=== PATIENT | male | born 1960 | race Hispanic/Latino ===

== ENCOUNTER 2017-08-17 08:11 | Day surgery (SDC) | payer MEDICARE ==
[2017-08-14 16:42] VITALS: BMI 32.2
[~2017-08-17 08:11] MED LIST: Cyclopentolate 1% Opth Drop 2 ML BOT FS SCH; EPINEPHrine 0.3 MG, Dextrose 50% 3 ML in Ophthalmic Irrigation Solution 500 ML FS SCH; Phenylephrine 2.5% Ophth Soln 5 ML BOT FS SCH
[2017-08-17] MEDS ORDERED: Cyclopentolate 1% Opth Drop 2 ML BOT ONE (09:19)
[2017-08-17] MEDS ORDERED: Phenylephrine 2.5% Ophth Soln 5 ML BOT ONE (09:19)
[2017-08-17] MEDS ORDERED: Fentanyl 100 MCG/2 ML VIAL ONE (10:01)
[2017-08-17] MEDS ORDERED: Midazolam HCl 2 mg/2 ml Vial ONE (10:01)
[2017-08-17] MEDS ORDERED: Ondansetron HCl/PF 4 MG/2 ML Vial ONE (10:01)
[2017-08-17] MEDS ORDERED: Diprivan 20 ML ONE (10:02)
--- NOTE | 2017-08-17 11:55 | OP ---
DATE OF PROCEDURE: 08/17/2017 PREOPERATIVE DIAGNOSIS: Tractional retinal detachment, right eye. POSTOPERATIVE DIAGNOSIS: Tractional retinal detachment, right eye. PROCEDURE: Pars plana vitrectomy and retinal detachment repair, right eye. ANESTHESIA: Local with monitored anesthesia care. COMPLICATIONS: None. PROCEDURE IN DETAIL: The patient was identified in the preoperative holding area. [facility] for the planned surgical procedure on the right eye had been obtained. The patient was t ransported to the operative suite. Appropriate cardiopulmonary monitoring was established. Local an esthesia was obtained using retrobulbar and modified Van Lint lid block using 50/50 mixture of 4% lid ocaine and 0.75% bupivacaine. The patient was prepped and draped in usual sterile manner for ophthal bayron surgery. The right eye lid speculum was placed in the right eye. The 25-gauge trocars were plac ed in conjunctiva and sclera supratemporally, inferotemporally, and supranasally. Infusion line was placed inferotemporally. Light pipe and vitreous cutter were inserted into the eye. Core of vitrect jeffery was performed. Attention was turned to areas of traction peripherally. These were elevated usin g end-gripping forceps and the vitreous cutter. All areas of detachment were dissected free. Boudreaux re tinal photocoagulation was placed into all non-macular areas of the retina. No holes, breaks, or tea rs were identified. Trocars were removed and the eye was noted to retain pressure well. Retrobulbar Kenalog and subconjunctival Ancef were placed. Atropine and antibiotic ointment were placed, and th e eye was patched and shielded. The patient was taken to the postoperative recovery unit in good con dition having suffered no immediate perioperative complications. DISCHARGE INSTRUCTIONS: The patient was instructed to keep patch and shield on, avoid lifting or malika ding, and follow up in the morning with Dr. Taylor.
[2017-08-17] MEDS ORDERED: Propofol 200 MG/20 ML VIAL ONE (13:01)
[2017-08-17] MEDS ORDERED: Lidocaine 1% PF 5 ML VIAL ONE (13:01)
== END 2017-08-17 12:23 | disposition home or self-care (01) ==
LOC: SDC 08:11
PROVIDERS: ATTEND Ophthalmology Retina Specialist
PROC: 08T43ZZ Resection of Right Vitreous, Percutaneous Approach (ICD-10-PCS; principal; 2017-08-17)
PROC: 08QE3ZZ Repair Right Retina, Percutaneous Approach (ICD-10-PCS; 2017-08-17)
DX: H33.41 Traction detachment of retina, right eye (principal); E78.5 Hyperlipidemia, unspecified; I10 Essential (primary) hypertension; E11.9 Type 2 diabetes mellitus without complications; Z79.84 Long term (current) use of oral hypoglycemic drugs; Z79.82 Long term (current) use of aspirin; Z79.899 Other long term (current) drug therapy; Z95.1 Presence of aortocoronary bypass graft; Z98.890 Other specified postprocedural states; Z86.73 Personal history of transient ischemic attack (TIA), and cerebral infarction without residual deficits
CPT/HCPCS: J0171; J2250; J2405; J2704; J3010

== ENCOUNTER 2017-12-05 10:21 | Inpatient (IN) | payer MEDICARE ==
[2017-12-05 11:32] LABS: #Basophils 0.1 thou/uL (0.0-0.2); #Eosinphils 0.2 thou/uL (0.0-0.7); #Lymphocytes 1.9 thou/uL (1.20-3.40); #Neutrophils 9.2 thou/uL (1.40-6.50); %Basophils 0.5 % (0.0-1.0); %Eosinophils 1.8 % (0.0-10.0); %Lymphocytes 15.2 % (21.0-51.0); %Monocytes 8.3 % (0.0-10.0); %Neutrophils 74.3 % (42.0-75.0); Hemoglobin 12.6 g/dL (14.0-18.0); Mean Corpuscular HGB CONC 32.9 g/dL (32.0-36.0); Mean Corpuscular Hemoglobin 29.6 pg (27.0-31.0); Mean Corpuscular Volume 89.8 fl (80.0-94.0); Mean Platelet Volume 8.7 fL (7.4-10.4); Platelet Count 222 thou/uL (130-400); RBC Distribution Width 11.9 % (11.5-14.5); Red Blood Cell (RBC) Count 4.25 mill/uL (4.70-6.10); White Blood Cell (WBC) Count 12.4 thou/uL (4.8-10.8)
[2017-12-05 11:48] LABS: ALT (SGPT) 21 U/L (8-55); AST (SGOT) 34 U/L (5-34); Albumin 3.7 g/dL (3.5-5.0); Alkaline Phosphatase 85 U/L (40-150); Anion Gap 10 mmol/L (10-20); BUN (Urea Nitrogen) 26 mg/dL (8.4-25.7); Bilirubin, Total 0.5 mg/dL (0.2-1.2); Calc. Creatinine Clearance 0 mL/min (70-130); Calcium 9.3 mg/dL (7.8-10.44); Carbon Dioxide 20 mmol/L (22-29); Chloride 109 mmol/L (98-107); Estimated GFR-MDRD 30; Globulin 2.9 g/dL (2.4-3.5); Glucose 276 mg/dL (70-105); Potassium 4.6 mmol/L (3.5-5.1); Protein, Total 6.6 g/dL (6.0-8.3); Sodium 134 mmol/L (136-145)
[2017-12-05 11:59] LABS: CKMB 9.8 ng/mL (0-6.6); Troponin I 6.292 ng/mL (< 0.028)
--- NOTE | 2017-12-05 12:45 | CT ---
HEAD CT NONCONTRAST: Comparison: 03-01-17 Indication: Gait abnormality. FINDINGS: Chronic right cerebellar hemispheric cavitary infarction is present. Additional multifocal bilateral cerebellar hemisphere with lacunar infarctions are again seen. There is no intracranial hemorrhage, m ass effect, of midline shift. Parenchymal atrophy with compensatory dilatation of the ventricular sys tem is present. There is mild chronic microvascular ischemic disease. There is mild opacification at inferior left mastoid air cells. IMPRESSION: Stable head CT, without acute intracranial hemorrhage or mass effect. POS: ANNELISE
--- NOTE | 2017-12-05 12:57 | RAD ---
PORTABLE CHEST: HISTORY: Weakness. COMPARISON: 03/01/2017 FINDINGS: Mild cardiomegaly with postop sternotomy change again noted. The lung licea appear clear. No infil trate or vascular congestion noted. IMPRESSION: Mild cardiomegaly. No acute lung process or significant interval change noted. POS: ANNELISE
[2017-12-05] MEDS ORDERED: Enoxaparin Sodium 100 MG/ML SYRINGE ONE (13:09)
[2017-12-05] MEDS ORDERED: Aspirin 325 MG TAB ONE (13:09)
--- NOTE | 2017-12-05 13:32 | PDOC.FPRHP ---
- History of Present Illness Chief Complaint: Gait instability History of Present Illness: 57 year old male with PMH of CAD s/p CABG in 2009, CVA in 2013 with residual left sided deficits, HLD, HTN, DM II that presents with difficulty ambulating. He states that on Monday he noticed that he could not walk without falling over. He has difficulty ambulating at baseline 2/2 several cerebellar infarcts and a intrapontine hemorrhage in the past. He uses a cane to get around. He was unable to maintain his balance even with a cane as of Monday. He states he felt more weak than usual. Patient denies any light-headedness, dizziness, vertigo, or leg pain associated with the worsening gait instability. Patient denies any vision changes, new focal deficits, headache, chest pain or palpitations. Upon inquiring further about patient's CABG, he reports that he had no symptoms at the time he needed that intervention. He has never truly had complaints of chest pain or shortness of breath that required evaluation. Patient states that since his CABG in 2009 he has not followed regularly with a otolaryngology nurse. He does state that at some point there was a discussion about doing a stress test; however, it never got done. He had an echo done in 2016 which showed EF 50-55% with LA enlargement, LVH, and aortic fibrosis. Patient states he takes his medications regularly. He claims that he had not followed in over a year with his PCP, but went in earlier this month for a check up. He states that he has never been out of his medications for more than a week. - Allergies/Adverse Reactions Allergies Allergy/AdvReac Type Severity Reaction Status Date / Time No Known Allergies Allergy Verified 12/05/17 15:38 - Home Medications Medication Instructions Recorded Confirmed Type Aspirin [Aspirin Chewable Tablet] 1 tab PO DAILY 06/30/16 12/05/17 History Lisinopril [Zestril] 1 tab PO DAILY 06/30/16 12/05/17 History metFORMIN HCl [Metformin HCl ER] 1 tab PO BID 06/30/16 12/05/17 History Atorvastatin Calcium 80 mg PO HS 12/05/17 12/05/17 History Fenofibrate Nanocrystallized 145 mg PO TID-WM 12/05/17 12/05/17 History [Fenofibrate] amLODIPine Besylate [Norvasc] 2.5 mg PO DAILY 12/05/17 12/05/17 History glipiZIDE [Glucotrol] 10 mg PO BID 12/05/17 12/05/17 History - History PMHx: CAD s/p CABG 2009, Posterior cerebellar CVA's, History of intrapontine hemorrhage, HTN, DM type II, Tobacco abuse, HLD PSHx: CABG 2009, Right arm surgery, Left ankle surgery, Retinal detachment repair FHx: Mother and father with CAD at 58 and 60 years old, respectively Social: Patient endorses smoking 5-6 cigarettes a day since August. Prior to August he was smoking 1 PPD for 8-9 years. He endorses occasional alcohol use , but nothing daily. He denies any drug use. - Review of Systems General: denies: fever/chills, weight/appetite/sleep changes, night sweats, fatigue Eyes: denies: eye pain, vision changes ENT: denies: nasal congestion, rhinorrhea Respiratory: denies: cough, congestion, shortness of breath Cardiovascular: denies: chest pain, palpitation, edema, paroxysmal nocturnal dyspnea, orthopnea Gastrointestinal: denies: nausea, vomiting, diarrhea, constipation, abdominal pain Genitourinary: denies: incontinence, dysuria, polyuria Skin: denies: rashes, lesions, jaundice Musculoskeletal: denies: pain, tenderness, stiffness, swelling Neurological: reports: weakness. denies: numbness, syncope, seizure Psychological: denies: anxiety - Vital signs BP: 150/88 HR: 78 RR: 17 Tmax: 98.1 F Pox: 95% on RA Wt: 90.72 kg - Physical Exam Constitutional: NAD, awake, alert and oriented, well developed HEENT: normocephalic and atraumatic, PERRLA, EOMI, conjunctiva clear, no scleral icterus, grossly normal vision, grossly normal hearing, MMM, oropharynx clear, good dention Neck: supple, trachea midline Heart: RRR, normal S1/S2, no murmurs/rubs/gallops, pulses present, no edema Lungs: CTAB, no respiratory distress, good air movement, no rales/rhonchi, no wheezing, no retractions Abdomen: soft, non-tender, bowel sounds present, no masses/distention Musculoskeletal: normal structure, normal tone, ROM grossly normal Neurological: no focal deficit, CN II-XII intact, normal sensation Skin: no rash/lesions, good turgor, capillary refill <2 seconds Heme/Lymphatic: no unusual bruising or bleeding, no purpura, no petechia, no LAD Psychiatric: normal mood and affect, good judgment and insight, intact recent and remote memory FMR H&P: Results - Labs Result Diagrams: 12/05/17 15:40 12/05/17 11:14 Lab results: WBC 12.4 thou/uL (4.8-10.8) H 12/05/17 11:14 Hgb 12.6 g/dL (14.0-18.0) L 12/05/17 11:14 Hct 38.2 % (42.0-52.0) L 12/05/17 11:14 MCV 89.8 fl (80.0-94.0) 12/05/17 11:14 Plt Count 222 thou/uL (130-400) 12/05/17 11:14 Neutrophils % 74.3 % (42.0-75.0) 12/05/17 11:14 Sodium 134 mmol/L (136-145) L 12/05/17 11:14 Potassium 4.6 mmol/L (3.5-5.1) 12/05/17 11:14 Chloride 109 mmol/L (98-107) H 12/05/17 11:14 Carbon Dioxide 20 mmol/L (22-29) L 12/05/17 11:14 BUN 26 mg/dL (8.4-25.7) H 12/05/17 11:14 Creatinine 2.30 mg/dL (0.6-1.3) H 12/05/17 11:14 Glucose 276 mg/dL (70-105) H 12/05/17 11:14 Calcium 9.3 mg/dL (7.8-10.44) 12/05/17 11:14 Total Bilirubin 0.5 mg/dL (0.2-1.2) 12/05/17 11:14 AST 34 U/L (5-34) 12/05/17 11:14 ALT 21 U/L (8-55) 12/05/17 11:14 Alkaline Phosphatase 85 U/L (40-150) 12/05/17 11:14 CK-MB (CK-2) 9.8 ng/mL (0-6.6) H* 12/05/17 11:19 Serum Total Protein 6.6 g/dL (6.0-8.3) 12/05/17 11:14 Albumin 3.7 g/dL (3.5-5.0) 12/05/17 11:14 - Radiology Interpretation CT scan - head Status: image reviewed by me, report reviewed by me Additional comment: Stable findings. Shows chronic cerebellar infarcts and evidence of ischemia. Chest x-ray Status: image reviewed by me, report reviewed by me Additional comment: Mild cardiomegaly. No acute processes. FMR H&P: A/P - Problem List (1) NSTEMI (non-ST elevated myocardial infarction) Current Visit: Yes Status: Acute Code(s): I21.4 - NON-ST ELEVATION (NSTEMI) MYOCARDIAL INFARCTION (2) Ataxic gait Current Visit: Yes Status: Acute Code(s): R26.0 - ATAXIC GAIT (3) CAD (coronary artery disease) Current Visit: No Status: Chronic Code(s): I25.10 - ATHSCL HEART DISEASE OF [place] CORONARY ARTERY W/O ANG PCTRS Comment: s/p CABG X3 per pt in 2009 (4) Cerebellar lesion Current Visit: No Status: Chronic Code(s): G93.9 - DISORDER OF BRAIN, UNSPECIFIED (5) DM2 (diabetes mellitus, type 2) Current Visit: No Status: Chronic (6) HLD (hyperlipidemia) Current Visit: No Status: Chronic Code(s): E78.5 - HYPERLIPIDEMIA, UNSPECIFIED (7) HTN (hypertension) Current Visit: No Status: Chronic Code(s): I10 - ESSENTIAL (PRIMARY) HYPERTENSION - Plan NSTEMI: - Hx of CAD s/p CABG 2009 with poor cardiology follow up - Pt without symptoms with prior cardiac events - Trop 6.2 --> 7 - Cardiology consulted; appreciate recs - Plans for cardiac cath in AM - NS @ 125 ml/hr; NPO @ MN - Given lovenox injection x1; will hold additional lovenox/heparin for AM procedure - Continue to trend CE's - Monitor on telemetry CAD s/p CABG - Continue home medications - Start BB Ataxic gait - Worsened from baseline; difficulties ambulating at baseline 2/2 cerebellar strokes - q4h neuro checks - Consider diffusion weighted MRI once cardiac workup complete - Uses cane to ambulate - Fall precautions DM type II - Continue home medications - ACHS accuchecks - CC diet - Mild SSI - Anticipate pt needing insulin upon discharge; will titrate insulin regimen during hospitalization HTN - Continue home medications - Hold amlodipine and start carvedilol - Hold MONTRELL-I due to kidney function - Monitor BP - Allow for permissive HTN in first 24 hours HLD - Continue home medications Hx CVA - Continue home medications - q4h neuro checks due to recent symptoms Dispo: Admit to telemetry. Cards consulted. Plans for cardiac cath in AM. LOS > 48 hours. CODE STATUS: FULL DVT PPX: Lovenox x1; SCDs in preparation for procedure FMR H&P: Upper Level - Pertinent history Code Status: Full 57M presenting to ED with generalized weakness for the last 3 days. He feels his gait is altered during this time period as well. He has an abnormal gait at baseline 2/2 to a prior intrapontine hemorrhagic CVA which requires the use of a cane for ambulation. Very mild left sided residual weakness from CVA. He denies any vertigo or syncope associated with the weakness. CT head was negative for hemorrhage. Work up in ED revealed grossly elevated troponin. He denies any CP, SOB, exertional dypnea, headaches, changes in vision. History of CAD s/p CABG in 2009. Patient has numerous other comorbidities including HTN, HLD, and DMII. - Pertinent findings Vitals: stable upon evaluation in ER; see safety intern note - Plan Date/Time: 12/05/17 1331 I, [], have evaluated this patient and agree with findings/plan as outlined by safety intern resident. Pertinent changes/additions are listed here. Attending Addendum - Attending Addendum Date/Time: 12/05/17 [id number] I personally evaluated the patient and discussed the management with Dr. Waldrop I agree with the History, Examination, Assessment and Plan documented above with any addition or exceptions noted below Briefly this is a 57 year old male with a h/o CAD s/p CABG in 2009 , DM, HTN, CVA with residual left sided weakness presented with increased gait instability. Patient denies any vertigo. States that he just felt unsteady and had to hold on to the wall of furniture to walk around, States that symptoms began on Monday. Denies any chest pain, SOB , diaphoresis, CASAS, visual disturbances. PMH/PSH/Meds/All/SH reviewwed and agree with residents documentation. Afenrile VSS Exam repeated by me and agree with residents findings. Labs: Cr=2.3 troponin= 6.2 and 7.6. EKG- NSR, no ST changes. A/P: 1) NSTEMI- cardiology consulted, plan for cardiac cath in AM. 2) Acute in chronic CKD- IVF obvernight and repat labs in am. 3) DM- monijtor accuchecks and use SDI; adjust meds as needed. 4) HTN- stable; continue home meds
[2017-12-05 15:01] LABS: Troponin I 7.664 ng/mL (< 0.028)
[2017-12-05] MEDS ORDERED: Acetaminophen 325 MG TAB PO PRN (15:30)
[2017-12-05] MEDS ORDERED: Heparin 10,000 UNITS/ 10 ML VIAL SLOW IVP SCH (15:30)
[2017-12-05] MEDS ORDERED: Ondansetron HCl/PF 4 MG/2 ML Vial IVP PRN (15:30)
[2017-12-05] MEDS ORDERED: Dextrose 5% in Water 1,000 ML IV PRN (15:30)
[2017-12-05] MEDS ORDERED: Dextrose 50% Abboject 50 ML SYRINGE SLOW IVP PRN (15:30)
[2017-12-05] MEDS ORDERED: Ondansetron ODT 4 MG TAB PO PRN (15:30)
[2017-12-05 15:42] VITALS: BMI 31.0
[2017-12-05 15:47] LABS: Hemoglobin 12.1 g/dL (14.0-18.0); Platelet Count 235 thou/uL (130-400)
[2017-12-05] MEDS ORDERED: Fenofibrate Nanocrystallized 145 MG TAB PO SCH (17:00)
[2017-12-05] MEDS ORDERED: Sodium Chloride 0.9% 1,000 ML IV SCH (17:00)
[2017-12-05] MEDS ORDERED: Carvedilol 3.125 MG TAB PO SCH (17:00)
[2017-12-05] MEDS: Carvedilol 6.25 MG TAB PO SCH (17:17)
[2017-12-05] MEDS ORDERED: Communication Order-Pharmacy FS SCH (18:00)
[2017-12-05 18:17] LABS: Troponin I 8.019 ng/mL (< 0.028)
--- NOTE | 2017-12-05 19:07 | PDOC.EVN ---
Event Note - Event Note Event Note: General: NAD, A&Ox3, well developed HEENT: NC/AT, PERRLA, EOMI, conjunctiva clear, no scleral icterus, MMM Neck: supple, trachea midline Heart: RRR, normal S1/S2, no murmurs/rubs/gallops, pulses present, no edema Lungs: CTAB, no respiratory distress, good air movement, no rales/rhonchi, no wheezing, no retractions Abdomen: soft, non-tender, bowel sounds present, no masses/distention Musculoskeletal: normal structure, normal tone, ROM grossly normal Neurological: no focal deficit, CN II-XII intact, normal sensation Skin: no rash/lesions, good turgor, capillary refill <2 seconds Heme/Lymphatic: no unusual bruising or bleeding, no purpura, no petechia, no LAD Psychiatric: normal mood and affect, good judgment and insight, intact recent and remote memory A/P: 1. NSTEMI: - Asympomatic but history of CAD s/p CABG 2009 - Trop 6.2 --> 7, continue to trend - Cardiology consulted - Plans for cardiac cath in AM - Given lovenox injection x1; will hold additional lovenox/heparin for AM procedure 2. CAD - Continue home medications - Start BB 3. Abnormal gait - Spoke with PCP and this appears to be his baseline; difficulties ambulating at baseline 2/2 cerebellar strokes - q4h neuro checks - Consider diffusion weighted MRI once cardiac workup complete 4. DM type II - Continue home medications - accuchecks qACHS; mild SSI - Anticipate pt needing insulin upon discharge; will titrate insulin regimen during hospitalization 5. HTN - Continue home medications - Hold amlodipine and start carvedilol - Hold MONTRELL-I due to kidney function - Monitor BP - Allow for permissive HTN in first 24 hours 6. HLD - Continue home medications
--- NOTE | 2017-12-05 19:14 | CON ---
DATE OF CONSULTATION: 12/05/2017 REASON FOR CONSULTATION: Elevated troponin. 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 Elijah Pichardo. HISTORY OF PRESENT ILLNESS: Mr. Sanon is a very pleasant 57-year-old gentleman who recently presented with dizziness and lightheadedness. Please see full consultation by Dr. Briana Alicea. No chest pain o r pressure noted. No other associated ameliorating or exacerbating factors present. He presented wi th a troponin of 6, which was certainly felt to be abnormal. Patient has had a history of bypass surgery x4 in 2009. He moved to [place] and has now returned to the area. He was last seen by Dr. Pichardo 9 months ago. Patient also has no previous history of unde rlying chronic kidney disease. His creatinine was also elevated upon arrival. Pertinent positives i nclude a CVA, diabetes mellitus, tobacco abuse, and hypertension. Most recent echo has been with LVEF 50%-55% in 2016. PHYSICAL EXAMINATION: GENERAL: Patient is a pleasant male/female who is in no acute distress. The patient appears his/her stated age. VITAL SIGNS: Blood pressure 142/76, pulse 76, temperature 98.2. NEUROLOGIC: The patient is alert and oriented times 3 with no focal neurologic deficits. HEENT: Sclerae without icterus. Mouth has moist mucous membranes with normal pallor. NECK: No JVD. Carotid upstroke brisk. No bruits bilaterally. LUNGS: Clear to auscultation with unlabored respirations. BACK: No scoliosis or kyphosis. CARDIAC: Regular rate and rhythm with normal S1 and S2. No S3 or S4 noted. No significant rubs, mu rmurs, thrills, or gallops noted throughout the precordium. PMI is not displaced. There is no lilia ternal heave. ABDOMEN: Soft, nontender, nondistended. No peritoneal signs present. No hepatosplenomegaly. No ab normal striae. EXTREMITIES: 2+ femoral and 2+ dorsalis pedis pulses. No cyanosis, clubbing, or edema. SKIN: No gross abnormalities. PERTINENT LABORATORY DATA: Peak troponin 7.6 with a peak MB of 9.2, creatinine 2.3, hemoglobin 12.1. EKG: Normal sinus rhythm with ST-T wave changes suggesting ischemia, inferior infarct, age old. W hen compared to previous EKG, no significant changes. IMPRESSION: 1. Non-Q wave myocardial infarction. 2. Coronary artery disease. 3. Status post blood pressure. 4. Diabetes mellitus. 5. Tobacco abuse. RECOMMENDATIONS: Mr. Sanon's symptoms are certainly atypical. No chest pain or pressure noted. No sh ortness of breath. At this point, I would recommend coronary angiography with possible PCI to readdr ess his anatomy. I discussed the procedure in full detail with Mr. Sanon. The risks of the procedure were also discussed. The risks of the procedure include but are not limited to the following: , stroke, [place], need for emergency surgery, loss of limb, bleeding, and infection, as well as a reactio n to the dye causing kidney failure and needing long-term dialysis. I also discussed the risks of PC I to include all of the above including coronary dissection and perforation in addition to acute sten t thrombosis and restenosis. All questions about the procedure were answered. Given the above, the patient agreed to proceed with coronary angiography and possible PCI. All questions were answered. Given the above, the patient agreed to proceed with the above procedure . He has been given 1 dose of Lovenox. Otherwise, I have no recommendations.
[2017-12-05 19:51] LABS: PTT 35.4 SEC (22.9-36.1)
[2017-12-05] MEDS ORDERED: glipiZIDE 10 MG TAB PO SCH (21:00)
--- NOTE | 2017-12-05 21:15 | CON-2 ---
DATE OF CONSULTATION: 12/05/2017 CARDIOLOGY CONSULTATION NOTE RESIDENT: Briana Alicea M.D. ATTENDING FURNACE FILLER: Ranjith Pedersen M.D. CHIEF COMPLAINT: Unsteadiness. HISTORY OF PRESENT ILLNESS: Mr. Sanon is a 57-year-old gentleman with history of coronary artery disea se, cerebellar CVA, poorly controlled diabetes, hypertension, and hyperlipidemia who presented to the ER earlier today with chief complaint of feeling unsteady. He reports that his symptoms started on Monday and he noted them when he was going on to his yard. He usually uses a cane for steadiness whe n he goes out to the store, but at home he is able to ambulate without one. He reports that he was n oticing he was needing to hold on to things as he was walking to and from the bathroom and working in his yard. He denies any chest pain, shortness of breath, nausea, vomiting, diarrhea, fever, chills, but did note that his blood sugar was running high on Monday and Monday. He states that he came in because his felt he needed to be evaluated. At this time, he denies any current symptoms apart from still feeling a little bit woozy and continues to deny any coronary complaints. REVIEW OF SYSTEMS: General: Denies fever or chills. Head: Denies headache, trauma. Eyes: Denies vision changes or eye pain. ENT: Denies rhinorrhea, sore throat. Cardiovascular: Denies chest pa in, palpitations. Respiratory: Denies cough or wheezing. Gastrointestinal: Denies nausea, vomitin g, diarrhea. Genitourinary: Denies dysuria or hematuria. Extremities: Denies cyanosis or edema. PAST MEDICAL HISTORY: 1. Coronary artery disease, status post 3-vessel CABG in 2009. 2. CVA with residual unsteadiness and intermittently uses cane to ambulate. 3. Poorly controlled type 2 diabetes mellitus. 4. Hypertension. 5. Hyperlipidemia. 6. Chronic kidney disease stage 3. PAST SURGICAL HISTORY: 1. CABG in 2009. 2. Retinal detachment repair in 2018. 3. Right arm surgery. 4. Left ankle surgery. MEDICATIONS: 1. Aspirin 81 mg p.o. daily. 2. Metformin 1000 mg p.o. daily. 3. Glipizide 10 mg every day. 4. Atorvastatin 80 mg p.o. at bedtime. 5. Lisinopril 20 mg p.o. daily. 6. Amlodipine 5 mg p.o. daily. 7. Fenofibrate 145 mg p.o. daily. FAMILY HISTORY: Mother and father both of [place] in their late 50s. ALLERGIES: No known drug allergies. SOCIAL HISTORY: One pack per day smoker for the last 8-9 years and recently cut down to half pack a day, social alcohol drinker 3-4 beers once a week. Denies any illicit drug use. IMAGING: EKG: Showed normal sinus rhythm with a ventricular rate of 81 beats per minutes with possi ble old inferior infarct. Echo in 2016 showed a left ventricular ejection fraction of 50%-55%, left ventricular hypertrophy, le ft atrial enlargement, aortic fibrosis, and mild mitral regurgitation. Chest x-ray showed cardiomegaly and sternotomy wires. CT of the head showed chronic ischemic changes. PHYSICAL EXAMINATION: VITAL SIGNS: Blood pressure 142/76, temperature 98.2, pulse 76, respirations 18, O2 96% on room air. GENERAL: Alert and oriented x3. Speech is slightly slurred, which patient reports is chronic. HEENT: Extraocular movements intact. No conjunctival injection. CARDIOVASCULAR: Regular rate and rhythm, no murmurs noted. No carotid bruits auscultated. RESPIRATORY: Lungs are clear to auscultation bilaterally. CHEST: Well-healed midline sternotomy scar. ABDOMEN: Soft, nontender, nondistended. Bowel sounds present. EXTREMITIES: Strength is 5/5 in all extremities. Pulses 1+ throughout. LABORATORY DATA: WBC 12.4, hemoglobin 12.6, hematocrit 38.2, platelets 222. Sodium 134, potassium 4 .6, chloride 109, CO2 20, BUN 26, creatinine 2.3, glucose 276, troponin 6.292, 7.664, CK-MB 9.8. AST 34, ALT 21, alkaline phosphatase 85, T-bilirubin 0.5, calcium 9.3, total protein 6.6 and albumin 3.7 . ASSESSMENT AND PLAN: A 57-year-old male with known coronary artery disease who presents with dizzine ss, found to have elevated troponin. 1. Mdt-RC-[id number] elevation myocardial infarction: Status post therapeutic Lovenox at approximately 1:00 p.m. We will hold further anticoagulation. Plan for repeat catheterization in the morning. W e will obtain echo 2. With acute kidney injury on chronic kidney disease. We will also give fluids overnight in antici pation of contrast in the morning. The risks were discussed with the patient and his and they a gree to proceed. 2. Hypertension. We will recommend holding MONTRELL inhibitor overnight until after catheterization and repeat studies for good kidney function in the morning. 3. Chronic kidney disease: Please obtain repeat basic metabolic panel in the morning. Thank you very much for this consultation. Please see Dr. Pedersen's addendum for any further recom mendations.
[2017-12-05] MEDS: Atorvastatin Calcium 40 MG TAB PO SCH (21:19)
[2017-12-06] MEDS ORDERED: Heparin 25,000 units/D5W 500 ML IVPB SCH (01:00)
[2017-12-06] MEDS ORDERED: Labetalol HCl 100 MG/20 ML VIAL SLOW IVP PRN (05:09)
[2017-12-06] MEDS: Sodium Chloride 0.9% 1,000 ML IV SCH ×2 (05:27→18:16)
[2017-12-06 05:41] LABS: #Basophils 0.1 thou/uL (0.0-0.2); #Eosinphils 0.3 thou/uL (0.0-0.7); #Lymphocytes 2.5 thou/uL (1.20-3.40); #Neutrophils 5.6 thou/uL (1.40-6.50); %Basophils 0.8 % (0.0-1.0); %Eosinophils 2.9 % (0.0-10.0); %Lymphocytes 26.8 % (21.0-51.0); %Monocytes 10.2 % (0.0-10.0); %Neutrophils 59.3 % (42.0-75.0); Hemoglobin 11.8 g/dL (14.0-18.0); Mean Corpuscular HGB CONC 34.9 g/dL (32.0-36.0); Mean Corpuscular Hemoglobin 31.3 pg (27.0-31.0); Mean Corpuscular Volume 89.7 fl (80.0-94.0); Mean Platelet Volume 8.3 fL (7.4-10.4); Platelet Count 232 thou/uL (130-400); RBC Distribution Width 11.8 % (11.5-14.5); Red Blood Cell (RBC) Count 3.79 mill/uL (4.70-6.10); White Blood Cell (WBC) Count 9.5 thou/uL (4.8-10.8)
[2017-12-06] MEDS ORDERED: Diazepam 5 MG TAB PO SCH (06:00)
[2017-12-06 06:13] LABS: Anion Gap 10 mmol/L (10-20); BUN (Urea Nitrogen) 23 mg/dL (8.4-25.7); Calc. Creatinine Clearance 52 mL/min (70-130); Calcium 8.9 mg/dL (7.8-10.44); Carbon Dioxide 24 mmol/L (22-29); Chloride 107 mmol/L (98-107); Estimated GFR-MDRD 35; Glucose 280 mg/dL (70-105); Potassium 4.5 mmol/L (3.5-5.1); Sodium 136 mmol/L (136-145)
[2017-12-06 06:45] LABS: Critical Call Chem Troponin I RESULT DECREASING; Troponin I 5.314 ng/mL (< 0.028)
--- NOTE | 2017-12-06 07:02 | PDOC.FM ---
- Subjective Subjective: Patient doing well this AM. No significant overnight events. Patient denies chest pain, shortness of breath, headaches, or palpitations. He has been working with PT and states he is still having gait instability that is worse from baseline. Pt concerned about cardiac cath he is going to have done this morning. Answered several questions regarding procedure. Advised patient to speak with cardiology regarding specific questions. He has noted his BP to be high. He did not take any of his BP medications yesterday, and we have been holding many of his medications here due to nephrotoxic effects. - Objective MAR Reviewed: Yes Vital Signs & Weight: Vital Signs (12 hours) Temp Pulse Resp BP Pulse Ox 12/06/17 05:48 61 12/06/17 04:00 98.0 F 73 20 193/88 H 98 12/06/17 00:11 98.4 F 72 16 186/87 H 91 L 12/05/17 20:00 98.2 F 76 18 97 12/05/17 19:38 97 I&O: 12/05/17 12/06/17 12/07/17 06:59 06:59 06:59 Intake Total 845 Output Total 450 Balance 395 Result Diagrams: 12/06/17 05:16 12/06/17 05:16 EKG Reviewed by me: Yes Radiology Reviewed by me: Yes <Matrina Waldrop - Last Filed: 12/06/17 08:44> - Objective Vital Signs & Weight: Vital Signs (12 hours) Temp Pulse Pulse Pulse Resp BP BP 12/06/17 10:08 181/98 H 12/06/17 07:56 72 64 169/81 H 12/06/17 05:48 61 12/06/17 04:00 98.0 F 73 20 BP BP Pulse Ox Pulse Ox Pulse Ox 12/06/17 10:08 12/06/17 07:56 151/72 H 98 96 12/06/17 05:48 12/06/17 04:00 193/88 H 98 Weight Admit Weight 89.811 kg Weight 89.811 kg I&O: 12/05/17 12/06/17 12/07/17 06:59 06:59 06:59 Intake Total 845 Output Total 450 Balance 395 Result Diagrams: 12/06/17 05:16 12/06/17 05:16 <Efe Owens - Last Filed: 12/06/17 15:25> Phys Exam - Physical Examination Constitutional: NAD HEENT: moist MMs, sclera anicteric Neck: supple Respiratory: no wheezing, clear to auscultation bilateral Cardiovascular: RRR, no significant murmur Gastrointestinal: soft, non-tender, no distention, positive bowel sounds Musculoskeletal: no edema, pulses present Neurological: non-focal, moves all 4 limbs Psychiatric: normal affect, A&O x 3 Skin: no rash, cap refill <2 seconds <Martina Waldrop - Last Filed: 12/06/17 08:44> Dx/Plan (1) NSTEMI (non-ST elevated myocardial infarction) Code(s): I21.4 - NON-ST ELEVATION (NSTEMI) MYOCARDIAL INFARCTION Status: Acute (2) Ataxic gait Code(s): R26.0 - ATAXIC GAIT Status: Acute (3) CAD (coronary artery disease) Code(s): I25.10 - ATHSCL HEART DISEASE OF [place] CORONARY ARTERY W/O ANG PCTRS Status: Chronic (4) Cerebellar lesion Code(s): G93.9 - DISORDER OF BRAIN, UNSPECIFIED Status: Chronic (5) DM2 (diabetes mellitus, type 2) Status: Chronic (6) HLD (hyperlipidemia) Code(s): E78.5 - HYPERLIPIDEMIA, UNSPECIFIED Status: Chronic (7) HTN (hypertension) Code(s): I10 - ESSENTIAL (PRIMARY) HYPERTENSION Status: Chronic - Plan Plan: NSTEMI/ Non-Q wave [place]: - Hx of CAD s/p CABG 2009 with poor cardiology follow up - Pt without symptoms with prior cardiac events - Trop 6.2 --> 7--> 8 --> 5 - Cardiology consulted; appreciate recs - Plans for cardiac cath this AM - NS @ 125 ml/hr; NPO - Given th lovenox injection x1; will hold additional lovenox/heparin for AM procedure per cardiology recs - Monitor on telemetry CAD s/p CABG - Continue home medications - Start BB Ataxic gait - Worsened from baseline; difficulties ambulating at baseline 2/2 cerebellar strokes - q4h neuro checks - Consider diffusion weighted MRI once cardiac workup complete - Uses cane to ambulate - Fall precautions DM type II - Continue home medications - ACHS accuchecks - CC diet - Mild SSI - Anticipate pt needing insulin upon discharge; will titrate insulin regimen during hospitalization - Pt has not received any SSI for some reason despite elevated BG; will start with nighttime insulin at 0.2 units/kg HTN - Continue home medications - Hold amlodipine and start carvedilol - Hold MONTRELL-I due to kidney function - Monitor BP - Allow for permissive HTN in first 24 hours - Labetolol PRN until after procedure - Will titrate medications during hospitalization HLD - Continue home medications Hx CVA - Continue home medications - q4h neuro checks due to recent symptoms Dispo: Admit to telemetry. Cards consulted. Plans for cardiac cath in AM. LOS > 48 hours. CODE STATUS: FULL DVT PPX: Th lovenox x1; SCDs in preparation for procedure per cardiology recs <Martina Waldrop - Last Filed: 12/06/17 08:44> Attending Addendum - Attending Addendum Date/Time: 12/06/17 8177 I personally evaluated the patient and discussed the management with Dr. Waldrop and team. I agree with and repeated the History, Examination, Assessment and Plan documented above with any addition or exceptions noted below. Has had worse coordination and more slurring of speech as described in HPI. Mild dyscordination LLE > RLE, with decreased SLT in LLE. Hypertonic LLE. Slurs speech on exam. Await MRI and cardiology recommendations. Risk factor management. Permissive hypertension for now, may need to consult neuro pending results. <Efe Owens - Last Filed: 12/06/17 15:25>
[2017-12-06] MEDS ORDERED: Lisinopril 20 MG TAB PO SCH (09:00)
[2017-12-06] MEDS: Carvedilol 6.25 MG TAB PO SCH ×2 (10:08→18:16)
[2017-12-06] MEDS: HumaLOG 300 UNITS/3 ML VIAL SC PRN ×2 (10:09→18:17)
--- NOTE | 2017-12-06 12:42 | PDOC.CTH ---
Cardiology Progress Note - Subjective No chest pain, tightness ,pressure, SOB. His main complaint is gait imbalance worsening and mild difficulty with speech today. - Objective Vital Signs Temp Pulse Resp BP BP Pulse Ox 12/06/17 10:08 181/98 H 12/06/17 05:48 61 12/06/17 04:00 98.0 F 73 20 193/88 H 98 Admit Weight 198 lb Weight 198 lb 12/05/17 12/06/17 12/07/17 06:59 06:59 06:59 Intake Total 845 Output Total 450 Balance 395 - Physical Examination General/Neuro: alert & oriented x3, NAD Neck: no JVD present Lungs: CTA, unlabored respirations Heart: RRR Abdomen: NT/ND Extremities: + edema B (trace) - Telemetry Telemetry Rhythm: NSR - Labs Result Diagrams: 12/06/17 05:16 12/06/17 05:16 Troponin/CKMB CK-MB (CK-2) 5.0 ng/mL (0-6.6) 12/06/17 05:15 Troponin I 5.314 ng/mL (< 0.028) H* 12/06/17 05:15 - Assessment/Plan 1. NSTEMI 2. Possible acute CVA 3. CAD s/p CABG in the past 4. Non compliance. 5. DENYS on CKD. PLAN: - Would wait on any [facility] until MRI brain done to make sure this is not a recurrence of his CVA. - If MRI shows no acute issues then will proceed with [facility] tomorrow or [place]. - Continue IV fluids for now due to elevated creatinine. - We spoke about risks and benefits of procedure and he agrees to proceed, higher risk of contrast nephropathy due to underlying renal dysfunction which has already progressed from last evaluation.
--- NOTE | 2017-12-06 14:25 | MRI ---
MRI BRAIN WITHOUT CONTRAST: HISTORY: Concern for cerebellar infarct. COMPARISON: CT brain prior day. FINDINGS: In the right [place] is a focal lentiform area of diffusion restriction with decreased signal and diffus ion weighted imaging sequence. This is in the territory of the basilar artery. No other abnormal areas of diffusion restriction are appreciated. On the susceptibility weighted imaging, there were no abnormal areas of hemorrhage. No hydrocephalus. The flow voids of the [place] are maintained. Mild microvascular ischemic changes. IMPRESSION: Very small acute infarction involving the right [place] in the expected location of the branches of the basilar artery. No significant hemorrhage. POS: ANNELISE
[2017-12-06] MEDS ORDERED: Heparin 5,000 UNITS/ML VIAL SC SCH (19:45)
[2017-12-06] MEDS: Atorvastatin Calcium 40 MG TAB PO SCH (21:19)
[2017-12-06] MEDS: Enoxaparin Sodium 100 MG/ML SYRINGE SC SCH (21:20)
[2017-12-07] MEDS: Sodium Chloride 0.9% 1,000 ML IV SCH ×2 (01:31→14:46)
--- NOTE | 2017-12-07 09:05 | PDOC.FM ---
- Subjective Subjective: Patient doing well this AM. No significant overnight events. Discussed finding of acute stroke. Discussed need to manage comorbid conditions to include BP and DM. Patient has been given SSI while in hospital. Will titrate insulin for patient to take at home. Patient currently being anticoagulated. He was told that neurology will likely see him tomorrow. - Objective MAR Reviewed: Yes Vital Signs & Weight: Vital Signs (12 hours) Temp Pulse Resp BP Pulse Ox 12/07/17 04:00 97.4 F L 69 20 168/81 H 98 12/07/17 00:00 68 18 114/57 L 100 Weight Admit Weight 89.811 kg Weight 90.718 kg I&O: 12/06/17 12/07/17 12/08/17 06:59 06:59 06:59 Intake Total 845 2775 Output Total 450 550 Balance 395 2225 Result Diagrams: 12/06/17 05:16 12/06/17 05:16 EKG Reviewed by me: Yes Radiology Reviewed by me: Yes <Martina Waldrop - Last Filed: 12/07/17 09:04> - Objective Vital Signs & Weight: Vital Signs (12 hours) Temp Pulse Pulse Resp BP BP BP 12/07/17 10:07 76 137/68 12/07/17 09:56 137/68 12/07/17 09:16 75 166/81 H 164/87 H 12/07/17 08:00 98.0 F 76 18 12/07/17 04:00 97.4 F L 69 20 BP Pulse Ox 12/07/17 10:07 12/07/17 09:56 12/07/17 09:16 12/07/17 08:00 164/80 H 95 12/07/17 04:00 168/81 H 98 Weight Admit Weight 89.811 kg Weight 90.718 kg I&O: 12/06/17 12/07/17 12/08/17 06:59 06:59 06:59 Intake Total 845 2775 Output Total 450 550 Balance 395 2225 Result Diagrams: 12/06/17 05:16 12/07/17 09:42 <Harley Jimenes - Last Filed: 12/07/17 12:15> Phys Exam - Physical Examination Constitutional: NAD HEENT: moist MMs, sclera anicteric slightly slurred speech Neck: supple Respiratory: no wheezing, clear to auscultation bilateral Cardiovascular: RRR, no significant murmur Gastrointestinal: soft, positive bowel sounds Musculoskeletal: no edema, pulses present Neurological: non-focal, moves all 4 limbs Psychiatric: normal affect, A&O x 3 Skin: no rash, cap refill <2 seconds <Martina Waldrop - Last Filed: 12/07/17 09:04> Dx/Plan (1) NSTEMI (non-ST elevated myocardial infarction) Code(s): I21.4 - NON-ST ELEVATION (NSTEMI) MYOCARDIAL INFARCTION Status: Acute (2) Ataxic gait Code(s): R26.0 - ATAXIC GAIT Status: Acute (3) CAD (coronary artery disease) Code(s): I25.10 - ATHSCL HEART DISEASE OF [place] CORONARY ARTERY W/O ANG PCTRS Status: Chronic (4) Cerebellar lesion Code(s): G93.9 - DISORDER OF BRAIN, UNSPECIFIED Status: Chronic (5) DM2 (diabetes mellitus, type 2) Status: Chronic (6) HLD (hyperlipidemia) Code(s): E78.5 - HYPERLIPIDEMIA, UNSPECIFIED Status: Chronic (7) HTN (hypertension) Code(s): I10 - ESSENTIAL (PRIMARY) HYPERTENSION Status: Chronic - Plan Plan: Acute CVA in [place] - Transfer to stroke unit - Seen on MRI of brain - Continue PT/OT - Continue statin, ASA - Patient may need to be started on clopidogrel outpatient - Awaiting neuro recs - q4h neuro checks - Pt started on therapeutic lovenox NSTEMI/ Non-Q wave [place]: - Hx of CAD s/p CABG 2009 with poor cardiology follow up - Pt without symptoms with prior cardiac events - Trop 6.2 --> 7--> 8 --> 5 - Cardiology consulted; appreciate recs - Plans for cardiac cath this AM - NS @ 1oo ml/hr - MRI of brain showed acute stroke in [place]; unsure if primary stroke or from clotted veins in heart - Monitor on telemetry - Pt started on therapeutic anticoagulation renally dosed - Transfer to stroke unit CAD s/p CABG - Continue home medications - Start BB Ataxic gait, likely 2/2 distant and recent CVA's - Worsened from baseline; difficulties ambulating at baseline 2/2 cerebellar strokes - q4h neuro checks - Acute CVA of [place] noted on MRI brain - Uses cane to ambulate - Fall precautions DM type II - Continue home medications - ACHS accuchecks - CC diet - Mild SSI - Required 9 units SSI yesterday with BG ranging from 216-315 - Will consider starting with nighttime insulin at 0.2 units/kg HTN - Continue home medications - Started BB (carvedilol) - Hold MONTRELL-I due to kidney function - Monitor BP - Labetolol PRN - Will titrate medications during hospitalization HLD - Continue home medications Hx CVA - Continue home medications - q4h neuro checks due to recent symptoms Dispo: Transfer to stroke unit. Cards and neuro consulted. Plan for pt to be seen by neuro tmrw. CODE STATUS: FULL DVT PPX: Th lovenox renally dosed <Martina Waldrop - Last Filed: 12/07/17 09:04> Attending Addendum - Attending Addendum Date/Time: 12/07/17 1211 I personally evaluated the patient and discussed the management with Dr. Waldrop. I agree with the History, Examination, Assessment and Plan documented above with any addition or exceptions noted below. Patient continues with some mild increase in his chronic slurring of voice. Continue therapy services as part of his recent CVA diagnosis. Needs improved blood pressure and blood glucose control, initiating Insulin therapy at this time. Will consult Neuro once they are available. Continue statin and ASA. Consider PLavix but would be concerned with that due to his history of hemorrhagic infarct in the past. <Harley Jimenes - Last Filed: 12/07/17 12:15>
[2017-12-07] MEDS ORDERED: Amlodipine 5 MG TAB PO SCH (09:15)
[2017-12-07] MEDS: Carvedilol 6.25 MG TAB PO SCH ×2 (09:56→17:33)
[2017-12-07 10:11] LABS: Anion Gap 10 mmol/L (10-20); BUN (Urea Nitrogen) 22 mg/dL (8.4-25.7); Calc. Creatinine Clearance 53 mL/min (70-130); Calcium 9.2 mg/dL (7.8-10.44); Carbon Dioxide 22 mmol/L (22-29); Chloride 109 mmol/L (98-107); Estimated GFR-MDRD 35; Glucose 250 mg/dL (70-105); Potassium 4.4 mmol/L (3.5-5.1); Sodium 137 mmol/L (136-145)
[2017-12-07] MEDS: HumaLOG 300 UNITS/3 ML VIAL SC PRN ×2 (14:47→17:33)
--- NOTE | 2017-12-07 17:55 | PDOC.CTH ---
Cardiology Progress Note - Subjective He had his MRI and it showed an acute CVA, small around the right [place]. He denies any chest pain, tightness ,pressure, SOB. - Objective Vital Signs Temp Pulse Pulse Resp BP BP BP 12/07/17 15:23 98.2 F 71 16 12/07/17 13:14 97.7 F 67 20 12/07/17 12:00 98.2 F 71 18 12/07/17 10:07 76 137/68 12/07/17 09:56 137/68 12/07/17 09:16 75 166/81 H 164/87 H 12/07/17 08:00 98.0 F 76 18 BP Pulse Ox 12/07/17 15:23 151/74 H 93 L 12/07/17 13:14 137/70 100 12/07/17 12:00 145/81 H 97 12/07/17 10:07 12/07/17 09:56 12/07/17 09:16 12/07/17 08:00 164/80 H 95 Admit Weight 198 lb Weight 200 lb 12/06/17 12/07/17 12/08/17 06:59 06:59 06:59 Intake Total 845 2775 720 Output Total 450 550 Balance 395 2225 720 - Physical Examination General/Neuro: alert & oriented x3, NAD Neck: no JVD present Lungs: CTA, unlabored respirations Heart: RRR Abdomen: NT/ND Extremities: other: (no edema) - Telemetry Telemetry Rhythm: NSR - Labs Result Diagrams: 12/06/17 05:16 12/07/17 09:42 Troponin/CKMB CK-MB (CK-2) 5.0 ng/mL (0-6.6) 12/06/17 05:15 Troponin I 5.314 ng/mL (< 0.028) H* 12/06/17 05:15 - Assessment/Plan 1. NSTEMI 2. Acute CVA, right [place]. 3. CAD s/p CABG in the past 4. Non compliance. 5. DENYS on CKD. 6. Ischemic CM. EF at 45-50% with inferior hypokinesis. PLAN: - No plan for LHC given acute CVA. Will have to wait at least a month before a LHC given risk of recurrent stroke. - Continue full anticoagulation for 48 hrs for medical management of NSTEMI. - Aspirin, statin BB. No ACEI due to renal dysfunction. - Plavix before discharge. - Currently remains asymptomatic, no chest pain, tightness ,pressure, SOB.
[2017-12-07] MEDS: Atorvastatin Calcium 40 MG TAB PO SCH (20:20)
[2017-12-07] MEDS: Enoxaparin Sodium 100 MG/ML SYRINGE SC SCH (20:21)
[2017-12-07] MEDS ORDERED: Insulin Glargine 18 UNITS in Pre-Filled Syringe 1 EACH SC SCH (21:00)
[2017-12-08] MEDS: HumaLOG 300 UNITS/3 ML VIAL SC PRN ×2 (06:32→11:08)
--- NOTE | 2017-12-08 07:04 | PDOC.FM ---
- Subjective Subjective: Patient doing well this AM. No significant overnight events. Patient has been working with PT. He denies chest pain, shortness of breath, vision changes, or new focal deficits. Patient is agreeable to inpatient rehab. - Objective MAR Reviewed: Yes Vital Signs & Weight: Vital Signs (12 hours) Temp Pulse Resp BP Pulse Ox 12/08/17 04:00 98.0 F 64 18 172/83 H 96 12/07/17 23:56 98.3 F 67 18 182/90 H 96 12/07/17 23:53 63 170/82 H 12/07/17 20:16 98.3 F 70 18 97 12/07/17 20:00 98.3 F 70 18 158/74 H 97 Weight Admit Weight 89.811 kg Weight 92 kg I&O: 12/07/17 12/08/17 12/09/17 06:59 06:59 06:59 Intake Total 2775 1020 Output Total 550 810 Balance 2225 210 Result Diagrams: 12/06/17 05:16 12/07/17 09:42 EKG Reviewed by me: Yes Radiology Reviewed by me: Yes <Martina Waldrop - Last Filed: 12/08/17 08:55> - Objective Vital Signs & Weight: Vital Signs (12 hours) Temp Pulse Pulse Pulse Resp BP BP 12/08/17 11:54 98 F 64 16 12/08/17 09:08 74 70 130/73 12/08/17 08:59 134/84 12/08/17 08:58 70 134/84 12/08/17 08:49 98.6 F 67 18 12/08/17 04:00 98.0 F 64 18 BP BP Pulse Ox 12/08/17 11:54 125/69 96 12/08/17 09:08 146/76 H 12/08/17 08:59 12/08/17 08:58 12/08/17 08:49 134/84 99 12/08/17 04:00 172/83 H 96 Weight Admit Weight 89.811 kg Weight 92 kg I&O: 12/07/17 12/08/17 12/09/17 06:59 06:59 06:59 Intake Total 2775 1020 Output Total 550 810 Balance 2225 210 Result Diagrams: 12/06/17 05:16 12/07/17 09:42 <Luis Carlos Hemphill Elinor - Last Filed: 12/08/17 12:09> Phys Exam - Physical Examination Constitutional: NAD HEENT: moist MMs, sclera anicteric Neck: supple Respiratory: no wheezing, clear to auscultation bilateral Cardiovascular: RRR, no significant murmur Gastrointestinal: soft, no distention, positive bowel sounds Musculoskeletal: no edema, pulses present Neurological: non-focal, moves all 4 limbs Psychiatric: normal affect, A&O x 3 Skin: no rash, cap refill <2 seconds <PalmaMartina jarrett - Last Filed: 12/08/17 08:55> Dx/Plan (1) Acute CVA (cerebrovascular accident) Code(s): I63.9 - CEREBRAL INFARCTION, UNSPECIFIED Status: Acute (2) NSTEMI (non-ST elevated myocardial infarction) Code(s): I21.4 - NON-ST ELEVATION (NSTEMI) MYOCARDIAL INFARCTION Status: Acute (3) Ataxic gait Code(s): R26.0 - ATAXIC GAIT Status: Acute (4) CAD (coronary artery disease) Code(s): I25.10 - ATHSCL HEART DISEASE OF [place] CORONARY ARTERY W/O ANG PCTRS Status: Chronic (5) Cerebellar lesion Code(s): G93.9 - DISORDER OF BRAIN, UNSPECIFIED Status: Chronic (6) DM2 (diabetes mellitus, type 2) Status: Chronic (7) HLD (hyperlipidemia) Code(s): E78.5 - HYPERLIPIDEMIA, UNSPECIFIED Status: Chronic (8) HTN (hypertension) Code(s): I10 - ESSENTIAL (PRIMARY) HYPERTENSION Status: Chronic - Plan Plan: Acute CVA in [place] - Transfer to stroke unit - Seen on MRI of brain - Continue PT/OT - Continue statin, ASA - Patient may need to be started on clopidogrel outpatient - Awaiting neuro recs - q4h neuro checks - Pt started on therapeutic lovenox; will continue for total of 48 hours - Transition patient from lovenox to plavix NSTEMI/ Non-Q wave [place]: - Hx of CAD s/p CABG 2009 with poor cardiology follow up - Pt without symptoms with prior cardiac events - Trop 6.2 --> 7--> 8 --> 5 - Cardiology consulted; appreciate recs - No LHC for at least one month due to risk of recurrent stroke - MRI of brain showed acute stroke in [place]; unsure if primary stroke or from clotted veins in heart - Monitor on telemetry - Pt started on therapeutic anticoagulation renally dosed; will continue for total of 48 hours - Transfer to stroke unit - Patient to be started on plavix upon discharge - Echo showed EF 40-45% with diastolic dysfunction of 1/3 CAD s/p CABG - Continue home medications - Continue BB which was started during hospitalization; will increase dose for better BP control Ataxic gait, likely 2/2 distant and recent CVA's - Worsened from baseline; difficulties ambulating at baseline 2/2 cerebellar strokes - q4h neuro checks; no signs of new stroke - Acute CVA of [place] noted on MRI brain - Uses cane to ambulate - Fall precautions DM type II - Continue home medications - ACHS accuchecks - CC diet - Mild SSI - Required 10 units SSI yesterday - Start on levemir 18 units at bedtime last night HTN - Continue home medications - Started BB (carvedilol); increase dose - Hold MONTRELL-I due to kidney function - Monitor BP - Labetolol PRN - Will titrate medications during hospitalization HLD - Continue home medications Hx CVA - Continue home medications - q4h neuro checks due to recent symptoms Dispo: Plan for discharge to inpatient rehab if accepted. Pt stable for d/c with plavix and close neurology and cardiology follow up. CODE STATUS: FULL DVT PPX: Th lovenox renally dosed <Martina Waldrop - Last Filed: 12/08/17 08:55> Attending Addendum - Attending Addendum Date/Time: 12/08/17 1209 I personally evaluated the patient and discussed the management with Dr. Waldrop. I agree with the History, Examination, Assessment and Plan documented above with any addition or exceptions noted below. <Luis Carlos Hemphill - Last Filed: 12/08/17 12:09>
[2017-12-08] MEDS ORDERED: Carvedilol 6.25 MG TAB PO SCH (08:00)
[2017-12-08] MEDS ORDERED: Amlodipine 5 MG TAB PO SCH (09:00)
[2017-12-08 15:28] VITALS: BP 143/73; TEMP 98.1
[2017-12-08] MEDS ORDERED: Carvedilol 25 MG TAB PO SCH (17:00)
--- NOTE | 2017-12-08 18:59 | PDOC.CTH ---
Cardiology Progress Note - Subjective He is doing well. No chest pain, tightness ,pressure, SOB. - Objective Vital Signs Temp Pulse Pulse Pulse Resp BP BP 12/08/17 15:00 98.1 F 64 16 12/08/17 11:54 98 F 64 16 12/08/17 09:08 74 70 130/73 12/08/17 08:59 134/84 12/08/17 08:58 70 134/84 12/08/17 08:49 98.6 F 67 18 BP BP Pulse Ox 12/08/17 15:00 143/73 H 95 12/08/17 11:54 125/69 96 12/08/17 09:08 146/76 H 12/08/17 08:59 12/08/17 08:58 12/08/17 08:49 134/84 99 Admit Weight 198 lb Weight 202 lb 13.204 oz 12/07/17 12/08/17 12/09/17 06:59 06:59 06:59 Intake Total 2775 1020 Output Total 550 810 125 Balance 2225 210 -125 - Physical Examination General/Neuro: alert & oriented x3, NAD Neck: no JVD present Lungs: unlabored respirations Heart: RRR Abdomen: NT/ND Extremities: other: (no edema) - Telemetry Telemetry Rhythm: NSR - Labs Result Diagrams: 12/06/17 05:16 12/07/17 09:42 Troponin/CKMB CK-MB (CK-2) 5.0 ng/mL (0-6.6) 12/06/17 05:15 Troponin I 5.314 ng/mL (< 0.028) H* 12/06/17 05:15 - Assessment/Plan 1. NSTEMI 2. Acute CVA, right [place]. 3. CAD s/p CABG in the past 4. Non compliance. 5. DENYS on CKD. 6. Ischemic CM. EF at 45-50% with inferior hypokinesis. PLAN: - No plan for LHC given acute CVA. Will have to wait at least a month before a LHC given risk of recurrent stroke. - Aspirin, statin BB. No ACEI due to renal dysfunction. - Plavix before discharge. - Currently remains asymptomatic, no chest pain, tightness ,pressure, SOB. - Plan to see back in office in 1 month for re evaluation and schedule LHC. - May discharge home any time from cardiac perspective.
--- NOTE | 2017-12-09 06:05 | DIS-2 ---
DATE OF ADMISSION: 12/05/2017 DATE OF DISCHARGE: 12/08/2017 ADMITTING ATTENDING: Dr. Luis Carlos Hemphill. DISCHARGE ATTENDING: Dr. Luis Carlos Hemphill. RESIDENT: Dr. Martina Waldrop. CONSULTS: 1. Cardiology, Dr. Elijah Pichardo. 2. Neurology, Dr. Birmingham. 3. Case management. 4. CV team. 5. PT. 6. Rehab screening. 7. Stroke team. PROCEDURES: 1. Chest x-ray mild cardiomegaly, no acute lung process or significant interval change noted. 2. Brain CT stable, head CT without acute intracranial hemorrhage or mass effect. 3. Brain MRI, very small acute infarction involving the right manjula in the expected location of the b ranches of the basilar artery. No significant hemorrhage. 4. Echocardiogram, mild concentric left ventricular hypertrophy. Ejection fraction visually estimat ed at 45% to 50%. Grade I/III diastolic dysfunction. Mild tricuspid regurgitation. Mitral annular calcification present. Mild mitral regurgitation. Hypokinesis of inferior and inferoseptal rodriguez. PRIMARY DIAGNOSES: 1. Prj-XJ-pabqsav elevation myocardial infarction. 2. Acute cerebrovascular accident, right manjula. 3. Coronary artery disease, status post coronary artery bypass graft in the past. 4. Noncompliance. 5. Acute kidney injury on chronic kidney disease. 6. Diabetes mellitus type 2, uncontrolled. 7. Hypertension. 8. Hyperlipidemia. DISCHARGE MEDICATIONS: 1. Amlodipine besylate 2.5 mg p.o. daily. 2. Aspirin 81 mg 1 tablet p.o. daily. 3. Atorvastatin calcium 80 mg p.o. at bedtime. 4. Carvedilol 25 mg p.o. b.i.d. with meals. 5. Clopidogrel bisulfate 75 mg p.o. daily. 6. Fenofibrate 40 mg p.o. daily. 7. Insulin glargine 20 units subcutaneous at nighttime. 8. Lisinopril 20 mg daily. 9. Metformin 1000 mg tablet 1 to take p.o. b.i.d. DISCONTINUED MEDICATIONS: 1. Glipizide 10 mg oral twice daily. 2. Fenofibrate 145 mg oral 3 times daily was changed to fenofibrate 40 mg p.o. daily. 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 He stat es that on Monday, he noticed he could not walk without falling over. He has difficulty ambulating a t baseline secondary to several cerebellar infarcts and an intrapontine hemorrhage in the past. He u ses a cane to get around. He was unable to maintain his balance even with a cane on as of Monday. H e states he felt more weak than usual. The patient denies any lightheadedness, dizziness, vertigo, o r leg pain associated with worsening gait instability. The patient denies any vision changes, new fo shyam deficits, headache, chest pain or palpitations. Upon inquiring further about patient's CABG, he reports that he had no symptoms, at this time he needed that intervention. He has never truly had co mplaints of chest pain or shortness of breath that required evaluation. The patient states that [facility] his CABG in 2009, he has not followed regularly with a internet salesperson. He does state that at some po int, there was a discussion about doing a stress test; however, never that done. He had an echo done in 2016, which showed ejection fraction of 50-55% with left atrial enlargement, left ventricular hyp ertrophy, and aortic fibrosis. The patient states he takes his medications regularly. He claims paul t he has not followed over a year with his PCP, but one in earlier this month for a checkup, he state s that he has never been out of his medications for more than a week. The patient remained stable throughout the course of his hospital stay. On presentation to the emerg ency department, labs were drawn and patient was incidentally found to have a troponin of 5.31, which continued to rise to 8.019 before down trending to 7.664. As stated previously, the patient was asy mptomatic in regards to chest pain, shortness of breath, diaphoresis, nausea or vomiting. Due to con cerns of worsening gait instability and worsening slurring of speech, an MRI of the brain was perform ed which did show a small infarct in the manjula. The patient was working with physical therapy. Maria T g his hospital stay, he said that his gait with a walker was acceptable. The patient is on medicatio ns that to include aspirin, high dose statin, and other medications to control his comorbid condition s to include diabetes. Of note, the patient is noted to be noncompliant with medications. He had no t fallen over a year with his primary care physician. He claims that he has only been out of his med ications for one week at any one time. Cardiology was consulted due to elevated troponin. Cardiolog y did recommend a cardiac catheterization; however, due to the acute onset of the infarct or strokes, Cardiology opted to forego a cardiac catheterization during this visit and effort to prevent further embolization. The patient was placed on therapeutic Lovenox during his hospital stay, he remained o n that for a period of at least 48 hours per Cardiology recommendations. An echo was performed which did show evidence of ischemic cardiomyopathy based on ejection fraction of 40-45% with hypokinesis, inferior and inferoseptal wall as the patient was not a good candidate for catheterization at this [facility]. Dr. Pichardo recommended the patient follow up in 1 month after being on clopidogrel and having [facility] to recover from the stroke. As there was no Neurology in [facility], a neurologist was unable to see e patient; however, patient is on all the correct medications to prevent further stroke. He was also started on Plavix due to concern for heart disease as well as recurrent strokes and he is to follow up with Dr. Birmingham as an outpatient. Efforts were made to get patient inpatient rehab for further training due to gait instability. [facility], he was doing so well with physical therapy. He did not necessarily qualify for these services. A rolling walker was ordered for patient to use at home to assist with gait instability and PT and Sp eech Therapy were also ordered for outpatient setting. This was discussed with the patient who is ag reeable and in understanding of the plan. Close follow up is necessary and this was discussed with t he patient as well. He is to follow up with his primary care physician within 7 days of discharge fr the hospital and additionally he will be following with Dr. Pichardo within the next month to have a cardiac catheterization done per Dr. Pichardo's recommendations. The patient is to establish with Dr. Birmingham. He did not get a chance to see patient during current hospitalization. The patient unders tands and need to make these appointments and is willing to do so. Additionally, the patient was sta rted on Plavix upon discharge from the hospital. He was told to pick this up from his pharmacy and s tart taking this. He understands the importance of taking all of his medications to prevent further episodes of similar symptoms. The patient was started on insulin during this hospitalization as his diabetes is uncontrolled and th e glipizide medication he was on, may have contributed to some nephrotoxicity. The patient was trans itioned to 0.2 units per kilogram at night time which translated to 18 units at night. This is incre ased by 2 units the day after this regimen was started as the patient was still requiring sliding sca le insulin. The patient was advised to follow really closely with his primary care physician to cont inue having this titrated. It is very imperative that patient do so and this was discussed as it can contribute to infarcts the patient has been experiencing. The patient did well during the course of his hospital stay. He continued to recover and gain strength by working with physical therapy and o ccupational therapy. The patient was stable for discharge home and was given information regarding i nformation discussed above. DISPOSITION: Stable. DISCHARGE INSTRUCTIONS: 1. Location: Home with PT and speech therapy. 2. Activity: Orthopedic limitations for gait and stability. 3. Diet: Consistent carbohydrates, heart-healthy diet. 4. Followup: The patient is to follow up with primary care physician, Dr. Harley Jimenes within 7 d ays of discharge from the hospital. Additionally, he needs to follow up with Dr. Pichardo within a mon of discharge from hospital to have a left heart catheterization performed. The patient is also to establish with Dr. Birmingham, the neurologist to be evaluated for these recurrent strokes. All of thi s information was discussed with the patient and he was agreeable with the plan.
== END 2017-12-08 17:17 | disposition home or self-care (01) | DRG 64 ==
LOC: ERS 10:21 → 2NO 13:55 → 2SE 12-07 12:55
PROVIDERS: ADMIT Family Medicine; ATTEND Family Medicine
DX: I63.9 Cerebral infarction, unspecified (principal); I21.4 Non-ST elevation (NSTEMI) myocardial infarction; N17.9 Acute kidney failure, unspecified; I69.354 Hemiplegia and hemiparesis following cerebral infarction affecting left non-dominant side; N18.3 Chronic kidney disease, stage 3 (moderate); I12.9 Hypertensive chronic kidney disease with stage 1 through stage 4 chronic kidney disease, or unspecified chronic kidney disease; E11.22 Type 2 diabetes mellitus with diabetic chronic kidney disease; I25.10 Atherosclerotic heart disease of native coronary artery without angina pectoris; Z95.1 Presence of aortocoronary bypass graft; Z91.14 Patient's other noncompliance with medication regimen; E78.5 Hyperlipidemia, unspecified; Z79.82 Long term (current) use of aspirin; Z79.84 Long term (current) use of oral hypoglycemic drugs; Z79.899 Other long term (current) drug therapy; F17.210 Nicotine dependence, cigarettes, uncomplicated; R26.0 Ataxic gait; G93.9 Disorder of brain, unspecified; R47.81 Slurred speech
CPT/HCPCS: 36415; 36416; 70450; 70551; 71045; 80048; 80053; 82553; 84443; 84484; 85025; 85610; 85730; 93005; 93306; 93798; 96372; A4216; G8978-GP-CK; G8979-GP-CJ; G8987-GO-CI; G8988-GO-CI; G8989-GO-CI; G8996-GN-CJ; G8997-GN-CI; J1644; J1650

== ENCOUNTER 2018-04-26 08:23 | Day surgery (SDC) | payer MEDICARE ==
[2018-04-25 13:04] VITALS: BMI 32.2
[2018-04-26] MEDS ORDERED: Phenylephrine 2.5% Ophth Soln 5 ML BOT ONE (09:03)
[2018-04-26] MEDS ORDERED: Cyclopentolate 1% Opth Drop 2 ML BOT ONE (09:03)
[2018-04-26] MEDS ORDERED: Midazolam HCl 2 mg/2 ml Vial ONE (09:54)
[2018-04-26] MEDS ORDERED: PROPOFOL 20 ML ONE (09:54)
[2018-04-26] MEDS ORDERED: Triamcinolone 40 MG/ML VIAL ONE (11:44)
[2018-04-26] MEDS ORDERED: Lidocaine 4% PF 5 ML AMP ONE (11:44)
[2018-04-26] MEDS ORDERED: Maxitrol 0.1% Opth Oint 3.5 GM TUBE ONE (11:44)
[2018-04-26] MEDS ORDERED: PROPOFOL 200 MG/20 ML VIAL ONE (11:44)
[2018-04-26] MEDS ORDERED: Lidocaine 1% PF 5 ML VIAL ONE (11:44)
[2018-04-26] MEDS ORDERED: Bupivacaine 0.75% 10 ML AMP ONE (11:44)
[2018-04-26] MEDS ORDERED: CEFAZOLIN 1 GM VIAL ONE (11:44)
--- NOTE | 2018-04-26 12:17 | OP ---
DATE OF PROCEDURE: 04/26/2018 PREOPERATIVE DIAGNOSES: Proliferative diabetic retinopathy, vitreous hemorrhage, epiretinal membrane , left eye. POSTOPERATIVE DIAGNOSES: Proliferative diabetic retinopathy, vitreous hemorrhage, epiretinal membra ne, left eye. PROCEDURE: Pars plana vitrectomy and membrane peel, left eye. SURGEON: Robert Taylor M.D. ANESTHESIA: Local with monitored anesthesia care. PROCEDURE IN DETAIL: The patient was identified in the preoperative holding area. [facility]ropriate [facility] consent for the planned surgical procedure on the left eye had been obtained. The patient was tr ansported to the operative suite where appropriate cardiopulmonary monitoring was established. Local anesthesia was obtained using retrobulbar and modified Van Lint lid block using 50:50 mixture of 4% lidocaine, 0.75% bupivacaine. The patient was prepped and draped in the usual sterile manner for oph thalmic surgery on the left eye. Lid speculum was placed in the left eye. The 25-gauge trocars were placed in conjunctiva and sclera supratemporally, inferotemporally, and supranasally. Infusion line was placed inferotemporally. Light pipe and vitreous cutter were inserted into the eye. Core vitre ctomy was performed, Posterior hyaloid face was noted to be attached and held down by numerous areas of proliferation on the retinal surface. Posterior hyaloid face was elevated and areas of prolifera tion were trimmed releasing retinal traction. No holes, breaks or tears were identified. Panretinal photocoagulation was placed into all non-macular areas of the retina. Trocars were removed and eye was noted to retain pressure well. Retrobulbar Kenalog and subconjunctival Ancef were placed at anti biotic ointment placed, and the eye was patched and shielded. Patient was taken the postoperative re covery unit in good condition having suffered no immediate perioperative complications. DISCHARGE INSTRUCTIONS: The patient was instructed to keep patch and shield on, avoid lifting or malika ding, and follow up in the morning with Dr. Taylor.
== END 2018-04-26 13:48 | disposition home or self-care (01) ==
LOC: SDC 08:23
PROVIDERS: ATTEND Ophthalmology Retina Specialist
PROC: 08T53ZZ Resection of Left Vitreous, Percutaneous Approach (ICD-10-PCS; principal; 2018-04-26)
PROC: 08QF3ZZ Repair Left Retina, Percutaneous Approach (ICD-10-PCS; 2018-04-26)
PROC: 08NF3ZZ Release Left Retina, Percutaneous Approach (ICD-10-PCS; 2018-04-26)
DX: H43.12 Vitreous hemorrhage, left eye (principal); E11.3592 Type 2 diabetes mellitus with proliferative diabetic retinopathy without macular edema, left eye; Z79.02 Long term (current) use of antithrombotics/antiplatelets; Z79.4 Long term (current) use of insulin; Z79.82 Long term (current) use of aspirin; Z79.899 Other long term (current) drug therapy
CPT/HCPCS: 36416; J0171; J0690; J2001; J2250; J2704; J3301; J3490

== ENCOUNTER 2018-11-05 09:18 | Inpatient (IN) | payer MEDICARE ==
--- NOTE | 2018-11-05 10:25 | RAD ---
Right foot 2 views: Date: 11/05/18 HISTORY: Foot injury. FINDINGS: There are vascular calcifications noted. There is a Ordonez-type fracture of the base of the fifth meta tarsal. Soft tissue swelling is seen on the dorsum of the foot. Calcaneal spurs are noted. IMPRESSION: 1. Extensive atherosclerosis. 2. Fracture of the base of the fifth metatarsal. POS: TPC
[2018-11-05 10:42] LABS: #Eosinphils 0.2 thou/uL (0.0-0.7); #Neutrophils 7.7 thou/uL (1.40-6.50); %Basophils 0.3 % (0.0-1.0); %Eosinophils 1.9 % (0.0-10.0); %Lymphocytes 18.6 % (21.0-51.0); %Monocytes 9.2 % (0.0-10.0); Hemoglobin 10.6 g/dL (14.0-18.0); Mean Corpuscular HGB CONC 32.3 g/dL (32.0-36.0); Mean Corpuscular Hemoglobin 28.1 pg (27.0-31.0); Mean Platelet Volume 7.5 fL (7.4-10.4); Platelet Count 356 thou/uL (130-400); RBC Distribution Width 13.9 % (11.5-14.5); Red Blood Cell (RBC) Count 3.77 mill/uL (4.70-6.10)
[2018-11-05 11:06] LABS: ALT (SGPT) 16 U/L (8-55); AST (SGOT) 15 U/L (5-34); Albumin 4.1 g/dL (3.5-5.0); Alkaline Phosphatase 60 U/L (40-150); Anion Gap 15 mmol/L (10-20); BUN (Urea Nitrogen) 41 mg/dL (8.4-25.7); Bilirubin, Total 0.5 mg/dL (0.2-1.2); Calc. Creatinine Clearance 0 mL/min (70-130); Calcium 9.4 mg/dL (7.8-10.44); Carbon Dioxide 23 mmol/L (22-29); Chloride 107 mmol/L (98-107); Estimated GFR-MDRD 29; Globulin 2.8 g/dL (2.4-3.5); Glucose 83 mg/dL (70-105); Potassium 4.4 mmol/L (3.5-5.1); Protein, Total 6.9 g/dL (6.0-8.3); Sodium 141 mmol/L (136-145)
--- NOTE | 2018-11-05 11:58 | PDOC.FPRHP ---
- History of Present Illness Chief Complaint: Toe discoloration History of Present Illness: Mr Sanon is a 58yo male with pmh of HFrEF, well controlled DM presenting with right large and 2nd toe discoloration. Started 2 weeks ago with skin sloughing. He has been having his preform wound care and has been using some ointments on it that he is unable to recall the name of. Yesterday he noticed the skin turned black. He has decreased sensation in his feet and hands 2/2 DM. Denies pain, fevers, chills. Denies any hx of foot ulcers. DM is well controlled with Lantus 20U HS. Fasting BG this AM was 96. He is currently wearing a LifeVest. [employer] is Dr Pichardo. Placed 2 months ago for low EF. Reports he was to follow up in 2 months to see if heart function improved. He was due for appt soon and was not able to schedule for a time that worked when he called. PCP: Dr Jimenes ED Course: Xray Vanc & Zosyn - Allergies/Adverse Reactions Allergies Allergy/AdvReac Type Severity Reaction Status Date / Time No Known Allergies Allergy Verified 04/25/18 13:04 - Home Medications Medication Instructions Recorded Confirmed Type Aspirin Chewable [Aspirin Chewable 1 tab PO DAILY 06/30/16 11/05/18 History Tablet] Lisinopril [Zestril] 1 tab PO DAILY 06/30/16 11/05/18 History metFORMIN HCl [Metformin ER 1 tab PO BID 06/30/16 11/05/18 History Gastric] Atorvastatin Calcium 80 mg PO HS 12/05/17 11/05/18 History amLODIPine Besylate [Norvasc] 5 mg PO DAILY 12/05/17 11/05/18 History Carvedilol [Coreg] 25 mg PO BID-WM #60 tab 12/08/17 11/05/18 Rx Clopidogrel Bisulfate [Plavix] 75 mg PO DAILY #30 tab 12/08/17 11/05/18 Rx Insulin Glargine [Lantus] 20 units SC HS #10 vial 12/08/17 11/05/18 Rx Fenofibrate 145 mg PO DAILY 11/05/18 11/05/18 History Furosemide [Lasix] 20 mg PO QAM 11/05/18 11/05/18 History - History PMHx: HFrEF, IDDM2, HLD, HTN, CVA right manjula, CAD s/p CABG x3 (2010), CKD, CVA with residual L sided deficits PSHx: 3VCABG. Ortho surgeries of R arm and L ankle FHx: Father & Mother- [place], DM, HTN Social: Drinks socially, denies drug use, Former smoker 1ppd for 10 years, quit 1 yr ago - Review of Systems General: denies: fever/chills, weight/appetite/sleep changes Eyes: denies: eye pain, vision changes ENT: denies: nasal congestion, rhinorrhea Respiratory: denies: cough, congestion, shortness of breath Gastrointestinal: reports: diarrhea (due to metamucil). denies: nausea, vomiting, constipation Genitourinary: denies: dysuria, other (hematuria) Skin: reports: lesions. denies: rashes Musculoskeletal: reports: swelling. denies: pain, tenderness Neurological: reports: numbness. denies: weakness - Vital signs BP: 117/69, Pulse: 66, Resp: 17, Temp: 98.2 (Oral), Pain: 0, O2 sat: 98 on Room Air Wt: 90kg - Physical Exam Constitutional: NAD, awake, alert and oriented, well developed HEENT: normocephalic and atraumatic, conjunctiva clear, grossly normal hearing, MMM, oropharynx clear Neck: supple, trachea midline Heart: RRR, other (systolic murmur) Lungs: CTAB, no respiratory distress Abdomen: soft, non-tender, bowel sounds present Musculoskeletal: normal structure, normal tone, ROM grossly normal Neurological: other (decreased sensation bilateral feet) Skin: other (Left leg trace edema. Right foot 2+ pitting edema to mid lockhart. Approx 2.5cm necrotic region on distal/dorsal aspect of right large toe and 1cm area on 2nd toe) Heme/Lymphatic: no unusual bruising or bleeding Psychiatric: normal mood and affect, good judgment and insight, intact recent and remote memory FMR H&P: Results - Labs Result Diagrams: 11/05/18 10:31 11/05/18 10:31 Lab results: WBC 11.0 thou/uL (4.8-10.8) H 11/05/18 10:31 Hgb 10.6 g/dL (14.0-18.0) L 11/05/18 10:31 Hct 32.8 % (42.0-52.0) L 11/05/18 10:31 MCV 87.0 fL (78.0-98.0) 11/05/18 10:31 Plt Count 356 thou/uL (130-400) 11/05/18 10:31 Neutrophils % 70.0 % (42.0-75.0) 11/05/18 10:31 Sodium 141 mmol/L (136-145) 11/05/18 10:31 Potassium 4.4 mmol/L (3.5-5.1) 11/05/18 10:31 Chloride 107 mmol/L (98-107) 11/05/18 10:31 Carbon Dioxide 23 mmol/L (22-29) 11/05/18 10:31 BUN 41 mg/dL (8.4-25.7) H 11/05/18 10:31 Creatinine 2.34 mg/dL (0.7-1.3) H 11/05/18 10:31 Glucose 83 mg/dL (70-105) 11/05/18 10:31 Calcium 9.4 mg/dL (7.8-10.44) 11/05/18 10:31 Total Bilirubin 0.5 mg/dL (0.2-1.2) 11/05/18 10:31 AST 15 U/L (5-34) 11/05/18 10:31 ALT 16 U/L (8-55) 11/05/18 10:31 Alkaline Phosphatase 60 U/L (40-150) 11/05/18 10:31 C-Reactive Protein 4.93 mg/dL (= or < 0.5) H 11/05/18 10:31 Serum Total Protein 6.9 g/dL (6.0-8.3) 11/05/18 10:31 Albumin 4.1 g/dL (3.5-5.0) 11/05/18 10:31 - Radiology Interpretation Other Status: report reviewed by me Additional comment: Right foot xray: Extensive atherosclerosis. Fracture of base of 5th metatarsal FMR H&P: A/P - Problem List (1) Acute kidney injury superimposed on CKD Current Visit: Yes Status: Acute Code(s): N17.9 - ACUTE KIDNEY FAILURE, UNSPECIFIED; N18.9 - CHRONIC KIDNEY DISEASE, UNSPECIFIED (2) HTN (hypertension) Current Visit: No Status: Chronic Code(s): I10 - ESSENTIAL (PRIMARY) HYPERTENSION (3) HLD (hyperlipidemia) Current Visit: No Status: Chronic Code(s): E78.5 - HYPERLIPIDEMIA, UNSPECIFIED (4) DM2 (diabetes mellitus, type 2) Current Visit: No Status: Chronic - Plan Mr Sanon is a 58yo male with pmh of HFrEF, well controlled DM presenting with right R large & 2nd toe Dry Gangrene - Afebrile, WBC 11, CRP elevated. ESR 79. - Xray with no evidence of osteo. Fx of base of 5th metatarsal - Will add Vanc for cellulitis and concern for osteo - Blood cx pending - Consult general surgery. Will keep NPO for now. - Admit to medical R 5th metatarsal fracture - Seen on foot Xray - Will keep nonweight bearing IDDM2 - Home Lantus 20U HS, SSI, hypoglycemic protocol - Last A1c ~5.5 - CC diet HFrEF on life vest - Last echo 11/2017 45-50%, diastolic dysfunction present - Echo ordered - Will touch base with Dr Pichardo - diet, fluid restriction - Continue home meds HTN - Continue home meds HLD - Continue home meds Hx of CVA CAD s/p CABG x3v Code Status: FULL DVT ppx: Lovenox PCP: [facility] (Dr Jimenes) FMR H&P: Upper Level - Pertinent history 58 y/o M w/ PMHx of peripheral neuropathy and IDDM presents for evaluation of R- LE toe discoloration that has been progressing over the past 2 weeks. Reports last A1c 5.5. has been trying to take care of his feet at home, but skin started peeling off and couldnt get in to see PCP until the end of the week so came in to the ER for eval. Denies any fever/chills. Reports some LE swelling which he notes is at baseline. - Pertinent findings Vitals per business management intern note Ext: black discoloration of the tip/pad of the 1st and second digit of the right foot w/ some ulcerative tissue noted at the proximal border. Unable to palpate DP/PT pulses R-LE. No overt fluctuance. Was unable to express and pus from the toes. WBC 11.0 Hgb 10.6 CRP 4.93 BUN 41 Cr 2.34 - Plan Date/Time: 11/05/18 1156 Aury Majano MD, have evaluated this patient and agree with findings/plan as outlined by business management intern resident. Pertinent changes/additions are listed here. 58 y/o M w/: 1. Dry Gangrene r/o Osteo - Elevated CRP, no lytic lesions noted on radiographs. Will start Vanc to cover for possible osteo in setting of location of wound and elevated CRP. - Will consult gen surg to eval for need for amputation - Consult wound care - Cont. w/ home DM regimen w/ goal BG 140-180 - Possible CTA runoff to eval lower ext vascular pending gen surg reccomendations 2. Fxr of the base of the 5th metatarsal - No displacement/angulation - Will keep patient non-weightbearing pending surg referral 3. Other chronic medical problems per business management intern note Addendum - Attending - Attending Attestation Date/Time: 11/05/18 1631 I personally evaluated the patient and discussed the management with Dr. Garcia. I agree with the History, Examination, Assessment and Plan documented above with any addition or exceptions noted below.
[2018-11-05 15:38] VITALS: BMI 30.7
[2018-11-05] MEDS ORDERED: Dextrose 50% Abboject 50 ML SYRINGE SLOW IVP PRN (16:15)
[2018-11-05] MEDS ORDERED: Acetaminophen 325 MG TAB PO PRN (16:15)
[2018-11-05] MEDS ORDERED: Dextrose 5% in Water 1,000 ML IV PRN (16:15)
[2018-11-05] MEDS ORDERED: HumaLOG 300 UNITS/3 ML VIAL SC PRN (16:15)
[2018-11-05 16:49] LABS: Lactic Acid 2.6 mmol/L (0.5-2.2)
[2018-11-05] MEDS ORDERED: Piperacillin/Tazobactam 3.375 GM in Sodium Chloride 0.9% 100 ML IVPB SCH (17:00)
[2018-11-05] MEDS: Carvedilol 25 MG TAB PO SCH (17:48)
[2018-11-05] MEDS: metFORMIN XR 500 MG TAB PO SCH (17:48)
[2018-11-05] MEDS ORDERED: Atorvastatin Calcium 40 MG TAB PO SCH (21:00)
[2018-11-05] MEDS ORDERED: Insulin Glargine 20 UNITS in Pre-Filled Syringe 1 EACH SC SCH (21:00)
[2018-11-06 05:23] LABS: #Basophils 0.1 thou/uL (0.0-0.2); #Eosinphils 0.3 thou/uL (0.0-0.7); #Lymphocytes 2.3 thou/uL (1.20-3.40); #Monocytes 1.1 thou/uL (0.11-0.59); %Basophils 0.5 % (0.0-1.0); %Eosinophils 2.5 % (0.0-10.0); %Lymphocytes 19.4 % (21.0-51.0); %Monocytes 9.4 % (0.0-10.0); %Neutrophils 68.2 % (42.0-75.0); Hemoglobin 10.1 g/dL (14.0-18.0); Mean Corpuscular HGB CONC 32.9 g/dL (32.0-36.0); Mean Corpuscular Hemoglobin 28.7 pg (27.0-31.0); Mean Corpuscular Volume 87.1 fL (78.0-98.0); Mean Platelet Volume 7.7 fL (7.4-10.4); Platelet Count 323 thou/uL (130-400); RBC Distribution Width 13.8 % (11.5-14.5); Red Blood Cell (RBC) Count 3.53 mill/uL (4.70-6.10); White Blood Cell (WBC) Count 11.7 thou/uL (4.8-10.8)
[2018-11-06 05:42] LABS: Anion Gap 14 mmol/L (10-20); BUN (Urea Nitrogen) 35 mg/dL (8.4-25.7); Calc. Creatinine Clearance 46 mL/min (70-130); Calcium 9.2 mg/dL (7.8-10.44); Carbon Dioxide 22 mmol/L (22-29); Chloride 106 mmol/L (98-107); Estimated GFR-MDRD 30; Glucose 71 mg/dL (70-105); Potassium 3.9 mmol/L (3.5-5.1); Sodium 138 mmol/L (136-145)
[2018-11-06] MEDS ORDERED: Vancomycin HCl 1.5 GM in Sodium Chloride 0.9% 250 ML 300 ML IVPB SCH (06:00)
--- NOTE | 2018-11-06 06:58 | PDOC.FM ---
- Subjective Subjective: No overnight events. Denies pain, fevers, chills. Currently NPO until surgery sees him. - Objective MAR Reviewed: Yes Vital Signs & Weight: Vital Signs (12 hours) Temp Pulse Resp BP Pulse Ox 11/06/18 04:00 98.5 F 65 18 164/83 H 95 11/06/18 00:00 98.7 F 67 16 126/63 94 L 11/05/18 20:00 98.8 F 59 L 16 152/89 H 95 Weight Weight 88.949 kg I&O: 11/04/18 11/05/18 11/06/18 06:59 06:59 06:59 Intake Total 890 Output Total 1020 Balance -130 Result Diagrams: 11/06/18 04:54 11/06/18 04:54 Phys Exam - Physical Examination Constitutional: NAD HEENT: moist MMs Neck: supple Respiratory: no wheezing, clear to auscultation bilateral Cardiovascular: RRR, no significant murmur Gastrointestinal: soft, non-tender, positive bowel sounds Neurological: moves all 4 limbs Psychiatric: normal affect, A&O x 3 Deviation from normal: Approx 2.5cm necrotic region on distal/dorsal aspect of right large toe and -: 1cm on 2nd toe. Unchanged from yesterday Dx/Plan (1) Acute kidney injury superimposed on CKD Code(s): N17.9 - ACUTE KIDNEY FAILURE, UNSPECIFIED; N18.9 - CHRONIC KIDNEY DISEASE, UNSPECIFIED Status: Acute (2) HTN (hypertension) Code(s): I10 - ESSENTIAL (PRIMARY) HYPERTENSION Status: Chronic (3) HLD (hyperlipidemia) Code(s): E78.5 - HYPERLIPIDEMIA, UNSPECIFIED Status: Chronic (4) DM2 (diabetes mellitus, type 2) Status: Chronic - Plan Plan: Mr Sanon is a 58yo male with pmh of HFrEF, well controlled DM presenting with right R large & 2nd toe Dry Gangrene - Afebrile, WBC 11, CRP elevated. ESR 79. - Xray with no evidence of osteo. Fx of base of 5th metatarsal - Continue Vanc for cellulitis and concern for osteo - Blood cx pending - Consult general surgery. Will keep NPO for now. - Admit to medical R 5th metatarsal fracture - Seen on foot Xray - Will keep nonweight bearing IDDM2 - Home Lantus 20U HS, SSI, hypoglycemic protocol - Last A1c ~5.5 - CC diet HFrEF on life vest - Last echo 11/2017 45-50%, diastolic dysfunction present - Echo ordered - Will touch base with Dr Pichardo - KEON diet, fluid restriction - Continue home meds HTN - Continue home meds HLD - Continue home meds Hx of CVA CAD s/p CABG x3v Code Status: FULL DVT ppx: Lovenox PCP: [facility] (Dr Jimenes) Addendum - Attending - Attending Attestation Date/Time: 11/06/18 0611 I personally evaluated the patient and discussed the management with Dr. Garcia. I agree with the History, Examination, Assessment and Plan documented above with any addition or exceptions noted below. We have spoken with Dr. Perry who will come examine him. Arterial doppler is pending. continue antibiotics.
[2018-11-06] MEDS: metFORMIN XR 500 MG TAB PO SCH (07:41)
[2018-11-06] MEDS: Carvedilol 25 MG TAB PO SCH (08:12)
[2018-11-06] MEDS ORDERED: Enoxaparin Sodium 30 MG/0.3 ML SYRINGE SC SCH (09:00)
[2018-11-06] MEDS ORDERED: Furosemide 20 MG TAB PO SCH (09:00)
[2018-11-06] MEDS ORDERED: Lisinopril 20 MG TAB PO SCH (09:00)
[2018-11-06] MEDS ORDERED: Fenofibrate Nanocrystallized 145 MG TAB PO SCH (09:00)
[2018-11-06] MEDS ORDERED: Amlodipine 5 MG TAB PO SCH (09:00)
[2018-11-06 15:32] VITALS: BP 117/46; TEMP 98.2
--- NOTE | 2018-11-07 04:19 | DIS ---
DATE OF ADMISSION: 11/05/2018 DATE OF DISCHARGE: 11/06/2018 RESIDENT: Nissa Garcia MD ADMITTING ATTENDING: Luis Carlos Hemphill MD DISCHARGE ATTENDING: Teresa Morales MD CONSULTS: General Surgery. PROCEDURES: 1. Foot Xray: Extensive atherosclerosis. Fracture at the base of the fifth metatarsal. 2. Echo: EF 45-50%. Grade 1/2 diastolic dysfunction. Hypokinesis of inferoseptal and inferior rodriguez. Mildy dilated left atrium. Mild Mitral and tricuspid regurgitation. Aortic valve sclerosis but opens well. PRIMARY DIAGNOSIS: Right large and second toe wound. SECONDARY DIAGNOSES: 1. Right fifth metatarsal fracture. 2. Insulin-dependent type 2 diabetes. 3. Heart failure with reduced ejection fraction on LifeVest. 4. Hypertension. 5. Hyperlipidemia. 6. History of cerebrovascular accident. 7. Coronary artery disease, status post coronary artery bypass grafting x3 vessels. DISCHARGE MEDICATIONS: 1. Cipro 500 mg q.12 hours x7 days. 2. Amlodipine 5 mg daily. 3. Aspirin 81 mg daily. 4. Atorvastatin 80 mg at bedtime. 5. Coreg 25 mg b.i.d. 6. Plavix 75 mg daily. 7. Fenofibrate 145 mg daily. 8. Lasix 20 mg q.a.m. 9. Lantus 20 units at bedtime. 10. Lisinopril 20 mg daily. 11. Metformin 1000 mg b.i.d. 12. Bactrim 2 tablets p.o. b.i.d. x7 days. HISTORY OF PRESENT ILLNESS/HOSPITAL COURSE: Mr. Sanon is a 58-year-old male, who presented with past medical history of heart failure with reduced ejection fraction, well-controlled type 2 diabetes, insulin dependent diabetes, presenting with right large and second toe discoloration that started 2 weeks ago with skin sloughing and has progressed to blackened skin. He has had his performing wound care, keeping ointment and dry dressing. He does have decreased sensation in his feet and hands likely secondary to peripheral neuropathy. He has had no fevers, chills, or systemic symptoms. No history of foot ulcers. Type 2 diabetes is well controlled with 20 units of Lantus at bedtime and fasting blood sugar this morning of admission was 96. He is wearing a LifeVest due to his heart failure with reduced ejection fraction. Follows outpatient with Dr. Pichardo. Last saw him in clinic 2 months ago and is due for outpatient appointment to evaluate if cardiac function has improved. In the ED , he was started on vancomycin and Zosyn for concern for infection. An x-ray was done that showed fracture of right fifth base of metatarsal. No osseous changes. Nothing suggesting osteomyelitis. Vital signs were unremarkable on admission. Blood pressure 117/69. He was afebrile. The patient had systolic murmur. Trace edema of the left lower leg, 2+ pitting edema of the right foot to mid lockhart. Over the large toe, there is a 2.5 cm necrotic region and 1 cm area of the right second toe. There is no drainage. Blood cultures were drawn and no growth to date. General Surgery was consulted, who did not recommend any surgical intervention to discharge with oral antibiotics and follow up in 2 weeks, as well as keeping the wound clean and dry and applying dressing and comfortable fitting shoes. In regard to the right fifth metatarsal fracture found on x-ray, the patient was kept nonweightbearing and this can be followed up outpatient to see if the patient need to order a boot. His insulin-dependent diabetes is well controlled with 20 units of Lantus at bedtime. The patient reports his last hemoglobin A1c was around 5.5%. His heart failure with reduced ejection fraction can be followed up outpatient with Dr. Pichardo. Medical history of hypertension and hyperlipidemia were treated with home medications. DISPOSITION: Stable. DISCHARGE INSTRUCTIONS: 1. Locations: Home. 2. Diet: Carb consistent heart healthy, fluid restriction 1500 mL. 3. Activity: As tolerated. 4. Followup: Follow up with Dr. Jimenes, PCP, within [address] Pichardo, corporate ethics officer, within 2 weeks. General Surgery within 2 weeks. Job ID: [id number] MTDD
--- NOTE | 2018-11-07 08:03 | CON ---
DATE OF CONSULTATION: HISTORY OF PRESENT ILLNESS: Spencer Sanon is a 58-year-old male patient with insulin-dependent diabetes mellitus, who quit smoking about a year ago and lives in an . His is present during the interview. The patient reports that he has had problems with his right great toe. He does not recall a particular injury, although he did stop it on one occasion. They noticed that the distal plantar aspect of the right great toe was turning black. The second toe had similar injury, although not extensive. He presented to the emergency room, 11/05/2018, and had a right foot x-ray that was unremarkable except for a fracture of the base of the fifth metatarsal. The involved toes did not have any findings suggestive of osteomyelitis. On exam, the patient has palpable femoral and popliteal pulses bilaterally and palpable dorsalis pedis pulse. He has dopplerable pedal pulses on the right, but nonpalpable. He has dry eschar without infection or cellulitis in the right great toe and similar or less extensive finding in the second toe. There is no evidence of purulence. There is no need of debridement. At this point, I would recommend the patient be treated with oral antibiotics for 7 days, perhaps Bactrim and Cipro and see me in 2 weeks. He should wash the wound every day with soap and water and apply antibiotic ointment and a Band-Aid. He should wear well-fitting shoes and protect the socks when he is out of bed. Hopefully, this will heal without incident, and although with his diabetes, there is risk of further problems. I will see in my office in about 2 weeks or sooner as needed. Hopefully, we can avoid the emergency room. I discussed this with Nissa Garcia MD. SOCIAL HISTORY: Tobacco, none for over year. Abuse prior to that. Alcohol occasionally. MEDICATIONS: In the hospital, 1. Metformin b.i.d. 2. Lisinopril daily. 3. Insulin 20 units subcu at bedtime. 4. Lasix 20 mg IM. 5. Atorvastatin 80 mg at bedtime. 6. Aspirin 81 mg a day. 7. Amlodipine 5 mg a day. 8. Plavix 75 mg a day. 9. Carvedilol 25 mg b.i.d. [id number], preferred. PAST SURGICAL HISTORY: Eye surgery Dr. Taylor, August and April 2018. Echocardiogram 45% to 50% ejection fraction, grade 1-3 diastolic dysfunction, mild tricuspid regurgitation, mild annular calcifications, hypokinesis of the inferior and inferior septal wall 12/06/2017, 2016 echocardiogram of note . The patient reports that he has a low ejection fraction. He is wearing a LifeVest. He is followed by Dr. Pichardo. He reports that he is told he had an ejection fraction of 15% to 20%, although recent echocardiogram last year does not reflect that. Chronic kidney disease, hypertension, hyperlipidemia. Diabetes mellitus type 2, insulin dependent. Orthopedic surgery, right arm, left ankle. Dr. Snyder, July 2010, coronary artery bypass grafting. He denies having a myocardial infarction in the past. On MRI in 2017, he had a very small acute infarct involving the right manjula in the expected location of the branch of the basilar artery. No hemorrhage. The patient has chronic kidney disease. BUN 35, creatinine 2.24. PHYSICAL EXAMINATION: VITAL SIGNS: Temperature 98.2, pulse 67, blood pressure 117/46. HEAD, EARS, EYES, NOSE, AND THROAT: Unremarkable. LUNGS: Clear to auscultation. CARDIAC: Regular rate and rhythm without murmur or gallop. ABDOMEN: Soft, nontender, no masses. Well-healed scar from sternotomy. CHEST: Mediastinal tube scars, upper abdomen, lower chest. EXTREMITIES: Palpable femoral popliteal pulses bilaterally. Palpable left dorsalis pedis pulse. Nonpalpable pedal pulses right but dopplerable. Right great toe distal tip and plantar has dry eschar without cellulitis or pus. Distal right second toe plantar has some excoriated skin and some necrotic superficial skin without infection or cellulitis. There is no swelling of the toes. LABORATORIES: BUN 35, creatinine 2.24, sodium 138. Hemoglobin 10, white count 11. ASSESSMENT AND PLAN: 1. Diabetic neuropathic wounds, right first and second toe. These were probably traumatic. These are playing not vascular in origin according to the location and configuration. He does have history of stump in his toe at home as he lives in . We would recommend wound care and care as outpatient as noted above. He can be on antibiotics for about 7 days. He can follow up in my office in about 2 weeks. 2. Coronary artery disease, status post coronary artery bypass grafting by Dr. Snyder in the past, followed by Dr. Pichardo. He is wearing a LifeVest. He has a low ejection fraction in May 2018, ejection fraction 45% to 50%, but he probably has a lower ejection fraction determined in Dr. Pichardo's office, for which he is wearing a LifeVest. He is on aspirin only. He has appointments to follow up with Dr. Pichardo that he has not managed to keep so far. 3. Diabetes mellitus, insulin dependent. 4. Hypertension. 5. Obesity, 5 feet 7 inches, 30 BMI, 196 pounds. 6. Hyperlipidemia. 7. History of old stroke as noted above. 8. The patient has some degree of PAD with a history of tobacco abuse cessation a year ago. I do not think this PAD needs evaluation at this time. I do not think his foot will be affected by this. He should avoid contrast for any arteriograms anyway due to his chronic kidney disease. 9. Chronic kidney disease. Job ID: [id number]
--- NOTE | 2018-11-07 13:24 | PQF ---
RADHA LONDON JR SHAZIA GARCIAr [id number] CLINICAL DOCUMENTATION CLARIFICATION FORM: POST DISCHARGE Addendum to original discharge summary date: ____ Late entry note date: __ DATE: 11/07/18 ATTN: Dr. Garcia, Please exercise your independent, professional judgment in responding to the clarification form. Clinical indicators are provided on the bottom of this form for your review Please check appropriate box(s): [ ] Acute on Chronic Renal Failure please specify Stage of CKD (see below) [ x] Other diagnosis _CKD stage III [ ] Unable to determine In addition, please specify: Present on Admission (POA): [x ] Yes [ ] No [ ] Unable to determine National Kidney Foundation Guidelines for CKD Staging Stage I Kidney damage with normal or increased GFR GFR > 90 Stage II Kidney damage with mildly decreased GFR GFR 60-89 Stage III Kidney damage with moderately decreased GFR GFR 30-59 Stage IV Kidney damage with severely decreased GFR GFR 16-29 Stage V Kidney failure GFR<15 ESRD End Stage Renal Disease On dialysis Acute Renal Failure/Acute Kidney Failure defined as: Increases in SCr by (>) 0.3 mg/dl within 48 hours OR- Increases in SCr by (>) 1.5 times baseline, known or presumed to have occurred within the prior 7 days OR- Urine volume < 0.5 ml/kg/hour for 6 hours (KDIGO supplement 2012 for RIFLE/DEVONTE criteria) For continuity of documentation, please document condition throughout progress notes and discharge summary. Thank You. CLINICAL INDICATORS - SIGNS / SYMPTOMS / LABS Acute Kidney Injury superimposed on CKD--11/06 Progress note Chronic kidney disease--11/06 consult note eGFR----11/05 and 11/06 Labs Creatinine--2.34,2.24---11/05 and 11/06 Labs BUN--41, 35--11/05 and 11/06 Labs RISK FACTORS Hypertension--11/05 H&P Diabetes mellitus--11/05 H&P TREATMENTS Atorvastatin 80 mg---Discharge summary Thank you, Letitia Liu, YONG 11/07/18@1:18PM (This form is maintained as a part of the permanent medical record) 2014 [employer] All Rights Reserved [email or web address] [phone] [facility]ITAL[facility]
== END 2018-11-06 16:18 | disposition home or self-care (01) | DRG 74 ==
LOC: ERS 09:18 → ERHOLD 12:16 → T4-A 15:21
PROVIDERS: ADMIT Family Medicine; ATTEND Family Medicine
DX: E11.42 Type 2 diabetes mellitus with diabetic polyneuropathy (principal); N17.9 Acute kidney failure, unspecified; I13.0 Hypertensive heart and chronic kidney disease with heart failure and stage 1 through stage 4 chronic kidney disease, or unspecified chronic kidney disease; I50.32 Chronic diastolic (congestive) heart failure; I69.354 Hemiplegia and hemiparesis following cerebral infarction affecting left non-dominant side; I25.10 Atherosclerotic heart disease of native coronary artery without angina pectoris; E11.22 Type 2 diabetes mellitus with diabetic chronic kidney disease; N18.3 Chronic kidney disease, stage 3 (moderate); E78.5 Hyperlipidemia, unspecified; E66.9 Obesity, unspecified; Z68.30 Body mass index [BMI] 30.0-30.9, adult; S92.354A Nondisplaced fracture of fifth metatarsal bone, right foot, initial encounter for closed fracture; W22.8XXA Striking against or struck by other objects, initial encounter; Z79.02 Long term (current) use of antithrombotics/antiplatelets; Z79.4 Long term (current) use of insulin; Z79.82 Long term (current) use of aspirin; Z95.1 Presence of aortocoronary bypass graft; Z87.891 Personal history of nicotine dependence
CPT/HCPCS: 36415; 36416; 80048; 80053; 83605; 85025; 85652; 86140; 87040; 93306; 93922; J1650; J1825; J2543; J3370; J3490; J7050

== ENCOUNTER 2019-01-14 16:36 | Inpatient (IN) | payer MEDICARE ==
--- NOTE | 2019-01-14 17:32 | RAD ---
Radiograph right foot 3 views: DATE: 01/14/2019 HISTORY: Diabetic foot ulcer in 59-year-old male COMPARISON: 11/05/2018. FINDINGS: There is a new finding of soft tissue defect involving much of the distal aspect of the great toe. Th ere is a new finding of underlying irregularity and bone loss involving the first distal tuft with permeative pattern involving the entire first distal phalanx and to a lesser degree first proximal ph alanx. There is another new finding of a small amount of subcutaneous emphysema in the soft tissues adjacent to the first proximal phalanx. This is evidence for gangrene. There is a new finding of diff use soft tissue swelling of the entire great toe, and at the distal tip of the second toe. There is a new finding of absence of the second distal tuft, with irregular margins. Again noted is the nonunited, nonacute, mildly displaced fracture at the lateral base of the fifth me tatarsal. It reaches the fifth tarsometatarsal joint, but does not reach the intertarsal joint. Again noted is the diffuse soft tissue edema of the foot. Again noted are the extensive atherosclerot ic calcifications. IMPRESSION: 1. Acro-osteolysis of the first and second distal debby, and soft tissue defect at the distal great t oe: Suspicious for osteomyelitis. 2. Subcutaneous emphysema within diffusely swollen great toe: Evidence for gangrene of great toe. 3. Nonacute, nonunited, mildly displaced dancer's fracture of fifth metatarsal base.
[2019-01-14 17:54] LABS: #Eosinphils 0.1 thou/uL (0.0-0.7); #Lymphocytes 1.3 thou/uL (1.20-3.40); #Monocytes 1.3 thou/uL (0.11-0.59); %Basophils 0.2 % (0.0-1.0); %Eosinophils 0.3 % (0.0-10.0); %Lymphocytes 6.8 % (21.0-51.0); %Monocytes 6.4 % (0.0-10.0); %Neutrophils 86.3 % (42.0-75.0); Hemoglobin 9.3 g/dL (14.0-18.0); Mean Corpuscular HGB CONC 31.7 g/dL (32.0-36.0); Mean Corpuscular Hemoglobin 27.8 pg (27.0-31.0); Mean Corpuscular Volume 87.5 fL (78.0-98.0); Mean Platelet Volume 8.2 fL (7.4-10.4); Platelet Count 401 thou/uL (130-400); RBC Distribution Width 13.1 % (11.5-14.5); Red Blood Cell (RBC) Count 3.35 mill/uL (4.70-6.10); White Blood Cell (WBC) Count 19.7 thou/uL (4.8-10.8)
[2019-01-14 18:29] LABS: ALT (SGPT) 16 U/L (8-55); AST (SGOT) 18 U/L (5-34); Albumin 3.5 g/dL (3.5-5.0); Alkaline Phosphatase 69 U/L (40-150); Anion Gap 17 mmol/L (10-20); BUN (Urea Nitrogen) 45 mg/dL (8.4-25.7); Bilirubin, Total 0.5 mg/dL (0.2-1.2); CRP (Inflammatory) 27.61 mg/dL (= or < 0.5); Calc. Creatinine Clearance 0 mL/min (70-130); Calcium 9.6 mg/dL (7.8-10.44); Carbon Dioxide 20 mmol/L (22-29); Chloride 103 mmol/L (98-107); Estimated GFR-MDRD 24; Globulin 4.1 g/dL (2.4-3.5); Glucose 136 mg/dL (70-105); Potassium 4.1 mmol/L (3.5-5.1); Protein, Total 7.6 g/dL (6.0-8.3); Sodium 136 mmol/L (136-145)
[2019-01-14] MEDS ORDERED: Piperacillin/Tazobactam 3.375 GM VIAL ONE (18:57)
--- NOTE | 2019-01-14 20:44 | PDOC.FPRHP ---
- History of Present Illness Chief Complaint: Sepsis, Gangrene right foot History of Present Illness: Patient is a 59 yo male with PMHx of Diabetes Mellitus and PVD who presents today with complaint of severe pain in his right foot. He noticed about 3 months ago that he had a black first toe on the right with significant eschar. He was seen by [facility] for an inpatient stay at [facility] on 11/05- for ulcer of right first toe and right fifth metatarsal Ordonez fracture. It was estimated at that time the ulcer started around 10/22/18. He was treated with Vancomycin and Zosyn at that time and told to follow up with Dr. Jimenes outpatient at clinic. He saw Dr. Eli on 11/12/18 who referred him to Dr. Perry for consult of the right ulcer. He saw Dr. Perry at that time who told him he would likely need an amputation. However it was decided to delay the procedure until after the patient had seen his federal court of appeals law clerk Dr. South. Dr. Perry had given him Ciprofloxacin for suspected infection but this caused significant nausea/vomiting so he only took the ABx for [address] South, Cardiology decided to refer him for an angioplasty of the right leg on January 03, 2019 which was ultimately unsuccessful. He was then referred to [place] to a vein specialist but he had not made this appointment yet. About 3 days ago he started to have pain with walking which has since progressed to an almost constant "pulsing" pain in his right foot. He rates the pain 7/10 while sitting still, but pain increases to unbearable with light touch. Over the past 3 days the patient has noticed his foot has increased swelling. Denies feeling a change in temperature (i.e. not feeling hot nor cold) . At baseline he has very limited sensation in both feet. ED Course: Pt was given Vancomycin x 1 and Zosyn x 1 in the ER. IV NS at 75 ml/hr was started as well. XR of right foot showed acro-osteolysis of the first and second distal debby and soft tissue defects near distal great toe all suspicious for osteomyelitis. There was also subcutaneous emphysema around the great toe with evidence for gangrene. He was evaluated by Dr. Perry, Surgery in the ER who determined that patient was candidate for amputation with plan for surgery tomorrow morning. He will likely have a BKA on right side completed. - Allergies/Adverse Reactions Allergies Allergy/AdvReac Type Severity Reaction Status Date / Time No Known Allergies Allergy Verified 01/14/19 20:55 - Home Medications Medication Instructions Recorded Confirmed Type Aspirin Chewable [Aspirin Chewable 1 tab PO DAILY 06/30/16 01/14/19 History Tablet] metFORMIN HCl [Metformin ER 1 tab PO BID 06/30/16 01/14/19 History Gastric] Atorvastatin Calcium 80 mg PO HS 12/05/17 01/14/19 History Clopidogrel Bisulfate [Plavix] 75 mg PO DAILY #30 tab 12/08/17 01/14/19 Rx Insulin Glargine [Lantus Vial] 20 units SC HS #10 vial 12/08/17 01/14/19 Rx Fenofibrate 145 mg PO DAILY 11/05/18 01/14/19 History Furosemide [Lasix] 40 mg PO QAM 11/05/18 01/14/19 History Metoprolol Succinate 25 mg PO DAILY 01/14/19 01/14/19 History Sacubitril/Valsartan 49/51 1 tab PO BID 01/14/19 01/14/19 History [Entresto 49 mg-51 mg Tablet] - History PMHx: CHF with EF of 45-50% on 11/06/18, DM with last A1C 6.0% in November, HTN, CAD, PVD, CVA with no residual deficits, Stage 4 CKD PSHx: Angioplasty January 03, unsuccessful. Right fifth metatarsal repair October 2018. Social: Former smoker of "many years. Quit October 2017. Denies EtOH or other drug use. - Review of Systems General: denies: fever/chills, fatigue Eyes: denies: vision changes Respiratory: denies: cough, congestion, shortness of breath Cardiovascular: reports: edema. denies: chest pain Gastrointestinal: denies: nausea, vomiting, diarrhea, abdominal pain Genitourinary: denies: dysuria Skin: reports: lesions. denies: rashes, jaundice, itching (See HPI) Musculoskeletal: reports: pain, tenderness, swelling, other (of right foot) Neurological: reports: numbness, weakness - Vital signs BP: 130/68 HR: 95 RR: 18 Tmax: 99.4F Pox: 99% on RA Wt: 83.9 kg - Physical Exam Constitutional: NAD, awake, alert and oriented -Constitutional: appears chronically ill HEENT: normocephalic and atraumatic, EOMI, grossly normal vision, grossly normal hearing Heart: RRR, normal S1/S2, no murmurs/rubs/gallops, pulses present (pulses greatly diminished in bilateral lower extremities) Lungs: CTAB, no respiratory distress, good air movement, no wheezing Abdomen: soft, bowel sounds present Musculoskeletal: ROM grossly normal -Musculoskeletal: Swelling with 1+ edema in right foot and lower leg. Severely tender to light palpation over right foot and ankle. Neurological: no focal deficit -Neurological: Numbness in bilateral lower extremities with sensation to gross touch only. -Skin: Significant black eschar is present on plantar surface of first right toe. Skin surrounding first 2 toes on right foot is red and inflamed. Psychiatric: normal mood and affect, intact recent and remote memory FMR H&P: Results - Labs Result Diagrams: 01/14/19 17:41 01/14/19 17:40 Lab results: WBC 19.7 thou/uL (4.8-10.8) H 01/14/19 17:41 Hgb 9.3 g/dL (14.0-18.0) L 01/14/19 17:41 Hct 29.3 % (42.0-52.0) L 01/14/19 17:41 MCV 87.5 fL (78.0-98.0) 01/14/19 17:41 Plt Count 401 thou/uL (130-400) H 01/14/19 17:41 Neutrophils % 86.3 % (42.0-75.0) H 01/14/19 17:41 ESR Westergren 108 mm/hr (Less than 20) 01/14/19 17:41 Sodium 136 mmol/L (136-145) 01/14/19 17:40 Potassium 4.1 mmol/L (3.5-5.1) 01/14/19 17:40 Chloride 103 mmol/L (98-107) 01/14/19 17:40 Carbon Dioxide 20 mmol/L (22-29) L 01/14/19 17:40 BUN 45 mg/dL (8.4-25.7) H 01/14/19 17:40 Creatinine 2.78 mg/dL (0.7-1.3) H 01/14/19 17:40 Glucose 136 mg/dL (70-105) H 01/14/19 17:40 Lactic Acid 4.4 mmol/L (0.5-2.2) H* 01/14/19 17:41 Calcium 9.6 mg/dL (7.8-10.44) 01/14/19 17:40 Total Bilirubin 0.5 mg/dL (0.2-1.2) 01/14/19 17:40 AST 18 U/L (5-34) 01/14/19 17:40 ALT 16 U/L (8-55) 01/14/19 17:40 Alkaline Phosphatase 69 U/L (40-150) 01/14/19 17:40 C-Reactive Protein 27.61 mg/dL (= or < 0.5) H 01/14/19 17:40 Serum Total Protein 7.6 g/dL (6.0-8.3) 01/14/19 17:40 Albumin 3.5 g/dL (3.5-5.0) 01/14/19 17:40 Laboratory Tests 01/14/19 01/14/19 17:40 17:41 Lactic Acid 4.4 H* C-Reactive Protein 27.61 H - Radiology Interpretation Other Status: report reviewed by me (XR of right foot: Acro-osteolysis of the first and second distal debby, and soft tissue defect at the distal great toe: suspicious for osteomyelitis. Subcutaneous emphysema within diffusely swollen great toe: evidence for gangrene of great toe. Nonacute, nonunited, mildly displaced dancer's fracture of fifth metatarsal base.) FMR H&P: A/P - Problem List (1) Sepsis Current Visit: Yes Onset Date: ~01/14/19 Status: Acute Code(s): A41.9 - SEPSIS, UNSPECIFIED ORGANISM Qualifiers: Sepsis type: sepsis due to unspecified organism Qualified Code(s): A41.9 - Sepsis, unspecified organism (2) Osteomyelitis of toe of right foot Current Visit: Yes Onset Date: ~01/14/19 Status: Acute Code(s): M86.9 - OSTEOMYELITIS, UNSPECIFIED (3) Chronic kidney disease, stage 4 (severe) Current Visit: Yes Status: Chronic Code(s): N18.4 - CHRONIC KIDNEY DISEASE, STAGE 4 (SEVERE) (4) Peripheral vascular disease Current Visit: Yes Status: Chronic Code(s): I73.9 - PERIPHERAL VASCULAR DISEASE, UNSPECIFIED (5) HFrEF (heart failure with reduced ejection fraction) Current Visit: Yes Status: Chronic Code(s): I50.20 - UNSPECIFIED SYSTOLIC ( CONGESTIVE) HEART FAILURE Qualifiers: Heart failure chronicity: chronic Qualified Code(s): I50.22 - Chronic systolic (congestive) heart failure (6) DM2 (diabetes mellitus, type 2) Current Visit: Yes Status: Chronic Qualifiers: Diabetes mellitus complication detail: with peripheral angiopathy with gangrene (7) HLD (hyperlipidemia) Current Visit: No Status: Chronic Code(s): E78.5 - HYPERLIPIDEMIA, UNSPECIFIED (8) HTN (hypertension) Current Visit: No Status: Chronic Code(s): I10 - ESSENTIAL (PRIMARY) HYPERTENSION Qualifiers: Hypertension type: essential hypertension Qualified Code(s): I10 - Essential (primary) hypertension - Plan 1. Sepsis, secondary to gangrenous infection of right first toe-- will continue on Vancomycin and Zosyn. Pharmacy to renally dose Vancomycin. Will continue on maintenance NS at 75 ml/hr. Repeat Lactic acid ordered. CBC ordered for AM. 2. Osteomyelitis of right first toe-- scheduled for amputation tomorrow morning with Dr. Perry. Continue Abx as above. 3. Peripheral Vascular Disease-- chronic. Will continue to monitor. 4. Stage 4 CKD-- GFR 24 today. Will monitor with morning CMP. 5. Diabetes Mellitus-- Continue home meds. Mild SSI ordered for duration of hospital stay 6. Hypertension--Continue home meds. 7. Hx of CAD--Sees outpatient cardiology. Continue Entresto and other home meds. 8. Hx of CVA, unknown date, no residual deficits--will hold Aspirin and Plavix for now, until surgery is completed tomorrow. FMR H&P: Upper Level - Pertinent history 59 yo M with hx of R great toe gangrene, DM2, CAD, CHF, PAD here with complaint or worsening foot pain with ambulation over the past few days. He has been told by surgery in the past that the toe needed amputation, however pt declined previously. He has been put on multiple abx in over the past few months for the wound on his toe, however he never completed the courses. He has also undergone cardiac cath that showed a EF 40-50%. He is currently waiting for referral for possible fem-pop bypass of his R leg. In the ED he was noted to have a HR greater than 90, and elevated WBC count, and elevated lactic acid. He was bolused 2L NS and given IV vanc and zosyn. Dr Perry was consulted from ER who plans to amputate in the morning. See statistics intern note for full ROS, PE, vitals, and labs ROS General denies fever, complains of chills and headache CV denies CP or palpitations Resp denies cough or SOB Abd denies n/v/d Extremities complains of R toe infection with worsening pain - Pertinent findings PE General A&O x3, no acute distress HEENT NCAT CV RRR, no murmur Resp CTA Abd non tender Extremities R great toe black and dry with surrounding erythema. Foot is edematous with streaking. No palpable pulse in R foot - Plan Date/Time: 01/14/192041 IRyan DO, have evaluated this patient and agree with findings/plan as outlined by statistics intern resident. Pertinent changes/additions are listed here. 1. Sepsis secondary gangrene - continue vanc and zosyn - IVF at maintenance rate after completion of 30 mg/kg bolus. - NPO at midnight - Blood cx pending - admit to medicine 2. DENYS on CKD - IVF, recheck in am 3. Lactic acidosis - Secondary to sepsis. Trend in am 4. DM2 - home meds. - ACHS accucheck 5. CAD - home statin and plavix 6. CHF - currently euvolemic. Monitor fluid status with strict I/O - home meds
[2019-01-14 22:08] LABS: Lactic Acid 4.3 mmol/L (0.5-2.2)
[2019-01-15] MEDS ORDERED: HumaLOG 300 UNITS/3 ML VIAL SC PRN (01:40)
[2019-01-15] MEDS ORDERED: Acetaminophen 325 MG TAB PO PRN (01:40)
[2019-01-15] MEDS ORDERED: Senokot S 8.6-50 MG TAB PO PRN (01:40)
[2019-01-15] MEDS ORDERED: Dextrose 5% in Water 1,000 ML IV PRN (01:40)
[2019-01-15] MEDS ORDERED: Dextrose 50% Abboject 50 ML SYRINGE SLOW IVP PRN (01:40)
[2019-01-15] MEDS ORDERED: Famotidine 20 MG TAB PO SCH (02:15)
--- NOTE | 2019-01-15 03:32 | CON ---
DATE OF CONSULTATION: HISTORY OF PRESENT ILLNESS: This is a 59-year-old male with PAD and coronary artery disease, he is followed by Dr. Pichardo. I saw him on 11/06/2018 for gangrene of his right great toe and second toe. Since then, he has chronic kidney disease. He has seen Dr. Pichardo, has had arteriography as an outpatient and no interventions are possible. He has developed progressive gangrene, foul smelling of his great toe. He was seen in the emergency room with a white count of 19,000, admitted by the [facility]. He is ready to have his toe amputated as well as the second toe. Plan is to amputate the right great toe and metatarsal and second toe tomorrow under probably regional anesthesia and TIVA. The patient's cardiac ejection fraction is improved with the LifeVest. It has improved and his LifeVest has been discontinued recently. ALLERGIES: NONE. SOCIAL HISTORY: Tobacco, none. Alcohol, none. MEDICATIONS: 1. Metformin. 2. Amlodipine. 3. Sulfa. 4. Lisinopril. 5. Insulin. 6. Lasix. 7. Plavix. 8. Cipro. 9. Coreg. 10. Aspirin. 11. He takes insulin at home. PAST SURGICAL HISTORY: Eye surgery, coronary bypass grafting in 2010, past history of manjula infarct, recent arteriography. PHYSICAL EXAMINATION: HEAD EARS, EYES, NOSE AND THROAT: Unremarkable. LUNGS: Clear to auscultation. CARDIAC: Rhythm without murmur or gallop. ABDOMEN: Soft and nontender. Palpable femoral pulses. LUNGS: Clear to auscultation. EXTREMITIES: Right foot edematous to the ankle, redness to the right great toe, edematous right second toe. Foul smell gangrene, great toe right. LABORATORY DATA: White count 19, hemoglobin 9.3, glucose 136, lactate 4.1, creatinine 2.78, GFR 24. ASSESSMENT: Gangrene, right foot. We will plan amputation right first and second toes. We will plan that tomorrow under regional anesthesia. Risks and benefits explained. He consents. Job ID: [id number]
[2019-01-15 04:54] LABS: #Basophils 0.1 thou/uL (0.0-0.2); #Eosinphils 0.3 thou/uL (0.0-0.7); #Lymphocytes 1.4 thou/uL (1.20-3.40); #Monocytes 1.6 thou/uL (0.11-0.59); #Neutrophils 14.4 thou/uL (1.40-6.50); %Basophils 0.4 % (0.0-1.0); %Eosinophils 1.4 % (0.0-10.0); %Lymphocytes 7.8 % (21.0-51.0); %Monocytes 9.2 % (0.0-10.0); %Neutrophils 81.2 % (42.0-75.0); Hemoglobin 8.8 g/dL (14.0-18.0); Mean Corpuscular HGB CONC 31.9 g/dL (32.0-36.0); Mean Corpuscular Hemoglobin 27.9 pg (27.0-31.0); Mean Corpuscular Volume 87.5 fL (78.0-98.0); Mean Platelet Volume 8.1 fL (7.4-10.4); Platelet Count 384 thou/uL (130-400); RBC Distribution Width 13.3 % (11.5-14.5); Red Blood Cell (RBC) Count 3.15 mill/uL (4.70-6.10); White Blood Cell (WBC) Count 17.7 thou/uL (4.8-10.8)
[2019-01-15 05:00] LABS: ALT (SGPT) 15 U/L (8-55); AST (SGOT) 15 U/L (5-34); Alkaline Phosphatase 79 U/L (40-150); Anion Gap 17 mmol/L (10-20); BUN (Urea Nitrogen) 42 mg/dL (8.4-25.7); Bilirubin, Total 0.3 mg/dL (0.2-1.2); Calc. Creatinine Clearance 0 mL/min (70-130); Calcium 8.5 mg/dL (7.8-10.44); Carbon Dioxide 19 mmol/L (22-29); Chloride 105 mmol/L (98-107); Estimated GFR-MDRD 26; Globulin 3.4 g/dL (2.4-3.5); Glucose 166 mg/dL (70-105); Potassium 3.5 mmol/L (3.5-5.1); Protein, Total 6.4 g/dL (6.0-8.3); Sodium 137 mmol/L (136-145)
--- NOTE | 2019-01-15 05:54 | PDOC.FM ---
- Subjective Subjective: Mr. Sanon is doing well this morning with no concerns or complaints. He was able to get some rest overnight without any acute events. This morning he states pain is much improved and described as a dull ache in this right foot/toe. He denies any fever/chills, n/v, CP, SOB, abdominal pain. He states he is awaiting surgery this morning. - Objective MAR Reviewed: Yes Vital Signs & Weight: BP 153/75, HR 82, RR 16, 97% on RA. T 98.8 Result Diagrams: 01/16/19 07:16 01/16/19 07:16 Additional Labs: Lactate 4.4 -> 4.3 -> 2.7 CRP 27.6 ESR 108 Phys Exam - Physical Examination Constitutional: NAD HEENT: moist MMs Neck: supple Respiratory: no wheezing, no rales, no rhonchi, clear to auscultation bilateral Cardiovascular: RRR, no significant murmur, no rub Gastrointestinal: soft, non-tender, no distention, positive bowel sounds Musculoskeletal: no edema, pulses present (2+ UE, 1- in lower bilateral doralis pedis and posterior tibial pulses) Neurological: non-focal, moves all 4 limbs Decrease gross sensation BL LE Psychiatric: normal affect, A&O x 3 Deviation from normal: unstagable ulcer first and second digit of right foot. Black eschar present -: Increased Edema, erythema, and warmth of right foot as compared to left. Dx/Plan (1) Osteomyelitis of toe of right foot Code(s): M86.9 - OSTEOMYELITIS, UNSPECIFIED Status: Acute (2) Sepsis Code(s): A41.9 - SEPSIS, UNSPECIFIED ORGANISM Status: Acute Qualifiers: Sepsis type: sepsis due to unspecified organism Qualified Code(s): A41.9 - Sepsis, unspecified organism (3) Chronic kidney disease, stage 4 (severe) Code(s): N18.4 - CHRONIC KIDNEY DISEASE, STAGE 4 (SEVERE) Status: Chronic (4) DM2 (diabetes mellitus, type 2) Status: Chronic Qualifiers: Diabetes mellitus complication detail: with peripheral angiopathy with gangrene (5) HFrEF (heart failure with reduced ejection fraction) Code(s): I50.20 - UNSPECIFIED SYSTOLIC (CONGESTIVE) HEART FAILURE Status: Chronic Qualifiers: Heart failure chronicity: chronic Qualified Code(s): I50.22 - Chronic systolic (congestive) heart failure (6) HLD (hyperlipidemia) Code(s): E78.5 - HYPERLIPIDEMIA, UNSPECIFIED Status: Chronic (7) HTN (hypertension) Code(s): I10 - ESSENTIAL (PRIMARY) HYPERTENSION Status: Chronic Qualifiers: Hypertension type: essential hypertension Qualified Code(s): I10 - Essential (primary) hypertension - Plan Plan: 59yo M with h/o of ID DMII, CKD stage 4, HLD, HTN, and CVA presents with gangrene of first and second digits of right foot found to have osteo. 1. Sepsis secondary gangrene of first and second digits of right foot. - XR concerning for osteo. Vitals stable. - s/p 1 dose vanc and zosyn in ED. Will most likely need continued Abx after surgery. Will await op report and recs. - NS at 75ml/hr with NPO for surgery. - Blood cx pending - Gen surg (Dr. Perry) Consulted, rec amputation of first and second digit. Plan for surgery this morning. Appreciate recs. 2. DENYS on CKD Stage 4 - Cr improved from 2.78 --> 2.55. Continue gently hydration. Baseline Cr 2.24 at last d/c in October. 3. Lactic acidosis - Secondary to sepsis. Trending down. 4.4 -> 4.3 -> 2.7 4. Insulin Dependent DM2 - Last A1C 6%. Continue home metformin and Lantus 20u. Placed on mild SS with ACHS accuchecks. 5. CAD - continue home lipitor, Entresto, troprol, and lasix 6. CHF with rEF and diastolic dysfunction - Echo 10/2018: EF 45-50%, with 1/3 diastolic dysfunction and wall hypokinesis - currently euvolemic. Monitor fluid status with strict I/O - home meds of Entresto, Toprol, and lasix 7. HTN - chronic and stable. Continue home meds. Diet: NPO for surgery VTE: SCD's Code: DNR Dispo: Pending surgery today. Anticipate continued Abx and follow cultures appropriately. Anticipated hospital stay > 48hrs. Addendum - Attending - Attending Attestation Date/Time: 01/16/19 9182 I personally evaluated the patient and discussed the management with Dr. Bermudez yesterday. I agree with the History, Examination, Assessment and Plan documented above with any addition or exceptions noted below.
[2019-01-15 05:57] LABS: Lactic Acid 1.1 mmol/L (0.5-2.2)
[2019-01-15] MEDS ORDERED: Famotidine/PF 20 mg/2ml Vial ONE (07:33)
[2019-01-15] MEDS ORDERED: Famotidine 20 MG TAB ONE (07:36)
[2019-01-15] MEDS: Furosemide 40 MG TAB PO SCH (08:00)
[2019-01-15] MEDS: metFORMIN XR 500 MG TAB PO SCH ×2 (08:00→20:40)
[2019-01-15] MEDS: Fenofibrate Nanocrystallized 145 MG TAB PO SCH (08:00)
[2019-01-15] MEDS: Sacubitril 49 MG/Valsartan 51 MG TABLET PO SCH ×2 (08:01→21:29)
[2019-01-15] MEDS ORDERED: Sodium Chloride 0.9% 1,000 ML IV SCH ×2 (09:00→18:30)
[2019-01-15] MEDS ORDERED: Fentanyl 100 MCG/2 ML VIAL ONE ×3 (15:17→17:28)
[2019-01-15] MEDS ORDERED: Naloxone HCl 0.4 mg/ml Vial IV PRN (16:43)
[2019-01-15] MEDS ORDERED: Morphine CADD 1 MG/ML CADD IVPB PRN (16:43)
[2019-01-15] MEDS ORDERED: diphenhydrAMINE 50 MG/ML VIAL IM PRN (16:43)
[2019-01-15] MEDS ORDERED: Promethazine HCl 25 MG/ML VIAL SLOW IVP PRN (16:43)
[2019-01-15] MEDS ORDERED: HYDROmorphone 2 MG/ML VIAL SLOW IVP PRN (16:43)
[2019-01-15] MEDS ORDERED: Promethazine HCl 25 MG/ML VIAL IM PRN ×2 (16:43)
[2019-01-15] MEDS ORDERED: Ondansetron HCl/PF 4 MG/2 ML Vial IVP PRN (16:43)
[2019-01-15] MEDS ORDERED: Zolpidem Tartrate 5 MG TAB PO PRN (16:43)
[2019-01-15] MEDS ORDERED: Ondansetron PF 4 MG/2 ML Vial IVP PRN (16:43)
[2019-01-15] MEDS ORDERED: diphenhydrAMINE 25 MG CAP PO PRN (16:43)
[2019-01-15] MEDS ORDERED: diphenhydrAMINE 50 MG/ML VIAL IVP PRN (16:43)
[2019-01-15] MEDS ORDERED: Communication Order-Pharmacy FS SCH (16:45)
--- NOTE | 2019-01-15 17:02 | PRG ---
DATE OF SERVICE: 01/15/2019 SUBJECTIVE: Mr. Sanon's arteriograms were reviewed with Dr. Pichardo, this morning. He had an arteriogram recently outpatient, minimizes contrast considering his CKD. This revealed complete occlusion of the popliteal artery behind the knee with only collateral runoff to the foot. He had distal reconstitution of anterior tibial artery at the ankle, but was heavily calcified on plain films. On the left side, he has single-vessel runoff to the foot. The patient has rest pain in his right foot to his ankle. Considering his gangrene of his right first and second toes, discussion was held with Dr. Snyder. He reviewed his arteriograms. Dr. Snyder had done his coronary artery bypass grafting 8 years ago utilizing a left saphenous vein. The patient had poor targets at that time with cardiomyopathy which has improved. Arteriograms right leg reviewed Dr. Snyder and Dr. Snyder did not think there is anything can do from a surgical standpoint considering the patient's CKD and distal calcified vessels. Discussion was then held with the patient and his . was on the telephone speaker phone. His situation was discussed with her. Considering the patient's rest pain in his foot extending to his ankle, recommendation for right below-knee amputation was made considering that any amputation at the foot level of only his first and second toes would not heal. The patient was given the option of waiting to discuss with his , consider this another 24 hours, but he wanted to proceed to relieve his pain in his foot. Plan is for right below-knee amputation. Risks of infection, bleeding, reoperation, nonhealing wound were discussed. Postoperative plan is for going to rehab and after that assisted living considering his living situation at . Job ID: [id number]
[2019-01-15] MEDS ORDERED: Acetaminophen 500 MG TAB PO PRN (17:20)
[2019-01-15] MEDS ORDERED: traMADol HCl 50 MG TAB PO PRN (17:20)
[2019-01-15 18:17] LABS: #Basophils 0.1 thou/uL (0.0-0.2); #Eosinphils 0.2 thou/uL (0.0-0.7); #Monocytes 0.8 thou/uL (0.11-0.59); %Basophils 0.3 % (0.0-1.0); %Eosinophils 0.9 % (0.0-10.0); %Lymphocytes 6.1 % (21.0-51.0); %Monocytes 4.7 % (0.0-10.0); Hemoglobin 9.1 g/dL (14.0-18.0); Mean Corpuscular Volume 87.4 fL (78.0-98.0); Mean Platelet Volume 7.8 fL (7.4-10.4); Platelet Count 415 thou/uL (130-400); RBC Distribution Width 13.1 % (11.5-14.5); Red Blood Cell (RBC) Count 3.24 mill/uL (4.70-6.10)
[2019-01-15] MEDS ORDERED: Piperacillin/Tazobactam 3.375 GM in Sodium Chloride 0.9% 100 ML IVPB SCH (18:30)
[2019-01-15 18:40] LABS: Anion Gap 15 mmol/L (10-20); BUN (Urea Nitrogen) 33 mg/dL (8.4-25.7); Calc. Creatinine Clearance 43 mL/min (70-130); Calcium 8.6 mg/dL (7.8-10.44); Carbon Dioxide 20 mmol/L (22-29); Chloride 108 mmol/L (98-107); Estimated GFR-MDRD 31; Glucose 142 mg/dL (70-105); Potassium 3.8 mmol/L (3.5-5.1); Sodium 139 mmol/L (136-145)
[2019-01-15] MEDS: Atorvastatin Calcium 10 MG TAB PO SCH (20:42)
[2019-01-15] MEDS: Famotidine 20 MG TAB PO SCH (20:43)
[2019-01-15] MEDS ORDERED: Vancomycin HCl 1.25 GM in Sodium Chloride 0.9% 250 ML 250 ML IVPB SCH (21:00)
[2019-01-15] MEDS: Insulin Glargine 20 UNITS in Pre-Filled Syringe 1 EACH SC SCH (21:29)
--- NOTE | 2019-01-15 22:52 | OP ---
DATE OF PROCEDURE: 01/15/2019 PREOPERATIVE DIAGNOSES: 1. Peripheral artery disease. 2. Gangrene foot. 3. Occluded popliteal artery behind the knee. 4. Collateral runoff only without bypassable disease. (Discussed with Dr. Pichardo and Dr. Erick Snyder this morning). POSTOPERATIVE DIAGNOSES: 1. Peripheral artery disease. 2. Gangrene foot. 3. Occluded popliteal artery behind the knee. 4. Collateral runoff only without bypassable disease. (Discussed with Dr. Pichardo and Dr. Erick Snyder this morning). PROCEDURE PERFORMED: Amputation of right leg below the knee. ANESTHESIA: General. ESTIMATED BLOOD LOSS: 150 mL BLOOD TRANSFUSION: None. DESCRIPTION OF PROCEDURE: The patient was taken to the operating room, where under general anesthesia, right lower extremity was prepared with Betadine and draped in routine fashion. Incision was made for right below-knee amputation with a long posterior flap. Incision was carried down through the skin and subcutaneous tissue, and fascia, transecting the muscular bundles with the cautery and dividing the vascular bundles between clamps, ligating with 2-0 silk ties. Periosteum raised proximally with the periosteal elevator, transected with a Gigli saw, beveling the anterior edge cephalad, smoothened with a rasp. Fibula cut an inch above the cut edge of the tibia. Completion amputation was performed. Good hemostasis obtained with cautery and 2-0 Vicryl. Wound irrigated. Good hemostasis obtained. Fascia approximated with 2-0 Vicryl, skin with oni. Sterile dressing applied. The patient tolerated the procedure well. Job ID: [id number]
[2019-01-16] MEDS: Piperacillin/Tazobactam 3.375 GM in Sodium Chloride 0.9% 100 ML IVPB SCH ×2 (00:33→06:32)
--- NOTE | 2019-01-16 06:18 | PDOC.FM ---
- Subjective Subjective: Mr. Sanon is doing well this morning without any major concerns or complaints. He states that he rested well overnight and that his pain is well-controlled on morphine. He is in good spirits and is eager to begin PT today. He denies any CP , SOB, n/v, fever/chills. - Objective MAR Reviewed: Yes Vital Signs & Weight: Vital Signs (12 hours) Temp Pulse Resp BP Pulse Ox 01/16/19 04:00 98.2 F 67 16 107/65 92 L 01/16/19 00:00 97.7 F 70 16 119/76 92 L 01/15/19 20:00 77 16 117/74 94 L 01/15/19 19:45 97.6 F 79 18 129/71 94 L Weight Weight 83.915 kg Result Diagrams: 01/16/19 07:16 01/16/19 07:16 Additional Labs: Mg 1.5, Phos 5.3 Phys Exam - Physical Examination Constitutional: NAD HEENT: moist MMs Neck: supple Respiratory: no wheezing, no rales, no rhonchi, clear to auscultation bilateral Cardiovascular: RRR, no significant murmur, no rub Gastrointestinal: soft, non-tender, no distention, positive bowel sounds Musculoskeletal: no edema Right BKA. Incision dressed, clean, and dry. No surrounding erythema/warmth Neurological: non-focal Dx/Plan (1) Osteomyelitis of toe of right foot Code(s): M86.9 - OSTEOMYELITIS, UNSPECIFIED Status: Acute (2) Sepsis Code(s): A41.9 - SEPSIS, UNSPECIFIED ORGANISM Status: Acute Qualifiers: Sepsis type: sepsis due to unspecified organism Qualified Code(s): A41.9 - Sepsis, unspecified organism (3) Chronic kidney disease, stage 4 (severe) Code(s): N18.4 - CHRONIC KIDNEY DISEASE, STAGE 4 (SEVERE) Status: Chronic (4) DM2 (diabetes mellitus, type 2) Status: Chronic Qualifiers: Diabetes mellitus complication detail: with peripheral angiopathy with gangrene (5) HFrEF (heart failure with reduced ejection fraction) Code(s): I50.20 - UNSPECIFIED SYSTOLIC (CONGESTIVE) HEART FAILURE Status: Chronic Qualifiers: Heart failure chronicity: chronic Qualified Code(s): I50.22 - Chronic systolic (congestive) heart failure (6) HLD (hyperlipidemia) Code(s): E78.5 - HYPERLIPIDEMIA, UNSPECIFIED Status: Chronic (7) HTN (hypertension) Code(s): I10 - ESSENTIAL (PRIMARY) HYPERTENSION Status: Chronic Qualifiers: Hypertension type: essential hypertension Qualified Code(s): I10 - Essential (primary) hypertension (8) Hyperphosphatemia Code(s): E83.39 - OTHER DISORDERS OF PHOSPHORUS METABOLISM Status: Acute (9) Hypomagnesemia Code(s): E83.42 - HYPOMAGNESEMIA Status: Acute - Plan Plan: 59yo M with h/o of ID DMII, CKD stage 4, HLD, HTN, and CVA presents with gangrene of first and second digits of right foot found to have osteo s/p right BKA POD #1 1. Sepsis secondary to gangrene of first and second digits of right foot with chronic PVD - s/p right BKA POD #1 - Vanc and Zosyn x2d - will D/C all abx today due to good margins and bloodflow. - Blood cx NG to date. - Gen surg (Dr. Perry) Consulted, s/p right BKA. Plan for dressing change and orthotic fitting tomorrow with d/c to rehab within the next 1-2 days. Appreciate recs and management. - Wound care and PT consulted, appreciate recs. 2. DENYS on CKD Stage 4 - Cr improved from 2.78 --> 2.31. Baseline Cr 2.24 at last d/c in October. 3. Lactic acidosis - Secondary to sepsis. Resolved. 4. Insulin Dependent DM2 - Last A1C 6%. Continue home metformin and Lantus 20u. Placed on mild SS with ACHS accuchecks. 5. CAD - continue home lipitor, Entresto, troprol, and lasix 6. CHF with rEF and diastolic dysfunction - Echo 10/2018: EF 45-50%, with 1/3 diastolic dysfunction and wall hypokinesis - currently euvolemic. Monitor fluid status with strict I/O - home meds of Entresto, Toprol, and lasix 7. HTN - chronic and stable. Continue home meds. 8. Hypomag - 1.5 today. Will replace with MgOx 400 BID x2 doses and recheck in AM. 9. Hyperphos - 5.3 today. Will start Sevelamer 800mg TID. Will monitor. Pt will need follow up labs as OP. Diet: Diabetic CC VTE: SCD's Code: DNR Dispo: S/p right BKA. D/C antibiotics. Plan for discharge to inpatient rehab in 1-2days pending current clinical course. Addendum - Attending - Attending Attestation Date/Time: 01/16/19 9052 I personally evaluated the patient and discussed the management with Dr. Bermudez. I agree with the History, Examination, Assessment and Plan documented above with any addition or exceptions noted below.
[2019-01-16 07:40] LABS: #Lymphocytes 1.2 thou/uL (1.20-3.40); #Monocytes 1.3 thou/uL (0.11-0.59); #Neutrophils 15.4 thou/uL (1.40-6.50); %Basophils 0.2 % (0.0-1.0); %Eosinophils 0.1 % (0.0-10.0); %Lymphocytes 6.5 % (21.0-51.0); %Monocytes 7.4 % (0.0-10.0); %Neutrophils 85.8 % (42.0-75.0); Hemoglobin 8.3 g/dL (14.0-18.0); Mean Corpuscular HGB CONC 31.7 g/dL (32.0-36.0); Mean Corpuscular Hemoglobin 28.2 pg (27.0-31.0); Mean Corpuscular Volume 88.9 fL (78.0-98.0); Mean Platelet Volume 8.1 fL (7.4-10.4); Platelet Count 412 thou/uL (130-400); RBC Distribution Width 13.1 % (11.5-14.5); Red Blood Cell (RBC) Count 2.94 mill/uL (4.70-6.10); White Blood Cell (WBC) Count 17.9 thou/uL (4.8-10.8)
[2019-01-16 08:01] LABS: Anion Gap 16 mmol/L (10-20); BUN (Urea Nitrogen) 35 mg/dL (8.4-25.7); Calc. Creatinine Clearance 41 mL/min (70-130); Calcium 8.6 mg/dL (7.8-10.44); Carbon Dioxide 19 mmol/L (22-29); Chloride 109 mmol/L (98-107); Estimated GFR-MDRD 29; Glucose 122 mg/dL (70-105); Magnesium 1.5 mg/dL (1.6-2.6); Phosphorus 5.3 mg/dL (2.3-4.7); Potassium 4.3 mmol/L (3.5-5.1); Sodium 140 mmol/L (136-145)
[2019-01-16] MEDS: metFORMIN XR 500 MG TAB PO SCH ×2 (09:02→17:58)
[2019-01-16] MEDS: Polyethylene Glycol 3350 17 GM Packet PO SCH (09:02)
[2019-01-16] MEDS: Furosemide 40 MG TAB PO SCH (09:02)
[2019-01-16] MEDS: Magnesium Oxide 400 MG TAB PO SCH ×2 (09:03→21:27)
[2019-01-16] MEDS: Fenofibrate Nanocrystallized 145 MG TAB PO SCH (09:04)
[2019-01-16] MEDS: Sacubitril 49 MG/Valsartan 51 MG TABLET PO SCH ×2 (09:04→21:31)
[2019-01-16] MEDS ORDERED: traMADol HCl 50 MG TAB PO PRN (12:46)
[2019-01-16] MEDS ORDERED: Fentanyl 100 MCG/2 ML VIAL SLOW IVP PRN (12:47)
[2019-01-16] MEDS: HYDROcodone/Acetaminophen 10/325 mg Tablet PO PRN ×2 (13:34→17:58)
[2019-01-16] MEDS: Sevelamer Carbonate 800 MG TAB PO SCH ×2 (13:34→17:58)
[2019-01-16] MEDS ORDERED: ePHEDrine 50 MG/ML VIAL ONE (15:11)
[2019-01-16] MEDS ORDERED: PROPOFOL 200 MG/20 ML VIAL ONE (15:11)
[2019-01-16] MEDS ORDERED: PHENYLEPHRINE-NS 100 MCG/ML 10 ML SYRINGE ONE (15:11)
[2019-01-16] MEDS ORDERED: Ondansetron PF 4 MG/2 ML Vial ONE (15:11)
[2019-01-16] MEDS ORDERED: Lidocaine 1% PF 5 ML VIAL ONE (15:11)
[2019-01-16] MEDS ORDERED: Dexamethasone 20 MG/5 ML VIAL ONE (15:11)
--- NOTE | 2019-01-16 16:26 | PRG ---
DATE OF SERVICE: 01/16/2019 SUBJECTIVE: Mr. Sanon is doing well after right [id number] amputation. He has been advised to keep his right BKA stump on pillows or blankets placed below the knee to avoid flexion of the knee and provide better function of his BKA for future prosthesis. He is advised to keep blankets or pillows under his leg above his ankle to keep his heel from developing the decubitus. Physical Therapy is working with him on transfers and mobility. Rehab consult had been made. He can transfer to Rehab tomorrow, or Monday. Antibiotics can be discontinued. OBJECTIVE: LUNGS: Clear to auscultation. CARDIAC: Regular rate and rhythm without murmur or gallop. ABDOMEN: Soft. VITAL SIGNS: Temperature 98.2 degrees, pulse 73, and blood pressure 112/69. EXTREMITIES: Right BKA wound dressings are dry. ASSESSMENT AND PLAN: Status post right below-knee amputation. Prevent contracture by placing blankets or pillows beneath the BKA stump below the knee. Provide elevation of his heel to prevent decubitus of his left heel. Transfer to Rehab whenever he is accepted. Follow up in my office in 2 to 3 weeks for staple removal. , tomorrow, he can remove his BKA dressings, begin washing the wound daily with soap and water. He can wash this in a shower chair and shower, patting the wound dry after washing with soap and water and place antibiotic ointment, Telfa and a stump insurance office manager. [facility] ([employer]) has been requested to provide a stump insurance office manager. He will follow up in my office in 2 weeks. Overall, he is doing well. Dr. Rodríguez is covering for the next week and a half. Job ID: [id number]
[2019-01-16] MEDS: Insulin Glargine 20 UNITS in Pre-Filled Syringe 1 EACH SC SCH (21:24)
[2019-01-16] MEDS: Famotidine 20 MG TAB PO SCH (21:27)
[2019-01-16] MEDS: Gabapentin 300 MG CAP PO SCH (21:27)
[2019-01-16] MEDS: traMADol HCl 50 MG TAB PO PRN (21:27)
[2019-01-16] MEDS: Atorvastatin Calcium 10 MG TAB PO SCH (21:28)
[2019-01-17] MEDS: Ondansetron ODT 4 MG TAB PO PRN ×2 (04:32→21:17)
[2019-01-17 05:22] LABS: Phosphorus 4.7 mg/dL (2.3-4.7)
--- NOTE | 2019-01-17 06:09 | PDOC.FM ---
- Subjective Subjective: Mr. Sanon is doing well this morning. He does endorse one episode of chills overnight but no subjective fever. He is eager to get started on PT and rehab. He denies any CP, SOB, n/v, diarrhea/constipation. He states that his pain is well controlled with oral meds. - Objective MAR Reviewed: Yes Vital Signs & Weight: Vital Signs (12 hours) Temp Pulse Resp BP Pulse Ox 01/17/19 04:00 98.8 F 108 H 16 129/63 97 01/17/19 00:00 97.8 F 72 16 130/73 97 01/16/19 21:36 98 01/16/19 20:00 97.9 F 79 16 98/60 97 Weight Admit Weight 83.915 kg Weight 83.915 kg I&O: 01/15/19 01/16/19 01/17/19 06:59 06:59 06:59 Intake Total 810 Output Total 350 Balance 460 Result Diagrams: 01/16/19 07:16 01/16/19 07:16 Phys Exam - Physical Examination Constitutional: NAD HEENT: moist MMs Neck: supple Respiratory: no wheezing, no rales, no rhonchi, clear to auscultation bilateral Cardiovascular: RRR (Systolic ejection murmur. II/. Loudest at base.), no rub Gastrointestinal: soft, non-tender, no distention, positive bowel sounds Musculoskeletal: no edema (Right BKA. No surrounding erythema or warmth. ), pulses present Neurological: non-focal Psychiatric: normal affect, A&O x 3 Skin: no rash (BKA dressing clean and dry.) Dx/Plan (1) Osteomyelitis of toe of right foot Code(s): M86.9 - OSTEOMYELITIS, UNSPECIFIED Status: Resolved (2) Sepsis Code(s): A41.9 - SEPSIS, UNSPECIFIED ORGANISM Status: Resolved Qualifiers: Sepsis type: sepsis due to unspecified organism Qualified Code(s): A41.9 - Sepsis, unspecified organism (3) Chronic kidney disease, stage 4 (severe) Code(s): N18.4 - CHRONIC KIDNEY DISEASE, STAGE 4 (SEVERE) Status: Chronic (4) DM2 (diabetes mellitus, type 2) Status: Chronic Qualifiers: Diabetes mellitus complication detail: with peripheral angiopathy with gangrene (5) HFrEF (heart failure with reduced ejection fraction) Code(s): I50.20 - UNSPECIFIED SYSTOLIC (CONGESTIVE) HEART FAILURE Status: Chronic Qualifiers: Heart failure chronicity: chronic Qualified Code(s): I50.22 - Chronic systolic (congestive) heart failure (6) HLD (hyperlipidemia) Code(s): E78.5 - HYPERLIPIDEMIA, UNSPECIFIED Status: Chronic (7) HTN (hypertension) Code(s): I10 - ESSENTIAL (PRIMARY) HYPERTENSION Status: Chronic Qualifiers: Hypertension type: essential hypertension Qualified Code(s): I10 - Essential (primary) hypertension (8) Hyperphosphatemia Code(s): E83.39 - OTHER DISORDERS OF PHOSPHORUS METABOLISM Status: Resolved (9) Hypomagnesemia Code(s): E83.42 - HYPOMAGNESEMIA Status: Resolved - Plan Plan: 59yo M with h/o of ID DMII, CKD stage 4, HLD, HTN, and CVA presents with gangrene of first and second digits of right foot found to have osteo s/p right BKA POD #2 1. Sepsis secondary to gangrene of first and second digits of right foot with chronic PVD - 1 episode of chills. Afebrile. Wound dressing clean and dry. Will check CBC and BMP this AM. BP soft and mildly tachy. Will provide 500ml bolus and monitor. - S/p BKA POD #2 - Abx d/c. BCx NG at 48hours. Path Pending. - Gen surg (Dr. Perry) Consulted, s/p right BKA. Plan for dressing change and orthotic fitting today with d/c to rehab within the next day or two. Appreciate recs and management. - Wound care, PT, Case Management consulted, appreciate assistance. 2. Insulin Dependent DM2 - Last A1C 6%. Continue home metformin and Lantus 20u. Placed on mild SS with ACHS accuchecks. BG stable. 3. CAD - continue home lipitor, Entresto, troprol, and lasix 4. CHF with rEF and diastolic dysfunction - Echo 10/2018: EF 45-50%, with 1/3 diastolic dysfunction and wall hypokinesis - currently euvolemic. Monitor fluid status with strict I/O - home meds of Entresto, Toprol, and lasix 5. HTN - chronic and stable. Continue home meds. 6. Hypomag - Improved. 1.5 --> 1.6. Will monitor. 7. Hyperphos - Improved. 5.3 --> 4.7. On phosphate binder. Will monitor. 8. DENYS on CKD Stage 4 - Resolved. Diet: Diabetic CC VTE: SCD's Code: Full Code (patient spoke with nurse and decided to change code status yesterday) Dispo: S/p right BKA POD#2. Plan for discharge to inpatient rehab in 1-2days pending current clinical course and placement. Addendum - Attending - Attending Attestation Date/Time: 01/17/19 6014 I personally evaluated the patient and discussed the management with Dr. Bermudez. I agree with the History, Examination, Assessment and Plan documented above with any addition or exceptions noted below.
[2019-01-17] MEDS ORDERED: Triple Antibiotic Ointment 30 GM TUBE TOP PRN (07:44)
[2019-01-17] MEDS ORDERED: Lactated Ringer's 500 ML IV SCH (08:45)
[2019-01-17] MEDS: metFORMIN XR 500 MG TAB PO SCH ×2 (09:53→17:57)
[2019-01-17] MEDS: Fenofibrate Nanocrystallized 145 MG TAB PO SCH (09:53)
[2019-01-17] MEDS: Sevelamer Carbonate 800 MG TAB PO SCH ×3 (09:53→17:57)
[2019-01-17] MEDS: Polyethylene Glycol 3350 17 GM Packet PO SCH (09:54)
[2019-01-17] MEDS: Sacubitril 49 MG/Valsartan 51 MG TABLET PO SCH ×2 (09:54→20:46)
[2019-01-17] MEDS: Gabapentin 300 MG CAP PO SCH ×2 (09:54→20:45)
[2019-01-17] MEDS: Furosemide 40 MG TAB PO SCH (09:54)
[2019-01-17] MEDS: traMADol HCl 50 MG TAB PO PRN ×2 (09:55→15:24)
[2019-01-17 11:35] LABS: Anion Gap 19 mmol/L (10-20); BUN (Urea Nitrogen) 41 mg/dL (8.4-25.7); Calc. Creatinine Clearance 35 mL/min (70-130); Carbon Dioxide 17 mmol/L (22-29); Chloride 111 mmol/L (98-107); Estimated GFR-MDRD 24; Potassium 4.4 mmol/L (3.5-5.1); Sodium 143 mmol/L (136-145)
[2019-01-17 11:47] LABS: Glucose 47 mg/dL (70-105)
[2019-01-17 11:58] LABS: Band 50 % (5-11); Eosinophils 2 % (0-10); Lymphocytes 5 % (21-51); MDiff Complete? YES; Mean Corpuscular HGB CONC 31.2 g/dL (32.0-36.0); Mean Corpuscular Hemoglobin 28.2 pg (27.0-31.0); Mean Corpuscular Volume 90.5 fL (78.0-98.0); Mean Platelet Volume 8.5 fL (7.4-10.4); Monocytes 1 % (0-10); Neutrophil 42 % (42-75); Platelet Count 502 thou/uL (130-400); Platelet Morphology Comment Appears Increased; Polychromasia SLIGHT = 2-3 cells (100X) (0-2/hpf); RBC Distribution Width 13.4 % (11.5-14.5); Red Blood Cell (RBC) Count 3.19 mill/uL (4.70-6.10); Reflex for Review?? YES; White Blood Cell (WBC) Count 17.7 thou/uL (4.8-10.8)
--- NOTE | 2019-01-17 18:40 | PDOC.GSPN ---
Surgery Progress Note: Subj - Subjective Narrative: Patient isn't having any pain in his stump but does complain of incontinence of both stool and urine. He has been having a lot of diarrhea. Apparently this started before he came to the hospital but has been worse recently. He cannot really control it. Vital signs are okay. He continues to have a leukocytosis and bandemia. His incision looks good. There is no evidence of cellulitis or abscess formation to explain his leukocytosis. I have ordered stool studies and C. difficile toxin assay. From a surgical standpoint however he is doing well. Surgery Progress Note: Obj - Vital signs Vital signs: Vital Signs - Most Recent Temp Pulse Resp BP Pulse Ox 98.7 F 116 H 20 110/60 96 01/17/19 15:40 01/17/19 15:40 01/17/19 15:40 01/17/19 15:40 01/17/19 15:40 Surgery Progress Note: Results - Labs Result Diagrams: 01/17/19 07:25 01/17/19 04:21 Lab results: Laboratory Results - last 24 hr 01/16/19 01/16/19 01/17/19 17:50 22:20 04:21 WBC RBC Hgb Hct MCV MCH MCHC RDW Plt Count MPV Neutrophils % (Manual) Band Neuts % (Manual) Lymphocytes % (Manual) Monocytes % (Manual) Eosinophils % (Manual) Plt Morphology Comment Polychromasia Sodium 143 Potassium 4.4 Chloride 111 H Carbon Dioxide 17 L Anion Gap 19 BUN 41 H Creatinine 2.71 H Estimated GFR (MDRD) 24 Glucose 47 L* POC Glucose POC Glucose (other) TNP TNP Calcium 9.0 01/17/19 01/17/19 01/17/19 04:38 07:25 07:25 WBC 17.7 H RBC 3.19 L Hgb 9.0 L Hct 28.8 L MCV 90.5 MCH 28.2 MCHC 31.2 L RDW 13.4 Plt Count 502 H MPV 8.5 Neutrophils % (Manual) 42 Band Neuts % (Manual) 50 H Lymphocytes % (Manual) 5 L Monocytes % (Manual) 1 Eosinophils % (Manual) 2 Plt Morphology Comment Appears Increased H Polychromasia SLIGHT = 2-3 cells Sodium Potassium Chloride Carbon Dioxide Anion Gap BUN Creatinine Estimated GFR (MDRD) Glucose POC Glucose 75 POC Glucose (other) 65 L Calcium 01/17/19 11:16 WBC RBC Hgb Hct MCV MCH MCHC RDW Plt Count MPV Neutrophils % (Manual) Band Neuts % (Manual) Lymphocytes % (Manual) Monocytes % (Manual) Eosinophils % (Manual) Plt Morphology Comment Polychromasia Sodium Potassium Chloride Carbon Dioxide Anion Gap BUN Creatinine Estimated GFR (MDRD) Glucose POC Glucose POC Glucose (other) 99 Calcium - Radiology Interpretation Other Status: report reviewed by me (XR of right foot: Acro-osteolysis of the first and second distal debby, and soft tissue defect at the distal great toe: suspicious for osteomyelitis. Subcutaneous emphysema within diffusely swollen great toe: evidence for gangrene of great toe. Nonacute, nonunited, mildly displaced dancer's fracture of fifth metatarsal base.)
[2019-01-17] MEDS: Famotidine 20 MG TAB PO SCH (20:45)
[2019-01-17] MEDS: Atorvastatin Calcium 40 MG TAB PO SCH (20:46)
[2019-01-18] MEDS ORDERED: Lactated Ringer's 500 ML IV SCH ×4 (04:45→11:45)
--- NOTE | 2019-01-18 05:11 | PDOC.EVN ---
Event Note - Event Note Event Note: At 0100 patient was reported to have a fever of 100.4F and BP 99/54 HR 115. At 0450 patient's vitals were repeated which demonstrated fever of 101.4F HR 122 BP 105/66. O2 sats were variable between 77% and 98%. Upon assessment patient appeared pale, somnolent and required some stimulation to arouse. A 1L LR bolus was ordered to be given stat. PE: General: Alert when stimulated, somnolent, pale. Heart: Tachycardic, no murmurs Lungs: CTA bilaterally in all lobes Skin: profuse sweat across brow, skin tamp warm. Dressing over recent right BKA appeared dry. MSK: s/p right BKA surgery 2 days ago A&P: 59 yo s/p BKA day #2 developed fever, intermittent hypoxia, and became somnolent. -1L LR Bolus administered -2L NC O2 started and continuous O2 monitoring restarted -Ordered Blood cultures and UA, CXR 1v, and EKG ordered. -Will recheck vitals once bolus finishes. -Tylenol 1000mg ordered prn Addendum @0530: Patient has completed 1st 500cc of bolus. Appears more alert, unable to void. Straight catheter performed by RN. PE: Alert when stimulated, pale. Heart: Tachycardic, no murmurs Lungs: CTA bilaterally in all lobes Skin: Warm with residual sweat across brow and upper extremities. Repeat vitals: Temp 99.9F, HR 115, BP 96/60, RR 18, O2 96% on 2L
--- NOTE | 2019-01-18 06:28 | PDOC.FM ---
- Subjective Subjective: Yesterday patient complained of watery diarrhea x3 with increase abdominal cramping. This has since resolved by late afternoon last night. Overnight, covering night team was paged at 0430 that patient spiked temp of 101.4 with BP 90s/50s and HR >100 with O2 stat in the upper 70s on room air. Patient was altered and less responsive. Two 500cc NS boluses were ordered with increase of BP to 105/66 and HR down to 90s, he was placed on 2L O2 with increase of sats to low 90s. BCx, UA, CXR, and EKG were ordered. This morning, patient is A/O x2 and requiring verbal stimulation to arouse. He denies any chest pain, SOB, n/v, or pain of any kind. He does endorse fever and chills, and diaphoresis. His sats were low 90s on 2L, HR 100, and BP 90/60. CXR demonstrated no acute changes. UA unremarkable. EKG demonstrated new LBBB as well as ST elevation in V1-V3 and ST depression in leads I, II, and III. Stat Trop was ordered and Cards was consulted. Patient continued to decline with hypotension and tachycardia and was therefore transferred to the MICU and ultimately the CCU. - Objective MAR Reviewed: Yes Vital Signs & Weight: Vital Signs (12 hours) Temp Pulse Resp BP Pulse Ox 01/18/19 05:24 99.9 F H 115 H 18 96/60 96 01/18/19 04:29 98 01/18/19 04:27 101.4 F H 119 H 98 H 99/54 L 98 01/18/19 01:10 100.2 F H 01/17/19 23:54 101.5 F H 110 H 18 104/60 93 L 01/17/19 19:54 96 01/17/19 19:35 97.5 F L 99 16 104/61 96 Weight Admit Weight 83.915 kg Weight 82.1 kg I&O: 01/16/19 01/17/19 01/18/19 06:59 06:59 06:59 Intake Total 810 2000 Output Total 350 Balance 460 2000 Result Diagrams: 01/18/19 09:17 01/18/19 06:48 EKG Reviewed by me: Yes (New LBBB, ST elevation in V2, V and ST depression in Leads I, II, and III) Radiology Reviewed by me: Yes (CXR - no acute interval changes, no consolidation , sharp angles) Radiology: CXR - Cardiomegaly. No signs of HR. No consolidation. Acute angles. Phys Exam - Physical Examination Diaphoretic, A/O x2, GSC 13, appears uncomfortable and confused HEENT: moist MMs Neck: supple Bibasilar rhonchi. No wheezes, symmetric chest wall expansion 2/3 systolic ejection murmur loundest at base. Tachy. Regular. Gastrointestinal: soft, non-tender, no distention, positive bowel sounds Musculoskeletal: no edema Neurological: moves all 4 limbs Deviation from normal: A/O x2 Skin: no rash Deviation from normal: BKA incision clean and dry, no exudates, erythema, or warmth. Dx/Plan (1) NSTEMI (non-ST elevated myocardial infarction) Code(s): I21.4 - NON-ST ELEVATION (NSTEMI) MYOCARDIAL INFARCTION Status: Acute (2) Septic shock Code(s): A41.9 - SEPSIS, UNSPECIFIED ORGANISM; R65.21 - SEVERE SEPSIS WITH SEPTIC SHOCK Status: Acute (3) Acute respiratory failure with hypoxia Code(s): J96.01 - ACUTE RESPIRATORY FAILURE WITH HYPOXIA Status: Acute (4) Encephalopathy Code(s): G93.40 - ENCEPHALOPATHY, UNSPECIFIED Status: Acute (5) Sepsis Code(s): A41.9 - SEPSIS, UNSPECIFIED ORGANISM Status: Acute Qualifiers: Sepsis type: sepsis due to unspecified organism Qualified Code(s): A41.9 - Sepsis, unspecified organism (6) Osteomyelitis of toe of right foot Code(s): M86.9 - OSTEOMYELITIS, UNSPECIFIED Status: Resolved (7) Chronic kidney disease, stage 4 (severe) Code(s): N18.4 - CHRONIC KIDNEY DISEASE, STAGE 4 (SEVERE) Status: Chronic (8) DM2 (diabetes mellitus, type 2) Status: Chronic Qualifiers: Diabetes mellitus complication detail: with peripheral angiopathy with gangrene (9) HFrEF (heart failure with reduced ejection fraction) Code(s): I50.20 - UNSPECIFIED SYSTOLIC (CONGESTIVE) HEART FAILURE Status: Chronic Qualifiers: Heart failure chronicity: chronic Qualified Code(s): I50.22 - Chronic systolic (congestive) heart failure (10) HLD (hyperlipidemia) Code(s): E78.5 - HYPERLIPIDEMIA, UNSPECIFIED Status: Chronic (11) HTN (hypertension) Code(s): I10 - ESSENTIAL (PRIMARY) HYPERTENSION Status: Chronic Qualifiers: Hypertension type: essential hypertension Qualified Code(s): I10 - Essential (primary) hypertension (12) Hyperphosphatemia Code(s): E83.39 - OTHER DISORDERS OF PHOSPHORUS METABOLISM Status: Resolved (13) Hypomagnesemia Code(s): E83.42 - HYPOMAGNESEMIA Status: Resolved - Plan Plan: 59yo M with h/o of ID DMII, CKD stage 4, HLD, HTN, and CVA presents with gangrene of first and second digits of right foot found to have osteo s/p right BKA POD #2 1. NSTEMI - Acute ST changes in V1-V3, I, II, and II. Troponin elevated to 20 --> 26. No CP on exam, however patient is confused and drowsy and A/O x2. - Given ASA 325mg, started on Heparin gtt. - Echo Ordered. - Consulted Sage (Slava) who examined EKG and suspected LVH and no acute management at this time. Spoke with Dr. Pichardo (pt's OP Cards) who recommended transfer to ICU with Pulm consult and 1u pRBC. Appreciate recs. 2. Septic shock - s/p BKA POD#3 (Dr. Perry - Gen surg). Spiked fever 101.4 overnight. Hypotensive and minimally responsive to 1L bolus. Will give 500cc bolus now. - Vanc + Merem started, renal dosing. - UA neg, BCx ordered - WBC 12, Procal 3.6, Lactic acid 1.5 - Will obtain central line IV access. 3. Encephalopathy - Likely 2/2 #2. Will monitor BP and clinical status. 4. Acute hypoxic respiratory failure - Desat to high 70s overnight, responded well to 2L back to low 90s. Will continue to monitor. - Concern for PE. ABG demonstrated A-A gradient of 68. Will order V/Q scan for PE. - Pulm, Dr. Steve, consulted, appreciate recs. 5. Anemia - Hb 5.6. Will transfuse 1uRBC and recheck post-transfusion. No acute s/s of bleed. 6. S/P BKA POD#3 - Gen surg (Dr. Perry) preformed. Wound clean, dry, without exudates or warmth. Dressing changes and binder. Will monitor. Appreciate recs. 7. Insulin Dependent DM2 - Last A1C 6%. Episodes of hypoglycemia. Will Hold Lantus and Metformin. 8. CAD - Will hold home meds at this time due to hypotension. 9. CHF with rEF and diastolic dysfunction - Echo 10/2018: EF 45-50%, with 1/3 diastolic dysfunction and wall hypokinesis - Will hold home meds at this time 10. Hypomag - Improved. 1.5 --> 1.6. Will monitor. 11. Hyperphos - Improved. 5.3 --> 4.7. On phosphate binder. Will monitor. 12. DENYS on CKD Stage 4 - Will repeat BMP today. Diet: NPO VTE: Heparin Code: Full Code Dispo: S/p right BKA POD#3. In septic shock this morning with NSTEMI. Transfer to CCU for further management. Addendum - Attending - Attending Attestation Date/Time: 01/18/19 7674 I personally evaluated the patient and discussed the management with Dr. Bermudez. I agree with the History, Examination, Assessment and Plan documented above with any addition or exceptions noted below.
[2019-01-18 06:57] LABS: Bilirubin Negative (Negative); Blood, Urine 2+ (Negative); Clarity Clear (Clear); Glucose, Urine (Dipstick) Normal (Negative); Leukocyte Negative Leu/uL (Negative); Mucous/LPF Rare LPF (<2+); Nitrite Negative (Negative); Protein, Urine (Dipstick) 70 mg/dL (Neg-Trace); Squamous Epithelial None Seen HPF (0-3); Urobilinogen Normal mg/dL (Less than 2); WBC/HPF 0-3 HPF (0-3)
[2019-01-18 06:58] LABS: Sperm/HPF 1+ HPF (None Seen)
[2019-01-18 07:12] LABS: Lactic Acid 1.5 mmol/L (0.5-2.2)
[2019-01-18 07:13] LABS: #Lymphocytes 1.2 thou/uL (1.20-3.40); #Monocytes 1.3 thou/uL (0.11-0.59); #Neutrophils 9.7 thou/uL (1.40-6.50); %Basophils 0.3 % (0.0-1.0); %Eosinophils 0.1 % (0.0-10.0); %Monocytes 10.3 % (0.0-10.0); %Neutrophils 79.3 % (42.0-75.0); Mean Corpuscular HGB CONC 31.7 g/dL (32.0-36.0); Mean Corpuscular Hemoglobin 28.2 pg (27.0-31.0); Mean Corpuscular Volume 89.1 fL (78.0-98.0); Mean Platelet Volume 7.9 fL (7.4-10.4); Platelet Count 416 thou/uL (130-400); RBC Distribution Width 13.6 % (11.5-14.5); Red Blood Cell (RBC) Count 2.47 mill/uL (4.70-6.10); White Blood Cell (WBC) Count 12.2 thou/uL (4.8-10.8)
[2019-01-18 07:17] LABS: ALT (SGPT) 13 U/L (8-55); AST (SGOT) 67 U/L (5-34); Albumin 2.6 g/dL (3.5-5.0); Alkaline Phosphatase 47 U/L (40-150); Anion Gap 15 mmol/L (10-20); BUN (Urea Nitrogen) 65 mg/dL (8.4-25.7); Bilirubin, Total 0.2 mg/dL (0.2-1.2); Calc. Creatinine Clearance 24 mL/min (70-130); Calcium 8.1 mg/dL (7.8-10.44); Carbon Dioxide 19 mmol/L (22-29); Chloride 110 mmol/L (98-107); Estimated GFR-MDRD 16; Globulin 2.9 g/dL (2.4-3.5); Glucose 170 mg/dL (70-105); Magnesium 1.5 mg/dL (1.6-2.6); Phosphorus 3.9 mg/dL (2.3-4.7); Potassium 4.2 mmol/L (3.5-5.1); Protein, Total 5.5 g/dL (6.0-8.3); Sodium 140 mmol/L (136-145)
[2019-01-18 07:39] LABS: Bacteria/HPF 1+ HPF (None Seen)
[2019-01-18] MEDS ORDERED: Aspirin 325 MG TAB PO ONE (07:55)
[2019-01-18] MEDS: Vancomycin HCl 1 GM in Premix Bag 1 BAG IVPB SCH (07:59)
--- NOTE | 2019-01-18 07:59 | RAD ---
PORTABLE CHEST: Date: 01/18/19 HISTORY: Shortness of breath. FINDINGS: Heart size is enlarged. There are postop sternotomy changes. The lungs are clear of infiltrates. No s igns of failure. IMPRESSION: Cardiomegaly. POS: [facility]
[2019-01-18] MEDS: Furosemide 40 MG TAB PO SCH (08:05)
[2019-01-18] MEDS: Polyethylene Glycol 3350 17 GM Packet PO SCH (08:05)
[2019-01-18] MEDS: Fenofibrate Nanocrystallized 145 MG TAB PO SCH (08:05)
[2019-01-18] MEDS: Gabapentin 300 MG CAP PO SCH (08:05)
[2019-01-18] MEDS: metFORMIN XR 500 MG TAB PO SCH (08:05)
[2019-01-18] MEDS: Sacubitril 49 MG/Valsartan 51 MG TABLET PO SCH (08:05)
[2019-01-18] MEDS: Sevelamer Carbonate 800 MG TAB PO SCH ×3 (08:05→18:09)
[2019-01-18] MEDS ORDERED: Nitroglycerin 4.9 GM Bottle SL PRN (08:46)
[2019-01-18] MEDS ORDERED: Piperacillin/Tazobactam 2.25 GM in Sodium Chloride 0.9% 100 ML IVPB SCH ×2 (09:00→14:00)
[2019-01-18 09:13] LABS: Base Excess (BEa) -4.4 mEq/L (-2.0 to +3.0); CO2 Tension 33.2 mmHg (35.0-45.0); Calcium, Ionized 1.14 mmol/L (1.12-1.30); Carboxyhemoglobin (COHb) 1.5 gm% (0.0-3.0); Hemoglobin (Hb) 6.9 g/dL (14.0-18.0); O2 Tension (PaO2) 89.7 mmHg (80.0-100.0); Potassium - ABG Lab 4.13 mmol/L (3.70-5.30); Puncture Site LRA
[2019-01-18 09:32] LABS: CKMB 54.2 ng/mL (0-6.6)
[2019-01-18 09:49] LABS: Hemoglobin 6.9 g/dL (14.0-18.0); Platelet Count 380 thou/uL (130-400)
[2019-01-18] MEDS ORDERED: MEROPENEM 1 GM/50 ML 1 GM in Premix Bag 1 BAG IVPB SCH (10:00)
[2019-01-18] MEDS ORDERED: Meropenem 1 GM in Sodium Chloride 0.9% 100 ML IVPB SCH (10:00)
[2019-01-18 11:19] LABS: CKMB 74.4 ng/mL (0-6.6)
--- NOTE | 2019-01-18 12:36 | CON ---
DATE OF CONSULTATION: 01/18/2019 REASON FOR CONSULTATION: Elevated troponin and mental status changes. HISTORY OF PRESENT ILLNESS: Mr. Sanon is a very pleasant 59-year-old gentleman, who has been seen and evaluated by Dr. Elijah Pichardo in the past. He recently presented with sepsis. He required amputation. He continues to have fevers and chills. This morning, he did have some mental status changes, although during my visit, he appeared more lucid. He denied chest pain, pressure, or shortness of breath. He states his last episode of chest pain was several months ago. His initial troponin was 20 with a CK-MB of 54. He does have a history of CAD, status post bypass surgery in [place], [place]. During my visit, he was also found to be profoundly anemic with a hemoglobin of 7.0, in addition to a creatinine of 3.84. PAST MEDICAL HISTORY: CAD status post bypass surgery x4 in 2010, chronic kidney disease, recent CVA in 2018, diabetes mellitus, tobacco abuse, and hypertension. PAST SURGICAL HISTORY: CABG as above, retinal detachment, arm surgery, and left ankle surgery. HOME MEDICATIONS: Include; 1. Metformin. 2. Aspirin. 3. Glipizide. 4. Atorvastatin. 5. Lisinopril. 6. Amlodipine. 7. Fenofibrate. ALLERGIES: NONE. SOCIAL HISTORY: As above. REVIEW OF SYSTEMS: A 10-point review of systems is reviewed as above, otherwise negative. PHYSICAL EXAMINATION: VITAL SIGNS: Blood pressure 97/59, pulse 92, and temperature T-max of 101.4. GENERAL: Patient is a pleasant male, who is in no acute distress. The patient appears their stated age. NEUROLOGIC: The patient is alert and oriented x3 with no focal neurologic deficits. HEENT: Sclerae without icterus. Mouth has moist mucous membranes with normal pallor. NECK: No JVD. Carotid upstroke brisk. No bruits bilaterally. LUNGS: Clear to auscultation with unlabored respirations. BACK: No scoliosis or kyphosis. CARDIAC: Regular rate and rhythm with normal S1 and S2. No S3 or S4 noted. No significant rubs, murmurs, thrills, or gallops noted throughout the precordium. PMI is not displaced. There is no parasternal heave. ABDOMEN: Soft, nontender, nondistended. No peritoneal signs present. No hepatosplenomegaly. No abnormal striae. EXTREMITIES: 2+ femoral and 2+ dorsalis pedis pulses. No cyanosis, clubbing, or edema. SKIN: No gross abnormalities. PERTINENT LABORATORY DATA: As above including a hemoglobin of 7.0 and white blood cell count of 12.2. Creatinine on 01/17/2019 of 2.7, increased to 3.8 on 01/18/2019. EKG shows a normal sinus rhythm with nonspecific intraventricular conduction delay. No acute changes suggesting acute AL. IMPRESSION: 1. Elevated troponin. 2. Coronary artery disease. 3. Status post bypass surgery. 4. Sepsis. 5. Recent right [id number]. 6. Acute on chronic renal failure. 7. Profound anemia. RECOMMENDATIONS: Certainly difficult case of Mr. Sanon. He has no current symptoms suggesting angina. He has multiple reasons for demand ischemia, although the troponin and CK-MB seem to be certainly higher than you would normally see for demand ischemia. At this point, I do not feel the need to proceed with acute intervention. Given his hemoglobin, in addition no symptoms and worsening creatinine. He will likely be placed in the renal failure if proceeding with an angio. At this point, we will continue support. We would increase his blood pressure with IV fluids. Also, supplement with 1 unit of packed red blood cells. I did spend 35 minutes of critical care time at Mr. Sanon's bedside and reviewing his case. I also discussed the case with Dr. Elijah Pichardo. Job ID: [id number] [facility]ITALDylan
[2019-01-18] MEDS: Heparin 10,000 UNITS/ 10 ML VIAL SLOW IVP SCH (13:55)
[2019-01-18] MEDS: MEROPENEM 1 GM/50 ML 1 GM in Premix Bag 1 BAG IVPB SCH ×2 (13:57→14:06)
[2019-01-18] MEDS: Heparin 25,000 units/D5W 500 ML IVPB SCH (13:58)
[2019-01-18] MEDS ORDERED: Sodium Chloride 0.9% 1,000 ML IV SCH (16:15)
--- NOTE | 2019-01-18 16:17 | OP ---
DATE OF PROCEDURE: 01/18/2019 PROCEDURE PERFORMED: Right internal jugular central line placement. PREOPERATIVE DIAGNOSES: Poor IV access, need for aggressive hemodynamic monitoring in a patient with shock. POSTOPERATIVE DIAGNOSES: Poor IV access, need for aggressive hemodynamic monitoring in a patient with shock. ANESTHESIA: 1% lidocaine without epinephrine. DESCRIPTION OF PROCEDURE: The patient had informed consent obtained from his as he was unable to give consent for himself because he was slightly incoherent. The patient was placed in Trendelenburg position. The appropriate site was first identified by ultrasound and marked. The op site was then cleansed with chlorhexidine and draped sterilely. Using modified Seldinger technique, a triple-lumen catheter was placed in the right IJ vein without much difficulty. Three ports flushed of venous blood and a chest x-ray confirmed appropriate line position with no evidence of pneumothorax. Job ID: [id number]
--- NOTE | 2019-01-18 16:37 | RAD ---
PORTABLE CHEST: Date: 01/18/19 HISTORY: Line placement. COMPARISON: Earlier exam of same date. FINDINGS: There has been interval placement of a right-sided jugular line. Catheter tip overlies the superior v sera cava/right atrial junction. No signs of pneumothorax. IMPRESSION: Right-sided central line placement. No signs of pneumothorax. No other interval change since the prio r exam. POS: [facility]
--- NOTE | 2019-01-18 17:22 | PDOC.EVN ---
Event Note - Event Note Event Note: Date/Time: 01/18/19 0260 I personally evaluated the patient and discussed the management with Dr. Bermudez this morning at about 9:15am. We were concerned about both infectious and cardio-pulmonary causes of his deterioration. It was clear he was developing sepsis but was responding to fluid. My exam did not reveal any evidence of CSF infection. We continued the workup for cardio pulmonaryu etiology with transfer to [facility]. After consultation with Cards and Pulm, the patient was subsequently moved the CCU for septic shock. We are appreciative of Cardio and pulmonary consultation and care.
[2019-01-18 18:33] LABS: CKMB 82.7 ng/mL (0-6.6)
--- NOTE | 2019-01-18 19:35 | CON ---
DATE OF CONSULTATION: 01/18/2019 REASON FOR CONSULTATION: Management of hypotension and sepsis. The following encompassed 60 minutes of critical care time. Of that time, greater than 50% was spent with the patient and/or on the patient's unit in the intensive care unit. This was not inclusive of time spent putting in a right IJ central line. HISTORY OF PRESENT ILLNESS: The patient was originally admitted to the hospital by the Family Medicine service on 01/14/2019. Principal issue at that time was gangrene of his right first and second toe. The initial plan was to amputate the toes, but it later became necessary to do a right below-knee amputation because of bad peripheral circulation. That operation was accomplished on 01/15/2019. His postoperative course has been hindered by fever, hypotension, and developing anemia. The patient is confused and cannot give me much in the way of history accurately. PAST MEDICAL HISTORY: 1. Coronary artery disease. 2. Chronic kidney disease stage 4. 3. Stroke. 4. Diabetes mellitus type 2. 5. Tobacco abuse. 6. Hypertension. PAST SURGICAL HISTORY: 1. He has had eye surgery. 2. Coronary artery bypass grafting surgery. 3. Arteriography. MEDICATIONS: Prior to admission, 1. Metformin. 2. Amlodipine. 3. Metoprolol. 4. Lantus insulin. 5. Atorvastatin. 6. Aspirin. 7. Furosemide. ALLERGIES: NONE. REVIEW OF SYSTEMS: Unobtainable secondary to the patient's confusion. PHYSICAL EXAMINATION: VITAL SIGNS: Heart rate 90, blood pressure 96/63, O2 saturation 96%, temperature has been up to 101.5. GENERAL: He is confused, but pleasant. He is in no obvious respiratory distress. HEENT: Pupils are reactive. Sclerae anicteric. Oropharynx clear. NECK: Without adenopathy or JVD. LUNGS: Clear without wheezing or rhonchi. CARDIAC: S1, S2. Borderline tachycardic without audible murmur. ABDOMEN: Soft without tenderness. EXTREMITIES: No clubbing, cyanosis. He has a right below-knee amputation. IMAGING DATA: Last echo in October 2018 showed EF of 45% to 50% with systolic and diastolic dysfunction. His chest x-ray shows no mass, effusion, or infiltrate. The central line is in good position. LABORATORY DATA: Troponin is 34.5 and has steadily been increasing to the day. Lactate was 1.5. Sodium 140, potassium 4.2, chloride 110, CO2 of 19, BUN 65, creatinine 3.8, glucose 170, AST 67, ALT 13, albumin 2.6. White blood cell count 12.2, hemoglobin 6.9, hematocrit 21.6, and platelet count 380. The pH 7.40, pCO2 of 33, pO2 of 89, that is on 2 L nasal cannula. ASSESSMENT: 1. Fever and leukocytosis, which may be indicative of ongoing sepsis. 2. Cardiomyopathy with depressed ejection fraction. 3. Ongoing coronary ischemia as evidenced by increased troponins. His EKG does not show any ST-segment elevation, but does show indication of old inferior infarct. 4. Chronic kidney disease stage 4. PLAN: 1. Insertion of central line and place on continuous cardiac output monitor to see what his cardiac function is. We will need to discern how much of his ongoing problem is due to his cardiac issue versus sepsis. 2. Correct anemia with blood transfusion. 3. IV fluids as needed. 4. Consider starting dobutamine if cardiac index/cardiac output is low. 5. I agree with antibiotics. Confirm with pharmacy to make sure the dose is appropriate for his renal function. 6. I agree with stopping the metformin. Insulin as needed to manage blood glucose levels. 7. Follow serial labs. Job ID: [id number]
[2019-01-18] MEDS: Atorvastatin Calcium 40 MG TAB PO SCH (20:08)
[2019-01-18] MEDS: Famotidine 20 MG TAB PO SCH (20:08)
[2019-01-18 20:30] LABS: PTT 117.3 SEC (22.9-36.1)
[2019-01-18 20:51] LABS: Critical Call Chem Troponin I RESULT DECREASING
[2019-01-18 21:18] LABS: Hemoglobin 7.4 g/dL (14.0-18.0)
--- NOTE | 2019-01-18 23:58 | PDOC.GSPN ---
Surgery Progress Note: Subj - Subjective Narrative: Patient transferred to CCU for suspected septic shock and demand ischemia. He denies any chest pain or abdominal pain or shortness of breath currently. He denies any pain in his stump. Hemodynamically he has been doing all right. Dr. Steve put in a central line but he has not been on pressors. Stump dressing is clean. I did not change the dressing as the nurse and just change this and stated that it looks good. I will change the dressing tomorrow. Source of presumed sepsis is unknown at this point. No new surgical recommendations. Surgery Progress Note: Obj - Vital signs Vital signs: Vital Signs - Most Recent Temp Pulse Resp BP Pulse Ox 98.2 F 90 18 84/52 L 99 01/18/19 19:00 01/18/19 10:30 01/18/19 10:30 01/18/19 13:00 01/18/19 18:59 Surgery Progress Note: Results - Labs Result Diagrams: 01/18/19 21:00 01/18/19 06:48 Lab results: Laboratory Results - last 24 hr 01/15/19 01/17/19 01/18/19 15:24 07:25 13:13 Hgb Hct Smear Path Review APTT POC Glucose (other) CK-MB (CK-2) Troponin I 34.500 H* Procalcitonin Blood Type O POSITIVE Antibody Screen NEGATIVE Crossmatch See Detail 01/18/19 01/18/19 01/18/19 13:13 17:26 17:26 Hgb Hct Smear Path Review APTT POC Glucose (other) 114 H CK-MB (CK-2) 82.7 H* Troponin I 39.529 H* Procalcitonin 3.17 Blood Type Antibody Screen Crossmatch 01/18/19 01/18/19 01/18/19 20:13 20:13 21:00 Hgb Hct Smear Path Review APTT 117.3 H* POC Glucose (other) 98 CK-MB (CK-2) Troponin I 38.874 H* Procalcitonin Blood Type Antibody Screen Crossmatch 01/18/19 21:00 Hgb 7.4 L Hct 23.7 L Smear Path Review APTT POC Glucose (other) CK-MB (CK-2) Troponin I Procalcitonin Blood Type Antibody Screen Crossmatch - Radiology Interpretation Other Status: report reviewed by me (XR of right foot: Acro-osteolysis of the first and second distal debby, and soft tissue defect at the distal great toe: suspicious for osteomyelitis. Subcutaneous emphysema within diffusely swollen great toe: evidence for gangrene of great toe. Nonacute, nonunited, mildly displaced dancer's fracture of fifth metatarsal base.)
[2019-01-19] MEDS: MEROPENEM 1 GM/50 ML 1 GM in Premix Bag 1 BAG IVPB SCH ×2 (01:50→14:31)
[2019-01-19 04:52] LABS: #Eosinphils 0.4 thou/uL (0.0-0.7); #Lymphocytes 1.4 thou/uL (1.20-3.40); #Monocytes 1.4 thou/uL (0.11-0.59); %Basophils 0.1 % (0.0-1.0); %Eosinophils 2.6 % (0.0-10.0); %Lymphocytes 9.4 % (21.0-51.0); %Monocytes 9.1 % (0.0-10.0); %Neutrophils 78.9 % (42.0-75.0); Hemoglobin 8.2 g/dL (14.0-18.0); Mean Corpuscular HGB CONC 32.7 g/dL (32.0-36.0); Mean Corpuscular Hemoglobin 29.4 pg (27.0-31.0); Mean Platelet Volume 7.9 fL (7.4-10.4); Platelet Count 363 thou/uL (130-400); RBC Distribution Width 13.4 % (11.5-14.5); Red Blood Cell (RBC) Count 2.78 mill/uL (4.70-6.10); White Blood Cell (WBC) Count 15.2 thou/uL (4.8-10.8)
[2019-01-19 05:17] LABS: ALT (SGPT) 17 U/L (8-55); AST (SGOT) 100 U/L (5-34); Albumin 2.7 g/dL (3.5-5.0); Alkaline Phosphatase 47 U/L (40-150); Anion Gap 14 mmol/L (10-20); BUN (Urea Nitrogen) 62 mg/dL (8.4-25.7); Bilirubin, Total 0.3 mg/dL (0.2-1.2); Calc. Creatinine Clearance 29 mL/min (70-130); Calcium 8.3 mg/dL (7.8-10.44); Carbon Dioxide 20 mmol/L (22-29); Chloride 109 mmol/L (98-107); Estimated GFR-MDRD 20; Globulin 2.9 g/dL (2.4-3.5); Glucose 80 mg/dL (70-105); Protein, Total 5.6 g/dL (6.0-8.3); Sodium 139 mmol/L (136-145)
[2019-01-19 06:12] LABS: Magnesium 1.4 mg/dL (1.6-2.6); Phosphorus 3.4 mg/dL (2.3-4.7)
--- NOTE | 2019-01-19 06:57 | PDOC.FM ---
- Subjective Subjective: pt resting comfortably in bed, denies pain, SOB, fever/chills. mentation improved - Objective Vital Signs & Weight: Vital Signs (12 hours) Temp Pulse Ox 01/19/19 04:26 99 01/19/19 01:00 98.8 F 01/18/19 20:00 98 01/18/19 19:00 98.2 F 01/18/19 18:59 99 Weight Admit Weight 83.915 kg Weight 82.1 kg Most Recent Monitor Data Heart Rate from ECG 97 NIBP 137/78 NIBP BP-Mean 97 Respiration from ECG 18 SpO2 94 I&O: 01/17/19 01/18/19 01/19/19 06:59 06:59 06:59 Intake Total 810 1999 3793.9 Output Total 350 1560 Balance 460 1999 2233.9 Result Diagrams: 01/19/19 04:35 01/19/19 04:35 Phys Exam - Physical Examination Constitutional: NAD HEENT: moist MMs Neck: no JVD Respiratory: clear to auscultation bilateral Cardiovascular: no significant murmur Gastrointestinal: no distention Musculoskeletal: pulses present Neurological: moves all 4 limbs Psychiatric: normal affect Skin: no rash Deviation from normal: dressing c/d/i Dx/Plan (1) Acute respiratory failure with hypoxia Code(s): J96.01 - ACUTE RESPIRATORY FAILURE WITH HYPOXIA Status: Acute (2) Encephalopathy Code(s): G93.40 - ENCEPHALOPATHY, UNSPECIFIED Status: Acute (3) Septic shock Code(s): A41.9 - SEPSIS, UNSPECIFIED ORGANISM; R65.21 - SEVERE SEPSIS WITH SEPTIC SHOCK Status: Acute (4) Chronic kidney disease, stage 4 (severe) Code(s): N18.4 - CHRONIC KIDNEY DISEASE, STAGE 4 (SEVERE) Status: Chronic (5) DM2 (diabetes mellitus, type 2) Status: Chronic Qualifiers: Diabetes mellitus complication detail: with peripheral angiopathy with gangrene (6) HFrEF (heart failure with reduced ejection fraction) Code(s): I50.20 - UNSPECIFIED SYSTOLIC (CONGESTIVE) HEART FAILURE Status: Chronic Qualifiers: Heart failure chronicity: chronic Qualified Code(s): I50.22 - Chronic systolic (congestive) heart failure (7) NSTEMI (non-ST elevated myocardial infarction) Code(s): I21.4 - NON-ST ELEVATION (NSTEMI) MYOCARDIAL INFARCTION Status: Acute (8) HLD (hyperlipidemia) Code(s): E78.5 - HYPERLIPIDEMIA, UNSPECIFIED Status: Chronic (9) HTN (hypertension) Code(s): I10 - ESSENTIAL (PRIMARY) HYPERTENSION Status: Chronic Qualifiers: Hypertension type: essential hypertension Qualified Code(s): I10 - Essential (primary) hypertension - Plan Plan: NSTEMI - Acute ST changes in V1-V3, I, II, and II, troponin/ckmb elevated up to 38 on , downtrending. - Given ASA 325mg, started on Heparin gtt. Cardiology consulted - Echo pending - CV monitoring of CO, adequate, dobutamine not indicated at this time Septic shock - Vanc + Merem (01/18), renal dosing. - UA neg, BCx NGTD - Procal downtrending Encephalopathy - Likely 2 #2. Will monitor BP and clinical status. Acute hypoxic respiratory failure - hypoxia resolved on RA - Concern for PE on 01/18. ABG demonstrated A-A gradient of 68. V/Q scan pending - Pulm, Dr. Steve, consulted, appreciate recs. Anemia - s/p 1u PRBC on 01/18, Hb increased - consider additional unit if symptomatic/hypotense S/P BKA POD#4 - Gen surg (Dr. Perry) preformed. Wound clean, dry, without exudates or warmth. Dressing changes and binder. Will monitor. Appreciate recs. Insulin Dependent DM2 - Last A1C 6%. Episodes of hypoglycemia - hold metformin, lantus when not NPO CAD - hold home meds at this time due to hypotension. CHF with rEF and diastolic dysfunction - Echo 10/2018: EF 45-50%, with 1/3 diastolic dysfunction and wall hypokinesis - Will hold home meds at this time Hypomag - monitor and replace as needed Hyperphos - monitor and replace as needed DENYS on CKD Stage 4 - monitor BMP Diet: NPO VTE: Heparin Code: Full Code Lines: R IJ placed 01/18 Dispo: cardiac monitoring and treatment of sepsis in CCU, evaluate for causes Addendum - Attending - Attending Attestation Date/Time: 01/19/19 7582 I personally evaluated the patient and discussed the management with Dr. Morgan. I agree with the History, Examination, Assessment and Plan documented above with any addition or exceptions noted below. Patient transferred to CCU yesterday due to concern for sepsis versus cardiogenic shock. He at minimum had NSTEMI type II, and is currently on heparin drip. He has invasive cardiac monitoring showing currently appropriate CO, SVR, and CVP. He is on gentle IV fluids. Cardiology and Pulm on board. Awaiting recs. His renal function is somewhat improved, suspect vascular mediated. He has been afebrile, and WBC stable. PCT downtrending. He continues on broad spectrum abx and awaiting cultures, unknown source at this time. Continue to treat supportively and await further recs from specialists at this time.
[2019-01-19] MEDS ORDERED: Magnesium 2 GM/50 ML 2 GM in Premix Bag 1 BAG IVPB SCH (07:00)
--- NOTE | 2019-01-19 08:31 | PDOC.CTH ---
Cardiology Progress Note - Subjective No current complaints present. - Objective Vital Signs Temp Pulse Ox 01/19/19 07:00 99.1 F 01/19/19 04:26 99 01/19/19 01:00 98.8 F Admit Weight 185 lb Weight 181 lb 01/18/19 01/19/19 01/20/19 06:59 06:59 06:59 Intake Total 1999 3793.9 Output Total 1560 125 Balance 1999 2233.9 -125 - Physical Examination General/Neuro: alert & oriented x3, NAD Neck: no JVD present Lungs: unlabored respirations Heart: RRR Abdomen: NT/ND, soft Extremities: + femoral B - Labs Result Diagrams: 01/19/19 04:35 01/19/19 04:35 Troponin/CKMB CK-MB (CK-2) 82.7 ng/mL (0-6.6) H* 01/18/19 17:26 Troponin I 38.874 ng/mL (< 0.028) H* 01/18/19 20:13 - Assessment/Plan NQWMI Sepsis Encephalopathy Acue on chronic RI CAD s/p CABG Recent gangrene with BKA of LE EKG without acute changes Q waves noted inferiorly unchanged from admission EKG Pt without symptoms Given risks of contrast nephropathy and worsening anemia wiht no symptoms and no acute EKG changes, opted for medically therapy given recent sepsis and continued fever Unknown if increase troponin was primary event or complications from comorbidites. Given the above, likely TYPE II ND
--- NOTE | 2019-01-19 10:04 | PRG ---
DATE OF SERVICE: 01/19/2019 TIME SPENT: 35 minutes of critical care time. SUBJECTIVE: The patient remains in the CCU. He is on continuous cardiac output monitoring. He looks better. He is more oriented today than he was yesterday. OBJECTIVE: VITAL SIGNS: On exam, his temperature is 99.1 with no fever overnight, pulse 101, and blood pressure 123/80. CARDIAC: His cardiac output is 6. His cardiac index is 3.5, SVR 925, CVP 9. HEENT: Unremarkable. NECK: Right IJ central line in place. LUNGS: Clear anteriorly. CARDIAC: S1 and S2. Regular. ABDOMEN: Soft and nontender. EXTREMITIES: Right below-knee amputation. LABORATORY DATA: White blood cell count 15.2, hemoglobin 8.2, hematocrit 25.0, and platelet count 363. PTT 74.8. His last troponin was 38. Sodium 139, potassium 4, chloride 109, CO2 of 20, BUN 62, creatinine 3.2, glucose 80, and magnesium 1.4. ASSESSMENT: 1. Hypovolemic shock, which has improved with administration of IV fluids and blood. 2. Chronic kidney disease stage 4. 3. Myocardial infarction/demand ischemia. PLAN: 1. I would continue cardiac output monitoring for at least 1 more day. Continue gentle IV rehydration. 2. I will withhold any diuretics. 3. Continue to trend laboratory data. Job ID: [id number]
[2019-01-19] MEDS: HYDROcodone/Acetaminophen 10/325 mg Tablet PO PRN (10:11)
[2019-01-19] MEDS: Sevelamer Carbonate 800 MG TAB PO SCH ×3 (10:11→18:00)
[2019-01-19] MEDS: Polyethylene Glycol 3350 17 GM Packet PO SCH (10:15)
[2019-01-19] MEDS: Famotidine 20 MG TAB PO SCH (10:15)
[2019-01-19] MEDS: Vancomycin HCl 1 GM in Premix Bag 1 BAG IVPB SCH (10:17)
[2019-01-19] MEDS: Fenofibrate Nanocrystallized 145 MG TAB PO SCH ×2 (10:27→10:30)
[2019-01-19] MEDS: Atorvastatin Calcium 40 MG TAB PO SCH (21:43)
[2019-01-19] MEDS: Insulin Glargine 20 UNITS in Pre-Filled Syringe 1 EACH SC SCH (21:44)
--- NOTE | 2019-01-19 23:21 | PDOC.GSPN ---
Surgery Progress Note: Subj - Subjective Narrative: Patient feels good today. 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 The incision looks clean. 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 Subcutaneous emphysema within diffusely swollen great toe: evidence for gangrene of great toe. Nonacute, nonunited, mildly displaced dancer's fracture of fifth metatarsal base.)
[2019-01-20] MEDS: MEROPENEM 1 GM/50 ML 1 GM in Premix Bag 1 BAG IVPB SCH ×2 (00:44→12:33)
[2019-01-20 04:50] LABS: #Eosinphils 0.5 thou/uL (0.0-0.7); #Lymphocytes 1.6 thou/uL (1.20-3.40); #Monocytes 1.2 thou/uL (0.11-0.59); %Basophils 0.2 % (0.0-1.0); %Eosinophils 3.3 % (0.0-10.0); %Lymphocytes 10.9 % (21.0-51.0); %Monocytes 8.5 % (0.0-10.0); %Neutrophils 77.1 % (42.0-75.0); Mean Corpuscular HGB CONC 32.3 g/dL (32.0-36.0); Mean Corpuscular Volume 89.8 fL (78.0-98.0); Mean Platelet Volume 8.1 fL (7.4-10.4); Platelet Count 325 thou/uL (130-400); RBC Distribution Width 13.7 % (11.5-14.5); Red Blood Cell (RBC) Count 2.75 mill/uL (4.70-6.10); White Blood Cell (WBC) Count 14.2 thou/uL (4.8-10.8)
[2019-01-20 05:08] LABS: ALT (SGPT) 20 U/L (8-55); AST (SGOT) 78 U/L (5-34); Albumin 2.6 g/dL (3.5-5.0); Alkaline Phosphatase 64 U/L (40-150); Anion Gap 11 mmol/L (10-20); BUN (Urea Nitrogen) 46 mg/dL (8.4-25.7); Bilirubin, Total 0.3 mg/dL (0.2-1.2); Calc. Creatinine Clearance 37 mL/min (70-130); Calcium 8.1 mg/dL (7.8-10.44); Carbon Dioxide 24 mmol/L (22-29); Chloride 107 mmol/L (98-107); Estimated GFR-MDRD 26; Globulin 2.9 g/dL (2.4-3.5); Glucose 154 mg/dL (70-105); Potassium 3.9 mmol/L (3.5-5.1); Protein, Total 5.5 g/dL (6.0-8.3); Sodium 138 mmol/L (136-145)
[2019-01-20] MEDS: Heparin 10,000 UNITS/ 10 ML VIAL SLOW IVP SCH ×3 (06:08→19:41)
[2019-01-20 06:38] VITALS: BMI 30.4
[2019-01-20] MEDS: HumaLOG 300 UNITS/3 ML VIAL SC PRN ×3 (06:38→17:09)
--- NOTE | 2019-01-20 06:51 | PDOC.FM ---
- Subjective Subjective: pt resting comfortably in bed, denies chest pain, SOB, fever or chills - Objective Vital Signs & Weight: Vital Signs (12 hours) Temp Pulse Ox 01/20/19 04:00 98.9 F 01/20/19 00:00 98.8 F 01/19/19 20:00 97.8 F 95 01/19/19 18:56 99 Weight Admit Weight 83.915 kg Weight 87.8 kg Most Recent Monitor Data Heart Rate from ECG 83 NIBP 130/70 NIBP BP-Mean 90 Respiration from ECG 13 SpO2 97 I&O: 01/18/19 01/19/19 01/20/19 06:59 06:59 06:59 Intake Total 1999 3793.9 938 Output Total 1560 1950 Balance 1999 2233.9 -1012 Result Diagrams: 01/20/19 04:10 01/20/19 04:10 Phys Exam - Physical Examination Constitutional: NAD HEENT: moist MMs Neck: no JVD Respiratory: clear to auscultation bilateral Cardiovascular: RRR, no significant murmur Gastrointestinal: soft, no distention Musculoskeletal: pulses present Neurological: moves all 4 limbs Psychiatric: normal affect Skin: no rash Dx/Plan (1) Acute respiratory failure with hypoxia Code(s): J96.01 - ACUTE RESPIRATORY FAILURE WITH HYPOXIA Status: Acute (2) Encephalopathy Code(s): G93.40 - ENCEPHALOPATHY, UNSPECIFIED Status: Acute (3) Septic shock Code(s): A41.9 - SEPSIS, UNSPECIFIED ORGANISM; R65.21 - SEVERE SEPSIS WITH SEPTIC SHOCK Status: Acute (4) Chronic kidney disease, stage 4 (severe) Code(s): N18.4 - CHRONIC KIDNEY DISEASE, STAGE 4 (SEVERE) Status: Chronic (5) DM2 (diabetes mellitus, type 2) Status: Chronic Qualifiers: Diabetes mellitus complication detail: with peripheral angiopathy with gangrene (6) HFrEF (heart failure with reduced ejection fraction) Code(s): I50.20 - UNSPECIFIED SYSTOLIC (CONGESTIVE) HEART FAILURE Status: Chronic Qualifiers: Heart failure chronicity: chronic Qualified Code(s): I50.22 - Chronic systolic (congestive) heart failure (7) NSTEMI (non-ST elevated myocardial infarction) Code(s): I21.4 - NON-ST ELEVATION (NSTEMI) MYOCARDIAL INFARCTION Status: Acute (8) HLD (hyperlipidemia) Code(s): E78.5 - HYPERLIPIDEMIA, UNSPECIFIED Status: Chronic (9) HTN (hypertension) Code(s): I10 - ESSENTIAL (PRIMARY) HYPERTENSION Status: Chronic Qualifiers: Hypertension type: essential hypertension Qualified Code(s): I10 - Essential (primary) hypertension - Plan Plan: NSTEMI type II - Acute ST changes in V1-V3, I, II, and II, troponin/ckmb elevated up to 38 on , downtrending. - Given ASA 325mg, started on Heparin gtt. Cardiology consulted - Echo shows EF 15-20%, hypokinetic septal wall/apex - CV monitoring of CO, adequate, continue monitoring Septic shock - Vanc + Merem (01/18), renal dosing. - UA neg, BCx NGTD - Procal downtrending Encephalopathy - Likely 2/2 #2. Will monitor BP and clinical status. Acute hypoxic respiratory failure - hypoxia resolved on RA - Pulm, Dr. Steve, consulted, appreciate recs. Anemia - s/p 1u PRBC on 01/18, Hb increased - consider additional unit if symptomatic/hypotense S/P BKA POD#5 - Gen surg (Dr. Perry) preformed. Wound clean, dry, without exudates or warmth. Dressing changes and binder. Will monitor. Appreciate recs. Insulin Dependent DM2 - Last A1C 6%. Episodes of hypoglycemia - hold metformin, resume lantus CAD - hold home meds at this time due to hypotension. CHF with rEF and diastolic dysfunction - Echo 10/2018: EF 45-50%, with 1/3 diastolic dysfunction and wall hypokinesis - hold diuretics Hypomag - monitor and replace as needed Hyperphos - monitor and replace as needed DENYS on CKD Stage 4 - monitor BMP Diet: NPO VTE: Heparin Code: Full Code Lines: R IJ placed 01/18 Dispo: cardiac monitoring and treatment of sepsis in CCU Addendum - Attending - Attending Attestation Date/Time: 01/20/19 6535 I personally evaluated the patient and discussed the management with Dr. Morgan. I agree with the History, Examination, Assessment and Plan documented above with any addition or exceptions noted below. Patient continues to improve. It appears his decompensation and NSTEMI type 2 was due to septic shock, though we are still not aware of the origin of his infection. Cultures pending. PCT downtrending on broad spectrum abx. Afebrile and WBC stable. His echo did show worsening EF from previous, but cardiac monitoring has shown adequate CO during the last 2 days. Awaiting further recs from Cardiology and Pulm. Renal function continues to improve and having good urine output.
[2019-01-20] MEDS: Vancomycin HCl 1 GM in Premix Bag 1 BAG IVPB SCH (07:46)
[2019-01-20] MEDS: Polyethylene Glycol 3350 17 GM Packet PO SCH (08:07)
[2019-01-20] MEDS: Sevelamer Carbonate 800 MG TAB PO SCH ×3 (08:07→17:09)
--- NOTE | 2019-01-20 09:07 | PDOC.CTH ---
Cardiology Progress Note - Subjective Doing well. No current complaints. No CP, SOB present. cReatinine is improving. - Objective Vital Signs Temp Pulse Ox 01/20/19 08:00 100 01/20/19 07:00 98.2 F 01/20/19 04:00 98.9 F 01/20/19 00:00 98.8 F Admit Weight 185 lb Weight 193 lb 9.054 oz 01/19/19 01/20/19 01/21/19 06:59 06:59 06:59 Intake Total 3793.9 938 200 Output Total 1560 1950 180 Balance 2233.9 -1012 20 - Physical Examination General/Neuro: NAD Neck: no JVD present Lungs: CTA, unlabored respirations Heart: PMI normal, RRR Abdomen: NT/ND, soft Extremities: + femoral B - Labs Result Diagrams: 01/20/19 10:30 01/20/19 04:10 Troponin/CKMB CK-MB (CK-2) 82.7 ng/mL (0-6.6) H* 01/18/19 17:26 Troponin I 38.874 ng/mL (< 0.028) H* 01/18/19 20:13 - Assessment/Plan NQWMI Sepsis Encephalopathy Acue on chronic RI CAD s/p CABG Recent gangrene with BKA of LE 01/20/2019 REC Cotnue currnt treatment Creatinine improving Abx DC heparin in am Add plavix in am (Hb still 8) Add low dose coreg in am. BP has been tenuous 01/19/2019 REC EKG without acute changes Q waves noted inferiorly unchanged from admission EKG Pt without symptoms Given risks of contrast nephropathy and worsening anemia wiht no symptoms and no acute EKG changes, opted for medically therapy given recent sepsis and continued fever Unknown if increase troponin was primary event or complications from comorbidites. Given the above, likely TYPE II AK
--- NOTE | 2019-01-20 09:15 | PRG ---
DATE OF SERVICE: 01/20/2019 SUBJECTIVE: He is remarkably better this morning. He is awake, alert, joking around, has no complaints. OBJECTIVE: VITAL SIGNS: On exam, his temperature is 98.2, pulse 81, blood pressure 112/66, O2 saturation 100%. Last CVP was around 7. I do not see any recent cardiac output parameters. HEENT: Unremarkable. NECK: No adenopathy or JVD. LUNGS: Fairly clear anteriorly. CARDIAC: S1, S2. Regular. ABDOMEN: Soft. EXTREMITIES: No edema. IMAGING STUDIES: His echo showed EF of 15% to 20%. LABORATORY DATA: Sodium 138, potassium 3.8, chloride 107, CO2 of 24, BUN 46, creatinine 2.5, glucose 154, albumin 2.6. White blood cell count 14.2, hematocrit 24.7, and platelet count 325. PTT is 52.7. ASSESSMENT: 1. Hypovolemic shock with some degree of sepsis, which has now resolved. 2. Chronic kidney disease stage 4 with improved BUN and creatinine after hydration and transfusion. 3. Myocardial infarction/demand ischemia. 4. Cardiomyopathy. PLAN: The patient can be transferred to the [facility]. I will go ahead and have a central line taken out. He will likely need to start diuretics sometime in the next 24 to 48 hours. I would withhold any IV fluids. We will continue to follow. Job ID: [id number]
[2019-01-20 11:04] LABS: Platelet Count 369 thou/uL (130-400)
[2019-01-20] MEDS: HYDROcodone/Acetaminophen 10/325 mg Tablet PO PRN (14:21)
--- NOTE | 2019-01-20 16:34 | PDOC.GSPN ---
Surgery Progress Note: Subj - Subjective Narrative: Patient feels fine. Leg pain continues to slowly diminish. Hemodynamically stable. From a surgical standpoint there are no ongoing issues. I'm going to sign off for now. Please call if there are any concerns about his leg. Surgery Progress Note: Obj - Vital signs Vital signs: Vital Signs - Most Recent Temp Pulse Resp BP Pulse Ox 97.8 F 90 18 84/52 L 97 01/20/19 15:05 01/18/19 10:30 01/18/19 10:30 01/18/19 13:00 01/20/19 10:56 Surgery Progress Note: Results - Labs Result Diagrams: 01/20/19 10:30 01/20/19 04:10 Lab results: Laboratory Results - last 24 hr 01/20/19 01/20/19 01/20/19 04:10 04:10 04:10 WBC 14.2 H RBC 2.75 L Hgb 8.0 L Hct 24.7 L MCV 89.8 MCH 29.0 MCHC 32.3 RDW 13.7 Plt Count 325 MPV 8.1 Neutrophils % 77.1 H Neutrophils % (Manual) Not Reportable Lymphocytes % 10.9 L Monocytes % 8.5 Eosinophils % 3.3 Basophils % 0.2 Neutrophils # 11.0 H Lymphocytes # 1.6 Monocytes # 1.2 H Eosinophils # 0.5 Basophils # 0.0 APTT Sodium 138 Potassium 3.9 Chloride 107 Carbon Dioxide 24 Anion Gap 11 BUN 46 H Creatinine 2.52 H Estimated GFR (MDRD) 26 Glucose 154 H POC Glucose Calcium 8.1 Magnesium 2.0 Total Bilirubin 0.3 AST 78 H ALT 20 Alkaline Phosphatase 64 Serum Total Protein 5.5 L Albumin 2.6 L Globulin 2.9 Albumin/Globulin Ratio 0.9 L Procalcitonin 0.77 01/20/19 01/20/19 01/20/19 04:10 06:16 10:30 WBC RBC Hgb 8.0 L Hct 24.7 L MCV MCH MCHC RDW Plt Count 369 MPV Neutrophils % Neutrophils % (Manual) Lymphocytes % Monocytes % Eosinophils % Basophils % Neutrophils # Lymphocytes # Monocytes # Eosinophils # Basophils # APTT 52.7 H Sodium Potassium Chloride Carbon Dioxide Anion Gap BUN Creatinine Estimated GFR (MDRD) Glucose POC Glucose 175 H Calcium Magnesium Total Bilirubin AST ALT Alkaline Phosphatase Serum Total Protein Albumin Globulin Albumin/Globulin Ratio Procalcitonin 01/20/19 01/20/19 10:30 11:56 WBC RBC Hgb Hct MCV MCH MCHC RDW Plt Count MPV Neutrophils % Neutrophils % (Manual) Lymphocytes % Monocytes % Eosinophils % Basophils % Neutrophils # Lymphocytes # Monocytes # Eosinophils # Basophils # APTT 43.2 H Sodium Potassium Chloride Carbon Dioxide Anion Gap BUN Creatinine Estimated GFR (MDRD) Glucose POC Glucose 172 H Calcium Magnesium Total Bilirubin AST ALT Alkaline Phosphatase Serum Total Protein Albumin Globulin Albumin/Globulin Ratio Procalcitonin - Radiology Interpretation Other Status: report reviewed by me (XR of right foot: Acro-osteolysis of the first and second distal debby, and soft tissue defect at the distal great toe: suspicious for osteomyelitis. Subcutaneous emphysema within diffusely swollen great toe: evidence for gangrene of great toe. Nonacute, nonunited, mildly displaced dancer's fracture of fifth metatarsal base.)
[2019-01-20] MEDS: Famotidine 20 MG TAB PO SCH (20:41)
[2019-01-20] MEDS: Gabapentin 300 MG CAP PO SCH (20:41)
[2019-01-20] MEDS: Atorvastatin Calcium 40 MG TAB PO SCH (20:41)
[2019-01-20] MEDS: Insulin Glargine 10 UNITS in Pre-Filled Syringe 1 EACH SC SCH (20:41)
[2019-01-21] MEDS: HYDROcodone/Acetaminophen 10/325 mg Tablet PO PRN ×2 (01:25→13:27)
[2019-01-21] MEDS: MEROPENEM 1 GM/50 ML 1 GM in Premix Bag 1 BAG IVPB SCH ×2 (01:28→13:27)
[2019-01-21] MEDS: Heparin 25,000 units/D5W 500 ML IVPB SCH (05:35)
[2019-01-21 06:31] LABS: #Eosinphils 0.4 thou/uL (0.0-0.7); #Lymphocytes 2.2 thou/uL (1.20-3.40); #Neutrophils 8.3 thou/uL (1.40-6.50); %Basophils 0.2 % (0.0-1.0); %Eosinophils 3.5 % (0.0-10.0); %Lymphocytes 18.6 % (21.0-51.0); %Monocytes 8.6 % (0.0-10.0); %Neutrophils 69.1 % (42.0-75.0); Hemoglobin 8.1 g/dL (14.0-18.0); Mean Corpuscular HGB CONC 32.2 g/dL (32.0-36.0); Mean Corpuscular Volume 90.2 fL (78.0-98.0); Mean Platelet Volume 7.9 fL (7.4-10.4); Platelet Count 362 thou/uL (130-400); RBC Distribution Width 13.4 % (11.5-14.5); Red Blood Cell (RBC) Count 2.78 mill/uL (4.70-6.10); White Blood Cell (WBC) Count 11.9 thou/uL (4.8-10.8)
[2019-01-21 06:54] LABS: ALT (SGPT) 20 U/L (8-55); AST (SGOT) 46 U/L (5-34); Albumin 2.4 g/dL (3.5-5.0); Alkaline Phosphatase 60 U/L (40-150); Anion Gap 11 mmol/L (10-20); BUN (Urea Nitrogen) 37 mg/dL (8.4-25.7); Bilirubin, Total 0.2 mg/dL (0.2-1.2); Calc. Creatinine Clearance 45 mL/min (70-130); Calcium 8.1 mg/dL (7.8-10.44); Carbon Dioxide 24 mmol/L (22-29); Chloride 110 mmol/L (98-107); Estimated GFR-MDRD 31; Globulin 2.9 g/dL (2.4-3.5); Glucose 119 mg/dL (70-105); Magnesium 1.9 mg/dL (1.6-2.6); Protein, Total 5.3 g/dL (6.0-8.3); Sodium 141 mmol/L (136-145)
--- NOTE | 2019-01-21 06:57 | PDOC.FM ---
- Subjective Subjective: NAEO. Pt complains of pain in his right BKA stump only when he moves his leg and states we are managing his pain well. He denies SOB, cp, abdominal pain, or other complaints at this time. - Objective MAR Reviewed: Yes Vital Signs & Weight: Vital Signs (12 hours) Temp Pulse Resp BP Pulse Ox 01/21/19 03:25 98.5 F 01/20/19 20:00 98 01/20/19 19:40 97.6 F 68 20 120/78 98 Weight Admit Weight 83.915 kg Weight 85.502 kg Most Recent Monitor Data Heart Rate from ECG 71 NIBP 121/64 NIBP BP-Mean 83 Respiration from ECG 15 SpO2 100 I&O: 01/19/19 01/20/19 01/21/19 06:59 06:59 06:59 Intake Total 3793.9 938 200 Output Total 1560 1950 730 Balance 2233.9 -1012 -530 Result Diagrams: 01/21/19 06:15 01/21/19 06:15 Phys Exam - Physical Examination Constitutional: NAD HEENT: moist MMs Neck: no JVD Respiratory: no wheezing, clear to auscultation bilateral Cardiovascular: RRR, no significant murmur, no rub Gastrointestinal: soft, non-tender, no distention Musculoskeletal: no edema, pulses present Neurological: normal sensation, moves all 4 limbs Psychiatric: normal affect, A&O x 3 Skin: cap refill <2 seconds Dx/Plan (1) Acute respiratory failure with hypoxia Code(s): J96.01 - ACUTE RESPIRATORY FAILURE WITH HYPOXIA Status: Acute (2) Encephalopathy Code(s): G93.40 - ENCEPHALOPATHY, UNSPECIFIED Status: Acute (3) Septic shock Code(s): A41.9 - SEPSIS, UNSPECIFIED ORGANISM; R65.21 - SEVERE SEPSIS WITH SEPTIC SHOCK Status: Acute (4) Chronic kidney disease, stage 4 (severe) Code(s): N18.4 - CHRONIC KIDNEY DISEASE, STAGE 4 (SEVERE) Status: Chronic (5) DM2 (diabetes mellitus, type 2) Status: Chronic Qualifiers: Diabetes mellitus complication detail: with peripheral angiopathy with gangrene (6) HFrEF (heart failure with reduced ejection fraction) Code(s): I50.20 - UNSPECIFIED SYSTOLIC (CONGESTIVE) HEART FAILURE Status: Chronic Qualifiers: Heart failure chronicity: chronic Qualified Code(s): I50.22 - Chronic systolic (congestive) heart failure (7) NSTEMI (non-ST elevated myocardial infarction) Code(s): I21.4 - NON-ST ELEVATION (NSTEMI) MYOCARDIAL INFARCTION Status: Acute (8) HLD (hyperlipidemia) Code(s): E78.5 - HYPERLIPIDEMIA, UNSPECIFIED Status: Chronic (9) HTN (hypertension) Code(s): I10 - ESSENTIAL (PRIMARY) HYPERTENSION Status: Chronic Qualifiers: Hypertension type: essential hypertension Qualified Code(s): I10 - Essential (primary) hypertension - Plan Plan: This is a 59 yo male with a pmh of HTN, HLD, DM2 NSTEMI type 2 -Continuing aspirin, starting plavix, stopping heparin drip per cardiology and as pt has been on this for >48 hours -Echo shows EF of 15-20 % -Continue monitoring Septic shock, resolved -Vanc+Merem (01/18) -UA neg, Bcx NGTD -WBC trending down, afebrile overnight Encephalopathy, resolved Acute hpoxic respiratory failure, resolved Diarrhea -C. diff negative Anemia -Stable Hgb 8.1 this morning -Continue monitoring -Denies any symptoms of GI bleed IDDM2 - Holding metformin, continue long acting insulin -Hypogycemic protocol CAD -Starting plavix and coreg for medical management -On home atorvastatin HFrEF -EF during this stay was 15-20% -Starting carvedilol this AM -Consider starting pt on low dose of lisinopril after pt shows he can tolerate coreg -Consider starting spironolactone 25 mg every other day after pt shows he can tolerate coreg Will need to monitor potassium outpt. Calculated creatinine clearance is 45ml/min today Hypomag, resolved Hyperphos -on renvela DENYS on CKD 4 -Improving, continue monitoring Addendum - Attending - Attending Attestation Date/Time: 01/21/19 1106 I personally evaluated the patient and discussed the management with Dr. Lazaro I agree with the History, Examination, Assessment and Plan documented above with any addition or exceptions noted below. Post op patient continues to improve he is alert responsive NAD continue to monitor, increase activities as tolerated. D/c castellanos unless needed for continued I&O monitoring. Appreciate specialist recommendations trend H/H transfuse prn. Life vest was discontinued previously assuming had improved EF.
[2019-01-21] MEDS: Heparin 10,000 UNITS/ 10 ML VIAL SLOW IVP SCH (07:10)
[2019-01-21] MEDS ORDERED: Carvedilol 3.125 MG TAB PO SCH ×2 (09:15→17:00)
[2019-01-21] MEDS: Vancomycin HCl 1 GM in Premix Bag 1 BAG IVPB SCH (09:21)
[2019-01-21] MEDS: Sevelamer Carbonate 800 MG TAB PO SCH ×3 (09:22→17:04)
[2019-01-21] MEDS: Clopidogrel Bisulfate 75 MG TAB PO SCH (09:22)
[2019-01-21] MEDS: Gabapentin 300 MG CAP PO SCH ×2 (09:22→21:49)
[2019-01-21] MEDS: Fenofibrate Nanocrystallized 145 MG TAB PO SCH (09:22)
[2019-01-21] MEDS: Polyethylene Glycol 3350 17 GM Packet PO SCH (09:22)
--- NOTE | 2019-01-21 09:50 | PRG ---
DATE OF SERVICE: 01/21/2019 SUBJECTIVE: He is in better spirits, had no acute complaints. He says he feels like his color is coming back and his strength is improving. OBJECTIVE: VITAL SIGNS: On exam, his temperature is 97.6, pulse 73, blood pressure 116/74, and O2 saturations 100%. HEENT: Unremarkable. NECK: Right-sided IJ catheter in place. LUNGS: Clear. CARDIAC: S1 and S2. Regular. ABDOMEN: Soft and nontender. EXTREMITIES: Right below-knee amputation. LABORATORY DATA: Sodium 141, potassium 4, chloride 110, CO2 of 24, BUN 37, creatinine 2.2, and glucose 119. White blood cell count 11.9, hemoglobin 8, hematocrit 25, and platelet count 362. His PTT is 45.5. ASSESSMENT: 1. Status post hypotension/hypovolemic shock, which is improved after hydration. 2. Stage 4 kidney disease with improved BUN and creatinine after hydration. 3. Myocardial infarction/demand ischemia. 4. Cardiomyopathy. PLAN: 1. Central line should come out today. 2. Hopefully, the continuous heparin drip can be stopped. 3. From my standpoint, the Hinkle can be taken out. 4. At some point, may require cardiac catheterization. Job ID: [id number]
--- NOTE | 2019-01-21 11:49 | PQF ---
CLINICAL DOCUMENTATION IMPROVEMENT CLARIFICATION FORM: ICD-10 Updated PLEASE DO AN ADDENDUM TO THE PROGRESS NOTE WITH ANY DOCUMENTATION UPDATES OR ADDITIONS AND CARRY THROUGH TO DC SUMMARY. THANK YOU. DATE: 01/21/19 ATTN: DR. SCHREIBER Please exercise your independent, professional judgment in responding to the clarification form. Clinical indicators are provided on the bottom of this form for your review Please check appropriate box(s): [ x ] Encephalopathy: Type: [ x ] Acute [ ] Subacute [ ] Chronic Etiology: [ ] Hypertensive [ ] Metabolic [ ] Toxic [ ] Hepatic with Coma [ ] Hepatic w/o Coma [ ] Hypoxic [ x ] Septic [ ] Drug induced: [ ] Unspecified [ ] in the setting of underlying dementia [ ] Other (please specify) [ ] Transient Alteration of Awareness [ ] Other diagnosis [ ] Unable to determine In addition, please specify: Present on Admission (POA): [ ] Yes [ x ] No [ ] Unable to determine For continuity of documentation, please document condition throughout progress notes and discharge summary. Thank You. CLINICAL INDICATORS - SIGNS / SYMPTOMS / LABS PROGRESS NOTE 01/21: "ENCEPHALOPATHY, RESOLVED" RISKS: SEPSIS RESPIRATORY FAILURE TREATMENT: IV VANCOMYCIN (ER-PRESENT) IV FLUIDS (ER) IV ZOSYN (ER) IV MERREM (01/18-PRESENT) (This form is maintained as a part of the permanent medical record) 2014 [facility]. All Rights Reserved RUBIO [email or web address] Office: [phone] [facility] [email or web address]
[2019-01-21 12:29] LABS: Vancomycin, Trough 36.5 ug/mL
[2019-01-21] MEDS ORDERED: Vancomycin HCl 1 GM in Premix Bag 1 BAG IVPB SCH (12:45)
[2019-01-21] MEDS: Heparin 5,000 UNITS/ML VIAL SC SCH ×2 (14:49→21:49)
--- NOTE | 2019-01-21 16:42 | EKG ---
Test Reason : Blood Pressure : / mmHG Vent. Rate : 109 BPM Atrial Rate : 109 BPM P-R Int : 162 ms QRS Dur : 112 ms QT Int : 356 ms P-R-T Axes : 050 034 187 degrees QTc Int : 479 ms Sinus tachycardia with frequent Premature ventricular complexes Non-specific intra-ventricular conduction delay Abnormal ECG Confirmed by BIANCA MORRISON ([id number]) on 01/21/2019 4:42:37 PM Referred By: MER Confirmed By:BIANCA MORRISON
--- NOTE | 2019-01-21 16:50 | EKG ---
Test Reason : Blood Pressure : / mmHG Vent. Rate : 093 BPM Atrial Rate : 093 BPM P-R Int : 158 ms QRS Dur : 112 ms QT Int : 368 ms P-R-T Axes : 047 011 154 degrees QTc Int : 457 ms Normal sinus rhythm Non-specific intra-ventricular conduction delay Minimal voltage criteria for LVH, may be normal variant Inferior infarct , age undetermined Abnormal ECG Confirmed by BIANCA MORRISON ([id number]) on 01/21/2019 4:50:08 PM Referred By: PARKER *R Confirmed By:BIANCA MORRISON
[2019-01-21] MEDS: HumaLOG 300 UNITS/3 ML VIAL SC PRN (17:04)
[2019-01-21] MEDS: Carvedilol 3.125 MG TAB PO SCH (17:04)
--- NOTE | 2019-01-21 20:05 | PDOC.CTH ---
Cardiology Progress Note - Subjective No new issues. Feels better today as compared to last week. - Objective Vital Signs Temp Pulse Pulse BP BP Pulse Ox Pulse Ox 01/21/19 19:14 96.9 F L 01/21/19 16:45 98.8 F 01/21/19 11:07 98.6 F 01/21/19 09:34 63 91 130/69 124/76 100 97 Admit Weight 185 lb Weight 188 lb 8 oz 01/20/19 01/21/19 01/22/19 06:59 06:59 06:59 Intake Total 938 720 720 Output Total 1950 1520 550 Balance -1012 -800 170 - Physical Examination General/Neuro: alert & oriented x3, NAD Neck: no JVD present Lungs: CTA, unlabored respirations Heart: RRR Abdomen: NT/ND Extremities: + edema B (no edema) - Telemetry Telemetry Rhythm: NSR - Labs Result Diagrams: 01/21/19 06:15 01/21/19 06:15 Troponin/CKMB CK-MB (CK-2) 82.7 ng/mL (0-6.6) H* 01/18/19 17:26 Troponin I 38.874 ng/mL (< 0.028) H* 01/18/19 20:13 - Assessment/Plan 1. NSTEMI, Type 2 demand ischemia. 2. Sepsis 3. Encephalopathy, improved. 4. Acute on chronic Kidney injury 5. CAD 6. s/p CABG 7. Gangrene with BKA of LE 8. Severe PVD. PLAN: - Conservative therapy for NSTEMI given renal dysfunction. - Likely Type 2 HI given septic picture. - Currently asymptomatic from cardiac perspective. - Will follow.
[2019-01-21] MEDS: Famotidine 20 MG TAB PO SCH (21:49)
[2019-01-21] MEDS: Atorvastatin Calcium 40 MG TAB PO SCH (21:49)
[2019-01-21] MEDS: Insulin Glargine 10 UNITS in Pre-Filled Syringe 1 EACH SC SCH (21:50)
[2019-01-22] MEDS: MEROPENEM 1 GM/50 ML 1 GM in Premix Bag 1 BAG IVPB SCH ×2 (01:11→12:19)
[2019-01-22 04:32] LABS: #Eosinphils 0.6 thou/uL (0.0-0.7); #Lymphocytes 2.5 thou/uL (1.20-3.40); #Monocytes 1.3 thou/uL (0.11-0.59); #Neutrophils 11.6 thou/uL (1.40-6.50); %Basophils 0.2 % (0.0-1.0); %Eosinophils 3.5 % (0.0-10.0); %Lymphocytes 15.5 % (21.0-51.0); %Monocytes 8.4 % (0.0-10.0); %Neutrophils 72.4 % (42.0-75.0); Hemoglobin 8.6 g/dL (14.0-18.0); Mean Corpuscular HGB CONC 31.8 g/dL (32.0-36.0); Mean Corpuscular Hemoglobin 28.7 pg (27.0-31.0); Mean Corpuscular Volume 90.2 fL (78.0-98.0); Mean Platelet Volume 7.9 fL (7.4-10.4); Platelet Count 450 thou/uL (130-400); RBC Distribution Width 13.9 % (11.5-14.5); Red Blood Cell (RBC) Count 3.01 mill/uL (4.70-6.10)
[2019-01-22 04:47] LABS: ALT (SGPT) 20 U/L (8-55); AST (SGOT) 44 U/L (5-34); Albumin 2.6 g/dL (3.5-5.0); Alkaline Phosphatase 71 U/L (40-150); Anion Gap 9 mmol/L (10-20); BUN (Urea Nitrogen) 35 mg/dL (8.4-25.7); Bilirubin, Total 0.3 mg/dL (0.2-1.2); Calc. Creatinine Clearance 46 mL/min (70-130); Calcium 8.5 mg/dL (7.8-10.44); Carbon Dioxide 27 mmol/L (22-29); Chloride 110 mmol/L (98-107); Estimated GFR-MDRD 32; Globulin 3.2 g/dL (2.4-3.5); Glucose 101 mg/dL (70-105); Magnesium 1.9 mg/dL (1.6-2.6); Potassium 4.4 mmol/L (3.5-5.1); Protein, Total 5.8 g/dL (6.0-8.3); Sodium 142 mmol/L (136-145)
--- NOTE | 2019-01-22 07:00 | PDOC.FM ---
- Subjective Subjective: Pt states he is feeling much better today. Denies chest pain, SOB, or abdominal pain. He does report left heel pain that started this morning. - Objective MAR Reviewed: Yes Vital Signs & Weight: Vital Signs (12 hours) Temp Pulse Ox 01/22/19 03:10 97.5 F L 01/21/19 23:49 97.5 F L 01/21/19 20:00 98 01/21/19 19:14 96.9 F L Weight Admit Weight 83.915 kg Weight 85.502 kg Most Recent Monitor Data Heart Rate from ECG 74 NIBP 128/67 NIBP BP-Mean 87 Respiration from ECG 13 SpO2 98 I&O: 01/20/19 01/21/19 01/22/19 06:59 06:59 06:59 Intake Total 938 720 720 Output Total 1950 1520 550 Balance -1012 -800 170 Result Diagrams: 01/22/19 08:54 01/22/19 04:14 Phys Exam - Physical Examination Constitutional: NAD HEENT: moist MMs Neck: no JVD, full ROM Respiratory: no wheezing, no rales, no rhonchi, clear to auscultation bilateral Cardiovascular: RRR, no significant murmur Gastrointestinal: soft, non-tender, no distention, positive bowel sounds Musculoskeletal: no edema, pulses present No sign of skin irritation or breakdown on left heal Neurological: normal sensation, moves all 4 limbs Psychiatric: A&O x 3 Skin: cap refill <2 seconds Dx/Plan (1) Acute respiratory failure with hypoxia Code(s): J96.01 - ACUTE RESPIRATORY FAILURE WITH HYPOXIA Status: Acute (2) Encephalopathy Code(s): G93.40 - ENCEPHALOPATHY, UNSPECIFIED Status: Acute (3) Septic shock Code(s): A41.9 - SEPSIS, UNSPECIFIED ORGANISM; R65.21 - SEVERE SEPSIS WITH SEPTIC SHOCK Status: Acute (4) Chronic kidney disease, stage 4 (severe) Code(s): N18.4 - CHRONIC KIDNEY DISEASE, STAGE 4 (SEVERE) Status: Chronic (5) DM2 (diabetes mellitus, type 2) Status: Chronic Qualifiers: Diabetes mellitus complication detail: with peripheral angiopathy with gangrene (6) HFrEF (heart failure with reduced ejection fraction) Code(s): I50.20 - UNSPECIFIED SYSTOLIC (CONGESTIVE) HEART FAILURE Status: Chronic Qualifiers: Heart failure chronicity: chronic Qualified Code(s): I50.22 - Chronic systolic (congestive) heart failure (7) NSTEMI (non-ST elevated myocardial infarction) Code(s): I21.4 - NON-ST ELEVATION (NSTEMI) MYOCARDIAL INFARCTION Status: Acute (8) HLD (hyperlipidemia) Code(s): E78.5 - HYPERLIPIDEMIA, UNSPECIFIED Status: Chronic (9) HTN (hypertension) Code(s): I10 - ESSENTIAL (PRIMARY) HYPERTENSION Status: Chronic Qualifiers: Hypertension type: essential hypertension Qualified Code(s): I10 - Essential (primary) hypertension - Plan Plan: This is a 59 yo male with a pmh of HTN, HLD, DM2 NSTEMI type 2 -Continuing aspirin, starting plavix, stopping heparin drip per cardiology and as pt has been on this for >48 hours -Echo shows EF of 15-20 % -Continue monitoring Septic shock, resolved -Vanc+Merem (01/18), likely DC when procal is normalized. -UA neg, Bcx NGTD -afebrile overnight -Pt can likely move to the floor today pending clinical course Osteomyelitis, POD 7 BKA -Wound healing well. Encephalopathy, resolved Acute hpoxic respiratory failure, resolved Diarrhea -C. diff negative Anemia -Stable Hgb 8.1 this morning -Continue monitoring -Denies any symptoms of GI bleed IDDM2 - Holding metformin, continue long acting insulin -Hypogycemic protocol CAD -Starting plavix and coreg for medical management -On home atorvastatin HFrEF -EF during this stay was 15-20% -Starting carvedilol this AM -Entresto restarted yesterday -Consider starting spironolactone 25 mg every other day after pt shows he can tolerate coreg and entresto. Will need to monitor potassium outpt. Calculated creatinine clearance is 45ml/min Hypomag, resolved Hyperphos -on renvela DENYS on CKD 4 -Improving, continue monitoring Left heal pain likely 2/2 PT and new weight bearing. Will monitor. Addendum - Attending - Attending Attestation Date/Time: 01/22/19 [id number] I personally evaluated the patient and discussed the management with Dr. Lazaro I agree with the History, Examination, Assessment and Plan documented above with any addition or exceptions noted below. Patient for life vest and d/c castellanos cath working on placement into rehab.
[2019-01-22 07:44] LABS: Vancomycin, Trough 20.1 ug/mL
[2019-01-22] MEDS ORDERED: Vancomycin HCl 1 GM in Premix Bag 1 BAG IVPB SCH (08:00)
[2019-01-22] MEDS: Gabapentin 300 MG CAP PO SCH ×2 (08:56→20:14)
[2019-01-22] MEDS: Sevelamer Carbonate 800 MG TAB PO SCH ×3 (08:56→17:28)
[2019-01-22] MEDS: Carvedilol 3.125 MG TAB PO SCH ×2 (08:57→17:28)
[2019-01-22] MEDS: Clopidogrel Bisulfate 75 MG TAB PO SCH (08:58)
[2019-01-22 08:59] LABS: Hemoglobin 8.2 g/dL (14.0-18.0); Platelet Count 441 thou/uL (130-400)
[2019-01-22] MEDS: Heparin 5,000 UNITS/ML VIAL SC SCH ×3 (08:59→20:20)
[2019-01-22] MEDS: Fenofibrate Nanocrystallized 145 MG TAB PO SCH (08:59)
[2019-01-22] MEDS: Polyethylene Glycol 3350 17 GM Packet PO SCH (09:00)
[2019-01-22] MEDS: HYDROcodone/Acetaminophen 10/325 mg Tablet PO PRN ×2 (09:02→20:15)
--- NOTE | 2019-01-22 09:55 | PRG ---
DATE OF SERVICE: 01/22/2019 SUBJECTIVE: The patient is doing relatively well and has no complaints. OBJECTIVE: VITAL SIGNS: Temperature 99.4, pulse 77, blood pressure 132/73, and O2 saturation 97%. HEENT: Unremarkable. NECK: No adenopathy or JVD. CHEST: Clear to auscultation anteriorly. CARDIAC: S1 and S2, regular. ABDOMEN: Soft. EXTREMITIES: Right below-knee amputation. LABORATORY DATA: White blood cell count 16, hematocrit 27.1, and platelet count 415. Sodium 140, potassium 4.4, chloride 110, CO2 of 27, BUN 35, creatinine 3.1, and glucose 101. ASSESSMENT: 1. Post sepsis syndrome with marked improvement. 2. Demand ischemia, resolved. PLAN: 1. Continue antibiotics. 2. Can move up to the surgical floor. Job ID: [id number]
[2019-01-22] MEDS: traMADol HCl 50 MG TAB PO PRN (12:08)
--- NOTE | 2019-01-22 13:10 | PQF ---
CLINICAL DOCUMENTATION IMPROVEMENT CLARIFICATION FORM: ICD-10 Updated PLEASE DO AN ADDENDUM TO THE PROGRESS NOTE WITH ANY DOCUMENTATION UPDATES OR ADDITIONS AND CARRY THROUGH TO DC SUMMARY. THANK YOU. DATE: 01/22/19 ATTN: DR. SCHREIBER Please exercise your independent, professional judgment in responding to the clarification form. Clinical indicators are provided on the bottom of this form for your review Please check appropriate box(s): [ ] Acute blood loss anemia [ ] Post-op anemia related to acute blood loss [ ] Anemia: [ ] Aplastic [ ] Nutritional [ ] Drug induced (specify) ___ [ ] Hemolytic [ ] Hereditary [ ] Acquired [ ] Autoimmune [ ] Non-autoimmune [ ] Enzyme disorder [ ] Chronic Anemia: [ ] Blood loss [ ] Hemolytic [ ] Simple [ ] Due to Vitamin B12 Deficiency [ ] Other [ ] Anemia of Chronic Disease (please specify) CKD [ ] Anemia due to Neoplasm: [ ] Primary [ ] Secondary [ ] Anemia due to (please choose): [ ] Due to Chemotherapy [ ] Due to Radiotherapy [ ] Due to Immunotherapy [ ] Other diagnosis [ ] Unable to determine In addition, please specify: Present on Admission (POA): [ x ] Yes [ ] No [ ] Unable to determine For continuity of documentation, please document condition throughout progress notes and discharge summary. Thank You. CLINICAL INDICATORS - SIGNS / SYMPTOMS / LABS PROGRESS NOTE 01/19: "ANEMIA" HGN 01/14: 9.3 HGN 01/18: 6.9 RISKS: RIGHT BKA (EBL 150ML) TREATMENT: BLOOD TRANSFUSION SERIAL LABS (This form is maintained as a part of the permanent medical record) 2014 [employer]. All Rights Reserved [email or web address] Office: [phone] [facility]
[2019-01-22 13:28] VITALS: BP 111/57
--- NOTE | 2019-01-22 18:25 | PDOC.CTH ---
Cardiology Progress Note - Subjective He is doing well. No chest pain, tightness, pressure. Breathing at baseline. - Objective Vital Signs Temp Pulse Pulse BP BP BP Pulse Ox 01/22/19 15:07 98.8 F 01/22/19 10:26 98.8 F 01/22/19 09:23 83 79 111/57 L 137/59 L 137/71 01/22/19 08:00 96 01/22/19 07:16 99.4 F Admit Weight 185 lb Weight 187 lb 8 oz 01/21/19 01/22/19 01/23/19 06:59 06:59 06:59 Intake Total 720 1030 1930 Output Total 1520 1200 475 Balance -800 -170 1455 - Physical Examination General/Neuro: alert & oriented x3, NAD Neck: no JVD present Lungs: CTA, unlabored respirations Heart: RRR Abdomen: NT/ND Extremities: other: (no edema) - Telemetry Telemetry Rhythm: NSR - Labs Result Diagrams: 01/22/19 08:54 01/22/19 04:14 Troponin/CKMB CK-MB (CK-2) 82.7 ng/mL (0-6.6) H* 01/18/19 17:26 Troponin I 38.874 ng/mL (< 0.028) H* 01/18/19 20:13 - Assessment/Plan 1. NSTEMI, Type 2 demand ischemia. 2. Sepsis 3. Encephalopathy, improved. 4. Acute on chronic Kidney injury 5. CAD 6. s/p CABG 7. Gangrene with BKA of LE 8. Severe PVD. 89. Ischemic CM EF at 15-20% PLAN: - Will recommend he wear lifevest given his severe LV dysfunction. - Continue Evidence based medications given LV dysfunction. - May discharge home from cardiac perspective once lifevest in place. - Will follow.
[2019-01-22 19:25] VITALS: TEMP 97.9
[2019-01-22] MEDS: Atorvastatin Calcium 40 MG TAB PO SCH (20:15)
[2019-01-22] MEDS: Famotidine 20 MG TAB PO SCH (20:15)
[2019-01-22] MEDS: Insulin Glargine 10 UNITS in Pre-Filled Syringe 1 EACH SC SCH (20:20)
--- NOTE | 2019-01-24 05:01 | DIS ---
DATE OF ADMISSION: 01/14/2019 DATE OF DISCHARGE: 01/22/2019 ADMITTING ATTENDING: Luis Carlos Hemphill MD. DISCHARGE ATTENDING: Matt Wells MD RESIDENT: Lew Lazaro DO CONSULTS: 1. General surgery, Dr. Melvin Perry. 2. Cardiology, Dr. Ranjith Pedersen. 3. Pulmonology, Dr. Rebel Steve. PROCEDURES: 1. X-ray of the right foot, 3-view, shows sacral osteomyelitis of the right 1st and 2nd distal tuft and soft tissue defect distal great toe, suspicious for osteomyelitis, subcutaneous emphysema with diffuse swollen great toe evidence for gangrene of the great toe, nonacute, nonunion, mildly displaced Dancer's fracture of the 5th metatarsal base. 2. Amputation of the right leg below the knee on 01/15/2019, Dr. Perry. 3. Portable chest x-ray showing cardiomegaly. 4. Portable chest x-ray showing right-sided central line placement. No signs of pneumothorax. No interval change since prior exam. 5. Placement of right internal jugular central vein by Dr. Steve. 6. Right leg amputation, path report shows ischemia, ulceration, acute osteomyelitis, skin and soft tissue margins are viable, partial occlusive atherosclerosis. PRIMARY DIAGNOSES: 1. Sepsis secondary to gangrene of his right foot. 2. Acute kidney injury on chronic kidney disease. 3. Lactic acidemia. 4. Septic shock on 01/18. SECONDARY DIAGNOSES: 1. Type 2 diabetes. 2. Coronary artery disease. 3. Heart failure with reduced ejection fraction. DISCHARGE MEDICATIONS: 1. Aspirin 81 mg p.o. daily. 2. Atorvastatin 80 mg p.o. at bedtime. 3. Carvedilol 3.125 mg p.o. b.i.d. 4. Clopidogrel 75 mg p.o. daily. 5. Tricor 145 mg p.o. daily. 6. Furosemide 40 mg p.o. daily. 7. Gabapentin 300 mg p.o. b.i.d. 8. [place] 10/325 one to two tablets q.4 hours p.r.n. breakthrough pain. 9. Insulin glargine 20 units p.o. at bedtime. 10. Triple antibiotic ointment applied to right leg stump p.o. daily. 11. Nitroglycerin 0.4mg sublingual q.5 minutes p.r.n. chest pain. 12. MiraLAX 17 g p.o. daily. 13. Entresto 24/26 mg p.o. b.i.d. 14. Senokot 2 tablets p.o. b.i.d. p.r.n. constipation. 15. Renvela 800 mg p.o. t.i.d. with meals. 16. Spironolactone 25 mg p.o. q.2 days. 17. Tramadol 100 mg p.o. q.6 hours p.r.n. pain. DISCONTINUED MEDICATIONS: None. BRIEF HISTORY OF PRESENT ILLNESS/HOSPITAL COURSE: This is a 59-year-old male with past medical history of diabetes and above, who presented on day of admission with chief complaint of severe pain in his right toe. Noticed for about 3 months black first toe with significant eschar. The patient has been seen for this problem before, however, not as severe. Three days ago prior to admission, he says he started having pain, progressed to a throbbing pain in his right foot, 7/10. The patient is admitted and started on vanc and Zosyn in the ER as well as gentle hydration. X-ray of his right foot showed above, concerning for osteomyelitis. Dr. Perry was consulted. The patient underwent BKA on 01/15/2019. In regard to his amputation, the patient underwent a relatively uneventful recovery work with PT prior to discharge and was improving. On 01/18/2019, the patient had a temperature of 101.4, heart rate of 119, and appeared flushed and diaphoretic. The patient was also altered and appeared confused. The patient was moved to the [facility] and given three 500 mL boluses of normal saline. The patient was then determined to be in septic shock secondary to sepsis versus translocation of colonic bacteria due to ischemia. At this point , the patient was started on meropenem for control of this infection. Blood cultures drawn at this time came back negative after 2 days. Septic shock was resolved. The patient does not required pressors during the stay. During this event of septic shock, the patient was diagnosed with NSTEMI type 2, likely secondary to septic shock versus cardiac origin. Troponins reach as high as 39. Cardiology was consulted at that time and was not deemed to be a candidate for heart catheterization and was treated medically. As well during this time, the patient underwent an echocardiogram which showed the following; LVEF at 15% to 20%, hypokinetic motion of septal wall, no apex noted in the left ventricle, left atrium moderately dilated, moderate mitral regurgitation, [id number] tricuspid regurgitation, mildly elevated pulmonary artery pressure. Due to this condition , the patient was given a LifeVest prior to discharge to inpatient rehab. DISPOSITION: Stable. DISCHARGE INSTRUCTIONS: 1. Location: Inpatient rehab with [facility]. 2. Diet: Heart healthy and carb consistent with a 2 g salt restriction. 3. Activity: As instructed by Physical Therapy. 4. Followup: Follow up with Dr. Harley Jimenes, PCP, and Dr. Perry as instructed. Job ID: [id number] [facility]ITAL[facility]ylan
== END 2019-01-22 20:20 | DRG 853 ==
LOC: ERS 16:36 → ERHOLD 19:17 → SJJU 01-15 18:20 → IMCU/EMU 01-18 09:47 → SJJU 01-18 10:07 → IMCU/EMU 01-18 11:00 → CCU 01-18 13:47 → IMCU/EMU 01-20 09:52
PROVIDERS: ADMIT Family Medicine; ATTEND Family Medicine
PROC: 0Y6J0Z3 Detachment at Left Lower Leg, Low, Open Approach (ICD-10-PCS; principal; 2019-01-15)
DX: A41.9 Sepsis, unspecified organism (principal); J96.00 Acute respiratory failure, unspecified whether with hypoxia or hypercapnia; R65.21 Severe sepsis with septic shock; I21.4 Non-ST elevation (NSTEMI) myocardial infarction; G93.41 Metabolic encephalopathy; N18.4 Chronic kidney disease, stage 4 (severe); I50.22 Chronic systolic (congestive) heart failure; I42.9 Cardiomyopathy, unspecified; N17.9 Acute kidney failure, unspecified; E11.22 Type 2 diabetes mellitus with diabetic chronic kidney disease; I25.10 Atherosclerotic heart disease of native coronary artery without angina pectoris; D63.1 Anemia in chronic kidney disease
CPT/HCPCS: 36415; 36416; 36430; 71045; 80048; 80053; 80202; 81001; 82553; 82805; 82947; 83605; 83735; 84100; 84145; 84484; 85014; 85018; 85025; 85049; 85060; 85652; 85730; 86140; 86850; 86900; 86901; 87040; 87045; 87046; 87324; 87449; 87899; 88307; 88311; 93005; 93010; 93306; 96365; 96367; J0690; J1100; J1644; J1815; J2001; J2185; J2274; J2405; J2543; J2704; J3010; J3370; J3475; J3490; J7050; L8440; P9016; Q0162; S0028

== ENCOUNTER 2019-03-25 17:06 | Inpatient (IN) | payer MEDICARE ==
[2019-03-25 17:37] LABS: #Eosinphils 0.4 thou/uL (0.0-0.7); #Lymphocytes 1.8 thou/uL (1.20-3.40); #Monocytes 0.8 thou/uL (0.11-0.59); #Neutrophils 6.9 thou/uL (1.40-6.50); %Basophils 0.5 % (0.0-1.0); %Eosinophils 3.6 % (0.0-10.0); %Monocytes 7.9 % (0.0-10.0); %Neutrophils 70.1 % (42.0-75.0); Hemoglobin 9.5 g/dL (14.0-18.0); Mean Corpuscular Hemoglobin 29.4 pg (27.0-31.0); Mean Platelet Volume 8.6 fL (7.4-10.4); Platelet Count 289 thou/uL (130-400); RBC Distribution Width 14.6 % (11.5-14.5); Red Blood Cell (RBC) Count 3.24 mill/uL (4.70-6.10); White Blood Cell (WBC) Count 9.8 thou/uL (4.8-10.8)
--- NOTE | 2019-03-25 17:45 | RAD ---
EXAM: Single view of the chest HISTORY: Shortness of breath for a few days COMPARISON: 01/18/2019 FINDINGS: Single view of the chest shows an enlarged but stable cardiomediastinal silhouette. The pa tient is status post sternotomy. There is no evidence of consolidation, mass, or pleural effusion. The bones are unremarkable. IMPRESSION: Cardiomegaly without evidence of acute cardiopulmonary disease
[2019-03-25 18:00] LABS: ALT (SGPT) 9 U/L (8-55); AST (SGOT) 13 U/L (5-34); Alkaline Phosphatase 69 U/L (40-150); Anion Gap 10 mmol/L (10-20); BUN (Urea Nitrogen) 30 mg/dL (8.4-25.7); Bilirubin, Total 0.4 mg/dL (0.2-1.2); CK (CPK) 85 U/L (30-200); Calc. Creatinine Clearance 0 mL/min (70-130); Calcium 9.1 mg/dL (7.8-10.44); Carbon Dioxide 23 mmol/L (22-29); Chloride 112 mmol/L (98-107); Estimated GFR-MDRD 29; Globulin 2.8 g/dL (2.4-3.5); Glucose 126 mg/dL (70-105); Potassium 3.7 mmol/L (3.5-5.1); Protein, Total 6.8 g/dL (6.0-8.3); Sodium 141 mmol/L (136-145)
[2019-03-25 18:23] LABS: CKMB 1.9 ng/mL (0-6.6)
[2019-03-25] MEDS ORDERED: Aspirin Chewable 81 MG TAB ONE (18:44)
[2019-03-25] MEDS ORDERED: Furosemide 40 MG/4 ML VIAL ONE (18:53)
--- NOTE | 2019-03-25 19:11 | PDOC.FPRHP ---
- History of Present Illness Chief Complaint: SOB History of Present Illness: 59yo male with h/o CAD s/p 3c CABG in 2010, IDDMII, HTN, CKD III, HFrEF, and right BKA presents for dyspnea for past 2 days. Pt states sxs are worse at night , 3 pillow orthopnea (up from 1-2 pillows at baseline) and has been unable to sleep due to SOB. Also reports some increased swelling of his foot. Denies any CP, PND, CASAS, vision changes, urinary sxs, n/v/d/c, open sores/cuts or skin changes. Dyspnea is worse with lying flat and better with movement and standing upright. Pt was recently seen by Dr. Pichardo for planned cath on 02/28. Pt was admitted for IVF hydration however 2/2 renal function cath was canceled. Pt was taken off Entreseto and Aldactone and started on hydralazine and imdur. Pt also notes he has been without medications for the past week 2/2 running out of medications. No recent illnesses. ED Course: Given lasix 40mg IV and ASA 81mg. - Allergies/Adverse Reactions Allergies Allergy/AdvReac Type Severity Reaction Status Date / Time No Known Allergies Allergy Verified 02/28/19 19:39 - Home Medications Medication Instructions Recorded Confirmed Type Aspirin Chewable [Aspirin Chewable 1 tab PO DAILY 06/30/16 03/25/19 History Tablet] Atorvastatin Calcium 80 mg PO HS 12/05/17 03/25/19 History Clopidogrel Bisulfate [Plavix] 75 mg PO DAILY #30 tab 12/08/17 03/25/19 Rx Furosemide [Lasix] 40 mg PO QAM 11/05/18 03/25/19 History Carvedilol [Coreg] 3.125 mg PO BID-WM #0 tab 01/22/19 03/25/19 Rx Gabapentin [Neurontin] 300 mg PO BID cap 01/22/19 03/25/19 Rx Fenofibrate Nanocrystallized 145 mg PO Q2DAYS 02/28/19 03/25/19 History [Tricor] Insulin Detemir [Levemir] 20 unit SC QPM 02/28/19 03/25/19 History Pantoprazole [Protonix] 40 mg PO DAILY 02/28/19 03/25/19 History Sevelamer Carbonate [Renvela] 800 mg PO TID-WM 02/28/19 03/25/19 History Isosorbide Mononitrate [Imdur ER] 30 mg PO DAILY #30 tab 03/01/19 03/25/19 Rx hydrALAZINE [Apresoline] 25 mg PO TID #90 tab 03/01/19 03/25/19 Rx - History PMHx: CAD s/p 3v CABG in 2009. IDDMII, HTN, CKD III, admitted for septic shock with type 2 NSTEMI 01/25 08/11 right LE osteo resulting in right BKA. PSHx: Right BKA 01/2019. FHx: noncontributory Social: former smoker, quit 2017, no etoh or illicits. - Review of Systems General: reports: fatigue. denies: fever/chills, weight/appetite/sleep changes , night sweats Eyes: denies: eye pain, vision changes ENT: denies: nasal congestion, rhinorrhea Respiratory: reports: shortness of breath. denies: cough, congestion Cardiovascular: reports: edema (in his foot). denies: chest pain, palpitation, paroxysmal nocturnal dyspnea, orthopnea Gastrointestinal: denies: nausea, vomiting, diarrhea, constipation, abdominal pain, GI bleeding Genitourinary: denies: incontinence, dysuria, polyuria, discharge Skin: denies: rashes, lesions, jaundice Musculoskeletal: denies: pain, stiffness, swelling, arthritis/arthralgias Neurological: denies: numbness, seizure, weakness Psychological: denies: anxiety, depression - Vital signs BP: 150/72 HR: 70 RR: 20 Tmax: 98.1 Pox: 98% on RA Wt: 81kg - Physical Exam Constitutional: NAD, awake, alert and oriented, well developed HEENT: normocephalic and atraumatic, EOMI, conjunctiva clear, normal nasal mucosa, MMM Neck: supple, trachea midline Chest: no-tender to palpation Heart: RRR, normal S1/S2, pulses present, other (1+ pitting edema to the left ankle. 1/6 systolic ejection murmur.) Lungs: no respiratory distress, other (Coarse BS BL, bibasilar crackles, speaks in 2-3 work sentences due to dyspnea) Abdomen: soft, non-tender, bowel sounds present, no masses/distention Musculoskeletal: normal structure, other (right BKA) Neurological: no focal deficit, normal sensation Skin: no rash/lesions (BKA site well-healed.) Heme/Lymphatic: no unusual bruising or bleeding Psychiatric: normal mood and affect, good judgment and insight FMR H&P: Results - Labs Result Diagrams: 03/25/19 17:23 03/25/19 17:23 Lab results: WBC 9.8 thou/uL (4.8-10.8) 03/25/19 17:23 Hgb 9.5 g/dL (14.0-18.0) L 03/25/19 17:23 Hct 28.8 % (42.0-52.0) L 03/25/19 17:23 MCV 89.0 fL (78.0-98.0) 03/25/19 17:23 Plt Count 289 thou/uL (130-400) 03/25/19 17:23 Neutrophils % 70.1 % (42.0-75.0) 03/25/19 17:23 Sodium 141 mmol/L (136-145) 03/25/19 17:23 Potassium 3.7 mmol/L (3.5-5.1) 03/25/19 17:23 Chloride 112 mmol/L (98-107) H 03/25/19 17:23 Carbon Dioxide 23 mmol/L (22-29) 03/25/19 17:23 BUN 30 mg/dL (8.4-25.7) H 03/25/19 17:23 Creatinine 2.29 mg/dL (0.7-1.3) H 03/25/19 17:23 Glucose 126 mg/dL (70-105) H 03/25/19 17:23 Calcium 9.1 mg/dL (7.8-10.44) 03/25/19 17:23 Total Bilirubin 0.4 mg/dL (0.2-1.2) 03/25/19 17:23 AST 13 U/L (5-34) 03/25/19 17:23 ALT 9 U/L (8-55) 03/25/19 17:23 Alkaline Phosphatase 69 U/L (40-150) 03/25/19 17:23 Creatine Kinase 85 U/L (30-200) 03/25/19 17:23 CK-MB (CK-2) 1.9 ng/mL (0-6.6) 03/25/19 17:23 B-Natriuretic Peptide 2521.5 pg/mL (0-100) H 03/25/19 17:23 Serum Total Protein 6.8 g/dL (6.0-8.3) 03/25/19 17:23 Albumin 4.0 g/dL (3.5-5.0) 03/25/19 17:23 - EKG Interpretation EKG: LVH, PVCs, no ST changes, T wave inversions in lateral leads unchanged from previous EKGs. - Radiology Interpretation Chest x-ray Status: image reviewed by me (No acute CPP. Cardiomegaly, sternotomy wires, trachea midline, mild increased intersitial markings, very mild blunting of recesses.), report reviewed by me FMR H&P: A/P - Problem List (1) Acute exacerbation of CHF (congestive heart failure) Current Visit: Yes Status: Acute Code(s): I50.9 - HEART FAILURE, UNSPECIFIED (2) Type 2 AMI (acute myocardial infarction) Current Visit: Yes Status: Acute Code(s): I21.A1 - MYOCARDIAL INFARCTION TYPE 2 (3) CKD (chronic kidney disease), stage III Current Visit: Yes Status: Acute Code(s): N18.3 - CHRONIC KIDNEY DISEASE, STAGE 3 (MODERATE) (4) Anemia, chronic disease Current Visit: Yes Status: Acute Code(s): D63.8 - ANEMIA IN OTHER CHRONIC DISEASES CLASSIFIED ELSEWHERE (5) IDDM (insulin dependent diabetes mellitus) Current Visit: Yes Status: Acute Code(s): E11.9 - TYPE 2 DIABETES MELLITUS WITHOUT COMPLICATIONS; Z79.4 - [employer] (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 OF INSULIN (6) HFrEF (heart failure with reduced ejection fraction) Current Visit: No Status: Chronic Code(s): I50.20 - UNSPECIFIED SYSTOLIC ( CONGESTIVE) HEART FAILURE Qualifiers: Heart failure chronicity: chronic Qualified Code(s): I50.22 - Chronic systolic (congestive) heart failure (7) HLD (hyperlipidemia) Current Visit: No Status: Chronic Code(s): E78.5 - HYPERLIPIDEMIA, UNSPECIFIED (8) HTN (hypertension) Current Visit: No Status: Chronic Code(s): I10 - ESSENTIAL (PRIMARY) HYPERTENSION Qualifiers: Hypertension type: essential hypertension Qualified Code(s): I10 - Essential (primary) hypertension - Plan 59yo male with h/o CAD s/p 3c CABG in 2009, IDDMII, HTN, CKD III, HFrEF, and right BKA presents for CHF exacerbation. #CHF exacerbation, h/o HFrEF - BNP elevated to 2521, crackles on exam, mild increase interstitial lung markings on CXR, 2-3 word dyspnea with orthopnea - likely 2/2 running out of medications - Given lasix 40 IV in ED, continue Lasix 40mg IV BID - daily weights, strict I/O's - Last ECHO 01/19/19 - EF 10/15% however pt was in septic shock, previous ECHO to that was EF 40-45%, will repeat ECHO in AM - will hold home lasix as we are giving IV - Consult cardiology in AM, known to Dr. Pichardo - Consulted cardiac rehab and CHF clinic for OP f/u #NSTEMI Type 2 2/2 CHF exacerbation - Troponin initially elevated to 0.068, likely 2/2 demand ischemia and CKDIII - no current CP or EKG changes - will trend trops and monitor on tele #CAD s/p 3vCABG in 2009 - known to Dr. Pichardo - attempted heart cath 02/28/19 but unable 2/2 CKD - will continue home coreg, plavix, asa, isosorbide and imdur - consult cards in AM #CKD III - GFR 30, varies between CKD III and IV on previous BMPs - Cr at baseline, will monitor with daily BMPs - consider Nephro consult vs OP f/u for anticipation of dialysis - cont home Renvella - monitor lytes and replace per protocol #Anemia of chronic disease - Hb stable at 9.5, will monitor with daily CBC, no acute s/s of bleed # IDDMII with peripheral neuropathy - A1C 6 in November 2018 per records reviewed - will continue home levemir 20u QHS - Hyperglycemic protocol with mild SS insulin and ACHS accuchecks, will monitor and adjust as needed - continue home [place] for neuropathy #HTN - cont home Imdur and hydralazine, monitor #HLD - Lipid panel check in clinic in 2018 - continue home atorva and tricor #GERD - cont home Protonix VTE: Lovenox renally dosed Diet: HH, CC, Fluid restriction Code: Full PCP: MARA Loja Disposition/LOS: Admit to tele for acute CHF exacerbation. Diuresis with IV lasix, monitor fluid status. Consult Cards in AM for recommendations. Anticipate hospitalization 3-4 days. FMR H&P: Upper Level - Pertinent history I was present with the manager of international and scribed during the HPI. I agree with the above HPI - Plan Date/Time: 03/25/191908 I, Ramirez Hart, PGY-3, have evaluated this patient and agree with findings/ plan as outlined by manager of international resident. Pertinent changes/additions are listed here. See above plan for full details. At this time we will admit pt for mild chf exacerbation. We will give IV lasix. We will continue his home medications. We will consult cardiac rehab and CHF management team. We will continue to monitor on tele. We will trend daily labs. Will put on strict I&O and check daily weights. Addendum - Attending - Attending Attestation Date/Time: 03/26/191 I personally evaluated the patient and discussed the management with Dr. Arian Bermudez on 03/25/2019 I agree with the History, Examination, Assessment and Plan documented above with any addition or exceptions noted below - 59yo male with h/o CAD s/p 3c CABG in 2009, Type 2 DM, HTN, CKD III, HFrEF- last echo with EF 15-20% (01/2019) , and right BKA presents for dyspnea for past 2 days. Pt states sxs are worse at night, 3 pillow orthopnea (up from 1-2 pillows at baseline) and has been unable to sleep due to SOB. Also reports some increased swelling of his foot. denies any CP, cough, palpitations, PND. Does report that he has been out of some of his meds. PMH/PSH/Meds/SH reviewed and agree with resident's documentation. BP 150/72 P70 RR20 98%RA Exam repeated by me and agree with resident's findings. Labs: WBC=9.8, H/H=9.5/28.8, Tvi=911, Kk=327, K=3.7, Xv=589 , CO2=23, BUN/Cr=30/2.29, Mpwq=457, RHE=4152.5 A/P: 1) Acute CHF exacerbation ( HFrEF) - Admit to telemetry; continue lasix, fluid restriction. Continue home meds. Will notify cardiology in AM. 2) Type 2 DM- continue home meds, 3) HTN- continue home meds.
[2019-03-25 20:00] LABS: Troponin I 0.074 ng/mL (< 0.028)
[2019-03-26 00:02] LABS: Troponin I 0.058 ng/mL (< 0.028)
[2019-03-26] MEDS ORDERED: Acetaminophen 325 MG TAB PO PRN (00:24)
[2019-03-26] MEDS ORDERED: Non-Formulary Item 1 EACH (Insulin Detemir [Levemir] 20 UNIT) SC SCH (00:24)
[2019-03-26] MEDS ORDERED: Ondansetron ODT 4 MG TAB PO PRN (00:24)
[2019-03-26] MEDS ORDERED: Fenofibrate Nanocrystallized 145 MG TAB PO SCH (00:24)
[2019-03-26] MEDS ORDERED: Calcium Carbonate 500 MG ChewTAB PO PRN (00:24)
[2019-03-26] MEDS ORDERED: Dextrose 5% in Water 1,000 ML IV PRN (00:24)
[2019-03-26] MEDS ORDERED: Enoxaparin Sodium 30 MG/0.3 ML SYRINGE SC SCH (00:24)
[2019-03-26] MEDS ORDERED: HumaLOG 300 UNITS/3 ML VIAL SC PRN (00:24)
[2019-03-26] MEDS ORDERED: Dextrose 50% Abboject 50 ML SYRINGE SLOW IVP PRN (00:24)
[2019-03-26] MEDS ORDERED: Enoxaparin Sodium 30 MG/0.3 ML SYRINGE ONE (00:43)
[2019-03-26] MEDS ORDERED: hydrALAZINE 25 MG TAB ONE ×2 (00:43→14:40)
[2019-03-26] MEDS ORDERED: Gabapentin 300 MG CAP PO SCH ×2 (01:00→09:00)
[2019-03-26] MEDS ORDERED: Atorvastatin Calcium 40 MG TAB PO SCH (01:00)
[2019-03-26] MEDS ORDERED: INSULIN GLARGINE SC SCH ×2 (01:45→21:00)
[2019-03-26 03:26] LABS: #Basophils 0.1 thou/uL (0.0-0.2); #Eosinphils 0.4 thou/uL (0.0-0.7); #Lymphocytes 1.8 thou/uL (1.20-3.40); #Neutrophils 7.8 thou/uL (1.40-6.50); %Basophils 0.6 % (0.0-1.0); %Eosinophils 3.7 % (0.0-10.0); %Lymphocytes 16.1 % (21.0-51.0); %Monocytes 8.9 % (0.0-10.0); %Neutrophils 70.6 % (42.0-75.0); Hemoglobin 9.1 g/dL (14.0-18.0); Mean Corpuscular HGB CONC 32.8 g/dL (32.0-36.0); Mean Corpuscular Hemoglobin 29.3 pg (27.0-31.0); Mean Corpuscular Volume 89.5 fL (78.0-98.0); Mean Platelet Volume 8.6 fL (7.4-10.4); Platelet Count 292 thou/uL (130-400); RBC Distribution Width 14.6 % (11.5-14.5)
[2019-03-26 03:46] LABS: Anion Gap 13 mmol/L (10-20); BUN (Urea Nitrogen) 30 mg/dL (8.4-25.7); Calc. Creatinine Clearance 0 mL/min (70-130); Carbon Dioxide 23 mmol/L (22-29); Chloride 111 mmol/L (98-107); Estimated GFR-MDRD 28; Glucose 142 mg/dL (70-105); Potassium 3.6 mmol/L (3.5-5.1); Sodium 143 mmol/L (136-145)
--- NOTE | 2019-03-26 06:17 | PDOC.FM ---
- Subjective Subjective: He says he has been well overnight. He ate dinner last night. Last BM 02/21. He says he is in no pain. He has no CP, SOB. He is lying flat currently. He does have some leg swelling. - Objective MAR Reviewed: Yes Result Diagrams: 03/26/19 03:01 03/26/19 03:01 Phys Exam - Physical Examination Constitutional: NAD HEENT: moist MMs poor dentition Neck: supple, full ROM Respiratory: clear to auscultation bilateral Cardiovascular: RRR, no significant murmur Gastrointestinal: soft, non-tender, positive bowel sounds Musculoskeletal: pulses present, edema present 1+ pitting edema Neurological: moves all 4 limbs Psychiatric: normal affect, A&O x 3 Skin: no rash, cap refill <2 seconds Dx/Plan (1) Acute exacerbation of CHF (congestive heart failure) Code(s): I50.9 - HEART FAILURE, UNSPECIFIED Status: Acute (2) Anemia, chronic disease Code(s): D63.8 - ANEMIA IN OTHER CHRONIC DISEASES CLASSIFIED ELSEWHERE Status : Acute (3) IDDM (insulin dependent diabetes mellitus) Code(s): E11.9 - TYPE 2 DIABETES MELLITUS WITHOUT COMPLICATIONS; Z79.4 - SHELTER (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 OF INSULIN Status: Acute (4) NSTEMI (non-ST elevated myocardial infarction) Code(s): I21.4 - NON-ST ELEVATION (NSTEMI) MYOCARDIAL INFARCTION Status: Acute (5) Chronic kidney disease, stage 4 (severe) Code(s): N18.4 - CHRONIC KIDNEY DISEASE, STAGE 4 (SEVERE) Status: Chronic (6) HLD (hyperlipidemia) Code(s): E78.5 - HYPERLIPIDEMIA, UNSPECIFIED Status: Chronic (7) HTN (hypertension) Code(s): I10 - ESSENTIAL (PRIMARY) HYPERTENSION Status: Chronic Qualifiers: Hypertension type: essential hypertension Qualified Code(s): I10 - Essential (primary) hypertension - Plan Plan: 59yo male with h/o CAD s/p 3c CABG in 2009, IDDMII, HTN, CKD III, HFrEF, and right BKA presents for CHF exacerbation. 1. CHF exacerbation, h/o HFrEF * BNP elevated to 2521, crackles on exam, mild increase interstitial lung markings on CXR, 2-3 word dyspnea with orthopnea (previous BNP 02/23 183.2) * likely 2/2 running out of medications * Given lasix 40 IV in ED, continue Lasix 40mg IV BID * daily weights, strict I/O's, positive .2 L today * Last ECHO 01/19/19 - EF 10/15% however pt was in septic shock, previous ECHO to that was EF 40-45%, will repeat ECHO today * will hold home lasix as we are giving IV * Consulted cardiology, known to Dr. Pichardo * Consulted cardiac rehab and CHF clinic for OP f/u 2. NSTEMI Type 2 2/2 CHF exacerbation * Troponin initially elevated to 0.068 > 0.074 > 0.058, likely 2/2 demand ischemia and CKDIII * no current CP or EKG changes * EKG shows T wave inversions in lateral leads and LVH, stable from EKG on admission 3. CAD s/p 3vCABG in 2009 * known to Dr. Pichardo * attempted heart cath 02/28/19 but unable 2/2 CKD * will continue home coreg, plavix, asa, isosorbide and imdur * consult cards in AM 4. CKD IV * GFR 28, varies between CKD IV on previous BMPs * Cr near baseline, will monitor with daily BMPs * consider Nephro consult vs OP f/u for anticipation of dialysis * cont home Renvella * monitor lytes and replace per protocol 5. Anemia of chronic disease * Hb 9.1 intially 9.5, will monitor with daily CBC, no acute s/s of bleed 6. IDDMII with peripheral neuropathy * A1C 6 in November 2018 per records reviewed * will continue home levemir 20u QHS * Hyperglycemic protocol with mild SS insulin and ACHS accuchecks, will monitor and adjust as needed * continue home Cayden for neuropathy 7. HTN * cont home Imdur and hydralazine, monitor 8. HLD * Lipid panel check in clinic in 2018 * continue home atorva and tricor 9. GERD * cont home Protonix VTE: Lovenox renally dosed Diet: HH, CC, Fluid restriction Code Status: Full GI Prophylaxis: Tumtre PCP: MARA Loja Disposition: Diuresis with IV lasix, monitor fluid status. Consult Cards in AM for recommendations. Anticipate hospitalization 3-4 days. Addendum - Attending - Attending Attestation Date/Time: 03/26/19 1100 I personally evaluated the patient and discussed the management with Dr. Bermudez. I agree with the History, Examination, Assessment and Plan documented above with any addition or exceptions noted below. Patient says he has improved since last night. Better work of breathing and less sob. Has been urinating a lot, but I/O's not strictly kept it seems. Still has bibasilar crackles. Minimal edema. Continue diuresis.
[2019-03-26] MEDS ORDERED: Furosemide 40 MG/4 ML VIAL ONE ×2 (09:35→14:40)
[2019-03-26] MEDS: Sevelamer Carbonate 800 MG TAB PO SCH ×3 (09:48→18:23)
[2019-03-26] MEDS: Furosemide 40 MG/4 ML VIAL SLOW IVP SCH ×2 (09:48→14:53)
[2019-03-26] MEDS: Carvedilol 3.125 MG TAB PO SCH ×2 (09:48→18:23)
[2019-03-26] MEDS: Enoxaparin Sodium 30 MG/0.3 ML SYRINGE SC SCH (09:49)
[2019-03-26] MEDS: Clopidogrel Bisulfate 75 MG TAB PO SCH (09:49)
[2019-03-26] MEDS: Aspirin Chewable 81 MG TAB PO SCH (09:49)
[2019-03-26] MEDS: Isosorbide Mononitrate (ER) 30 MG TAB PO SCH (09:49)
[2019-03-26] MEDS: hydrALAZINE 25 MG TAB PO SCH ×3 (09:49→20:39)
[2019-03-26 09:59] LABS: Base Excess-Venous -1.6 mmol/L (-2.0 to 3.0); CO2 Tension (PvCO2) 33.2 mmHg (40.0-50.0); vO2 Saturation-calc 99.7 % (60.0-85.0)
[2019-03-26 10:00] LABS: Calcium, Ionized 1.16 mmol/L (See Comments:); Potassium 3.7 mmol/L (3.5-5.1); Sodium 148 mmol/L (138-145)
[2019-03-26] MEDS: Fenofibrate Nanocrystallized 145 MG TAB PO SCH (11:40)
[2019-03-26] MEDS: Gabapentin 100 MG CAP PO SCH ×2 (11:40→20:39)
[2019-03-26] MEDS: Atorvastatin Calcium 40 MG TAB PO SCH (20:38)
[2019-03-26] MEDS: INSULIN GLARGINE SC SCH (21:04)
--- NOTE | 2019-03-27 04:28 | PDOC.FM ---
- Subjective Subjective: He says he still feels a little short of breath this morning. He said he has been taking his medications since 1 week ago, but did not take 5 of his medications for 2 weeks due to miscommunication with his rehab doctor. BM: 2 days ago that was normal. He is eating well. - Objective MAR Reviewed: Yes Vital Signs & Weight: Vital Signs (12 hours) Temp Pulse Resp BP BP Pulse Ox 03/27/19 04:00 98.3 F 68 20 155/78 H 97 03/26/19 23:20 97.7 F 68 22 H 138/74 97 03/26/19 20:39 68 141/68 H 03/26/19 19:29 97.9 F 68 19 141/68 H 98 03/26/19 18:37 99 Weight Weight 84.459 kg I&O: 03/25/19 03/26/19 03/27/19 06:59 06:59 06:59 Intake Total 600 Balance 600 Result Diagrams: 03/27/19 05:29 03/27/19 05:29 Phys Exam - Physical Examination Constitutional: NAD HEENT: PERRLA, sclera anicteric Neck: supple, full ROM Respiratory: clear to auscultation bilateral Cardiovascular: RRR, no significant murmur Gastrointestinal: soft, non-tender, positive bowel sounds Musculoskeletal: no edema, pulses present Neurological: non-focal, moves all 4 limbs Psychiatric: normal affect, A&O x 3 Skin: no rash Dx/Plan (1) Acute exacerbation of CHF (congestive heart failure) Code(s): I50.9 - HEART FAILURE, UNSPECIFIED Status: Acute (2) Anemia, chronic disease Code(s): D63.8 - ANEMIA IN OTHER CHRONIC DISEASES CLASSIFIED ELSEWHERE Status : Acute (3) IDDM (insulin dependent diabetes mellitus) Code(s): E11.9 - TYPE 2 DIABETES MELLITUS WITHOUT COMPLICATIONS; Z79.4 - RV REPAIRER (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 OF INSULIN Status: Acute (4) NSTEMI (non-ST elevated myocardial infarction) Code(s): I21.4 - NON-ST ELEVATION (NSTEMI) MYOCARDIAL INFARCTION Status: Acute (5) Chronic kidney disease, stage 4 (severe) Code(s): N18.4 - CHRONIC KIDNEY DISEASE, STAGE 4 (SEVERE) Status: Chronic (6) HLD (hyperlipidemia) Code(s): E78.5 - HYPERLIPIDEMIA, UNSPECIFIED Status: Chronic (7) HTN (hypertension) Code(s): I10 - ESSENTIAL (PRIMARY) HYPERTENSION Status: Chronic Qualifiers: Hypertension type: essential hypertension Qualified Code(s): I10 - Essential (primary) hypertension - Plan Plan: 59yo male with h/o CAD s/p 3c CABG in 2009, IDDMII, HTN, CKD III, HFrEF, and right BKA presents for CHF exacerbation. 1. CHF exacerbation, h/o HFrEF, Improving * BNP elevated to 2521, crackles on exam, mild increase interstitial lung markings on CXR, 2-3 word dyspnea with orthopnea (previous BNP 02/23 183.2) * likely 2/2 running out of medications * Given lasix 40 IV in ED, continue Lasix 40mg IV BID * daily weights, strict I/O's, positive .2 L today * Last ECHO 01/19/19 - EF 10/15% however pt was in septic shock, previous ECHO to that was EF 40-45%, will repeat ECHO today * will hold home lasix as we are giving IV * Consulted cardiology, known to Dr. Pichardo * Consulted cardiac rehab and CHF clinic for OP f/u * Slight SOB this morning while laying flat 2. NSTEMI Type 2 2/2 CHF exacerbation, Downtrended * Troponin initially elevated to 0.068 > 0.074 > 0.058, likely 2/2 demand ischemia and CKDIII * no current CP or EKG changes * EKG shows T wave inversions in lateral leads and LVH, stable from EKG on admission 3. CAD s/p 3vCABG in 2009 * known to Dr. Pichardo * attempted heart cath 02/28/19 but unable 2/2 CKD * will continue home coreg, plavix, asa, isosorbide and imdur * Consulted Cardiology (03/26) 4. CKD IV * GFR 27 * Previously hovering between CKD III & IV * Cr near baseline, will monitor with daily BMPs * OP f/u with Nephro for anticipation of dialysis * cont home Renvella * monitor lytes and replace per protocol 5. Anemia of chronic disease, Stable, Most likely 2/2 CKD * Hb 9.4 intially 9.5, will monitor with daily CBC, no acute s/s of bleed 6. IDDMII with peripheral neuropathy, Stable * A1C 6 in November 2018 per records reviewed * will continue home levemir 20u QHS * Hyperglycemic protocol with mild SS insulin and ACHS accuchecks, will monitor and adjust as needed * continue home Cayden for neuropathy 7. HTN * cont home Imdur and hydralazine * Will monitor * BP slightly elevated 130s/70s-160s/70s 8. HLD * Lipid panel check in clinic in 2018 * continue home atorva and tricor 9. GERD * cont home Protonix VTE: Lovenox renally dosed Diet: HH, CC, Fluid restriction Code Status: Full GI Prophylaxis: Tums PCP: MARA Loja Disposition: Will possibly d/c today, since diuresis is going well.
[2019-03-27 05:57] LABS: #Basophils 0.1 thou/uL (0.0-0.2); #Eosinphils 0.4 thou/uL (0.0-0.7); #Lymphocytes 1.5 thou/uL (1.20-3.40); #Monocytes 0.9 thou/uL (0.11-0.59); #Neutrophils 5.8 thou/uL (1.40-6.50); %Basophils 0.6 % (0.0-1.0); %Eosinophils 4.5 % (0.0-10.0); %Lymphocytes 17.7 % (21.0-51.0); %Monocytes 10.7 % (0.0-10.0); %Neutrophils 66.4 % (42.0-75.0); Hemoglobin 9.4 g/dL (14.0-18.0); Mean Corpuscular HGB CONC 32.1 g/dL (32.0-36.0); Mean Corpuscular Hemoglobin 28.5 pg (27.0-31.0); Mean Corpuscular Volume 88.9 fL (78.0-98.0); Mean Platelet Volume 8.7 fL (7.4-10.4); Platelet Count 302 thou/uL (130-400); RBC Distribution Width 14.6 % (11.5-14.5); White Blood Cell (WBC) Count 8.7 thou/uL (4.8-10.8)
[2019-03-27] MEDS: Furosemide 40 MG/4 ML VIAL SLOW IVP SCH (06:01)
[2019-03-27 06:19] LABS: Anion Gap 11 mmol/L (10-20); BUN (Urea Nitrogen) 33 mg/dL (8.4-25.7); Calc. Creatinine Clearance 38 mL/min (70-130); Calcium 9.1 mg/dL (7.8-10.44); Carbon Dioxide 26 mmol/L (22-29); Chloride 105 mmol/L (98-107); Estimated GFR-MDRD 27; Glucose 108 mg/dL (70-105); Potassium 3.6 mmol/L (3.5-5.1); Sodium 138 mmol/L (136-145)
[2019-03-27] MEDS: Carvedilol 3.125 MG TAB PO SCH ×2 (08:44→17:26)
[2019-03-27] MEDS: Sevelamer Carbonate 800 MG TAB PO SCH ×3 (08:44→17:26)
[2019-03-27] MEDS: Gabapentin 100 MG CAP PO SCH ×2 (08:45→20:55)
[2019-03-27] MEDS: Isosorbide Mononitrate (ER) 30 MG TAB PO SCH (08:45)
[2019-03-27] MEDS: hydrALAZINE 25 MG TAB PO SCH ×3 (08:45→20:56)
[2019-03-27] MEDS: Enoxaparin Sodium 30 MG/0.3 ML SYRINGE SC SCH (08:45)
[2019-03-27] MEDS: Aspirin Chewable 81 MG TAB PO SCH (08:45)
[2019-03-27] MEDS: Lisinopril 5 MG TAB PO SCH (08:45)
[2019-03-27] MEDS: Clopidogrel Bisulfate 75 MG TAB PO SCH (08:46)
--- NOTE | 2019-03-27 11:51 | PRG ---
DATE OF SERVICE: 03/27/2019 Mr. Sanon is a 59-year-old man with significant heart failure with reduced ejection fraction of 10% to 15%. He also has a history of diabetes, hypertension, and has had a CABG. He also has CKD. He was admitted after being noncompliant on medications and was having some pulmonary congestion. This has since improved with Lasix. We will also begin treatment for his reduced heart failure with ACEs cautiously and beta-blockers as well cautiously. I believe given the fact that he is already down to a GFR of 27, that we go ahead and consult Nephrology to consider dialysis and given that he has significant reduced ejection fraction and heart failure that will make management quite difficult along with the CKD. Job ID: [id number]
[2019-03-27] MEDS: Senokot S 8.6-50 MG TAB PO PRN (15:05)
--- NOTE | 2019-03-27 16:08 | ULT ---
US Renal Bilateral STANDARD History: Acute kidney injury Comparison: None Findings: Real-time grayscale and color evaluation of the kidneys and urinary bladder was performed. Right kidney measures 9.8 x 5.1 x 4.7 cm the left kidney measures 10.5 x 5.4 x 4.9 cm. Prevoid urinar y bladder volume is 209 mL. No renal mass, hydronephrosis, or abnormal calcifications. Impression: No evidence for obstructive uropathy.
[2019-03-27 16:50] LABS: Bacteria/HPF None Seen HPF (None Seen); Bilirubin Negative (Negative); Blood, Urine Negative (Negative); Clarity Clear (Clear); Glucose, Urine (Dipstick) Normal (Negative); Leukocyte Negative Leu/uL (Negative); Nitrite Negative (Negative); Protein, Urine (Dipstick) 100 mg/dL (Neg-Trace); RBC/HPF 0-3 HPF (0-3); Squamous Epithelial 0-3 HPF (0-3); Urobilinogen Normal mg/dL (Less than 2); WBC/HPF 0-3 HPF (0-3)
[2019-03-27 17:13] LABS: Creatinine, Urine 101.92 mg/dL (63-166)
--- NOTE | 2019-03-27 18:31 | CON ---
DATE OF CONSULTATION: 03/27/2019 REASON FOR CONSULTATION: Heart failure. [employer]: Elijah Pichardo MD HISTORY OF PRESENT ILLNESS: Mr. Sanon is a pleasant 59-year-old gentleman, who comes to the hospital for shortness of breath. He was in rehab and was discharged about 2 weeks ago. He ran out of medications about a week and half ago and was unable to get him until about 3 days prior to being admitted. By that time, he was already severely short of breath and had to come in as the medicines that he restarted did not make him feel any better. He was very short winded, hypoxic. He was given IV Lasix and is already feeling much better. Still cannot talk in full sentences, but is saturating well on room air. Most of his fluid is right-sided heart failure from his severe LV dysfunction. PAST MEDICAL HISTORY: 1. Coronary artery disease status post CABG in 2009. 2. History of ischemic cardiomyopathy, EF at 10% to 15% on most recent evaluation. 3. Chronic kidney disease, stage 3 to 4. 4. Hypertension. 5. Peripheral vascular disease status post right BKA in the setting of sepsis. PAST SURGICAL HISTORY: 1. Right BKA on January of this year. 2. CABG x3 in 2009. FAMILY HISTORY: Noncontributory. SOCIAL HISTORY: Quit smoking in 2018. No alcohol or drugs. OUTPATIENT MEDICATIONS: 1. Aspirin 81 a day. 2. Atorvastatin 80 mg at bedtime. 3. Plavix 75 mg a day. 4. Furosemide 40 mg q.a.m. 5. Coreg 3.125 b.i.d. 6. Gabapentin 300 mg p.o. b.i.d. 7. Fenofibrate 145 mg every other day. 8. Levemir 20 units subcu q.p.m. 9. Protonix 40 mg a day. 10. Renvela 800 mg p.o. t.i.d. 11. Imdur 30 mg a day. 12. Hydralazine 25 mg t.i.d. ALLERGIES: NO KNOWN DRUG ALLERGIES. REVIEW OF SYSTEMS: A 12-point review of systems was done and was all negative unless stated in history of present illness. PHYSICAL EXAMINATION: VITAL SIGNS: Temperature 97.7, pulse 62, respiratory rate 18, saturation 99% on room air, and blood pressure 113/57. GENERAL: Awake, alert, oriented x3, in no distress. HEENT: Normocephalic and atraumatic. NECK: Supple. LUNGS: Have mild crackles at the bases. CARDIOVASCULAR: S1 and S2. No S3 or S4. No murmur. There is a grade 2/6 systolic murmur. ABDOMEN: Soft, nontender. EXTREMITIES: Trace edema. SKIN: Warm and dry. LABORATORY DATA: Laboratory work was reviewed. CBC with a white count of 8.7 and hemoglobin of 9.4, hematocrit 29, platelet count of 302. ABG was reviewed. Chemistries were reviewed. Creatinine 2.29 on admission, up to 2.4, then 2.5. Potassium was normal. GFR of 27. UA was reviewed. Renal ultrasound shows no evidence of obstructive uropathy. No renal mass, hydronephrosis, or abnormal calcifications. Normal size kidneys. BNP on arrival was 2521 and troponin has been 0.06, 0.07, 0.05. ASSESSMENT AND PLAN: 1. Irvqb-[id number] systolic heart failure. 2. Right ventricular dysfunction. 3. Ischemic cardiomyopathy. Ejection fraction on most recent echo back in January at 15% to 20%. Echo pending today. 4. Chronic kidney disease, stage 3 to 4, currently stage 4. 5. Medication noncompliance. 6. Peripheral vascular disease. PLAN: 1. Agree with IV diuresis. Currently, his creatinine seems to be increasing and his diuresis has slowed down. He may need a dobutamine or dopamine to help him diuresed better. 2. We will get echocardiogram pending today. We will see if he has improved any LV function. 3. We had to stop Entresto and aldactone the last time was in the hospital as his creatinine was rising despite IV fluids. At that point, he was started on a long-acting nitrate and hydralazine for heart failure. He was restarted on 5 mg of lisinopril by Renal. I would have to agree with this as much as either as we can get in without his potassium being an issue. Thank you for letting us to participate in the care of your patient. We will follow. Job ID: [id number]
[2019-03-27] MEDS: Atorvastatin Calcium 40 MG TAB PO SCH (20:55)
[2019-03-27] MEDS: INSULIN GLARGINE SC SCH (20:58)
[2019-03-28 05:29] LABS: #Basophils 0.1 thou/uL (0.0-0.2); #Eosinphils 0.4 thou/uL (0.0-0.7); #Lymphocytes 1.9 thou/uL (1.20-3.40); #Neutrophils 5.5 thou/uL (1.40-6.50); %Basophils 0.6 % (0.0-1.0); %Eosinophils 4.7 % (0.0-10.0); %Lymphocytes 21.3 % (21.0-51.0); %Neutrophils 62.4 % (42.0-75.0); Hemoglobin 10.2 g/dL (14.0-18.0); Mean Corpuscular HGB CONC 33.3 g/dL (32.0-36.0); Mean Corpuscular Hemoglobin 29.3 pg (27.0-31.0); Mean Platelet Volume 8.7 fL (7.4-10.4); Platelet Count 310 thou/uL (130-400); RBC Distribution Width 14.6 % (11.5-14.5); Red Blood Cell (RBC) Count 3.47 mill/uL (4.70-6.10); White Blood Cell (WBC) Count 8.8 thou/uL (4.8-10.8)
[2019-03-28 05:55] LABS: Iron 38 ug/dL (65-175); Iron Binding Capacity, Total 378 mcg/dL (261-462)
[2019-03-28 05:57] LABS: Anion Gap 11 mmol/L (10-20); BUN (Urea Nitrogen) 42 mg/dL (8.4-25.7); Calc. Creatinine Clearance 34 mL/min (70-130); Calcium 9.1 mg/dL (7.8-10.44); Carbon Dioxide 28 mmol/L (22-29); Chloride 105 mmol/L (98-107); Estimated GFR-MDRD 23; Glucose 84 mg/dL (70-105); Potassium 3.7 mmol/L (3.5-5.1); Sodium 140 mmol/L (136-145)
[2019-03-28 06:12] LABS: Vitamin D, 25 Hydroxy 28.8 ng/ml (> 30.0)
[2019-03-28 07:44] LABS: Ferritin 87.61 ng/mL (22-322)
--- NOTE | 2019-03-28 07:44 | CON ---
DATE OF CONSULTATION: 03/27/2019 CONSULTING PHYSICIAN: Dr. Hart. REASON FOR CONSULTATION: Acute kidney injury. REASON FOR ADMISSION: Shortness of breath. HISTORY OF PRESENT ILLNESS: A 59-year-old male with history of coronary artery disease, CHF, CKD, was on followup with me before, who lost followup for a year or so, came to the hospital with shortness of breath and is being treated for CHF exacerbation. His creatinine was elevated with a GFR of 27. Nephrology consulted for evaluation of CKD stage 4. The patient is feeling better. No chest pain or palpitation, and his shortness of breath is better. No fevers or chills. PAST MEDICAL HISTORY: Positive for; 1. CAD. 2. Hypertension. 3. CKD stage 4. 4. Type-2 diabetes. 5. Jwl-FT-wjrqlyuse MT. PAST SURGICAL HISTORY: Right BKA. HOME MEDICATIONS: 1. Aspirin. 2. Atorvastatin. 3. Plavix. 4. Furosemide. 5. Coreg. 6. Gabapentin. 7. Fenofibrate. 8. Insulin . 9. Hydralazine. ALLERGIES: NO KNOWN DRUG ALLERGIES. SOCIAL HISTORY: Former smoker. No alcohol. FAMILY HISTORY: No history of kidney disease. REVIEW OF SYSTEMS: CONSTITUTIONAL: Negative for weight loss or gain, ability to conduct usual activities. SKIN: Negative for rash, itching. EYES: Negative for double vision, pain. ENT/MOUTH: Negative for nose bleeding, neck stiffness, pain, tenderness. CARDIOVASCULAR: Negative for palpitations, dyspnea on exertion, orthopnea. RESPIRATORY: Negative for shortness of breath, wheezing, cough, hemoptysis, fever or night sweats. GASTROINTESTINAL: Negative for poor appetite, abdominal pain, heartburn, nausea, vomiting, constipation, or diarrhea. GENITOURINARY: Negative for urgency, frequency, dysuria, nocturia. MUSCULOSKELETAL: Negative for pain, swelling. NEUROLOGIC/PSYCHIATRIC: Negative for anxiety, depression. ALLERGY/IMMUNOLOGIC: Negative for skin rash, bleeding tendency. PHYSICAL EXAMINATION: GENERAL: This is a well-built male, in no apparent distress. VITAL SIGNS: Temperature 97.7, pulse 60, respiratory rate 18, blood pressure 107/61. HEENT: Atraumatic, normocephalic. Oral mucosa moist. NECK: Supple. CV: S1, S2. Rate and rhythm regular. RESPIRATORY: Regular. GASTROINTESTINAL: Abdomen is soft. MUSCULOSKELETAL: 1+ edema. DERMATOLOGIC: No skin rash. NEUROLOGIC: Alert and awake. PSYCHIATRIC: Mood and affect normal. LABORATORY DATA: Potassium is 3.6, BUN is 33, creatinine is 2.5. ASSESSMENT AND PLAN: 1. Chronic kidney disease stage 4 with acute kidney injury secondary to cardiorenal syndrome. Agree with above management. Avoid nephrotoxins and renally dose the medications for now. We will check CKD labs. Okay with lisinopril for now. 2. Cardiorenal syndrome as above. 3. Edema with fluid overload, better. 4. Anemia of chronic disease. Check iron studies. 5. We will order renal ultrasound and we will check CKD labs. Thank you for the consult. Job ID: [id number]
[2019-03-28] MEDS: Enoxaparin Sodium 30 MG/0.3 ML SYRINGE SC SCH (08:20)
[2019-03-28] MEDS: Clopidogrel Bisulfate 75 MG TAB PO SCH (08:20)
[2019-03-28] MEDS: Sevelamer Carbonate 800 MG TAB PO SCH ×3 (08:20→17:20)
[2019-03-28] MEDS: Carvedilol 3.125 MG TAB PO SCH ×2 (08:20→17:20)
[2019-03-28] MEDS: Aspirin Chewable 81 MG TAB PO SCH (08:20)
[2019-03-28] MEDS: Lisinopril 5 MG TAB PO SCH (08:21)
[2019-03-28] MEDS: hydrALAZINE 25 MG TAB PO SCH ×3 (08:21→20:33)
[2019-03-28] MEDS: Isosorbide Mononitrate (ER) 30 MG TAB PO SCH (08:21)
[2019-03-28] MEDS: Gabapentin 100 MG CAP PO SCH ×2 (08:21→20:32)
[2019-03-28] MEDS: Fenofibrate Nanocrystallized 145 MG TAB PO SCH (08:21)
--- NOTE | 2019-03-28 08:21 | PDOC.FM ---
- Subjective Subjective: Pt says he is breathing much better. He is still diuresing well. He had BM yesterday, but he said he feels constipated. He ate well yesterday. He said Dr. Tobar came by yesterday and spoke with him and is running some test on his kidneys. - Objective MAR Reviewed: Yes Vital Signs & Weight: Vital Signs (12 hours) Temp Pulse Resp BP BP Pulse Ox 03/28/19 07:08 99.6 F 63 16 153/69 H 96 03/28/19 07:01 97 03/28/19 03:08 98.4 F 68 16 164/78 H 97 03/27/19 20:56 67 126/64 03/27/19 20:49 98.6 F 67 18 126/64 96 Weight Weight 84.141 kg I&O: 03/27/19 03/28/19 03/29/19 06:59 06:59 06:59 Intake Total 1064 1780 Output Total 1175 2050 Balance -111 -270 Result Diagrams: 03/28/19 04:45 03/28/19 04:45 Phys Exam - Physical Examination Constitutional: NAD HEENT: PERRLA, moist MMs Neck: supple, full ROM Respiratory: clear to auscultation bilateral Cardiovascular: RRR, no significant murmur Gastrointestinal: soft, non-tender, positive bowel sounds Musculoskeletal: no edema, pulses present Neurological: normal sensation Psychiatric: normal affect, A&O x 3 Skin: normal turgor Dx/Plan (1) Acute exacerbation of CHF (congestive heart failure) Code(s): I50.9 - HEART FAILURE, UNSPECIFIED Status: Acute (2) Anemia, chronic disease Code(s): D63.8 - ANEMIA IN OTHER CHRONIC DISEASES CLASSIFIED ELSEWHERE Status : Acute (3) IDDM (insulin dependent diabetes mellitus) Code(s): E11.9 - TYPE 2 DIABETES MELLITUS WITHOUT COMPLICATIONS; Z79.4 - RETIREMENT (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 OF INSULIN Status: Acute (4) NSTEMI (non-ST elevated myocardial infarction) Code(s): I21.4 - NON-ST ELEVATION (NSTEMI) MYOCARDIAL INFARCTION Status: Acute (5) Chronic kidney disease, stage 4 (severe) Code(s): N18.4 - CHRONIC KIDNEY DISEASE, STAGE 4 (SEVERE) Status: Chronic (6) HLD (hyperlipidemia) Code(s): E78.5 - HYPERLIPIDEMIA, UNSPECIFIED Status: Chronic (7) HTN (hypertension) Code(s): I10 - ESSENTIAL (PRIMARY) HYPERTENSION Status: Chronic Qualifiers: Hypertension type: essential hypertension Qualified Code(s): I10 - Essential (primary) hypertension - Plan Plan: 59yo male with h/o CAD s/p 3c CABG in 2009, IDDMII, HTN, CKD III, HFrEF, and right BKA presents for CHF exacerbation. 1. CHF exacerbation, h/o HFrEF, Improving * BNP elevated to 2521, crackles on exam, mild increase interstitial lung markings on CXR, 2-3 word dyspnea with orthopnea (previous BNP 02/23 183.2) * likely 2/2 running out of medications * Given lasix 40 IV in ED, holding IV lasix, will restart his home PO lasix * daily weights, strict I/O's, positive -.3 L today * Last ECHO 01/19/19 - EF 10/15% however pt was in septic shock, previous ECHO to that was EF 40-45% * ECHO (03/27): EF 15-20%, 1/3 Dystolic Dysfunction, Mild LVH, Mitral Calcification, Mild MR, Moderately dilated LA, AV sclerosis, Mild TR, Akinesis of Anterior wll * Consulted cardiology, known to Dr. Pichardo, appreciate recs * Consulted cardiac rehab and CHF clinic for OP f/u * Slight SOB this morning while laying flat 2. NSTEMI Type 2 2/2 CHF exacerbation, Downtrended * Troponin initially elevated to 0.068 > 0.074 > 0.058, likely 2/2 demand ischemia and CKDIII * no current CP or EKG changes * EKG shows T wave inversions in lateral leads and LVH, stable from EKG on admission 3. CAD s/p 3vCABG in 2009 * known to Dr. Pichardo * attempted heart cath 02/28/19 but unable 2/2 CKD * will continue home coreg, plavix, asa, isosorbide and imdur * Consulted Cardiology (03/26) 4. CKD IV * GFR 27 * Previously hovering between CKD III & IV * Cr near baseline, will monitor with daily BMPs * cont home Renvella * monitor lytes and replace per protocol * Consulted Nephrology (03/27), appreciate recs. * TP/C Ratio: 1.8 g/d * Renal US: No evidence of obstructive uropathy 5. Anemia of chronic disease, Stable, Most likely 2/2 CKD * Hb 9.4 intially 9.5, will monitor with daily CBC, no acute s/s of bleed * Iron 38, TIBC 378, % Sat 10, Ferritin 87.6 6. IDDMII with peripheral neuropathy, Stable * A1C 6 in November 2018 per records reviewed * will continue home levemir 20u QHS * Hyperglycemic protocol with mild SS insulin and ACHS accuchecks, will monitor and adjust as needed * continue home Cayden for neuropathy 7. HTN * cont home Imdur and hydralazine * Will monitor * Started Lisinopril 5 mg yesterday, bp much improved will reduce to 2.5 to see if maintaining good blood pressures and preventing rise in Cre. 8. HLD * Lipid panel check in clinic in 2018 * continue home atorva and tricor 9. GERD * cont home Protonix VTE: Lovenox renally dosed Diet: HH, CC, Fluid restriction Code Status: Full GI Prophylaxis: Tums PCP: MARA Loja Disposition: Awaiting further recommendations by cardiolgy and nephro. SOB resolved. Addendum - Attending - Attending Attestation Date/Time: 03/28/19 1250 I personally evaluated the patient and discussed the management with Dr. Washington. I agree with the History, Examination, Assessment and Plan documented above with any addition or exceptions noted below. Patient tearful this AM after getting news about likely dialysis in his future and his EF%. He is also concerned about his dogs that his , who just moved out, is watching. On exam he can speak in full sentences. His heart is regular, he has no crackles. He now has an DENYS with renal following. Will monitor him overnight and repeat creatinine to see which way he is trending. From a cardiac standpoint his options are limited in terms of titrating lisinopril/spironolactone. He will need a lifevest before d/c.
[2019-03-28] MEDS: Lisinopril 2.5 MG TAB PO SCH (08:57)
[2019-03-28] MEDS ORDERED: Furosemide 20 MG TAB PO SCH (09:00)
[2019-03-28] MEDS ORDERED: DOPamine 400 MG/D5W 250 ML 250 ML IVPB SCH (12:15)
--- NOTE | 2019-03-28 15:37 | PDOC.CPN ---
- Subjective Date: 03/28/19 Time: 15:37 Interval history: His breathing is better. His creatinine continues to increase. - Review of Systems General: denies: fever/chills, weight/appetite/sleep changes, night sweats, fatigue Respiratory: denies: cough, congestion, shortness of breath, exercise intolerance Cardiovascular: reports: edema. denies: chest pain, palpitation, paroxysmal nocturnal dyspnea, orthopnea Gastrointestinal: denies: nausea, vomiting, diarrhea, constipation, abd pain, GI bleeding Musculoskeletal: denies: pain, tenderness, stiffness, swelling, arthritis/ arthralgias Neurological: denies: numbness, syncope, seizure, weakness - Objective Allergies/Adverse Reactions: Allergies Allergy/AdvReac Type Severity Reaction Status Date / Time No Known Allergies Allergy Verified 02/28/19 19:39 Visit Medications: Current Medications Acetaminophen (Tylenol) 650 mg PO Q4H PRN PRN Reason: Headache/Fever/Mild Pain (1-3) Aspirin (Aspirin Chewable) 81 mg PO DAILY [facility] Last Admin: 03/28/19 08:20 Dose: 81 mg Atorvastatin Calcium (Lipitor) 80 mg PO HS [facility] Last Admin: 03/27/19 20:55 Dose: 80 mg Calcium Carbonate (Tums) 1,000 mg PO Q4H PRN PRN Reason: Heartburn or Indigestion Carvedilol (Coreg) 3.125 mg PO BID-[facility] Last Admin: 03/28/19 08:20 Dose: 3.125 mg Clopidogrel Bisulfate (Plavix) 75 mg PO DAILY [facility] Last Admin: 03/28/19 08:20 Dose: 75 mg Dextrose/Water (Dextrose 50%) 25 gm SLOW IVP PRN PRN PRN Reason: Hypoglycemia Enoxaparin Sodium (Lovenox) 30 mg SC 0900 [facility] Last Admin: 03/28/19 08:20 Dose: 30 mg Fenofibrate (Tricor) 145 mg PO Q2DAYS@0900 [facility] Last Admin: 03/28/19 08:21 Dose: 145 mg Furosemide (Lasix) 20 mg PO DAILY [facility] Last Admin: 03/28/19 09:03 Dose: 20 mg Gabapentin (Neurontin) 300 mg PO BID [facility] Last Admin: 03/28/19 08:21 Dose: 300 mg Glucagon (Glucagon) 1 mg IM PRN PRN PRN Reason: Hypoglycemia Hydralazine HCl (Apresoline) 25 mg PO TID [facility] Last Admin: 03/28/19 15:32 Dose: 25 mg Dextrose/Water (D5w) 1,000 mls @ 0 mls/hr IV .Q0M PRN PRN Reason: Hypoglycemia Insulin Glargine 20 units/ (Syringe) 1.2 mls @ 0 mls/hr SC HS [facility] Last Admin: 03/27/19 20:58 Dose: 1.2 mls Dopamine HCl/Dextrose (Dopamine 400 Mg/D5w 250 Ml) 250 mls @ 15.776 mls/hr IVPB INF [facility]; Protocol Last Admin: 03/28/19 15:33 Dose: 250 mls Insulin Human Lispro (Humalog) 0 units SC .MILD SLIDING SCALE PRN PRN Reason: Mild Correctional Scale Isosorbide Mononitrate (Imdur Er) 30 mg PO DAILY [facility] Last Admin: 03/28/19 08:21 Dose: 30 mg Lisinopril (Zestril) 2.5 mg PO DAILY [facility] Last Admin: 03/28/19 08:57 Dose: Not Given Ondansetron HCl (Zofran Odt) 4 mg PO Q6H PRN PRN Reason: Nausea/Vomiting Pantoprazole Sodium (Protonix) 40 mg PO DAILY [facility] Last Admin: 03/28/19 08:21 Dose: 40 mg Senna/Docusate Sodium (Senokot S) 2 tab PO BID PRN PRN Reason: Constipation Last Admin: 03/27/19 15:05 Dose: 2 tab Sevelamer Carbonate (Renvela) 800 mg PO TID-[facility] Last Admin: 03/28/19 11:34 Dose: 800 mg Sodium Chloride (Flush - Normal Saline) 10 ml IVF PRN PRN PRN Reason: Saline Flush Vital Signs & Weight: Vital Signs Temp Pulse Resp BP Pulse Ox 03/28/19 11:32 99.1 F 68 18 155/70 H 95 03/28/19 07:08 99.6 F 63 16 153/69 H 96 03/28/19 07:01 97 Weight 185 lb 8 oz - Physical Exam General: alert & oriented x3, no apparent distress HEENT: mucus membranes moist, normocephaly Neck: supple neck, midline trachea Cardiac: regular rate and rhythm, no murmur, regular rate Lungs: clear to auscultation, no wheeze, rales, rhonchi Neuro: grossly intact, coordination normal Abdomen: active bowel sounds, soft, non-tender Skin: clear Musculoskeletal: normal range of motion, no pain - Labs Result Diagrams: 03/28/19 04:45 03/28/19 04:45 Troponin/CKMB CK-MB (CK-2) 1.9 ng/mL (0-6.6) 03/25/19 17:23 Troponin I 0.058 ng/mL (< 0.028) H 03/25/19 23:30 - Telemetry Sinus rhythms and dysrhythmias: sinus rhythm - Assessment/Plan Assessment/Plan: 1. Acute on chronic systolic heart failure/. 2. RV dysfunction 3. Ischemic CM Ef at 15-20% 4. CKD stage 4 5. Non compliance 6. PVD. PLAN: - Continue IV lasix - Will start dobutamine drip to help forward flow and hopefully kidney function will improve. . 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 - Continue to be off Entresto and aldactone due to renal function. Low dose ACEI per nephrology.
[2019-03-28] MEDS: DOBUTamine 500 mg/250 ml 250 ML IVPB SCH (18:37)
--- NOTE | 2019-03-28 19:38 | PRG ---
DATE OF SERVICE: 03/28/2019 SUBJECTIVE: Patient was seen and examined at bedside and overnight events noted. Patient denies any shortness of breath or chest pain or palpitation. No history of nausea or vomiting or diarrhea or fever or chills or cramps. OBJECTIVE: GENERAL: This is a well-built male, in no apparent distress. VITAL SIGNS: Temperature 98.0, pulse 60, respiratory rate 16, and blood pressure 113/60. HEENT: Atraumatic, normocephalic. Oral mucosa is moist NECK: Supple. CARDIOVASCULAR: S1, S2 heard. Rate and rhythm regular. RESPIRATORY: Clear to auscultation. GASTROINTESTINAL: Abdomen is soft. MUSCULOSKELETAL: No tenderness. No edema. DERMATOLOGIC: No skin rash. NEUROLOGIC: Alert and awake and oriented X3. No focal neurologic deficits. Moving all the extremities. PSYCHIATRIC: Mood and affect normal. LABORATORY DATA: Potassium 3.7, BUN is 42, and creatinine is 2.8. ASSESSMENT AND PLAN: 1. Acute kidney injury on chronic kidney disease, stage 4 with worsening most likely from diuretics. Started on dobutamine per Cardiology today. Lisinopril dose reduced. We will follow. Long-term prognosis guarded. 2. Cardiorenal syndrome. 3. Edema with fluid overload. 4. Anemia of chronic disease. 5. History of diabetes with proteinuria and nephropathy. Long-term prognosis guarded. No acute indication for dialysis. Medication adjusted today. Currently on Lasix due to severe ischemic cardiomyopathy. We will continue to follow. Job ID: [id number]
[2019-03-28] MEDS: Atorvastatin Calcium 40 MG TAB PO SCH (20:32)
[2019-03-28] MEDS: INSULIN GLARGINE SC SCH (20:34)
[2019-03-29 05:55] LABS: #Basophils 0.1 thou/uL (0.0-0.2); #Eosinphils 0.4 thou/uL (0.0-0.7); #Lymphocytes 2.2 thou/uL (1.20-3.40); #Neutrophils 6.5 thou/uL (1.40-6.50); %Basophils 0.7 % (0.0-1.0); %Eosinophils 3.7 % (0.0-10.0); %Lymphocytes 21.3 % (21.0-51.0); %Monocytes 9.8 % (0.0-10.0); %Neutrophils 64.5 % (42.0-75.0); Mean Corpuscular HGB CONC 33.1 g/dL (32.0-36.0); Mean Corpuscular Hemoglobin 29.2 pg (27.0-31.0); Mean Corpuscular Volume 88.2 fL (78.0-98.0); Mean Platelet Volume 8.4 fL (7.4-10.4); Platelet Count 323 thou/uL (130-400); RBC Distribution Width 14.5 % (11.5-14.5); Red Blood Cell (RBC) Count 3.43 mill/uL (4.70-6.10); White Blood Cell (WBC) Count 10.1 thou/uL (4.8-10.8)
--- NOTE | 2019-03-29 06:11 | PDOC.FM ---
- Subjective Subjective: Pt is doing much better today. Everything hit him yesterday when we rounded, but he has processed it and is more optimistic this morning. He is eating well. BM yesterday. - Objective MAR Reviewed: Yes Vital Signs & Weight: Vital Signs (12 hours) Temp Pulse Resp BP BP BP Pulse Ox 03/29/19 03:17 97.3 F L 88 18 149/73 H 95 03/28/19 23:30 98.7 F 72 18 146/70 H 96 03/28/19 20:33 77 153/74 H 03/28/19 19:37 98.4 F 70 18 151/69 H 96 Weight Weight 85.411 kg I&O: 03/27/19 03/28/19 03/29/19 06:59 06:59 06:59 Intake Total 1064 1780 820 Output Total 1175 2050 700 Balance -111 -270 120 Result Diagrams: 03/29/19 05:39 03/29/19 05:39 Phys Exam - Physical Examination Constitutional: NAD HEENT: PERRLA, moist MMs Neck: supple, full ROM Respiratory: clear to auscultation bilateral Cardiovascular: RRR, no significant murmur Gastrointestinal: soft, non-tender, positive bowel sounds Musculoskeletal: no edema, pulses present Neurological: normal sensation Psychiatric: normal affect, A&O x 3 Skin: normal turgor Dx/Plan (1) Acute exacerbation of CHF (congestive heart failure) Code(s): I50.9 - HEART FAILURE, UNSPECIFIED Status: Acute (2) Anemia, chronic disease Code(s): D63.8 - ANEMIA IN OTHER CHRONIC DISEASES CLASSIFIED ELSEWHERE Status : Acute (3) IDDM (insulin dependent diabetes mellitus) Code(s): E11.9 - TYPE 2 DIABETES MELLITUS WITHOUT COMPLICATIONS; Z79.4 - NUMBERER AND WIRER (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 OF INSULIN Status: Acute (4) NSTEMI (non-ST elevated myocardial infarction) Code(s): I21.4 - NON-ST ELEVATION (NSTEMI) MYOCARDIAL INFARCTION Status: Acute (5) Chronic kidney disease, stage 4 (severe) Code(s): N18.4 - CHRONIC KIDNEY DISEASE, STAGE 4 (SEVERE) Status: Chronic (6) HLD (hyperlipidemia) Code(s): E78.5 - HYPERLIPIDEMIA, UNSPECIFIED Status: Chronic (7) HTN (hypertension) Code(s): I10 - ESSENTIAL (PRIMARY) HYPERTENSION Status: Chronic Qualifiers: Hypertension type: essential hypertension Qualified Code(s): I10 - Essential (primary) hypertension - Plan Plan: 59yo male with h/o CAD s/p 3c CABG in 2009, IDDMII, HTN, CKD III, HFrEF, and right BKA presents for CHF exacerbation. 1. CHF exacerbation, h/o HFrEF, Improving * BNP elevated to 2521, crackles on exam, mild increase interstitial lung markings on CXR, 2-3 word dyspnea with orthopnea (previous BNP 02/23 183.2) * likely 2/2 running out of medications * Given lasix 40 IV in ED, will continue IV lasix * daily weights, strict I/O's, positive .1 L * Last ECHO 01/19/19 - EF 10/15% however pt was in septic shock, previous ECHO to that was EF 40-45% * ECHO (03/27): EF 15-20%, 1/3 Dystolic Dysfunction, Mild LVH, Mitral Calcification, Mild MR, Moderately dilated LA, AV sclerosis, Mild TR, Akinesis of Anterior wll * Consulted cardiology, known to Dr. Pichardo, appreciate recs * Consulted cardiac rehab and CHF clinic for OP f/u * Slight SOB this morning while laying flat 2. NSTEMI Type 2 2/2 CHF exacerbation, Downtrended * Troponin initially elevated to 0.068 > 0.074 > 0.058, likely 2/2 demand ischemia and CKDIII * no current CP or EKG changes * EKG shows T wave inversions in lateral leads and LVH, stable from EKG on admission 3. CAD s/p 3vCABG in 2009 * known to Dr. Pichardo * attempted heart cath 02/28/19 but unable 2/2 CKD * will continue home coreg, plavix, asa, isosorbide and imdur * Consulted Cardiology (03/26), appreciate recs. Started pt on dobutamine drip. 4. CKD IV * GFR 24 * Previously hovering between CKD III & IV * Cr near baseline, will monitor with daily BMPs * cont home Renvella * monitor lytes and replace per protocol * Consulted Nephrology (03/27), appreciate recs. * TP/C Ratio: 1.8 g/d * Renal US: No evidence of obstructive uropathy 5. Anemia of chronic disease, Stable, Most likely 2/2 CKD * Hb 9.4 intially 9.5, will monitor with daily CBC, no acute s/s of bleed * Iron 38, TIBC 378, % Sat 10, Ferritin 87.6 6. IDDMII with peripheral neuropathy, Stable * A1C 6 in November 2018 per records reviewed * will continue home levemir 20u QHS * Hyperglycemic protocol with mild SS insulin and ACHS accuchecks, will monitor and adjust as needed * continue home Cayden for neuropathy 7. HTN * cont home Imdur and hydralazine * Will monitor * Started Lisinopril 5 mg yesterday, bp much improved will reduce to 2.5 to see if maintaining good blood pressures and preventing rise in Cre. 8. HLD * Lipid panel check in clinic in 2018 * continue home atorva and tricor 9. GERD * cont home Protonix VTE: Lovenox renally dosed Diet: HH, CC, Fluid restriction Code Status: Full GI Prophylaxis: Tums PCP: MARA Loja Disposition: Inpt, currently on dobutamine drip. Will follow Nephrology and Cardiology's recs. Addendum - Attending - Attending Attestation Date/Time: 03/29/19 0979 I personally evaluated the patient and discussed the management with Dr. Bermudez. I agree with the History, Examination, Assessment and Plan documented above with any addition or exceptions noted below. Patient better this AM, denies cp/sob/n/v/f/c. On exam no crackles and continued improved wob. Await cards recs concerning dobutamine and diuresis. Nephro following.
[2019-03-29 06:17] LABS: Anion Gap 12 mmol/L (10-20); BUN (Urea Nitrogen) 38 mg/dL (8.4-25.7); Calc. Creatinine Clearance 35 mL/min (70-130); Calcium 9.2 mg/dL (7.8-10.44); Carbon Dioxide 25 mmol/L (22-29); Chloride 105 mmol/L (98-107); Estimated GFR-MDRD 24; Glucose 72 mg/dL (70-105); Potassium 3.6 mmol/L (3.5-5.1); Sodium 138 mmol/L (136-145)
[2019-03-29] MEDS: Aspirin Chewable 81 MG TAB PO SCH (09:26)
[2019-03-29] MEDS: Sevelamer Carbonate 800 MG TAB PO SCH ×3 (09:26→17:36)
[2019-03-29] MEDS: Gabapentin 100 MG CAP PO SCH ×2 (09:26→21:11)
[2019-03-29] MEDS: Clopidogrel Bisulfate 75 MG TAB PO SCH (09:26)
[2019-03-29] MEDS: Isosorbide Mononitrate (ER) 30 MG TAB PO SCH (09:26)
[2019-03-29] MEDS: Enoxaparin Sodium 30 MG/0.3 ML SYRINGE SC SCH (09:27)
[2019-03-29] MEDS: Carvedilol 3.125 MG TAB PO SCH ×2 (09:27→17:36)
[2019-03-29] MEDS: Furosemide 40 MG/4 ML VIAL SLOW IVP SCH (09:27)
[2019-03-29] MEDS: Lisinopril 2.5 MG TAB PO SCH (09:27)
[2019-03-29] MEDS: hydrALAZINE 25 MG TAB PO SCH ×3 (09:27→21:08)
--- NOTE | 2019-03-29 11:59 | PRG ---
DATE OF SERVICE: 03/29/2019 SUBJECTIVE: Patient was seen and examined at bedside and overnight events noted. Patient denies any shortness of breath or chest pain or palpitation. No history of nausea or vomiting or diarrhea or fever or chills or cramps. OBJECTIVE: GENERAL: This is a well-built male, in no apparent distress. VITAL SIGNS: Temperature 97.5. Heart rate 73. Respiratory rate 18. Blood pressure 131/62. HEENT: Atraumatic, normocephalic. Oral mucosa is moist NECK: Supple. CARDIOVASCULAR: S1, S2 heard. Rate and rhythm regular. RESPIRATORY: Clear to auscultation. GASTROINTESTINAL: Abdomen is soft. MUSCULOSKELETAL: No tenderness. No edema. DERMATOLOGIC: No skin rash. NEUROLOGIC: Alert and awake and oriented X3. No focal neurologic deficits. Moving all the extremities. PSYCHIATRIC: Mood and affect normal. LABORATORY DATA: Potassium 3.6, BUN is 38, and creatinine is 2.7. ASSESSMENT AND PLAN: 1. Acute kidney injury on chronic kidney disease stage 4 with stable labs. 2. Cardiorenal syndrome, normal on inotropes. 3. Edema with fluid overload. 4. Anemia of chronic disease. 5. History of diabetes. 6. The patient is slightly better. We will follow. Job ID: [id number]
--- NOTE | 2019-03-29 12:20 | PDOC.CPN ---
- Subjective Date: 03/29/19 Time: 12:18 Interval history: He is feeling better every day. No chest pain. - Review of Systems General: denies: fever/chills, weight/appetite/sleep changes, night sweats, fatigue Respiratory: denies: cough, congestion, shortness of breath, exercise intolerance Cardiovascular: denies: chest pain, palpitation, edema, paroxysmal nocturnal dyspnea, orthopnea Gastrointestinal: denies: nausea, vomiting, diarrhea, constipation, abd pain, GI bleeding Musculoskeletal: denies: pain, tenderness, stiffness, swelling, arthritis/ arthralgias Neurological: denies: numbness, syncope, seizure, weakness - Objective Allergies/Adverse Reactions: Allergies Allergy/AdvReac Type Severity Reaction Status Date / Time No Known Allergies Allergy Verified 02/28/19 19:39 Visit Medications: Current Medications Acetaminophen (Tylenol) 650 mg PO Q4H PRN PRN Reason: Headache/Fever/Mild Pain (1-3) Aspirin (Aspirin Chewable) 81 mg PO DAILY [facility] Last Admin: 03/29/19 09:26 Dose: 81 mg Atorvastatin Calcium (Lipitor) 80 mg PO HS [facility] Last Admin: 03/28/19 20:32 Dose: 80 mg Calcium Carbonate (Tums) 1,000 mg PO Q4H PRN PRN Reason: Heartburn or Indigestion Carvedilol (Coreg) 3.125 mg PO BID-[facility] Last Admin: 03/29/19 09:27 Dose: 3.125 mg Clopidogrel Bisulfate (Plavix) 75 mg PO DAILY [facility] Last Admin: 03/29/19 09:26 Dose: 75 mg Dextrose/Water (Dextrose 50%) 25 gm SLOW IVP PRN PRN PRN Reason: Hypoglycemia Enoxaparin Sodium (Lovenox) 30 mg SC 0900 [facility] Last Admin: 03/29/19 09:27 Dose: 30 mg Fenofibrate (Tricor) 145 mg PO Q2DAYS@0900 [facility] Last Admin: 03/28/19 08:21 Dose: 145 mg Furosemide (Lasix) 40 mg SLOW IVP DAILY [facility] Last Admin: 03/29/19 09:27 Dose: 40 mg Gabapentin (Neurontin) 300 mg PO BID [facility] Last Admin: 03/29/19 09:26 Dose: 300 mg Glucagon (Glucagon) 1 mg IM PRN PRN PRN Reason: Hypoglycemia Hydralazine HCl (Apresoline) 25 mg PO TID [facility] Last Admin: 03/29/19 09:27 Dose: 25 mg Dextrose/Water (D5w) 1,000 mls @ 0 mls/hr IV .Q0M PRN PRN Reason: Hypoglycemia Insulin Glargine 20 units/ (Syringe) 1.2 mls @ 0 mls/hr SC HS [facility] Last Admin: 03/28/19 20:34 Dose: 1.2 mls Dobutamine HCl/Dextrose (Dobutamine 500 Mg/250 Ml) 250 mls @ 12.621 mls/hr IVPB INF [facility]; Protocol Last Admin: 03/28/19 18:37 Dose: 250 mls Insulin Human Lispro (Humalog) 0 units SC .MILD SLIDING SCALE PRN PRN Reason: Mild Correctional Scale Isosorbide Mononitrate (Imdur Er) 30 mg PO DAILY [facility] Last Admin: 03/29/19 09:26 Dose: 30 mg Lisinopril (Zestril) 2.5 mg PO DAILY [facility] Last Admin: 03/29/19 09:27 Dose: 2.5 mg Ondansetron HCl (Zofran Odt) 4 mg PO Q6H PRN PRN Reason: Nausea/Vomiting Pantoprazole Sodium (Protonix) 40 mg PO DAILY [facility] Last Admin: 03/29/19 09:26 Dose: 40 mg Senna/Docusate Sodium (Senokot S) 2 tab PO BID PRN PRN Reason: Constipation Last Admin: 03/27/19 15:05 Dose: 2 tab Sevelamer Carbonate (Renvela) 800 mg PO TID-[facility] Last Admin: 03/29/19 11:40 Dose: 800 mg Sodium Chloride (Flush - Normal Saline) 10 ml IVF PRN PRN PRN Reason: Saline Flush Vital Signs & Weight: Vital Signs Temp Pulse Resp BP BP Pulse Ox 03/29/19 09:27 73 03/29/19 08:00 97.5 F L 73 17 131/62 98 03/29/19 03:17 97.3 F L 88 18 149/73 H 95 Weight 188 lb 4.8 oz - Physical Exam General: alert & oriented x3, no apparent distress HEENT: mucus membranes moist, normocephaly Neck: supple neck, midline trachea Cardiac: regular rate and rhythm, no murmur Lungs: clear to auscultation, no wheeze, rales, rhonchi Neuro: grossly intact, coordination normal Abdomen: active bowel sounds, soft, non-tender Skin: clear Musculoskeletal: normal range of motion, no pain - Labs Result Diagrams: 03/29/19 05:39 03/29/19 05:39 Troponin/CKMB CK-MB (CK-2) 1.9 ng/mL (0-6.6) 03/25/19 17:23 Troponin I 0.058 ng/mL (< 0.028) H 03/25/19 23:30 - Telemetry Sinus rhythms and dysrhythmias: sinus rhythm - Assessment/Plan Assessment/Plan: 1. Acute on chronic systolic heart failure. 2. RV dysfunction 3. Ischemic CM Ef at 15-20% 4. CKD stage 4 5. Non compliance 6. PVD. PLAN: - Continue IV lasix - Continue dobutamine drip to help forward flow, renal function improving. 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 - Continue to be off Entresto and aldactone due to renal function. Low dose ACEI per nephrology.
[2019-03-29] MEDS: DOBUTamine 500 mg/250 ml 250 ML IVPB SCH (15:04)
[2019-03-29] MEDS: Atorvastatin Calcium 40 MG TAB PO SCH (21:08)
[2019-03-29] MEDS: INSULIN GLARGINE SC SCH (21:12)
[2019-03-30 03:55] LABS: #Basophils 0.1 thou/uL (0.0-0.2); #Eosinphils 0.5 thou/uL (0.0-0.7); #Lymphocytes 2.2 thou/uL (1.20-3.40); #Monocytes 1.2 thou/uL (0.11-0.59); %Basophils 0.7 % (0.0-1.0); %Lymphocytes 22.2 % (21.0-51.0); %Monocytes 11.6 % (0.0-10.0); %Neutrophils 60.6 % (42.0-75.0); Hemoglobin 9.7 g/dL (14.0-18.0); Mean Corpuscular HGB CONC 32.9 g/dL (32.0-36.0); Mean Corpuscular Volume 88.2 fL (78.0-98.0); Mean Platelet Volume 8.3 fL (7.4-10.4); Platelet Count 310 thou/uL (130-400); RBC Distribution Width 14.4 % (11.5-14.5); Red Blood Cell (RBC) Count 3.35 mill/uL (4.70-6.10); White Blood Cell (WBC) Count 9.9 thou/uL (4.8-10.8)
[2019-03-30 04:14] LABS: Anion Gap 13 mmol/L (10-20); BUN (Urea Nitrogen) 43 mg/dL (8.4-25.7); Calc. Creatinine Clearance 33 mL/min (70-130); Calcium 8.7 mg/dL (7.8-10.44); Carbon Dioxide 24 mmol/L (22-29); Chloride 107 mmol/L (98-107); Estimated GFR-MDRD 22; Glucose 83 mg/dL (70-105); Potassium 3.8 mmol/L (3.5-5.1); Sodium 140 mmol/L (136-145)
--- NOTE | 2019-03-30 06:53 | PDOC.FM ---
- Subjective Subjective: Patient states hes feeling better today. No shortness of breath or chest pain. Hes very tearful about his situation. Hopes to make it to the of his grandson which is his main motivation right now. States that he is trying to remain hopeful. - Objective Vital Signs & Weight: Vital Signs (12 hours) Temp Pulse Resp BP Pulse Ox 03/30/19 03:51 97.9 F 87 18 174/91 H 98 03/29/19 21:08 83 03/29/19 20:00 94 L 03/29/19 19:32 98.7 F 83 18 103/57 L 94 L Weight Weight 84.368 kg I&O: 03/28/19 03/29/19 03/30/19 06:59 06:59 06:59 Intake Total 1780 1211.2 1291 Output Total 2050 1600 1175 Balance -270 -388.8 116 Result Diagrams: 03/30/19 03:34 03/30/19 03:34 Phys Exam - Physical Examination tearful HEENT: moist MMs Respiratory: no wheezing, no rales, no rhonchi, clear to auscultation bilateral Cardiovascular: no significant murmur irreg Gastrointestinal: soft, non-tender Musculoskeletal: no edema, pulses present Neurological: non-focal Psychiatric: A&O x 3 Skin: no rash Dx/Plan - Plan Plan: 1. CHF exacerbation, h/o HFrEF, Improving clinically * BNP elevated to 2521, crackles on exam, mild increase interstitial lung markings on CXR, 2-3 word dyspnea with orthopnea (previous BNP 02/23 183.2) * likely 2/2 running out of medications * 40 lasix IV daily * daily weights, strict I/O's, positive .1 L * ECHO (03/27): EF 15-20%, 1/3 Dystolic Dysfunction, Mild LVH, Mitral Calcification, Mild MR, Moderately dilated LA, AV sclerosis, Mild TR, Akinesis of Anterior wll * Consulted cardiology - Dr. Pichardo started on Dobutamine drip @ 5ml/hr * Consulted cardiac rehab and CHF clinic for OP f/u 2. NSTEMI Type 2 2/2 CHF exacerbation, Downtrended * Troponin initially elevated to 0.068 > 0.074 > 0.058, likely 2/2 demand ischemia and CKDIII * no current CP or EKG changes * EKG shows T wave inversions in lateral leads and LVH, stable from EKG on admission 3. CAD s/p 3vCABG in 2009 * known to Dr. Pichardo * attempted heart cath 02/28/19 but unable 2/2 CKD * will continue home coreg, plavix, asa, isosorbide and imdur * Consulted Cardiology (03/26), appreciate recs 4. Acute kdiney injury on CKD 4 in setting of cardiorenal syndrome * Waxing and waning Cr, currently elevated from yesterday 2.76 -> 2.98, will cont to monitor on dobutamine drip with hopes of improving renal profusion * Previously hovering between CKD III & IV * Cr near baseline, will monitor with daily BMPs * cont home Renvella * monitor lytes and replace per protocol * Consulted Nephrology (03/27), appreciate recs. * TP/C Ratio: 1.8 g/d * Renal US: No evidence of obstructive uropathy * Stopped home entresto and aldactone, cont low dose ACEi 5. Anemia of chronic disease, Stable, Most likely 2/2 CKD * Hb 9.4 intially 9.5, will monitor with daily CBC, no acute s/s of bleed * Iron 38, TIBC 378, % Sat 10, Ferritin 87.6 6. IDDMII with peripheral neuropathy, Stable * A1C 6 in November 2018 per records reviewed * will continue home levemir 20u QHS * Hyperglycemic protocol with mild SS insulin and ACHS accuchecks, will monitor and adjust as needed * continue home Cayden for neuropathy 7. HTN * cont home Imdur and hydralazine * Will monitor * Started Lisinopril 5 mg yesterday, bp much improved will reduce to 2.5 to see if maintaining good blood pressures and preventing rise in Cre. 8. HLD * Lipid panel check in clinic in 2018 * continue home atorva and tricor 9. GERD * cont home Protonix VTE: Lovenox renally dosed Diet: HH, CC, Fluid restriction Code Status: Full GI Prophylaxis: Tums PCP: MARA Loja Disposition: Inpt, currently on dobutamine drip. Will follow Nephrology and Cardiology's recs. Addendum - Attending - Attending Attestation Date/Time: 03/30/19 1206 I personally evaluated the patient and discussed the management with Dr. Robledo at 0710. I agree with the History, Examination, Assessment and Plan documented above with any addition or exceptions noted below. Severe ischemic cardiomyopathy Cardiorenal Syndrome Worsened Cr today though patient symptomatically improve. Appreciate cards and nephro recs.
[2019-03-30] MEDS: Lisinopril 2.5 MG TAB PO SCH (08:32)
[2019-03-30] MEDS: Sevelamer Carbonate 800 MG TAB PO SCH ×3 (08:32→15:57)
[2019-03-30] MEDS: Carvedilol 3.125 MG TAB PO SCH ×2 (08:32→15:57)
[2019-03-30] MEDS: Fenofibrate Nanocrystallized 145 MG TAB PO SCH (08:32)
[2019-03-30] MEDS: Isosorbide Mononitrate (ER) 30 MG TAB PO SCH (08:32)
[2019-03-30] MEDS: hydrALAZINE 25 MG TAB PO SCH ×3 (08:33→22:56)
[2019-03-30] MEDS: Clopidogrel Bisulfate 75 MG TAB PO SCH (08:33)
[2019-03-30] MEDS: Gabapentin 100 MG CAP PO SCH ×2 (08:33→22:56)
[2019-03-30] MEDS: Aspirin Chewable 81 MG TAB PO SCH (08:33)
[2019-03-30] MEDS: Enoxaparin Sodium 30 MG/0.3 ML SYRINGE SC SCH (08:34)
[2019-03-30] MEDS: Furosemide 40 MG/4 ML VIAL SLOW IVP SCH (08:34)
[2019-03-30] MEDS: DOBUTamine 500 mg/250 ml 250 ML IVPB SCH (10:58)
--- NOTE | 2019-03-30 12:53 | PDOC.CPN ---
- Subjective Date: 03/30/19 Time: 12:58 Interval history: The pt seen and examined. No overnight events. No cardiac complaints. - Objective Allergies/Adverse Reactions: Allergies Allergy/AdvReac Type Severity Reaction Status Date / Time No Known Allergies Allergy Verified 02/28/19 19:39 Visit Medications: Current Medications Acetaminophen (Tylenol) 650 mg PO Q4H PRN PRN Reason: Headache/Fever/Mild Pain (1-3) Aspirin (Aspirin Chewable) 81 mg PO DAILY [facility] Last Admin: 03/30/19 08:33 Dose: 81 mg Atorvastatin Calcium (Lipitor) 80 mg PO [facility] Last Admin: 03/29/19 21:08 Dose: 80 mg Calcium Carbonate (Tums) 1,000 mg PO Q4H PRN PRN Reason: Heartburn or Indigestion Carvedilol (Coreg) 3.125 mg PO BID-[facility] Last Admin: 03/30/19 08:32 Dose: 3.125 mg Clopidogrel Bisulfate (Plavix) 75 mg PO DAILY [facility] Last Admin: 03/30/19 08:33 Dose: 75 mg Dextrose/Water (Dextrose 50%) 25 gm SLOW IVP PRN PRN PRN Reason: Hypoglycemia Enoxaparin Sodium (Lovenox) 30 mg SC 0900 [facility] Last Admin: 03/30/19 08:34 Dose: 30 mg Fenofibrate (Tricor) 145 mg PO Q2DAYS@0900 [facility] Last Admin: 03/30/19 08:32 Dose: 145 mg Furosemide (Lasix) 40 mg SLOW IVP DAILY [facility] Last Admin: 03/30/19 08:34 Dose: 40 mg Gabapentin (Neurontin) 300 mg PO BID [facility] Last Admin: 03/30/19 08:33 Dose: 300 mg Glucagon (Glucagon) 1 mg IM PRN PRN PRN Reason: Hypoglycemia Hydralazine HCl (Apresoline) 25 mg PO TID [facility] Last Admin: 03/30/19 08:33 Dose: 25 mg Dextrose/Water (D5w) 1,000 mls @ 0 mls/hr IV .Q0M PRN PRN Reason: Hypoglycemia Insulin Glargine 20 units/ (Syringe) 1.2 mls @ 0 mls/hr SC [facility] Last Admin: 03/29/19 21:12 Dose: 1.2 mls Dobutamine HCl/Dextrose (Dobutamine 500 Mg/250 Ml) 250 mls @ 12.621 mls/hr IVPB INF [facility]; Protocol Last Admin: 03/30/19 10:58 Dose: 250 mls Insulin Human Lispro (Humalog) 0 units SC .MILD SLIDING SCALE PRN PRN Reason: Mild Correctional Scale Isosorbide Mononitrate (Imdur Er) 30 mg PO DAILY [facility] Last Admin: 03/30/19 08:32 Dose: 30 mg Lisinopril (Zestril) 2.5 mg PO DAILY [facility] Last Admin: 03/30/19 08:32 Dose: 2.5 mg Ondansetron HCl (Zofran Odt) 4 mg PO Q6H PRN PRN Reason: Nausea/Vomiting Pantoprazole Sodium (Protonix) 40 mg PO DAILY [facility] Last Admin: 03/30/19 08:33 Dose: 40 mg Senna/Docusate Sodium (Senokot S) 2 tab PO BID PRN PRN Reason: Constipation Last Admin: 03/27/19 15:05 Dose: 2 tab Sevelamer Carbonate (Renvela) 800 mg PO TID-WM [facility] Last Admin: 03/30/19 12:23 Dose: 800 mg Sodium Chloride (Flush - Normal Saline) 10 ml IVF PRN PRN PRN Reason: Saline Flush Vital Signs & Weight: Vital Signs Temp Pulse Resp BP Pulse Ox 03/30/19 08:33 87 03/30/19 08:32 87 03/30/19 08:00 97.7 F 94 17 142/76 H 95 03/30/19 03:51 97.9 F 87 18 174/91 H 98 Weight 186 lb - Physical Exam General: alert & oriented x3 (Rt BKA) Neck: supple neck Cardiac: regular rate and rhythm, S1/S2 Lungs: decreased breath sounds Neuro: cranial nerve 2-12 intact Skin: clear Musculoskeletal: decreased range of motion (Rt) - Labs Result Diagrams: 03/30/19 03:34 03/30/19 03:34 Troponin/CKMB CK-MB (CK-2) 1.9 ng/mL (0-6.6) 03/25/19 17:23 Troponin I 0.058 ng/mL (< 0.028) H 03/25/19 23:30 - Telemetry Sinus rhythms and dysrhythmias: sinus rhythm - Assessment/Plan Assessment/Plan: 1. Acute on chronic systolic heart failure - Stable with Lasix 40mg IV daily, Coreg 3.125mg BID and Lisinopril 2.5mg qd; Continue to be off Entresto and aldactone due to renal function. 2. Ischemic CM Ef at 15-20% - stable with dobutamine drip 5mg/kg/min to help forward flow, renal function improving. Continue to be off Entresto and aldactone due to renal function. Low dose ACEI per nephrology. 3. CKD stage 4 - Continue to be off Entresto and aldactone due to renal function. Low dose ACEI per nephrology. 4. CAD with hx of CABG in 2009 - on BBlocker, ASA, statin, 5. HTN - stable 6. PVD with hx of Rt BKA. On plavix 7. Non compliance MAR reviewed * Echo on 03/27/2019 with EF 15-20%, grade I dd, mild LVH, mild MR, mod dilated LA, mild TR, and akinesis of anterior wall. Pt. seen and eval. by me. I agree with the A/P by the HEAD DOFFER.He is weak but denies cardiac complaints. Chest : decreased BS bases. RRR. Continue dobutamine. robi
--- NOTE | 2019-03-30 15:29 | PRG ---
DATE OF SERVICE: 03/30/2019 SUBJECTIVE: Patient was seen and examined at bedside and overnight events noted. Patient denies any shortness of breath or chest pain or palpitation. No history of nausea or vomiting or diarrhea or fever or chills or cramps. OBJECTIVE: GENERAL: This is a well-built male, in no apparent distress. VITAL SIGNS: Temperature 97.5. Pulse 84. Respiratory rate 16. Blood pressure 120/50. HEENT: Atraumatic, normocephalic. Oral mucosa is moist NECK: Supple. CARDIOVASCULAR: S1, S2 heard. Rate and rhythm regular. RESPIRATORY: Clear to auscultation. GASTROINTESTINAL: Abdomen is soft. MUSCULOSKELETAL: No tenderness. No edema. DERMATOLOGIC: No skin rash. NEUROLOGIC: Alert and awake and oriented X3. No focal neurologic deficits. Moving all the extremities. PSYCHIATRIC: Mood and affect normal. LABORATORY DATA: Potassium 3.8, BUN is 43, and creatinine is 2.9. ASSESSMENT AND PLAN: 1. Chronic kidney disease, stage 4, stable. 2. Cardiorenal syndrome, on inotropes. 3. Edema. 4. Anemia. 5. History of diabetes with nephropathy and proteinuria. We will follow. Job ID: [id number]
[2019-03-30] MEDS: Atorvastatin Calcium 40 MG TAB PO SCH (22:56)
[2019-03-30] MEDS: INSULIN GLARGINE SC SCH (22:56)
[2019-03-31 04:24] LABS: #Basophils 0.1 thou/uL (0.0-0.2); #Eosinphils 0.5 thou/uL (0.0-0.7); #Lymphocytes 2.3 thou/uL (1.20-3.40); #Monocytes 1.3 thou/uL (0.11-0.59); #Neutrophils 6.4 thou/uL (1.40-6.50); %Basophils 0.7 % (0.0-1.0); %Lymphocytes 21.2 % (21.0-51.0); %Monocytes 12.3 % (0.0-10.0); %Neutrophils 60.8 % (42.0-75.0); Hemoglobin 9.5 g/dL (14.0-18.0); Mean Corpuscular HGB CONC 32.7 g/dL (32.0-36.0); Mean Corpuscular Hemoglobin 28.9 pg (27.0-31.0); Mean Corpuscular Volume 88.2 fL (78.0-98.0); Mean Platelet Volume 8.3 fL (7.4-10.4); Platelet Count 315 thou/uL (130-400); RBC Distribution Width 14.4 % (11.5-14.5); Red Blood Cell (RBC) Count 3.29 mill/uL (4.70-6.10); White Blood Cell (WBC) Count 10.6 thou/uL (4.8-10.8)
[2019-03-31 04:45] LABS: Anion Gap 11 mmol/L (10-20); BUN (Urea Nitrogen) 44 mg/dL (8.4-25.7); Calc. Creatinine Clearance 29 mL/min (70-130); Carbon Dioxide 26 mmol/L (22-29); Chloride 105 mmol/L (98-107); Estimated GFR-MDRD 19; Glucose 80 mg/dL (70-105); Potassium 3.9 mmol/L (3.5-5.1); Sodium 138 mmol/L (136-145)
--- NOTE | 2019-03-31 06:26 | PDOC.FM ---
- Subjective Subjective: Pt's mood is much better today. Discussed possibly starting SSRI but pt feels that is not necessary at this time. Continues to be asymp - denies CP, SOB, edema. - Objective Vital Signs & Weight: Vital Signs (12 hours) Temp Pulse Resp BP BP Pulse Ox 03/31/19 04:00 98.4 F 88 14 150/66 H 97 03/30/19 22:56 69 03/30/19 20:00 97 03/30/19 19:44 97.4 F L 69 16 106/52 L 97 Weight Weight 84.64 kg I&O: 03/29/19 03/30/19 03/31/19 06:59 06:59 06:59 Intake Total 1211.2 1291 1200 Output Total 1600 1175 1950 Balance -388.8 116 -750 Result Diagrams: 03/31/19 03:54 03/31/19 03:54 Phys Exam - Physical Examination Constitutional: NAD HEENT: moist MMs Neck: no JVD, full ROM Respiratory: no wheezing, no rales, no rhonchi, clear to auscultation bilateral Cardiovascular: RRR, no significant murmur, no rub Gastrointestinal: soft, non-tender Musculoskeletal: no edema, pulses present Neurological: non-focal, normal sensation Psychiatric: normal affect, A&O x 3 Deviation from normal: pt w/ better outlook today Skin: no rash Dx/Plan (1) Cardiorenal syndrome Code(s): I13.10 - HYP HRT & CHR KDNY DIS W/O HRT FAIL, W STG 1-4/UNSP CHR KDNY Status: Acute (2) Acute exacerbation of CHF (congestive heart failure) Code(s): I50.9 - HEART FAILURE, UNSPECIFIED Status: Acute (3) Anemia, chronic disease Code(s): D63.8 - ANEMIA IN OTHER CHRONIC DISEASES CLASSIFIED ELSEWHERE Status : Acute (4) IDDM (insulin dependent diabetes mellitus) Code(s): E11.9 - TYPE 2 DIABETES MELLITUS WITHOUT COMPLICATIONS; Z79.4 - FPC (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 OF INSULIN Status: Acute (5) Type 2 AMI (acute myocardial infarction) Code(s): I21.A1 - MYOCARDIAL INFARCTION TYPE 2 Status: Acute (6) Acute kidney injury superimposed on CKD Code(s): N17.9 - ACUTE KIDNEY FAILURE, UNSPECIFIED; N18.9 - CHRONIC KIDNEY DISEASE, UNSPECIFIED Status: Acute - Plan Plan: 1. CHF exacerbation, h/o HFrEF, Improving clinically * BNP elevated to 2521, crackles on exam, mild increase interstitial lung markings on CXR, 2-3 word dyspnea with orthopnea (previous BNP 02/23 183.2) * likely 2/2 running out of medications * 40 lasix IV daily * daily weights, strict I/O's, positive .1 L * ECHO (03/27): EF 15-20%, 1/3 Dystolic Dysfunction, Mild LVH, Mitral Calcification, Mild MR, Moderately dilated LA, AV sclerosis, Mild TR, Akinesis of Anterior wll * Consulted cardiology - Dr. Pichardo started on Dobutamine drip @ 5ml/hr, pt is clinically stable w/o CP or SOB however w/ worsening renal function * Consulted cardiac rehab and CHF clinic for OP f/u 2. NSTEMI Type 2 2/2 CHF exacerbation, Downtrended * Troponin initially elevated to 0.068 > 0.074 > 0.058, likely 2/2 demand ischemia and CKDIII * no current CP or EKG changes * EKG shows T wave inversions in lateral leads and LVH, stable from EKG on admission 3. CAD s/p 3vCABG in 2009 * known to Dr. Pichardo * attempted heart cath 02/28/19 but unable 2/2 CKD * will continue home coreg, plavix, asa, isosorbide and imdur * Consulted Cardiology (03/26), appreciate recs 4. Acute kdiney injury on CKD 4 in setting of cardiorenal syndrome * Worsening renal function 2.76 -> 2.98 -> 3.32, will cont to monitor on dobutamine drip with hopes of improving renal profusion * Previously hovering between CKD III & IV * Cr near baseline, will monitor with daily BMPs * cont home Renvella * monitor lytes and replace per protocol * Consulted Nephrology (03/27), appreciate recs. * TP/C Ratio: 1.8 g/d * Renal US: No evidence of obstructive uropathy * Stopped home entresto and aldactone, cont low dose ACEi 5. Anemia of chronic disease, Stable, Most likely 2/2 CKD * Hb stable in * Iron 38, TIBC 378, % Sat 10, Ferritin 87.6 6. IDDMII with peripheral neuropathy, Stable * A1C 6 in November 2018 per records reviewed * will continue home levemir 20u QHS * Hyperglycemic protocol with mild SS insulin and ACHS accuchecks, will monitor and adjust as needed * continue home Cayden for neuropathy 7. HTN * cont home Imdur and hydralazine * Will monitor * Started Lisinopril 5 mg yesterday, bp much improved will reduce to 2.5 to see if maintaining good blood pressures and preventing rise in Cre. 8. HLD * Lipid panel check in clinic in 2018 * continue home atorva and tricor 9. GERD * cont home Protonix VTE: Lovenox renally dosed Diet: HH, CC, Fluid restriction Code Status: Full GI Prophylaxis: Cameron PCP: MARA Loja Disposition: Inpt, currently on dobutamine drip. Will follow Nephrology and Cardiology's recs. Addendum - Attending - Attending Attestation Date/Time: 03/31/19 [id number] I personally evaluated the patient and discussed the management with Dr. Robledo at 0700 am. I agree with the History, Examination, Assessment and Plan documented above with any addition or exceptions noted below. Acute on chronic systolic CHF secondary to ischemic cardiomyopathy. Cardiorenal syndrome - worsening Cr today at 3.3. Appreciate cards and nephro recs.
[2019-03-31] MEDS: DOBUTamine 500 mg/250 ml 250 ML IVPB SCH (08:17)
[2019-03-31] MEDS: Furosemide 40 MG/4 ML VIAL SLOW IVP SCH (08:51)
[2019-03-31] MEDS: Clopidogrel Bisulfate 75 MG TAB PO SCH (08:52)
[2019-03-31] MEDS: Lisinopril 2.5 MG TAB PO SCH (08:52)
[2019-03-31] MEDS: Gabapentin 100 MG CAP PO SCH ×2 (08:52→20:19)
[2019-03-31] MEDS: Isosorbide Mononitrate (ER) 30 MG TAB PO SCH (08:53)
[2019-03-31] MEDS: Aspirin Chewable 81 MG TAB PO SCH (08:53)
[2019-03-31] MEDS: Sevelamer Carbonate 800 MG TAB PO SCH ×3 (08:53→17:03)
[2019-03-31] MEDS: Carvedilol 3.125 MG TAB PO SCH ×2 (08:54→17:04)
[2019-03-31] MEDS: hydrALAZINE 25 MG TAB PO SCH ×3 (08:54→20:20)
[2019-03-31] MEDS: Enoxaparin Sodium 30 MG/0.3 ML SYRINGE SC SCH (08:54)
[2019-03-31 11:37] LABS: Prothrombin Time 13.3 SEC (12.0-14.7)
[2019-03-31 11:38] LABS: PTT 36.4 SEC (22.9-36.1)
--- NOTE | 2019-03-31 11:42 | CT ---
EXAM: CT Brain WO Con PROVIDED CLINICAL HISTORY: Slurred speech COMPARISON: 12/05/2017 FINDINGS: The ventricular system appears normal in size and morphology. There is no evidence for intracranial h emorrhage or mass effect. Stable areas of remote lacunar infarction are seen involving the cerebellum. The extracranial soft tissues and osseous structures demonstrate no acute findings. IMPRESSION: No evidence for intracranial hemorrhage or mass effect. Findings communicated to the referring clinic anna at 11:39 AM 03/31/2019.
[2019-03-31 11:58] LABS: CKMB 1.6 ng/mL (0-6.6); Troponin I 0.113 ng/mL (< 0.028)
--- NOTE | 2019-03-31 14:30 | PRG ---
DATE OF SERVICE: 03/31/2019 SUBJECTIVE: Patient was seen and examined at bedside and overnight events noted. Patient denies any shortness of breath or chest pain or palpitation. No history of nausea or vomiting or diarrhea or fever or chills or cramps. OBJECTIVE: GENERAL: This is a well-built male, in no apparent distress. VITAL SIGNS: Temperature 98.3. Heart rate 72. Respiratory rate 14. Blood pressure 119/60. HEENT: Atraumatic, normocephalic. Oral mucosa is moist NECK: Supple. CARDIOVASCULAR: S1, S2 heard. Rate and rhythm regular. RESPIRATORY: Clear to auscultation. GASTROINTESTINAL: Abdomen is soft. MUSCULOSKELETAL: No tenderness. No edema. DERMATOLOGIC: No skin rash. NEUROLOGIC: Alert and awake and oriented X3. No focal neurologic deficits. Moving all the extremities. PSYCHIATRIC: Mood and affect normal. LABORATORY DATA: Potassium 3.9, BUN is 44, creatinine 3.3. ASSESSMENT AND PLAN: 1. Chronic kidney disease stage 4, creatinine getting worse. 2. Acute kidney injury. 3. Cardiorenal syndrome. 4. Edema. 5. Anemia. 6. History of diabetes. 7. Renal function getting worse despite optimization of cardiac medications. No acute indication for dialysis. We will continue to monitor. We will recommend to avoid nephrotoxins at this point, low dose of lisinopril, and on Lasix for now. Monitor labs closely. Job ID: [id number]
--- NOTE | 2019-03-31 16:21 | PDOC.CPN ---
- Subjective Date: 03/31/19 Time: 14:00 Interval history: The pt seen and examined. No overnight events. No cardiac complaints. - Objective Allergies/Adverse Reactions: Allergies Allergy/AdvReac Type Severity Reaction Status Date / Time No Known Allergies Allergy Verified 02/28/19 19:39 Visit Medications: Current Medications Acetaminophen (Tylenol) 650 mg PO Q4H PRN PRN Reason: Headache/Fever/Mild Pain (1-3) Aspirin (Aspirin Chewable) 81 mg PO DAILY [facility] Last Admin: 03/31/19 08:53 Dose: 81 mg Atorvastatin Calcium (Lipitor) 80 mg PO [facility] Last Admin: 03/30/19 22:56 Dose: Not Given Calcium Carbonate (Tums) 1,000 mg PO Q4H PRN PRN Reason: Heartburn or Indigestion Carvedilol (Coreg) 3.125 mg PO BID-[facility] Last Admin: 03/31/19 08:54 Dose: 3.125 mg Clopidogrel Bisulfate (Plavix) 75 mg PO DAILY [facility] Last Admin: 03/31/19 08:52 Dose: 75 mg Dextrose/Water (Dextrose 50%) 25 gm SLOW IVP PRN PRN PRN Reason: Hypoglycemia Enoxaparin Sodium (Lovenox) 30 mg SC 0900 [facility] Last Admin: 03/31/19 08:54 Dose: 30 mg Fenofibrate (Tricor) 145 mg PO Q2DAYS@0900 [facility] Last Admin: 03/30/19 08:32 Dose: 145 mg Furosemide (Lasix) 40 mg SLOW IVP DAILY [facility] Last Admin: 03/31/19 08:51 Dose: 40 mg Gabapentin (Neurontin) 300 mg PO BID [facility] Last Admin: 03/31/19 08:52 Dose: 300 mg Glucagon (Glucagon) 1 mg IM PRN PRN PRN Reason: Hypoglycemia Hydralazine HCl (Apresoline) 25 mg PO TID [facility] Last Admin: 03/31/19 08:54 Dose: 25 mg Dextrose/Water (D5w) 1,000 mls @ 0 mls/hr IV .Q0M PRN PRN Reason: Hypoglycemia Insulin Glargine 20 units/ (Syringe) 1.2 mls @ 0 mls/hr SC [facility] Last Admin: 03/30/19 22:56 Dose: Not Given Dobutamine HCl/Dextrose (Dobutamine 500 Mg/250 Ml) 250 mls @ 12.621 mls/hr IVPB INF [facility]; Protocol Last Admin: 03/31/19 08:17 Dose: 250 mls Insulin Human Lispro (Humalog) 0 units SC .MILD SLIDING SCALE PRN PRN Reason: Mild Correctional Scale Isosorbide Mononitrate (Imdur Er) 30 mg PO DAILY [facility] Last Admin: 03/31/19 08:53 Dose: 30 mg Lisinopril (Zestril) 2.5 mg PO DAILY [facility] Last Admin: 03/31/19 08:52 Dose: 2.5 mg Ondansetron HCl (Zofran Odt) 4 mg PO Q6H PRN PRN Reason: Nausea/Vomiting Pantoprazole Sodium (Protonix) 40 mg PO DAILY [facility] Last Admin: 03/31/19 08:53 Dose: 40 mg Senna/Docusate Sodium (Senokot S) 2 tab PO BID PRN PRN Reason: Constipation Last Admin: 03/27/19 15:05 Dose: 2 tab Sevelamer Carbonate (Renvela) 800 mg PO TID-[facility] Last Admin: 03/31/19 13:43 Dose: Not Given Sodium Chloride (Flush - Normal Saline) 10 ml IVF PRN PRN PRN Reason: Saline Flush Last Admin: 03/31/19 08:55 Dose: 10 ml Vital Signs & Weight: Vital Signs Temp Pulse Pulse Pulse Resp BP BP 03/31/19 09:06 70 75 134/63 140/66 03/31/19 07:38 99.3 F 72 14 BP Pulse Ox 03/31/19 09:06 03/31/19 07:38 128/60 97 Weight 186 lb 9.6 oz - Physical Exam General: alert & oriented x3 Cardiac: regular rate and rhythm Lungs: clear to auscultation, decreased breath sounds Musculoskeletal: other (Rt BKA) - Labs Result Diagrams: 03/31/19 03:54 03/31/19 03:54 Troponin/CKMB CK-MB (CK-2) 1.6 ng/mL (0-6.6) 03/31/19 11:24 Troponin I 0.113 ng/mL (< 0.028) H 03/31/19 11:24 - Telemetry Sinus rhythms and dysrhythmias: sinus rhythm - Assessment/Plan Assessment/Plan: 1. Acute on chronic systolic heart failure - Stable with Lasix 40mg IV daily, Coreg 3.125mg BID and Lisinopril 2.5mg qd; Continue to be off Entresto and aldactone due to renal function. 2. Ischemic CM Ef at 15-20% - stable with dobutamine drip 5mg/kg/min to help forward flow, renal function improving. Continue to be off Entresto and aldactone due to renal function. Low dose ACEI per nephrology. 3. CKD stage 4 - Continue to be off Entresto and aldactone due to renal function. Low dose ACEI per nephrology. 4. CAD with hx of CABG in 2009 - on BBlocker, ASA, statin, 5. HTN - stable 6. PVD with hx of Rt BKA. On plavix 7. Non compliance MAR reviewed * Echo on 03/27/2019 with EF 15-20%, grade I dd, mild LVH, mild MR, mod dilated LA, mild TR, and akinesis of anterior wall. Pt. seen and eval. by me. I agree withthe /P by the [employer]PERVIS[employer]. Chest clear. RRR. Diuresing slowly. The pt. thinkls that he had another CVA. CT without contrast did not indicate any acute findings. He is at risk for embolic phenomenon due to the poor cardiac output. May need to consider coumadin. robi
--- NOTE | 2019-03-31 19:59 | PDOC.EVN ---
Event Note - Event Note Event Note: Amalia barrett called this afternoon for concern for stroke. We responded immediately and nursing said they had noticed more prounounced dysarthric speech. NIHSS was 4 predominantly for speech. Neuro exam WNL otherwise. POC WNL. CT head neg. for ICH. Patient w/ PMH of stroke so there was concern for this. EKG was unchanged from admission. We consulted Dr. Tobar to discuss effects of CT angio with contrast on the kidneys. He stated this could be the tipping point for his kidneys. After discussion with patient it was decided we would forego the CT angio since patient' dysarthria had resolved and he stated he just felt nervous and "he just needs to calm down." We asked nursing to proceed with neuro checks and should his NIHSS >3/4 he may indeed be a candidate for thrombolytic therapy. Patient reevaluated by me at 1150 am. He was having intermittent dysarthria with NIH scale of 3 at 1145 am. Discussed with him the risk of CTA to his kidneys and that he had a low NIH scale. He states he thinks it is due to stress of his worsening heart and kidney status and desires to avoid further kidney damage. Continue NIH scales and close obs for worsening symptoms.
[2019-03-31] MEDS: Heparin 5,000 UNITS/ML VIAL SC SCH (20:17)
[2019-03-31] MEDS: Atorvastatin Calcium 40 MG TAB PO SCH (20:18)
[2019-03-31] MEDS: INSULIN GLARGINE SC SCH (22:35)
[2019-04-01] MEDS: DOBUTamine 500 mg/250 ml 250 ML IVPB SCH (04:30)
[2019-04-01 05:38] LABS: #Basophils 0.1 thou/uL (0.0-0.2); #Eosinphils 0.4 thou/uL (0.0-0.7); #Lymphocytes 2.1 thou/uL (1.20-3.40); #Monocytes 1.1 thou/uL (0.11-0.59); #Neutrophils 5.6 thou/uL (1.40-6.50); %Basophils 0.6 % (0.0-1.0); %Eosinophils 4.8 % (0.0-10.0); %Lymphocytes 22.9 % (21.0-51.0); %Monocytes 11.6 % (0.0-10.0); %Neutrophils 60.1 % (42.0-75.0); Mean Corpuscular Hemoglobin 28.9 pg (27.0-31.0); Mean Corpuscular Volume 87.7 fL (78.0-98.0); Mean Platelet Volume 8.5 fL (7.4-10.4); Platelet Count 314 thou/uL (130-400); RBC Distribution Width 14.4 % (11.5-14.5); Red Blood Cell (RBC) Count 3.45 mill/uL (4.70-6.10); White Blood Cell (WBC) Count 9.2 thou/uL (4.8-10.8)
[2019-04-01 05:54] LABS: Anion Gap 12 mmol/L (10-20); BUN (Urea Nitrogen) 43 mg/dL (8.4-25.7); Calc. Creatinine Clearance 32 mL/min (70-130); Calcium 9.3 mg/dL (7.8-10.44); Carbon Dioxide 25 mmol/L (22-29); Chloride 108 mmol/L (98-107); Estimated GFR-MDRD 21; Glucose 73 mg/dL (70-105); Potassium 4.2 mmol/L (3.5-5.1); Sodium 141 mmol/L (136-145)
--- NOTE | 2019-04-01 06:15 | PDOC.FM ---
- Subjective Subjective: Patient complains of worsening expressive aphasia this morning. Stated he is very frustrated that he cannot speak the words that hes thinking. Believes that the problem is converting the words to speech and feels like he continues to get tongue-tied. Denies any shortness of breath or chest pain at this time. Attempted to have the patient read off of a paper, he was able to read short sentences but cannot articulate anything more than 5 to 7 words. Notes this getting worse when he becomes emotional or worked up. Denies any other neuro sx. - Objective Vital Signs & Weight: Vital Signs (12 hours) Temp Pulse Resp BP BP Pulse Ox 04/01/19 04:00 98.1 F 81 16 128/60 97 04/01/19 00:29 77 119/58 L 03/31/19 20:20 71 139/65 03/31/19 20:00 98.7 F 71 18 139/65 96 Weight Weight 84.64 kg I&O: 03/30/19 03/31/19 04/01/19 06:59 06:59 06:59 Intake Total 1291 1200 1301 Output Total 1175 1950 2050 Balance 906 -385 -733 Result Diagrams: 04/01/19 04:57 04/01/19 04:57 Phys Exam - Physical Examination Constitutional: NAD HEENT: PERRLA, moist MMs, sclera anicteric Neck: no nodes, full ROM Respiratory: no wheezing, no rales, no rhonchi, clear to auscultation bilateral Cardiovascular: RRR, no significant murmur Gastrointestinal: soft, non-tender Musculoskeletal: no edema, pulses present Neurological: normal sensation, moves all 4 limbs Expressive aphasia w/ dysarthria Psychiatric: normal affect, A&O x 3 Skin: no rash Dx/Plan (1) Cardiorenal syndrome Code(s): I13.10 - HYP HRT & CHR KDNY DIS W/O HRT FAIL, W STG 1-4/UNSP CHR KDNY Status: Acute (2) Acute exacerbation of CHF (congestive heart failure) Code(s): I50.9 - HEART FAILURE, UNSPECIFIED Status: Acute (3) Anemia, chronic disease Code(s): D63.8 - ANEMIA IN OTHER CHRONIC DISEASES CLASSIFIED ELSEWHERE Status : Acute (4) IDDM (insulin dependent diabetes mellitus) Code(s): E11.9 - TYPE 2 DIABETES MELLITUS WITHOUT COMPLICATIONS; Z79.4 - LONGTERM (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 OF INSULIN Status: Acute (5) Type 2 AMI (acute myocardial infarction) Code(s): I21.A1 - MYOCARDIAL INFARCTION TYPE 2 Status: Acute (6) Acute kidney injury superimposed on CKD Code(s): N17.9 - ACUTE KIDNEY FAILURE, UNSPECIFIED; N18.9 - CHRONIC KIDNEY DISEASE, UNSPECIFIED Status: Acute (7) Stroke-like symptoms Code(s): R29.90 - UNSPECIFIED SYMPTOMS AND SIGNS INVOLVING THE NERVOUS SYSTEM Status: Acute - Plan Plan: CHF exacerbation, h/o HFrEF, Improving clinically * BNP elevated to 2521, crackles on exam, mild increase interstitial lung markings on CXR, 2-3 word dyspnea with orthopnea (previous BNP 02/23 183.2) * likely 2/2 running out of medications * 40 lasix IV daily * daily weights, strict I/O's * ECHO (03/27): EF 15-20%, 1/3 Dystolic Dysfunction, Mild LVH, Mitral Calcification, Mild MR, Moderately dilated LA, AV sclerosis, Mild TR, Akinesis of Anterior wll * Consulted cardiology - Dr. Pichardo started on Dobutamine drip @ 5ml/hr, pt is clinically stable w/o CP or SOB however w/ worsening renal function * Consulted cardiac rehab and CHF clinic for OP f/u Stroke like symptoms - Amalia barrett called yesterday for pt developing increasing word finding difficulties and dysarthric speech - Head CT negative for bleed, CTA deferred due to risk of renal injury - Neuro checks performed w/ pt remaining stable - Pt w/ hx of right manjula infarction w/ hemorrhage - not a TPA candidate - Currently on asa and plavix NSTEMI Type 2 2/2 CHF exacerbation, Downtrended * Troponin initially elevated to 0.068 > 0.074 > 0.058, likely 2/2 demand ischemia and CKDIII * Code anrold yesterday for stroke like sx: repeated trop and elevated to 0.113 , downtrend to 0.103 * no current CP or EKG changes * EKG shows T wave inversions in lateral leads and LVH, stable from EKG on admission CAD s/p 3vCABG in 2009 * known to Dr. Pichardo * attempted heart cath 02/28/19 but unable 2/2 CKD * will continue home coreg, plavix, asa, isosorbide and imdur * Consulted Cardiology (03/26), appreciate recs Acute kdiney injury on CKD 4 in setting of cardiorenal syndrome * Cr function worsening overall w/ improved levels today from 3.36 to 3.03 * Previously hovering between CKD III & IV * Cont trend Cr * Cont renvella * monitor lytes and replace per protocol * Consulted Nephrology (03/27), appreciate recs. * TP/C Ratio: 1.8 g/d * Renal US: No evidence of obstructive uropathy * Stopped home entresto and aldactone, cont low dose ACEi Anemia of chronic disease, Stable, Most likely 2/2 CKD * Hb stable in 03-19 * Iron 38, TIBC 378, % Sat 10, Ferritin 87.6 IDDMII with peripheral neuropathy, Stable * A1C 6 in November 2018 per records reviewed * will continue home levemir 20u QHS * Hyperglycemic protocol with mild SS insulin and ACHS accuchecks, will monitor and adjust as needed * continue home Cayden for neuropathy HTN * cont home Imdur and hydralazine * Will monitor * Low dose lisinopril per nephro HLD * Lipid panel check in clinic in 2018 * continue home atorva and tricor GERD * cont home Protonix VTE: Lovenox renally dosed Diet: HH, CC, Fluid restriction Code Status: Full GI Prophylaxis: Tums PCP: MARA Loja Disposition: Inpt, currently on dobutamine drip. Will follow Nephrology and Cardiology's recs. Addendum - Attending - Attending Attestation Date/Time: 04/01/19 2622 I personally evaluated the patient and discussed the management with Dr. Robledo. I agree with the History, Examination, Assessment and Plan documented above with any addition or exceptions noted below. Patient of mine in the outpatient setting who is in general very poor health. Here for CHF exacerbation with cardiorenal syndrome. He is on dobutamine with minimal improvement in renal function, nearing ESRD. He also has had some worsening expressive aphasia through the evening. He has a history of multiple CVA in the past and has been noncompliant with his medications. He has likely suffered another CVA. He is not candidate for thrombolytic therapy due to history of hemorrhagic CVA and cannot obtain CTA due to poor renal function. He likely needs MRI to confirm, but that will be deferred at this time as it will not change our current mgmt. Cardiology is considering warfarin therapy due to severely depressed EF, but patient is high bleed risk due to history of hemorrhagic CVA and poor ambulatory status. Consult Speech therapy. Once off Dobutamine can consider MRI but again this result would not change our mgmt. Nephrology on board.
[2019-04-01 07:07] LABS: Troponin I 0.108 ng/mL (< 0.028)
[2019-04-01] MEDS: Lisinopril 2.5 MG TAB PO SCH (10:47)
[2019-04-01] MEDS: hydrALAZINE 25 MG TAB PO SCH ×3 (10:48→22:20)
[2019-04-01] MEDS: Sevelamer Carbonate 800 MG TAB PO SCH ×3 (10:48→18:26)
[2019-04-01] MEDS: Clopidogrel Bisulfate 75 MG TAB PO SCH (10:48)
[2019-04-01] MEDS: Fenofibrate Nanocrystallized 145 MG TAB PO SCH (10:48)
[2019-04-01] MEDS: Carvedilol 3.125 MG TAB PO SCH (10:49)
[2019-04-01] MEDS: Aspirin Chewable 81 MG TAB PO SCH (10:49)
[2019-04-01] MEDS: Heparin 5,000 UNITS/ML VIAL SC SCH ×3 (10:49→22:00)
[2019-04-01] MEDS: Furosemide 40 MG/4 ML VIAL SLOW IVP SCH (10:49)
[2019-04-01] MEDS: Isosorbide Mononitrate (ER) 30 MG TAB PO SCH (10:49)
[2019-04-01] MEDS: Gabapentin 100 MG CAP PO SCH ×2 (10:58→21:59)
--- NOTE | 2019-04-01 11:39 | PRG ---
DATE OF SERVICE: 04/01/2019 SUBJECTIVE: This is a 59-year-old gentleman being seen for acute kidney injury. The patient denies any nausea, vomiting, or chest pain. OBJECTIVE: See above. The patient is awake and alert, in no acute distress. VITAL SIGNS: Afebrile, pulse 67, breathing 16, blood pressure 120/62. GENERAL APPEARANCE AND MENTAL STATUS: Fair. HEAD/NECK: Normocephalic. Atraumatic. EYES: EOMI. No deformity. EARS: Clear. No ulcers. NOSE: Intact. No lesions. MOUTH: Clear. No discharge. THROAT: Clear. No exudate. LUNGS: Clear. No crackles. CARDIAC: S1, S2. No rub. ABDOMEN: Benign. Bowel sounds positive. GENITALIA/RECTUM: Hinkle absent. BACK/EXTREMITIES: Edema 0+. NEUROLOGICAL: Alert and motor intact. SKIN: LYMPHATICS: LABORATORY DATA: Labs reviewed. ASSESSMENT AND PLAN: 1. Chronic kidney disease, stage 4, improving. 2. Acute kidney injury, improved. 3. Acute tubular necrosis, improved. 4. Hypertension, stable. 5. Anemia, stable. 6. Medication based on GFR appropriate. No indication for dialysis. Job ID: [id number]
--- NOTE | 2019-04-01 12:21 | PDOC.CPN ---
- Subjective Date: 04/01/19 Time: 12:19 Interval history: Doing better. Breathing back to normal. His creatinine has been up and down. Walking with PT using his prosthesis. - Review of Systems General: denies: fever/chills, weight/appetite/sleep changes, night sweats, fatigue Respiratory: reports: shortness of breath. denies: cough, congestion, exercise intolerance Cardiovascular: denies: chest pain, palpitation, edema, paroxysmal nocturnal dyspnea, orthopnea Gastrointestinal: denies: nausea, vomiting, diarrhea, constipation, abd pain, GI bleeding Musculoskeletal: denies: pain, tenderness, stiffness, swelling, arthritis/ arthralgias Neurological: denies: numbness, syncope, seizure, weakness - Objective Allergies/Adverse Reactions: Allergies Allergy/AdvReac Type Severity Reaction Status Date / Time No Known Allergies Allergy Verified 02/28/19 19:39 Visit Medications: Current Medications Acetaminophen (Tylenol) 650 mg PO Q4H PRN PRN Reason: Headache/Fever/Mild Pain (1-3) Aspirin (Aspirin Chewable) 81 mg PO DAILY [facility] Last Admin: 04/01/19 10:49 Dose: 81 mg Atorvastatin Calcium (Lipitor) 80 mg PO HS [facility] Last Admin: 03/31/19 20:18 Dose: 80 mg Calcium Carbonate (Tums) 1,000 mg PO Q4H PRN PRN Reason: Heartburn or Indigestion Carvedilol (Coreg) 3.125 mg PO BID-WM [facility] Last Admin: 04/01/19 10:49 Dose: 3.125 mg Clopidogrel Bisulfate (Plavix) 75 mg PO DAILY [facility] Last Admin: 04/01/19 10:48 Dose: 75 mg Dextrose/Water (Dextrose 50%) 25 gm SLOW IVP PRN PRN PRN Reason: Hypoglycemia Fenofibrate (Tricor) 145 mg PO Q2DAYS@0900 [facility] Last Admin: 04/01/19 10:48 Dose: 145 mg Furosemide (Lasix) 40 mg SLOW IVP DAILY [facility] Last Admin: 04/01/19 10:49 Dose: 40 mg Gabapentin (Neurontin) 300 mg PO BID [facility] Last Admin: 04/01/19 10:58 Dose: 300 mg Glucagon (Glucagon) 1 mg IM PRN PRN PRN Reason: Hypoglycemia Heparin Sodium (Porcine) (Heparin) 5,000 units SC TID [facility] Last Admin: 04/01/19 10:49 Dose: 5,000 units Hydralazine HCl (Apresoline) 25 mg PO TID [facility] Last Admin: 04/01/19 10:48 Dose: 25 mg Dextrose/Water (D5w) 1,000 mls @ 0 mls/hr IV .Q0M PRN PRN Reason: Hypoglycemia Insulin Glargine 20 units/ (Syringe) 1.2 mls @ 0 mls/hr SC HS [facility] Last Admin: 03/31/19 22:35 Dose: 1.2 mls Dobutamine HCl/Dextrose (Dobutamine 500 Mg/250 Ml) 250 mls @ 12.621 mls/hr IVPB INF [facility]; Protocol Last Admin: 04/01/19 04:30 Dose: 250 mls Insulin Human Lispro (Humalog) 0 units SC .MILD SLIDING SCALE PRN PRN Reason: Mild Correctional Scale Isosorbide Mononitrate (Imdur Er) 30 mg PO DAILY [facility] Last Admin: 04/01/19 10:49 Dose: 30 mg Lisinopril (Zestril) 2.5 mg PO DAILY [facility] Last Admin: 04/01/19 10:47 Dose: 2.5 mg Ondansetron HCl (Zofran Odt) 4 mg PO Q6H PRN PRN Reason: Nausea/Vomiting Pantoprazole Sodium (Protonix) 40 mg PO DAILY [facility] Last Admin: 04/01/19 10:49 Dose: 40 mg Senna/Docusate Sodium (Senokot S) 2 tab PO BID PRN PRN Reason: Constipation Last Admin: 03/27/19 15:05 Dose: 2 tab Sevelamer Carbonate (Renvela) 800 mg PO TID[facility] Last Admin: 04/01/19 11:57 Dose: Not Given Sodium Chloride (Flush - Normal Saline) 10 ml IVF PRN PRN PRN Reason: Saline Flush Last Admin: 03/31/19 08:55 Dose: 10 ml Vital Signs & Weight: Vital Signs Temp Pulse Pulse Pulse Resp BP BP 04/01/19 11:40 98.2 F 82 18 04/01/19 10:48 73 152/70 H 04/01/19 10:47 73 04/01/19 10:35 80 83 152/70 H 04/01/19 07:40 97.8 F 73 18 04/01/19 04:00 98.1 F 81 16 04/01/19 00:29 77 BP BP BP Pulse Ox 04/01/19 11:40 137/63 97 04/01/19 10:48 04/01/19 10:47 04/01/19 10:35 156/66 H 04/01/19 07:40 155/72 H 97 04/01/19 04:00 128/60 97 04/01/19 00:29 119/58 L Weight 186 lb 9.6 oz - Physical Exam General: alert & oriented x3, no apparent distress HEENT: mucus membranes moist, normocephaly Neck: supple neck, midline trachea Cardiac: regular rate and rhythm, no murmur Lungs: clear to auscultation, no wheeze, rales, rhonchi Neuro: grossly intact, coordination normal Abdomen: active bowel sounds, soft, non-tender Skin: clear Musculoskeletal: normal range of motion, no pain - Labs Result Diagrams: 04/01/19 04:57 04/01/19 04:57 Troponin/CKMB CK-MB (CK-2) 1.6 ng/mL (0-6.6) 03/31/19 11:24 Troponin I 0.108 ng/mL (< 0.028) H 04/01/19 04:57 - Telemetry Sinus rhythms and dysrhythmias: sinus rhythm - Assessment/Plan Assessment/Plan: 1. Acute on chronic systolic heart failure. 2. RV dysfunction 3. Ischemic CM Ef at 15-20% 4. CKD stage 4 5. Non compliance 6. PVD. PLAN: - Will switch to his home dose of daily PO lasix. - Continue dobutamine drip to help forward flow, renal function improving. - Poor penitentiary prognosis. - Continue to be off Entresto and aldactone due to renal function. Low dose ACEI per nephrology. - Will increase coreg for better BP and HR control.
[2019-04-01] MEDS: Carvedilol 6.25 MG TAB PO SCH (18:26)
[2019-04-01] MEDS: Atorvastatin Calcium 40 MG TAB PO SCH (21:59)
[2019-04-01] MEDS: INSULIN GLARGINE SC SCH (22:00)
[2019-04-02] MEDS: DOBUTamine 500 mg/250 ml 250 ML IVPB SCH ×2 (01:35→23:20)
[2019-04-02 04:56] LABS: #Basophils 0.1 thou/uL (0.0-0.2); #Eosinphils 0.4 thou/uL (0.0-0.7); #Lymphocytes 2.3 thou/uL (1.20-3.40); #Monocytes 0.9 thou/uL (0.11-0.59); #Neutrophils 5.3 thou/uL (1.40-6.50); %Basophils 0.8 % (0.0-1.0); %Eosinophils 4.8 % (0.0-10.0); %Lymphocytes 25.9 % (21.0-51.0); %Monocytes 9.6 % (0.0-10.0); Hemoglobin 10.4 g/dL (14.0-18.0); Mean Corpuscular Hemoglobin 29.1 pg (27.0-31.0); Mean Corpuscular Volume 88.2 fL (78.0-98.0); Mean Platelet Volume 8.3 fL (7.4-10.4); Platelet Count 311 thou/uL (130-400); RBC Distribution Width 14.4 % (11.5-14.5); Red Blood Cell (RBC) Count 3.58 mill/uL (4.70-6.10)
[2019-04-02 05:16] LABS: Anion Gap 15 mmol/L (10-20); BUN (Urea Nitrogen) 40 mg/dL (8.4-25.7); Calc. Creatinine Clearance 29 mL/min (70-130); Calcium 9.3 mg/dL (7.8-10.44); Carbon Dioxide 23 mmol/L (22-29); Chloride 106 mmol/L (98-107); Estimated GFR-MDRD 19; Glucose 78 mg/dL (70-105); Potassium 4.1 mmol/L (3.5-5.1); Sodium 140 mmol/L (136-145)
--- NOTE | 2019-04-02 05:47 | PDOC.FM ---
- Subjective Subjective: Pt notes some improvement in his speech, stating that he can get more words out at a time. Notes worsening of the twitching of his face. States that he is frustrated with his situation. Denies any shortness of breath, chest pain. - Objective Vital Signs & Weight: Vital Signs (12 hours) Temp Pulse Resp BP BP BP Pulse Ox 04/02/19 03:56 98.7 F 86 18 113/51 L 92 L 04/02/19 00:00 98.5 F 66 16 139/70 92 L 04/01/19 22:20 70 146/82 H 04/01/19 20:15 120/69 99 04/01/19 20:00 98.6 F 76 16 98/52 L 91 L 04/01/19 18:26 104/65 Weight Weight 84.64 kg I&O: 03/31/19 04/01/19 04/02/19 06:59 06:59 06:59 Intake Total 1200 1301 240 Output Total 7127 5705 7077 Balance -882 -129 -668 Result Diagrams: 04/02/19 04:42 04/02/19 04:42 Phys Exam - Physical Examination Constitutional: NAD HEENT: moist MMs Neck: no JVD, full ROM Respiratory: no wheezing, no rales, no rhonchi, clear to auscultation bilateral Cardiovascular: RRR, no significant murmur Gastrointestinal: soft, non-tender Musculoskeletal: no edema, pulses present Neurological: moves all 4 limbs Expressive aphasia with difficulty articulating words Left facial twitching Psychiatric: normal affect, A&O x 3 Skin: no rash, cap refill <2 seconds Dx/Plan (1) Cardiorenal syndrome Code(s): I13.10 - HYP HRT & CHR KDNY DIS W/O HRT FAIL, W STG 1-4/UNSP CHR KDNY Status: Acute (2) Acute exacerbation of CHF (congestive heart failure) Code(s): I50.9 - HEART FAILURE, UNSPECIFIED Status: Acute (3) Anemia, chronic disease Code(s): D63.8 - ANEMIA IN OTHER CHRONIC DISEASES CLASSIFIED ELSEWHERE Status : Acute (4) IDDM (insulin dependent diabetes mellitus) Code(s): E11.9 - TYPE 2 DIABETES MELLITUS WITHOUT COMPLICATIONS; Z79.4 - NURSING HOME (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 OF INSULIN Status: Acute (5) Type 2 AMI (acute myocardial infarction) Code(s): I21.A1 - MYOCARDIAL INFARCTION TYPE 2 Status: Acute (6) Acute kidney injury superimposed on CKD Code(s): N17.9 - ACUTE KIDNEY FAILURE, UNSPECIFIED; N18.9 - CHRONIC KIDNEY DISEASE, UNSPECIFIED Status: Acute (7) Stroke-like symptoms Code(s): R29.90 - UNSPECIFIED SYMPTOMS AND SIGNS INVOLVING THE NERVOUS SYSTEM Status: Acute - Plan Plan: CHF exacerbation, h/o HFrEF, Improving clinically * BNP elevated to 2521, crackles on exam, mild increase interstitial lung markings on CXR, 2-3 word dyspnea with orthopnea (previous BNP 02/23 183.2) * likely 2/2 running out of medications * 40 lasix PO daily * daily weights, strict I/O's * ECHO (03/27): EF 15-20%, 1/3 Dystolic Dysfunction, Mild LVH, Mitral Calcification, Mild MR, Moderately dilated LA, AV sclerosis, Mild TR, Akinesis of Anterior wll * Consulted cardiology - Dr. Pichardo started on Dobutamine drip @ 5ml/hr, pt is clinically stable w/o CP or SOB, renal function continues to wax and wain, overall decreased since admission. Increased pt's coreg yesterday from 3.125 to 6.25mg * Pt did not receive coreg dose last night due to BP of 104/65 at the time * Will hold Hydralazine w/ recent episodes of hypotension and increased Coreg * Consulted cardiac rehab and CHF clinic for OP f/u Stroke like symptoms - Pt developing increasing word finding difficulties and dysarthric speech - Head CT negative for bleed, CTA deferred due to risk of renal injury - If pt gets off dobutamine drip at anytime, will go ahead with MRI of the head - Pt transferred to Stroke floor - Neuro checks performed w/ pt remaining stable - pt verbalizes subjective improvement in speech today - Pt w/ hx of right manjula infarction w/ hemorrhage - not a TPA candidate - Currently on asa and plavix - Barium swallow today - Pt would benefit from high level of care beyond home health upon discharge NSTEMI Type 2 2/2 CHF exacerbation, Downtrended * Troponin initially elevated to 0.068 > 0.074 > 0.058, likely 2/2 demand ischemia and CKDIII * Code green yesterday for stroke like sx: repeated trop and elevated to 0.113 , downtrend to 0.103 * no current CP or EKG changes * EKG shows T wave inversions in lateral leads and LVH, stable from EKG on admission CAD s/p 3vCABG in 2009 * known to Dr. Pichardo * attempted heart cath 02/28/19 but unable 2/2 CKD * will continue home coreg, plavix, asa, isosorbide and imdur * Consulted Cardiology (03/26), appreciate recs Acute kdiney injury on CKD 4 in setting of cardiorenal syndrome * Cr function worsening overall w/ improved levels today from 3.36 to 3.03 * Previously hovering between CKD III & IV * Cont trend Cr * Cont renvella * monitor lytes and replace per protocol * Consulted Nephrology (03/27), appreciate recs. * TP/C Ratio: 1.8 g/d * Renal US: No evidence of obstructive uropathy * Stopped home entresto and aldactone, cont low dose ACEi Anemia of chronic disease, Stable, Most likely 2/2 CKD * Hb stable in 03-19 * Iron 38, TIBC 378, % Sat 10, Ferritin 87.6 IDDMII with peripheral neuropathy, Stable * A1C 6 in November 2018 per records reviewed * will continue home levemir 20u QHS * Hyperglycemic protocol with mild SS insulin and ACHS accuchecks, will monitor and adjust as needed * continue home Cayden for neuropathy HTN * cont home Imdur and hydralazine * Will monitor * Low dose lisinopril per nephro HLD * Lipid panel check in clinic in 2017 * continue home atorva and tricor GERD * cont home Protonix VTE: Lovenox renally dosed Diet: HH, CC, Fluid restriction Code Status: Full GI Prophylaxis: Tums PCP: MARA Loja Disposition: Inpt, currently on dobutamine drip. Will follow Nephrology and Cardiology's recs. Rehab screen and assessment for SNF upon DC. Addendum - Attending - Attending Attestation Date/Time: 04/02/19 2320 I personally evaluated the patient and discussed the management with Dr. Robledo. I agree with the History, Examination, Assessment and Plan documented above with any addition or exceptions noted below. Patient here for sdCHF with cardiorenal syndrome and likely new onset CVA with expressive aphasia. Patient is somewhat better today. Speech is a little improved and NURSING CARE ATTENDANT is on board. Consult Neuro due to acute CVA. Patient is already on the correct meds and this is likely partially due to medication noncompliance. He also continues on diuresis with dobutamine for his cardiorenal syndrome. Renal function somewhat worse today. Await specialist input. He will go for [facility] today and will need placement on discharge.
[2019-04-02] MEDS: Heparin 5,000 UNITS/ML VIAL SC SCH ×3 (09:38→20:44)
[2019-04-02] MEDS: Gabapentin 100 MG CAP PO SCH ×2 (09:39→20:40)
[2019-04-02] MEDS: Aspirin Chewable 81 MG TAB PO SCH (09:40)
[2019-04-02] MEDS: hydrALAZINE 25 MG TAB PO SCH (09:41)
[2019-04-02] MEDS: Clopidogrel Bisulfate 75 MG TAB PO SCH (09:41)
[2019-04-02] MEDS: Sevelamer Carbonate 800 MG TAB PO SCH ×3 (09:41→18:06)
[2019-04-02] MEDS: Lisinopril 2.5 MG TAB PO SCH (09:41)
[2019-04-02] MEDS: Furosemide 40 MG TAB PO SCH (09:41)
[2019-04-02] MEDS: Isosorbide Mononitrate (ER) 30 MG TAB PO SCH (09:41)
--- NOTE | 2019-04-02 14:29 | RAD ---
Modified barium swallow HISTORY: Dysphagia. Feeding difficulties. CVA. FINDINGS: Exam was performed in conjunction with speech pathology with multiple consistencies. Video review is available and demonstrates good bolus formation and retropulsion. Early spill of contrast with multiple consistencies. Deep penetration with thin liquids. Small amount of aspiration was seen upon video review. Patient demonstrated significant coughing. There was incomplete clearance upon primary swallowing, with significant residua from the mouth event ually spilling into the posterior pharynx. Good clearance upon secondary swallowing. Tablet was swallowed without difficulty. The esophagus below the level of the hypopharynx was not kasandra luated. Fluoroscopy time 1.6 minutes. Please see separate detailed report from speech pathology.
--- NOTE | 2019-04-02 15:39 | PRG ---
DATE OF SERVICE: 04/02/2019 SUBJECTIVE: A 59-year-old gentleman being seen for acute kidney injury. The patient denied any nausea, vomiting, or chest pain. OBJECTIVE: GENERAL: The patient is awake and alert. VITAL SIGNS: Afebrile, pulse 75, breathing 16, and blood pressure was 123/69. GENERAL APPEARANCE AND MENTAL STATUS: Fair. HEAD/NECK: Normocephalic. Atraumatic. EYES: EOMI. No deformity. EARS: Clear. No ulcers. NOSE: Intact. No lesions. MOUTH: Clear. No discharge. THROAT: Clear. No exudate. LUNGS: Clear. No crackles. CARDIAC: S1, S2. No rub. ABDOMEN: Benign. Bowel sounds positive. GENITALIA/RECTUM: Hinkle absent. BACK/EXTREMITIES: Edema 0+. NEUROLOGICAL: Alert and motor intact. SKIN: LYMPHATICS: LABORATORY DATA: Reviewed. ASSESSMENT AND PLAN: 1. Stage 4 chronic kidney disease with acute kidney injury due to acute tubular necrosis, mild increase due to cardiorenal syndrome. No indication for dialysis. 2. Hypertension, stable. 3. Anemia, stable. No indication for dialysis. Job ID: [id number]
--- NOTE | 2019-04-02 17:35 | PDOC.CPN ---
- Subjective Date: 04/02/19 Time: 17:33 Interval history: He had speech difficulties overnight and was transferred to the stroke unit. He denies any angina. He feels very thirsty. - Review of Systems General: denies: fever/chills, weight/appetite/sleep changes, night sweats, fatigue Respiratory: denies: cough, congestion, shortness of breath, exercise intolerance Cardiovascular: denies: chest pain, palpitation, edema, paroxysmal nocturnal dyspnea, orthopnea Gastrointestinal: denies: nausea, vomiting, diarrhea, constipation, abd pain, GI bleeding Neurological: denies: numbness, syncope, seizure, weakness - Objective Allergies/Adverse Reactions: Allergies Allergy/AdvReac Type Severity Reaction Status Date / Time No Known Allergies Allergy Verified 02/28/19 19:39 Visit Medications: Current Medications Acetaminophen (Tylenol) 650 mg PO Q4H PRN PRN Reason: Headache/Fever/Mild Pain (1-3) Aspirin (Aspirin Chewable) 81 mg PO DAILY [facility] Last Admin: 04/02/19 09:40 Dose: 81 mg Atorvastatin Calcium (Lipitor) 80 mg PO HS [facility] Last Admin: 04/01/19 21:59 Dose: 80 mg Calcium Carbonate (Tums) 1,000 mg PO Q4H PRN PRN Reason: Heartburn or Indigestion Carvedilol (Coreg) 6.25 mg PO BID-WM [facility] Last Admin: 04/01/19 18:26 Dose: Not Given Clopidogrel Bisulfate (Plavix) 75 mg PO DAILY [facility] Last Admin: 04/02/19 09:41 Dose: 75 mg Dextrose/Water (Dextrose 50%) 25 gm SLOW IVP PRN PRN PRN Reason: Hypoglycemia Fenofibrate (Tricor) 145 mg PO Q2DAYS@0900 [facility] Last Admin: 04/01/19 10:48 Dose: 145 mg Furosemide (Lasix) 40 mg PO DAILY-AC [facility] Last Admin: 04/02/19 09:41 Dose: 40 mg Gabapentin (Neurontin) 300 mg PO BID [facility] Last Admin: 04/02/19 09:39 Dose: 300 mg Glucagon (Glucagon) 1 mg IM PRN PRN PRN Reason: Hypoglycemia Heparin Sodium (Porcine) (Heparin) 5,000 units SC TID [facility] Last Admin: 04/02/19 15:56 Dose: 5,000 units Hydralazine HCl (Apresoline) 25 mg PO TID [facility] Last Admin: 04/02/19 09:41 Dose: 25 mg Dextrose/Water (D5w) 1,000 mls @ 0 mls/hr IV .Q0M PRN PRN Reason: Hypoglycemia Insulin Glargine 20 units/ (Syringe) 1.2 mls @ 0 mls/hr SC HS [facility] Last Admin: 04/01/19 22:00 Dose: 1.2 mls Dobutamine HCl/Dextrose (Dobutamine 500 Mg/250 Ml) 250 mls @ 12.621 mls/hr IVPB INF JOANNE; Protocol Last Admin: 04/02/19 01:35 Dose: 250 mls Sodium Chloride (Normal Saline 0.9%) 500 mls @ 50 mls/hr IV .Q10H [facility] Stop: 04/03/19 03:44 Insulin Human Lispro (Humalog) 0 units SC .MILD SLIDING SCALE PRN PRN Reason: Mild Correctional Scale Isosorbide Mononitrate (Imdur Er) 30 mg PO DAILY [facility] Last Admin: 04/02/19 09:41 Dose: 30 mg Ondansetron HCl (Zofran Odt) 4 mg PO Q6H PRN PRN Reason: Nausea/Vomiting Pantoprazole Sodium (Protonix) 40 mg PO DAILY [facility] Last Admin: 04/02/19 09:41 Dose: 40 mg Senna/Docusate Sodium (Senokot S) 2 tab PO BID PRN PRN Reason: Constipation Last Admin: 03/27/19 15:05 Dose: 2 tab Sevelamer Carbonate (Renvela) 800 mg PO TID-[facility] Last Admin: 04/02/19 13:06 Dose: 800 mg Sodium Chloride (Flush - Normal Saline) 10 ml IVF PRN PRN PRN Reason: Saline Flush Last Admin: 03/31/19 08:55 Dose: 10 ml Vital Signs & Weight: Vital Signs Temp Pulse Pulse Pulse Resp BP BP 04/02/19 17:00 04/02/19 16:00 98.6 F 71 18 04/02/19 11:55 04/02/19 11:31 98.9 F 79 18 04/02/19 11:10 79 76 87/63 L 124/66 04/02/19 09:50 74 139/89 04/02/19 09:41 79 04/02/19 08:00 98.2 F 73 16 BP BP Pulse Ox 04/02/19 17:00 114/71 04/02/19 16:00 96/49 L 93 L 04/02/19 11:55 123/69 04/02/19 11:31 108/67 93 L 04/02/19 11:10 04/02/19 09:50 04/02/19 09:41 04/02/19 08:00 138/78 96 Admit Weight 189 lb 6.4 oz Weight 185 lb 4.8 oz - Physical Exam General: alert & oriented x3, no apparent distress HEENT: mucus membranes moist, normocephaly Neck: supple neck, midline trachea Cardiac: regular rate and rhythm, no murmur Lungs: clear to auscultation, no wheeze, rales, rhonchi Neuro: grossly intact, coordination normal Abdomen: active bowel sounds, soft, non-tender Skin: clear Musculoskeletal: normal range of motion, no pain - Labs Result Diagrams: 04/02/19 04:42 04/02/19 04:42 Troponin/CKMB CK-MB (CK-2) 1.6 ng/mL (0-6.6) 03/31/19 11:24 Troponin I 0.108 ng/mL (< 0.028) H 04/01/19 04:57 - Telemetry Sinus rhythms and dysrhythmias: sinus rhythm - Assessment/Plan Assessment/Plan: 1. Acute on chronic systolic heart failure. 2. RV dysfunction 3. Ischemic CM Ef at 15-20% 4. CKD stage 4 5. Non compliance 6. PVD. PLAN: - He seems dry. - Will hold Lasix. - Will give small dose of IV lasix. - Continue dobutamine drip to help forward flow, renal function improving. 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 - Continue to be off Entresto and aldactone due to renal function. - Will stop lisinopril due to renal function. - Continue coreg at current dose.
[2019-04-02] MEDS ORDERED: Sodium Chloride 0.9% 500 ML IV SCH (17:45)
[2019-04-02] MEDS: Carvedilol 6.25 MG TAB PO SCH (18:06)
[2019-04-02] MEDS: Atorvastatin Calcium 40 MG TAB PO SCH (20:44)
[2019-04-02] MEDS: INSULIN GLARGINE SC SCH (20:44)
--- NOTE | 2019-04-03 05:35 | PDOC.FM ---
- Subjective Subjective: Pt feels that his speech has improved. Feels some of his executive functions like using his remote has gotten more confusing to him this morning. Denies any SOB, CP, lightheaded, or dizziness. - Objective Vital Signs & Weight: Vital Signs (12 hours) Temp Pulse Resp BP BP Pulse Ox 04/03/19 04:00 98.7 F 83 16 157/89 H 98 04/03/19 00:00 98.9 F 69 16 144/74 H 98 04/02/19 20:00 98.2 F 73 16 112/73 92 L 04/02/19 18:06 149/84 H Weight Admit Weight 85.91 kg Weight 84.051 kg I&O: 04/01/19 04/02/19 04/03/19 06:59 06:59 06:59 Intake Total 1301 691 480 Output Total 3728 1790 500 [facility] -749 -1099 -20 Result Diagrams: 04/03/19 07:24 04/03/19 07:24 Phys Exam - Physical Examination Constitutional: NAD HEENT: moist MMs Neck: full ROM Respiratory: no wheezing, no rales, no rhonchi, clear to auscultation bilateral Cardiovascular: RRR, no significant murmur, no rub Gastrointestinal: soft, non-tender Musculoskeletal: no edema, pulses present Rt BKA Expressive aphasia, difficulty articulating words and word finding Psychiatric: normal affect, A&O x 3 Skin: no rash, cap refill <2 seconds Dx/Plan (1) Cardiorenal syndrome Code(s): I13.10 - HYP HRT & CHR KDNY DIS W/O HRT FAIL, W STG 1-4/UNSP CHR KDNY Status: Acute (2) Acute exacerbation of CHF (congestive heart failure) Code(s): I50.9 - HEART FAILURE, UNSPECIFIED Status: Acute (3) Anemia, chronic disease Code(s): D63.8 - ANEMIA IN OTHER CHRONIC DISEASES CLASSIFIED ELSEWHERE Status : Acute (4) IDDM (insulin dependent diabetes mellitus) Code(s): E11.9 - TYPE 2 DIABETES MELLITUS WITHOUT COMPLICATIONS; 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.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 Status: Acute (5) Type 2 AMI (acute myocardial infarction) Code(s): I21.A1 - MYOCARDIAL INFARCTION TYPE 2 Status: Acute (6) Acute kidney injury superimposed on CKD Code(s): N17.9 - ACUTE KIDNEY FAILURE, UNSPECIFIED; N18.9 - CHRONIC KIDNEY DISEASE, UNSPECIFIED Status: Acute (7) Stroke-like symptoms Code(s): R29.90 - UNSPECIFIED SYMPTOMS AND SIGNS INVOLVING THE NERVOUS SYSTEM Status: Acute - Plan Plan: CHF exacerbation, h/o HFrEF - NYHA 3, EF 15-20% * daily weights, strict I/O's * CHF 2/2 hx of ischemic cardiomyopathy * ECHO (03/27): EF 15-20%, 1/3 Dystolic Dysfunction, Mild LVH, Mitral Calcification, Mild MR, Moderately dilated LA, AV sclerosis, Mild TR, Akinesis of Anterior wall * Consulted cardiology - Dr. Pichardo started on Dobutamine drip @ 5ml/hr, pt is clinically stable w/o CP or SOB at rest, renal function continues to wax and wain, overall decreased since admission. Increased pt's coreg from 3.125 to 6.25mg. stoppped lisinopril. reduced lasix from 40 BID to daily. * Will hold Hydralazine w/ recent episodes of hypotension and increased Coreg * Consulted cardiac rehab and CHF clinic for OP f/u Stroke like symptoms - Pt developing increasing word finding difficulties and dysarthric speech - Head CT negative for bleed, CTA deferred due to risk of renal injury - If pt gets off dobutamine drip at anytime, will go ahead with MRI of the head - Neuro checks performed w/ pt remaining stable - pt verbalizes continued subjective improvement in speech - Pt w/ hx of right manjula infarction w/ hemorrhage - not a TPA candidate - Currently on asa and plavix - Speech therapy consulted - rec puree and nectar thick - Barium swallow yesterday: coughing with small amount of aspiration, incomplete swallowing - Pt would benefit from high level of care beyond home health upon discharge - Neurology consulted, appreciate recs NSTEMI Type 2 2/2 CHF exacerbation, Downtrended * Troponin initially elevated to 0.068 > 0.074 > 0.058, likely 2/2 demand ischemia and CKDIII * Code green yesterday for stroke like sx: repeated trop and elevated to 0.113 , downtrend to 0.103 * no current CP or EKG changes * EKG shows T wave inversions in lateral leads and LVH, stable from EKG on admission CAD s/p 3vCABG in 2009 * known to Dr. Pichardo * attempted heart cath 02/28/19 but unable 2/2 CKD * will continue home coreg, plavix, asa, isosorbide and imdur * Consulted Cardiology appreciate recs Acute kdiney injury on CKD 4 in setting of cardiorenal syndrome * Cr function worsening overall w/waxing and waning levels * Previously hovering between CKD III & IV * Cont trend Cr * monitor lytes and replace per protocol * Consulted Nephrology (03/27), appreciate recs. * TP/C Ratio: 1.8 g/d * Renal US: No evidence of obstructive uropathy * Stopped home entresto and aldactone Anemia of chronic disease, Stable, Most likely 2/2 CKD * Hb stable in 03-19 * Iron 38, TIBC 378, % Sat 10, Ferritin 87.6 IDDMII with peripheral neuropathy, Stable * A1C 6 in November 2018 per records reviewed * will continue home levemir 20u QHS * Hyperglycemic protocol with mild SS insulin and ACHS accuchecks, will monitor and adjust as needed * continue home Cayden for neuropathy HTN * cont home Imdur and hydralazine * Will monitor * Low dose lisinopril per nephro HLD * Lipid panel check in clinic in 2017 * continue home atorva and tricor GERD * cont home Protonix VTE: Lovenox renally dosed Diet: HH, CC, Fluid restriction Code Status: Full GI Prophylaxis: Cameron PCP: MARA Loja Disposition: Inpt, currently on dobutamine drip. Will follow Nephrology, Neurology, and Cardiology's recs. Rehab screen and assessment for SNF upon DC. Addendum - Attending - Attending Attestation Date/Time: 04/03/19 [id number] I personally evaluated the patient and discussed the management with Dr. Robledo. I agree with the History, Examination, Assessment and Plan documented above with any addition or exceptions noted below. Patient here with CHF exacerbation, acute on chronic renal failure, and new onset aphasia from CVA. He continues on dobutamine, monitoring renal function. Awaiting cardiology and nephro recs. Neuro on board as are stroke therapy services.
[2019-04-03 07:50] LABS: #Eosinphils 0.4 thou/uL (0.0-0.7); #Neutrophils 6.3 thou/uL (1.40-6.50); %Basophils 0.5 % (0.0-1.0); %Lymphocytes 20.7 % (21.0-51.0); %Monocytes 10.4 % (0.0-10.0); %Neutrophils 64.4 % (42.0-75.0); Hemoglobin 10.4 g/dL (14.0-18.0); Mean Corpuscular HGB CONC 32.8 g/dL (32.0-36.0); Mean Corpuscular Hemoglobin 28.3 pg (27.0-31.0); Mean Corpuscular Volume 86.2 fL (78.0-98.0); Mean Platelet Volume 8.4 fL (7.4-10.4); Platelet Count 308 thou/uL (130-400); RBC Distribution Width 14.4 % (11.5-14.5); Red Blood Cell (RBC) Count 3.69 mill/uL (4.70-6.10); White Blood Cell (WBC) Count 9.8 thou/uL (4.8-10.8)
[2019-04-03 08:02] LABS: Phosphorus 3.8 mg/dL (2.3-4.7)
[2019-04-03 08:04] LABS: Anion Gap 12 mmol/L (10-20); BUN (Urea Nitrogen) 42 mg/dL (8.4-25.7); Calc. Creatinine Clearance 27 mL/min (70-130); Calcium 9.6 mg/dL (7.8-10.44); Carbon Dioxide 24 mmol/L (22-29); Chloride 108 mmol/L (98-107); Estimated GFR-MDRD 18; Glucose 67 mg/dL (70-105); Magnesium 2.3 mg/dL (1.6-2.6); Potassium 4.1 mmol/L (3.5-5.1); Sodium 140 mmol/L (136-145)
[2019-04-03] MEDS: Isosorbide Mononitrate (ER) 30 MG TAB PO SCH (08:21)
[2019-04-03] MEDS: Gabapentin 100 MG CAP PO SCH ×2 (08:21→21:10)
[2019-04-03] MEDS: Carvedilol 6.25 MG TAB PO SCH ×2 (08:21→16:34)
[2019-04-03] MEDS: Furosemide 40 MG TAB PO SCH (08:21)
[2019-04-03] MEDS: Sevelamer Carbonate 800 MG TAB PO SCH ×3 (08:21→16:34)
[2019-04-03] MEDS: Heparin 5,000 UNITS/ML VIAL SC SCH ×2 (08:22→16:34)
[2019-04-03] MEDS: Aspirin Chewable 81 MG TAB PO SCH (08:22)
[2019-04-03] MEDS: Fenofibrate Nanocrystallized 145 MG TAB PO SCH (08:22)
[2019-04-03] MEDS: Clopidogrel Bisulfate 75 MG TAB PO SCH (08:22)
--- NOTE | 2019-04-03 12:53 | PRG ---
DATE OF SERVICE: 04/03/2019 SUBJECTIVE: This is a 59-year-old gentleman, being seen for acute kidney injury. The patient denied nausea, vomiting, or chest pain. OBJECTIVE: GENERAL: The patient is awake and alert. VITAL SIGNS: Pulse 78, breathing 16, blood pressure 135/76. GENERAL APPEARANCE AND MENTAL STATUS: Fair. HEAD/NECK: Normocephalic. Atraumatic. EYES: EOMI. No deformity. EARS: Clear. No ulcers. NOSE: Intact. No lesions. MOUTH: Clear. No discharge. THROAT: Clear. No exudate. LUNGS: Clear. No crackles. CARDIAC: S1, S2. No rub. ABDOMEN: Benign. Bowel sounds positive. GENITALIA/RECTUM: Hinkle absent. BACK/EXTREMITIES: Edema 0+. NEUROLOGICAL: Alert and motor intact. LABORATORY DATA: Hemoglobin 10.4, creatinine 3.4. ASSESSMENT: 1. Acute kidney injury, chronic kidney disease, progressive due to acute tubular necrosis. 2. Congestive heart failure. No indication for dialysis. 3. Hypertension, stable. 4. Anemia, stable. 5. Medication based on GFR appropriate. Job ID: [id number]
[2019-04-03] MEDS ORDERED: levETIRAcetam 500 MG TAB PO SCH (17:00)
--- NOTE | 2019-04-03 18:04 | PDOC.CPN ---
- Subjective Date: 04/03/19 Time: 18:02 - Review of Systems General: denies: fever/chills, weight/appetite/sleep changes, night sweats, fatigue Respiratory: denies: cough, congestion, shortness of breath, exercise intolerance Cardiovascular: denies: chest pain, palpitation, edema, paroxysmal nocturnal dyspnea, orthopnea Gastrointestinal: denies: nausea, vomiting, diarrhea, constipation, abd pain, GI bleeding Musculoskeletal: denies: pain, tenderness, stiffness, swelling, arthritis/ arthralgias Neurological: denies: numbness, syncope, seizure, weakness - Objective Allergies/Adverse Reactions: Allergies Allergy/AdvReac Type Severity Reaction Status Date / Time No Known Allergies Allergy Verified 02/28/19 19:39 Visit Medications: Current Medications Acetaminophen (Tylenol) 650 mg PO Q4H PRN PRN Reason: Headache/Fever/Mild Pain (1-3) Aspirin (Aspirin Chewable) 81 mg PO DAILY [facility] Last Admin: 04/03/19 08:22 Dose: 81 mg Atorvastatin Calcium (Lipitor) 80 mg PO HS [facility] Last Admin: 04/02/19 20:44 Dose: 80 mg Calcium Carbonate (Tums) 1,000 mg PO Q4H PRN PRN Reason: Heartburn or Indigestion Carvedilol (Coreg) 6.25 mg PO BID-WM [facility] Last Admin: 04/03/19 16:34 Dose: 6.25 mg Clopidogrel Bisulfate (Plavix) 75 mg PO DAILY [facility] Last Admin: 04/03/19 08:22 Dose: 75 mg Dextrose/Water (Dextrose 50%) 25 gm SLOW IVP PRN PRN PRN Reason: Hypoglycemia Fenofibrate (Tricor) 145 mg PO Q2DAYS@0900 [facility] Last Admin: 04/03/19 08:22 Dose: 145 mg Furosemide (Lasix) 40 mg PO DAILY-AC [facility] Last Admin: 04/03/19 08:21 Dose: 40 mg Gabapentin (Neurontin) 300 mg PO BID [facility] Last Admin: 04/03/19 08:21 Dose: 300 mg Glucagon (Glucagon) 1 mg IM PRN PRN PRN Reason: Hypoglycemia Heparin Sodium (Porcine) (Heparin) 5,000 units SC TID [facility] Last Admin: 04/03/19 16:34 Dose: 5,000 units Dextrose/Water (D5w) 1,000 mls @ 0 mls/hr IV .Q0M PRN PRN Reason: Hypoglycemia Insulin Glargine 20 units/ (Syringe) 1.2 mls @ 0 mls/hr SC HS [facility] Last Admin: 04/02/19 20:44 Dose: 1.2 mls Dobutamine HCl/Dextrose (Dobutamine 500 Mg/250 Ml) 250 mls @ 12.621 mls/hr IVPB INF [facility]; Protocol Last Admin: 04/02/19 23:20 Dose: 250 mls Insulin Human Lispro (Humalog) 0 units SC .MILD SLIDING SCALE PRN PRN Reason: Mild Correctional Scale Isosorbide Mononitrate (Imdur Er) 30 mg PO DAILY [facility] Last Admin: 04/03/19 08:21 Dose: 30 mg Levetiracetam (Keppra) 500 mg PO BID [facility] Levetiracetam (Keppra) 500 mg PO NOW [facility] Stop: 04/03/19 19:00 Last Admin: 04/03/19 17:37 Dose: 500 mg Ondansetron HCl (Zofran Odt) 4 mg PO Q6H PRN PRN Reason: Nausea/Vomiting Pantoprazole Sodium (Protonix) 40 mg PO DAILY [facility] Last Admin: 04/03/19 08:22 Dose: 40 mg Senna/Docusate Sodium (Senokot S) 2 tab PO BID PRN PRN Reason: Constipation Last Admin: 03/27/19 15:05 Dose: 2 tab Sevelamer Carbonate (Renvela) 800 mg PO TID-[facility] Last Admin: 04/03/19 16:34 Dose: 800 mg Sodium Chloride (Flush - Normal Saline) 10 ml IVF PRN PRN PRN Reason: Saline Flush Last Admin: 03/31/19 08:55 Dose: 10 ml Vital Signs & Weight: Vital Signs Temp Pulse Pulse Pulse Resp BP BP 04/03/19 16:34 134/79 04/03/19 15:44 98.2 F 71 16 04/03/19 14:17 74 70 115/69 04/03/19 11:28 98.1 F 78 16 04/03/19 08:21 143/81 H 04/03/19 08:00 97.7 F 66 16 BP BP Pulse Ox 04/03/19 16:34 04/03/19 15:44 137/75 93 L 04/03/19 14:17 119/72 04/03/19 11:28 136/76 96 04/03/19 08:21 04/03/19 08:00 166/80 H 96 Admit Weight 189 lb 6.4 oz Weight 184 lb 14.4 oz - Physical Exam General: alert & oriented x3 HEENT: mucus membranes moist, normocephaly Neck: supple neck, midline trachea Cardiac: regular rate and rhythm, no murmur Lungs: clear to auscultation, no wheeze, rales, rhonchi Neuro: other (Difficulty with speech.) Abdomen: active bowel sounds, soft, non-tender Skin: clear Musculoskeletal: normal range of motion, no pain - Labs Result Diagrams: 04/03/19 07:24 04/03/19 07:24 Troponin/CKMB CK-MB (CK-2) 1.6 ng/mL (0-6.6) 03/31/19 11:24 Troponin I 0.108 ng/mL (< 0.028) H 04/01/19 04:57 - Telemetry Sinus rhythms and dysrhythmias: sinus rhythm - Assessment/Plan Assessment/Plan: 1. Acute on chronic systolic heart failure. 2. RV dysfunction 3. Ischemic CM Ef at 15-20% 4. CKD stage 4 5. Non compliance 6. PVD. 7. ATN causing his creatinine to continue to rise. 8. Possible stroke vs Seizures. PLAN: - Continue to hold Lasix. - Continue dobutamine drip to help forward flow. - Cannot rule out intracardiac thrombus and embolization to brain and kidney as cause of CVA and ATN. Would recommend starting full anticoagulation to reduce risk. 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 - Continue to be off ACEI, Entresto and aldactone due to renal function. - Continue Coreg at current dose. - Will start Eliquis and stop SQ heparin.
[2019-04-03] MEDS: DOBUTamine 500 mg/250 ml 250 ML IVPB SCH (19:29)
[2019-04-03] MEDS: INSULIN GLARGINE SC SCH (21:11)
[2019-04-03] MEDS: Apixaban 2.5 MG TAB PO SCH (21:11)
[2019-04-03] MEDS: Atorvastatin Calcium 40 MG TAB PO SCH (21:11)
[2019-04-04 05:03] LABS: #Basophils 0.1 thou/uL (0.0-0.2); #Eosinphils 0.4 thou/uL (0.0-0.7); #Monocytes 0.9 thou/uL (0.11-0.59); #Neutrophils 5.5 thou/uL (1.40-6.50); %Basophils 0.6 % (0.0-1.0); %Eosinophils 4.3 % (0.0-10.0); %Lymphocytes 22.8 % (21.0-51.0); %Monocytes 10.1 % (0.0-10.0); %Neutrophils 62.2 % (42.0-75.0); Hemoglobin 10.5 g/dL (14.0-18.0); Mean Corpuscular HGB CONC 33.3 g/dL (32.0-36.0); Mean Corpuscular Volume 87.1 fL (78.0-98.0); Mean Platelet Volume 7.9 fL (7.4-10.4); Platelet Count 297 thou/uL (130-400); RBC Distribution Width 14.1 % (11.5-14.5); Red Blood Cell (RBC) Count 3.63 mill/uL (4.70-6.10); White Blood Cell (WBC) Count 8.8 thou/uL (4.8-10.8)
[2019-04-04 05:18] LABS: Anion Gap 13 mmol/L (10-20); BUN (Urea Nitrogen) 39 mg/dL (8.4-25.7); Calc. Creatinine Clearance 31 mL/min (70-130); Calcium 9.6 mg/dL (7.8-10.44); Carbon Dioxide 24 mmol/L (22-29); Chloride 107 mmol/L (98-107); Estimated GFR-MDRD 21; Sodium 140 mmol/L (136-145)
[2019-04-04 05:24] LABS: Glucose 57 mg/dL (70-105)
--- NOTE | 2019-04-04 05:38 | PDOC.FM ---
- Subjective Subjective: Pt's speech much improved this morning, nearly at his baseline. States that he only has a small lisp because he bit his tongue the other day but otherwise feels like he is near his baseline. Continues to deny and SOB, CP, swelling. - Objective Vital Signs & Weight: Vital Signs (12 hours) Temp Pulse Resp BP Pulse Ox 04/04/19 00:00 98.2 F 72 19 151/80 H 97 04/03/19 20:00 98.4 F 66 19 134/65 97 Weight Admit Weight 85.91 kg Weight 83.869 kg I&O: 04/02/19 04/03/19 04/04/19 06:59 06:59 06:59 Intake Total 624 946 0687 Output Total 6048 345 3870 Balance -1099 100 206 Result Diagrams: 04/04/19 04:48 04/04/19 04:48 Phys Exam - Physical Examination Constitutional: NAD HEENT: moist MMs, sclera anicteric Neck: full ROM Respiratory: clear to auscultation bilateral No resp distress Cardiovascular: RRR, no significant murmur Gastrointestinal: soft, non-tender Musculoskeletal: no edema, pulses present Neurological: non-focal, moves all 4 limbs Psychiatric: normal affect, A&O x 3 Skin: no rash, cap refill <2 seconds Dx/Plan (1) Cardiorenal syndrome Code(s): I13.10 - HYP HRT & CHR KDNY DIS W/O HRT FAIL, W STG 1-4/UNSP CHR KDNY Status: Acute (2) Acute exacerbation of CHF (congestive heart failure) Code(s): I50.9 - HEART FAILURE, UNSPECIFIED Status: Acute (3) Anemia, chronic disease Code(s): D63.8 - ANEMIA IN OTHER CHRONIC DISEASES CLASSIFIED ELSEWHERE Status : Acute (4) IDDM (insulin dependent diabetes mellitus) Code(s): E11.9 - TYPE 2 DIABETES MELLITUS WITHOUT COMPLICATIONS; 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 Pichardo * Dobutamine drip @ 5ml/hr, pt is clinically stable w/o CP or SOB at rest, renal function continues to wax and wain, overall decreased * Increased pt's coreg from 3.125 to 6.25mg. stoppped lisinopril. Holding lasix. * Will hold Hydralazine w/ recent episodes of hypotension and increased Coreg * Consulted cardiac rehab and CHF clinic for OP f/u Stroke like symptoms - Pt developing increasing word finding difficulties and dysarthric speech - Head CT negative for bleed, CTA deferred due to risk of renal injury - If pt gets off dobutamine drip at anytime, will go ahead with MRI of the head - Pt w/ hx of right manjula infarction w/ hemorrhage - not a TPA candidate - Currently on asa and plavix - Speech therapy consulted - rec puree and nectar thick - Barium swallow: coughing with small amount of aspiration, incomplete swallowing - Pt would benefit from high level of care beyond home health upon discharge - Neurology consulted: ordered CT brain for this morning and EEG to be performed - Cards: Started pt on low dose eliquis yesterday - Pt has much improved speech today, will have speech re-eval NSTEMI Type 2 2/2 CHF exacerbation, Downtrended * Troponin initially elevated to 0.068 > 0.074 > 0.058, likely 2/2 demand ischemia and CKDIII * no current CP or EKG changes * EKG shows T wave inversions in lateral leads and LVH, stable from EKG on admission CAD s/p 3vCABG in 2009 * known to Dr. Pichardo * attempted heart cath 02/28/19 but unable 2/2 CKD * will continue home coreg, plavix, asa, isosorbide and imdur * Consulted Cardiology appreciate recs Acute kdiney injury on CKD 4 in setting of cardiorenal syndrome * Cr function worsening overall w/waxing and waning levels * Previously hovering between CKD III & IV * Cont trend Cr * monitor lytes and replace per protocol * Consulted Nephrology (03/27), appreciate recs. * Renal US: No evidence of obstructive uropathy * Stopped home entresto, aldactone, and lisinopril, holding lasix Anemia of chronic disease, Stable, Most likely 2/2 CKD * Hb stable in 03-19 * Iron 38, TIBC 378, % Sat 10, Ferritin 87.6 IDDMII with peripheral neuropathy, Stable * A1C 6 in November 2018 per records reviewed * will continue home levemir 20u QHS * Hyperglycemic protocol with mild SS insulin and ACHS accuchecks, will monitor and adjust as needed * continue home Cayden for neuropathy HTN * Titrating rx accordingly, will monitor HLD * Lipid panel check in clinic in 2017 * continue home atorva and tricor GERD * cont home Protonix VTE: Lovenox renally dosed Diet: HH, CC, Fluid restriction Code Status: Full GI Prophylaxis: [place] PCP: MARA Loja Disposition: Inpt, currently on dobutamine drip. Will follow Nephrology, Neurology, and Cardiology's recs. Rehab screen and assessment for SNF upon DC. Addendum - Attending - Attending Attestation Date/Time: 04/04/19 [id number] I personally evaluated the patient and discussed the management with Dr. Robledo. I agree with the History, Examination, Assessment and Plan documented above with any addition or exceptions noted below. Patient improved. His speech and mentation are better. He has been started on Eliquis for anticoagulation. Adjusting insulin. Continues on Dobutamine. Awaiting cardiology recs and further Neuro recs. He has been accepted for rehab , once he is stable for discharge.
--- NOTE | 2019-04-04 07:51 | CT ---
PRELIMINARY REPORT/[facility]/EMERGENCY AFTER HOURS PROCEDURE: PROCEDURE INFORMATION: Exam: CT Head Without Contrast Exam date and time: 04/04/2019 5:11 AM Clinical history: 59 years old, male; Condition or disease; Patient HX: F/u CVA, slurred speech TECHNIQUE: Imaging protocol: Computed tomography of the head without contrast. COMPARISON: CT Brain WO Con 03/31/2019 11:34 AM FINDINGS: Brain: Stable remote right cerebellar infarct laterally. No hemorrhage. No mass effect. Patchy white matter hypodensities are nonspecific but may be seen in small vessel chronic ischemic changes. Ventricles: Normal variant cavum septum pellucidum. No ventriculomegaly. Bones/joints: No acute fracture. Sinuses: No fluid levels. Mastoid air cells: Visualized mastoid air cells are well aerated. Soft tissues: Unremarkable. IMPRESSION: No acute intracranial abnormality. Thank you for allowing us to participate in the care of your patient. Dictated and Authenticated by: Bettina Joshi MD 04/04/2019 5:21 AM Central Time ([place] & [place]) FINAL REPORT EMERGENCY AFTER HOURS CT BRAIN PERFORMED WITHOUT CONTRAST ENHANCEMENT: Date: 04/04/19 HISTORY: Slurred speech. COMPARISON: 03/31/19 exam. FINDINGS: The ventricular and cisternal system shows some mild atrophy. No signs of intracerebral hemorrhage or extra-axial fluid collections. Mastoid air cells and visualized sinuses are clear. IMPRESSION: No acute intracranial abnormality. This report is in agreement with the preliminary report issued by [facility]. POS: [facility]
[2019-04-04] MEDS ORDERED: levETIRAcetam 500 MG TAB PO SCH (09:00)
--- NOTE | 2019-04-04 09:38 | EEG ---
Referring Physician: Elizabeth DAS EEG # [id number] TEST TYPE: ROUTINE PORTABLE INPATIENT REPORT: AN EEG USING THE INTERNATIONAL TEN-TWENTY SYSTEM OF ELECTRODE PLACEMENT WAS PERFORMED. The waking background is a 8-9 hertz occipitally dominant alpha frequency. The patient remained awake throughout the study. Photic stimulation was unremarkable. There were numerous episodes of brief dysrhythmic activity seen over both hemispheres. Some of the bursts were consistent with a spike and slow wave discharge. IMPRESSION: THIS IS AN ABNORMAL STUDY FOR THE FINDINGS OF SUSPICIOUSLY EPILEPTIFORM ACTIVITY SEEN OVER BOTH HEMISPHERES WITH SOMEWHAT OF A LEFT HEMISPHERIC PREDOMINANCE. Church Organist: HEATHER Boil Off Machine Operator Cloth: EEG.MARIA ISABEL GOODWIN
[2019-04-04] MEDS: Gabapentin 100 MG CAP PO SCH ×2 (09:42→20:22)
[2019-04-04] MEDS: Sevelamer Carbonate 800 MG TAB PO SCH ×3 (09:42→16:29)
[2019-04-04] MEDS: Isosorbide Mononitrate (ER) 30 MG TAB PO SCH (09:42)
[2019-04-04] MEDS: Aspirin Chewable 81 MG TAB PO SCH (09:43)
[2019-04-04] MEDS: Carvedilol 6.25 MG TAB PO SCH ×2 (09:43→16:29)
[2019-04-04] MEDS: Clopidogrel Bisulfate 75 MG TAB PO SCH (09:43)
--- NOTE | 2019-04-04 11:51 | PRG ---
DATE OF SERVICE: 04/04/2019 SUBJECTIVE: A 59-year-old gentleman being seen for acute kidney injury. The patient denied nausea, vomiting, or chest pain. OBJECTIVE: GENERAL: The patient is awake and alert. VITAL SIGNS: Afebrile, pulse 77, breathing 16, and blood pressure 167/78. GENERAL APPEARANCE AND MENTAL STATUS: Fair. HEAD/NECK: Normocephalic. Atraumatic. EYES: EOMI. No deformity. EARS: Clear. No ulcers. NOSE: Intact. No lesions. MOUTH: Clear. No discharge. THROAT: Clear. No exudate. LUNGS: Clear. No crackles. CARDIAC: S1, S2. No rub. ABDOMEN: Benign. Bowel sounds positive. GENITALIA/RECTUM: Hinkle absent. BACK/EXTREMITIES: Edema 0+. NEUROLOGICAL: Alert and motor intact. SKIN: LYMPHATICS: LABORATORY DATA: Reviewed. ASSESSMENT AND PLAN: 1. Acute kidney injury due to acute tubular necrosis, resolved. 2. Chronic kidney disease stage 4, stable. 3. Hypertension, stable. 4. Anemia, stable. 5. Congestive heart failure, stable. No indication for dialysis. Job ID: [id number]
[2019-04-04] MEDS: Apixaban 2.5 MG TAB PO SCH ×2 (12:18→20:21)
--- NOTE | 2019-04-04 16:34 | PDOC.CPN ---
- Subjective Date: 04/04/19 Time: 16:30 Interval history: He is doing much better. His EEG showed seizures. He was started on Keppra yesterday and has been pretty much back to normal. - Review of Systems General: denies: fever/chills, weight/appetite/sleep changes, night sweats, fatigue Respiratory: denies: cough, congestion, shortness of breath, exercise intolerance Cardiovascular: denies: chest pain, palpitation, edema, paroxysmal nocturnal dyspnea, orthopnea Gastrointestinal: denies: nausea, vomiting, diarrhea, constipation, abd pain, GI bleeding Musculoskeletal: denies: pain, tenderness, stiffness, swelling, arthritis/ arthralgias Neurological: denies: numbness, syncope, seizure, weakness - Objective Allergies/Adverse Reactions: Allergies Allergy/AdvReac Type Severity Reaction Status Date / Time No Known Allergies Allergy Verified 02/28/19 19:39 Visit Medications: Current Medications Acetaminophen (Tylenol) 650 mg PO Q4H PRN PRN Reason: Headache/Fever/Mild Pain (1-3) Apixaban (Eliquis) 2.5 mg PO BID [facility] Last Admin: 04/04/19 12:18 Dose: Not Given Aspirin (Aspirin Chewable) 81 mg PO DAILY [facility] Last Admin: 04/04/19 09:43 Dose: 81 mg Atorvastatin Calcium (Lipitor) 80 mg PO HS [facility] Last Admin: 04/03/19 21:11 Dose: 80 mg Calcium Carbonate (Tums) 1,000 mg PO Q4H PRN PRN Reason: Heartburn or Indigestion Carvedilol (Coreg) 6.25 mg PO BID-WM [facility] Last Admin: 04/04/19 16:29 Dose: 6.25 mg Clopidogrel Bisulfate (Plavix) 75 mg PO DAILY [facility] Last Admin: 04/04/19 09:43 Dose: 75 mg Dextrose/Water (Dextrose 50%) 25 gm SLOW IVP PRN PRN PRN Reason: Hypoglycemia Fenofibrate (Tricor) 145 mg PO Q2DAYS@0900 [facility] Last Admin: 04/03/19 08:22 Dose: 145 mg Gabapentin (Neurontin) 300 mg PO BID [facility] Last Admin: 04/04/19 09:42 Dose: 300 mg Glucagon (Glucagon) 1 mg IM PRN PRN PRN Reason: Hypoglycemia Dextrose/Water (D5w) 1,000 mls @ 0 mls/hr IV .Q0M PRN PRN Reason: Hypoglycemia Dobutamine HCl/Dextrose (Dobutamine 500 Mg/250 Ml) 250 mls @ 12.621 mls/hr IVPB INF [facility]; Protocol Last Admin: 04/03/19 19:29 Dose: 250 mls Insulin Glargine 18 units/ (Miscellaneous Medication) 0.18 mls @ 0 mls/hr SC HS [facility] Insulin Human Lispro (Humalog) 0 units SC .MILD SLIDING SCALE PRN PRN Reason: Mild Correctional Scale Isosorbide Mononitrate (Imdur Er) 30 mg PO DAILY [facility] Last Admin: 04/04/19 09:42 Dose: 30 mg Levetiracetam (Keppra) 500 mg PO BID [facility] Last Admin: 04/04/19 09:43 Dose: 500 mg Ondansetron HCl (Zofran Odt) 4 mg PO Q6H PRN PRN Reason: Nausea/Vomiting Pantoprazole Sodium (Protonix) 40 mg PO DAILY [facility] Last Admin: 04/04/19 09:43 Dose: 40 mg Senna/Docusate Sodium (Senokot S) 2 tab PO BID PRN PRN Reason: Constipation Last Admin: 03/27/19 15:05 Dose: 2 tab Sevelamer Carbonate (Renvela) 800 mg PO TID-[facility] Last Admin: 04/04/19 16:29 Dose: 800 mg Sodium Chloride (Flush - Normal Saline) 10 ml IVF PRN PRN PRN Reason: Saline Flush Last Admin: 03/31/19 08:55 Dose: 10 ml Vital Signs & Weight: Vital Signs Temp Pulse Pulse Pulse Resp BP BP 04/04/19 16:29 118/63 04/04/19 15:17 97.6 F 66 20 04/04/19 11:29 98.6 F 68 18 04/04/19 09:43 138/76 04/04/19 09:04 76 74 138/76 04/04/19 08:00 98.2 F 77 20 BP BP BP Pulse Ox 04/04/19 16:29 04/04/19 15:17 144/77 H 97 04/04/19 11:29 121/81 97 04/04/19 09:43 04/04/19 09:04 139/75 04/04/19 08:00 166/96 H 95 Admit Weight 189 lb 6.4 oz Weight 182 lb - Physical Exam General: alert & oriented x3, no apparent distress HEENT: mucus membranes moist, normocephaly Neck: supple neck, midline trachea Cardiac: regular rate and rhythm, no murmur Lungs: clear to auscultation, no wheeze, rales, rhonchi Neuro: grossly intact, coordination normal Abdomen: active bowel sounds, soft, non-tender Skin: clear Musculoskeletal: normal range of motion, no pain - Labs Result Diagrams: 04/04/19 04:48 04/04/19 04:48 Troponin/CKMB CK-MB (CK-2) 1.6 ng/mL (0-6.6) 03/31/19 11:24 Troponin I 0.108 ng/mL (< 0.028) H 04/01/19 04:57 - Telemetry Sinus rhythms and dysrhythmias: sinus rhythm - Assessment/Plan Assessment/Plan: 1. Acute on chronic systolic heart failure. 2. RV dysfunction 3. Ischemic CM EF at 15-20% 4. CKD stage 4 5. Non compliance 6. PVD. 7. ATN causing his creatinine to continue to rise. 8. Seizures, no evidence of stroke. PLAN: - Continue to hold Lasix. - Continue dobutamine drip to be stopped at 3am. - Likely his symptoms related to seizures and not strokes, resolved with Keppra. so no indication for full anticoagluiation. Will restart Plavix and aspirin for CAD. - Poor half-way prognosis. - Continue to be off ACEI, Entresto and aldactone due to renal function. - Continue Coreg at current dose. - Will stop Eliquis - Renal function improving.
[2019-04-04] MEDS: DOBUTamine 500 mg/250 ml 250 ML IVPB SCH (17:25)
[2019-04-04] MEDS: Insulin Glargine 18 UNITS in Pre-Filled Syringe 1 EACH SC SCH (20:22)
[2019-04-04] MEDS: Atorvastatin Calcium 40 MG TAB PO SCH (20:22)
--- NOTE | 2019-04-04 23:25 | CON ---
DATE OF CONSULTATION: 04/04/2019 CONSULTING PHYSICIAN: Hospitalist Services. IMPRESSION: 1. The patient appears to be having subclinical seizure activity resulting in transient speech difficulties. 2. Peripheral vascular disease. 3. Renal insufficiency. 4. Keppra intolerance. 5. History of congestive heart failure. 6. Diabetes. 7. Anemia. PLAN: 1. Discontinue Keppra. 2. Dilantin 300 mg per night. HISTORY OF PRESENT ILLNESS: Mr. Sanon is a 59-year-old man with multiple medical problems. He came in with stroke-like symptoms where he was having difficulty speaking. Initial CT scan of the brain did not show any ischemic changes. A followup CT failed to show any ischemic changes either. His EEG showed slowing and periodic high amplitude dysrhythmic activity with some sharp and slow wave components. He was started on Keppra this morning. He reports that he feels quite drugged. He feels like he can speak better now, but the sedation level is intolerable at this point. PAST MEDICAL HISTORY: As listed above. ALLERGIES: NONE REPORTED. SOCIAL HISTORY: Unremarkable. FAMILY HISTORY: Unremarkable. REVIEW OF SYSTEMS: 10 system review of systems is otherwise negative. PHYSICAL EXAMINATION: GENERAL: He is a somewhat ill-appearing middle-aged man, in no acute distress. VITAL SIGNS: Pulse 96, respirations 20. HEENT: Pupils equal. Conjunctivae clear. Oropharynx clear. Cranium, normocephalic and atraumatic. NECK: Supple. No lymphadenopathy. EXTREMITIES: He has right BKA. NEUROLOGIC: He was alert and cooperative. He had fluent speech with mildly slowed quality. He appears to be a bit sedated. His cranial nerves were intact throughout. He had good household manager strength bilaterally. There is no fix or drift present. He had no tremor, dysmetria, asterixis, or myoclonus. Gait was not tested. Sensation was grossly intact. IMAGING STUDIES: EKG shows sinus rhythm. SUMMARY: A middle-aged man who is having some subclinical seizure activity. His CT of the brain have not showed an underlying structural problem. We will switch him over to Dilantin and see how he tolerates it. Job ID: [id number]
[2019-04-05 05:05] LABS: #Basophils 0.1 thou/uL (0.0-0.2); #Eosinphils 0.4 thou/uL (0.0-0.7); #Monocytes 0.8 thou/uL (0.11-0.59); #Neutrophils 4.8 thou/uL (1.40-6.50); %Basophils 0.9 % (0.0-1.0); %Eosinophils 4.6 % (0.0-10.0); %Lymphocytes 25.3 % (21.0-51.0); %Neutrophils 59.2 % (42.0-75.0); Hemoglobin 10.4 g/dL (14.0-18.0); Mean Corpuscular HGB CONC 32.9 g/dL (32.0-36.0); Mean Corpuscular Hemoglobin 28.4 pg (27.0-31.0); Mean Corpuscular Volume 86.5 fL (78.0-98.0); Mean Platelet Volume 8.2 fL (7.4-10.4); Platelet Count 312 thou/uL (130-400); RBC Distribution Width 14.1 % (11.5-14.5); Red Blood Cell (RBC) Count 3.65 mill/uL (4.70-6.10)
[2019-04-05 05:25] LABS: Anion Gap 13 mmol/L (10-20); BUN (Urea Nitrogen) 37 mg/dL (8.4-25.7); Calc. Creatinine Clearance 29 mL/min (70-130); Calcium 9.7 mg/dL (7.8-10.44); Carbon Dioxide 23 mmol/L (22-29); Chloride 108 mmol/L (98-107); Estimated GFR-MDRD 20; Glucose 82 mg/dL (70-105); Potassium 4.2 mmol/L (3.5-5.1); Sodium 140 mmol/L (136-145)
--- NOTE | 2019-04-05 05:57 | PDOC.FM ---
- Subjective Subjective: Continues to have improved speech. Had difficulty w/ sedation while on Keppra yesterday so Dr. Birmingham changed it to phenytoin today. Off dobutamine at 3am, denies any sx since then. - Objective Vital Signs & Weight: Vital Signs (12 hours) Temp Pulse Resp BP BP Pulse Ox 04/05/19 03:52 98.1 F 68 14 121/65 92 L 04/05/19 00:00 98.8 F 70 16 123/70 96 04/04/19 20:00 98.5 F 70 16 123/80 94 L Weight Admit Weight 85.91 kg Weight 82.724 kg I&O: 04/03/19 04/04/19 04/05/19 06:59 06:59 06:59 Intake Total 600 1681 1457 Output Total 500 1605 1110 Balance 100 76 347 Result Diagrams: 04/05/19 04:37 04/05/19 04:37 Phys Exam - Physical Examination Constitutional: NAD HEENT: moist MMs Right anterolateral tongue abrasion Neck: no JVD Respiratory: no wheezing, no rales, no rhonchi, clear to auscultation bilateral Cardiovascular: RRR Musculoskeletal: no edema, pulses present Neurological: moves all 4 limbs Mild speech slurring Psychiatric: normal affect, A&O x 3 Skin: no rash Dx/Plan (1) Cardiorenal syndrome Code(s): I13.10 - HYP HRT & CHR KDNY DIS W/O HRT FAIL, W STG 1-4/UNSP CHR KDNY Status: Acute (2) Acute exacerbation of CHF (congestive heart failure) Code(s): I50.9 - HEART FAILURE, UNSPECIFIED Status: Acute (3) Anemia, chronic disease Code(s): D63.8 - ANEMIA IN OTHER CHRONIC DISEASES CLASSIFIED ELSEWHERE Status : Acute (4) IDDM (insulin dependent diabetes mellitus) Code(s): E11.9 - TYPE 2 DIABETES MELLITUS WITHOUT COMPLICATIONS; Z79.4 - [facility] (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 OF INSULIN Status: Acute (5) Type 2 AMI (acute myocardial infarction) Code(s): I21.A1 - MYOCARDIAL INFARCTION TYPE 2 Status: Acute (6) Acute kidney injury superimposed on CKD Code(s): N17.9 - ACUTE KIDNEY FAILURE, UNSPECIFIED; N18.9 - CHRONIC KIDNEY DISEASE, UNSPECIFIED Status: Acute (7) Seizure disorder Code(s): G40.909 - EPILEPSY, UNSP, NOT INTRACTABLE, WITHOUT STATUS EPILEPTICUS Status: Acute - Plan Plan: CHF exacerbation, h/o HFrEF - NYHA 3, EF 15-20% * CHF 2/2 hx of ischemic cardiomyopathy * ECHO (03/27): EF 15-20%, 1/3 Dystolic Dysfunction * Consulted cardiology - Dr. Pichardo stopped dobutamine drip this morning * Will monitor vitals and sx off rx Sub-clinical seizures - Expressive aphasia - now resolved - Negative acute head CT findings - EEG showing subclinical eliptiform activity - Neurology consulted - Dr. Birmingham started pt on Keppra yesterday, too much of a sedating effect so switched to phenytoin - Due to pts sx resolving after anti-seizure rx and EEG findings eliquis was stopped Acute kdiney injury on CKD 4 in setting of cardiorenal syndrome * Cr function worsening overall w/waxing and waning levels * Previously hovering between CKD III & IV * Cont trend Cr * monitor lytes and replace per protocol * Consulted Nephrology (03/27), appreciate recs. * Renal US: No evidence of obstructive uropathy * Stopped home entresto, aldactone, and lisinopril, holding lasix NSTEMI Type 2 2/2 CHF exacerbation, Downtrended * Troponin initially elevated to 0.068 > 0.074 > 0.058, likely 2/2 demand ischemia and CKDIII * no current CP or EKG changes * EKG shows T wave inversions in lateral leads and LVH, stable from EKG on admission CAD s/p 3vCABG in 2009 * known to Dr. Pichardo * attempted heart cath 02/28/19 but unable 2/2 CKD * will continue home coreg, plavix, asa, isosorbide and imdur * Consulted Cardiology appreciate recs Anemia of chronic disease, Stable, Most likely 2/2 CKD * Hb stable in 03-19 * Iron 38, TIBC 378, % Sat 10, Ferritin 87.6 IDDMII with peripheral neuropathy, Stable * A1C 6 in November 2018 per records reviewed * will continue home levemir 20u QHS * Hyperglycemic protocol with mild SS insulin and ACHS accuchecks, will monitor and adjust as needed * continue home [place] for neuropathy HTN * Titrating rx accordingly, will monitor HLD * Lipid panel check in clinic in 2018 * continue home atorva and tricor GERD * cont home Protonix VTE: Aspirin and plavix - eliquis stopped today Diet: HH, CC, Fluid restriction Code Status: Full GI Prophylaxis: Cameron PCP: MARA Loja Disposition: Inpt, stopping dobutamine drip this morning. Will monitor pt's sx and vitals throughout the day for changes. Depending on progress today we may be able to further discussions of discharge going forward. Addendum - Attending - Attending Attestation Date/Time: 04/05/19 1034 I personally evaluated the patient and discussed the management with Dr. Robledo. I agree with the History, Examination, Assessment and Plan documented above with any addition or exceptions noted below. Patient improved from neuro standpoint. Currently on Phenytoin, no seizure activity. He will go for brain MRI today to evaluate if he did or did not have new CVA. Off Dobutamine, continues mild diuresis and monitoring renal function. Awaiting further cardiology recs. Work to get patient to inpatient rehab in the next few days.
[2019-04-05] MEDS: Sevelamer Carbonate 800 MG TAB PO SCH ×3 (09:46→18:20)
[2019-04-05] MEDS: Fenofibrate Nanocrystallized 145 MG TAB PO SCH (09:46)
[2019-04-05] MEDS: Gabapentin 100 MG CAP PO SCH ×2 (09:46→21:40)
[2019-04-05] MEDS: Clopidogrel Bisulfate 75 MG TAB PO SCH (09:47)
[2019-04-05] MEDS: Carvedilol 6.25 MG TAB PO SCH ×2 (09:47→16:23)
[2019-04-05] MEDS: Isosorbide Mononitrate (ER) 30 MG TAB PO SCH (09:47)
[2019-04-05] MEDS: Aspirin Chewable 81 MG TAB PO SCH (09:47)
[2019-04-05] MEDS: Senokot S 8.6-50 MG TAB PO PRN (09:48)
--- NOTE | 2019-04-05 11:46 | MRI ---
Brain MRI without contrast: 04/05/2019 COMPARISON: 12/06/2017 HISTORY: Slurred speech, evaluate for acute infarction TECHNIQUE: Multiplanar multisequence MR imaging of the brain obtained without contrast FINDINGS: The diffusion weighted imaging demonstrates no evidence for acute infarction. The visualized paranasal sinuses and mastoid air cells demonstrate no significant abnormality. There are a few opacified mastoid air cells bilaterally. There are foci of prior infarction within the bilateral cerebellar hemispheres. There is a focal area of encephalomalacia involving the superior aspect of the cerebellar hemisphere on the right with blooming artifact on gradient echo imaging suggesting an area of prior hemorrhage and/or prior hemorr hagic infarction, stable when compared to the prior examination. The gradient echo imaging demonstrates no evidence for acute hemorrhage. There is extensive increased T2 and FLAIR signal within the manjula and there are multiple scattered foc i of increased T2 and FLAIR signal within the periventricular and deep white matter suggesting small vessel disease. Regional bone marrow signal intensity appears grossly unremarkable. IMPRESSION: Chronic findings as described above. No evidence for acute infarction.
[2019-04-05] MEDS ORDERED: Insulin Glargine 18 UNITS in Pre-Filled Syringe 1 EACH SC SCH (12:15)
--- NOTE | 2019-04-05 13:16 | PRG ---
DATE OF SERVICE: 04/05/2019 SUBJECTIVE: A 59-year-old gentleman, being seen for acute kidney injury. The patient denied nausea, vomiting, or chest pain. OBJECTIVE: CONSTITUTIONAL: The patient is awake and alert. VITAL SIGNS: Afebrile, pulse 75, breathing 16, blood pressure 120/65. GENERAL APPEARANCE AND MENTAL STATUS: Fair. HEAD/NECK: Normocephalic. Atraumatic. EYES: EOMI. No deformity. EARS: Clear. No ulcers. NOSE: Intact. No lesions. MOUTH: Clear. No discharge. THROAT: Clear. No exudate. LUNGS: Clear. No crackles. CARDIAC: S1, S2. No rub. ABDOMEN: Benign. Bowel sounds positive. GENITALIA/RECTUM: Hinkle absent. BACK/EXTREMITIES: Edema 0+. NEUROLOGICAL: Alert and motor intact. SKIN: LYMPHATICS: LABORATORY DATA: Reviewed. ASSESSMENT AND PLAN: 1. Chronic kidney disease, stage 4, stable. 2. Hypertension, stable. 3. Anemia, stable. 4. Medication based on GFR appropriate. 5. The patient will follow up with Dr. Tobar. Job ID: [id number]
[2019-04-05] MEDS: Insulin Glargine 18 UNITS in Pre-Filled Syringe 1 EACH SC SCH ×2 (13:34→21:40)
[2019-04-05] MEDS: Heparin 5,000 UNITS/ML VIAL SC SCH ×2 (16:23→21:40)
--- NOTE | 2019-04-05 17:06 | PDOC.CPN ---
- Subjective Date: 04/05/19 Time: 17:05 Interval history: He is doing well. No chest pain, Breathing remains at baseline. - Review of Systems General: denies: fever/chills, weight/appetite/sleep changes, night sweats, fatigue Respiratory: denies: cough, congestion, shortness of breath, exercise intolerance Cardiovascular: denies: chest pain, palpitation, edema, paroxysmal nocturnal dyspnea, orthopnea Gastrointestinal: denies: nausea, vomiting, diarrhea, constipation, abd pain, GI bleeding Musculoskeletal: denies: pain, tenderness, stiffness, swelling, arthritis/ arthralgias Neurological: denies: numbness, syncope, seizure, weakness - Objective Allergies/Adverse Reactions: Allergies Allergy/AdvReac Type Severity Reaction Status Date / Time No Known Allergies Allergy Verified 02/28/19 19:39 Visit Medications: Current Medications Acetaminophen (Tylenol) 650 mg PO Q4H PRN PRN Reason: Headache/Fever/Mild Pain (1-3) Aspirin (Aspirin Chewable) 81 mg PO DAILY [facility] Last Admin: 04/05/19 09:47 Dose: 81 mg Atorvastatin Calcium (Lipitor) 80 mg PO HS [facility] Last Admin: 04/04/19 20:22 Dose: 80 mg Calcium Carbonate (Tums) 1,000 mg PO Q4H PRN PRN Reason: Heartburn or Indigestion Carvedilol (Coreg) 6.25 mg PO BID-WM [facility] Last Admin: 04/05/19 16:23 Dose: 6.25 mg Clopidogrel Bisulfate (Plavix) 75 mg PO DAILY [facility] Last Admin: 04/05/19 09:47 Dose: 75 mg Dextrose/Water (Dextrose 50%) 25 gm SLOW IVP PRN PRN PRN Reason: Hypoglycemia Fenofibrate (Tricor) 145 mg PO Q2DAYS@0900 [facility] Last Admin: 04/05/19 09:46 Dose: 145 mg Gabapentin (Neurontin) 300 mg PO BID [facility] Last Admin: 04/05/19 09:46 Dose: 300 mg Glucagon (Glucagon) 1 mg IM PRN PRN PRN Reason: Hypoglycemia Heparin Sodium (Porcine) (Heparin) 5,000 units SC TID [facility] Last Admin: 04/05/19 16:23 Dose: 5,000 units Dextrose/Water (D5w) 1,000 mls @ 0 mls/hr IV .Q0M PRN PRN Reason: Hypoglycemia Insulin Glargine 18 units/ (Miscellaneous Medication) 0.18 mls @ 0 mls/hr SC [facility] Last Admin: 04/05/19 13:34 Dose: 0.18 mls Insulin Human Lispro (Humalog) 0 units SC .MILD SLIDING SCALE PRN PRN Reason: Mild Correctional Scale Isosorbide Mononitrate (Imdur Er) 30 mg PO DAILY [facility] Last Admin: 04/05/19 09:47 Dose: 30 mg Ondansetron HCl (Zofran Odt) 4 mg PO Q6H PRN PRN Reason: Nausea/Vomiting Pantoprazole Sodium (Protonix) 40 mg PO DAILY [facility] Last Admin: 04/05/19 09:47 Dose: 40 mg Phenytoin Sodium (Dilantin Er) 300 mg PO [facility] Last Admin: 04/04/19 20:21 Dose: 300 mg Senna/Docusate Sodium (Senokot S) 2 tab PO BID PRN PRN Reason: Constipation Last Admin: 04/05/19 09:48 Dose: 2 tab Sevelamer Carbonate (Renvela) 800 mg PO TID-[facility] Last Admin: 04/05/19 13:34 Dose: 800 mg Sodium Chloride (Flush - Normal Saline) 10 ml IVF PRN PRN PRN Reason: Saline Flush Last Admin: 03/31/19 08:55 Dose: 10 ml Vital Signs & Weight: Vital Signs Temp Pulse Pulse Pulse Resp BP BP 04/05/19 16:23 116/66 04/05/19 15:38 98.0 F 65 16 04/05/19 12:51 63 65 115/67 04/05/19 12:25 97.9 F 61 12 04/05/19 09:47 111/71 04/05/19 08:51 66 66 119/69 04/05/19 08:46 04/05/19 07:45 97.9 F 62 14 BP BP BP Pulse Ox 04/05/19 16:23 04/05/19 15:38 116/66 97 04/05/19 12:51 107/66 04/05/19 12:25 115/66 98 04/05/19 09:47 04/05/19 08:51 105/66 04/05/19 08:46 100 04/05/19 07:45 111/71 100 Admit Weight 189 lb 6.4 oz Weight 182 lb 6 oz - Physical Exam General: alert & oriented x3, no apparent distress HEENT: mucus membranes moist, normocephaly Neck: supple neck, midline trachea Cardiac: regular rate and rhythm, no murmur Lungs: clear to auscultation, no wheeze, rales, rhonchi Neuro: grossly intact, coordination normal Abdomen: active bowel sounds, soft, non-tender Skin: clear Musculoskeletal: normal range of motion, no pain - Labs Result Diagrams: 04/05/19 04:37 04/05/19 04:37 Troponin/CKMB CK-MB (CK-2) 1.6 ng/mL (0-6.6) 03/31/19 11:24 Troponin I 0.108 ng/mL (< 0.028) H 04/01/19 04:57 - Telemetry Sinus rhythms and dysrhythmias: sinus rhythm - Assessment/Plan Assessment/Plan: 1. Acute on chronic systolic heart failure. 2. RV dysfunction 3. Ischemic CM EF at 15-20% 4. CKD stage 4 5. Non compliance 6. PVD. 7. ATN causing his creatinine to continue to rise. 8. Seizures, no evidence of stroke. PLAN: - Restart home PO Lasix. - Likely his symptoms related to seizures and not strokes, resolved with Keppra. so no indication for full anticoagluiation. - Plavix and aspirin for CAD. 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 - Continue to be off ACEI, Entresto and aldactone due to renal function. - Continue Coreg at current dose. - Will stop Eliquis - Renal function improving. - BP borderline low for Hydralazine/nitrates.
[2019-04-05] MEDS: Atorvastatin Calcium 40 MG TAB PO SCH (21:40)
[2019-04-06 04:53] LABS: #Basophils 0.1 thou/uL (0.0-0.2); #Eosinphils 0.4 thou/uL (0.0-0.7); #Lymphocytes 2.1 thou/uL (1.20-3.40); #Monocytes 0.7 thou/uL (0.11-0.59); #Neutrophils 3.6 thou/uL (1.40-6.50); %Basophils 0.7 % (0.0-1.0); %Eosinophils 5.7 % (0.0-10.0); %Lymphocytes 30.8 % (21.0-51.0); %Monocytes 10.5 % (0.0-10.0); %Neutrophils 52.3 % (42.0-75.0); Hemoglobin 9.8 g/dL (14.0-18.0); Mean Corpuscular HGB CONC 33.4 g/dL (32.0-36.0); Mean Corpuscular Volume 86.8 fL (78.0-98.0); Mean Platelet Volume 8.6 fL (7.4-10.4); Platelet Count 271 thou/uL (130-400); Red Blood Cell (RBC) Count 3.37 mill/uL (4.70-6.10); White Blood Cell (WBC) Count 6.9 thou/uL (4.8-10.8)
[2019-04-06 05:11] LABS: Anion Gap 12 mmol/L (10-20); BUN (Urea Nitrogen) 41 mg/dL (8.4-25.7); Calc. Creatinine Clearance 28 mL/min (70-130); Calcium 9.1 mg/dL (7.8-10.44); Carbon Dioxide 24 mmol/L (22-29); Chloride 108 mmol/L (98-107); Estimated GFR-MDRD 19; Glucose 130 mg/dL (70-105); Potassium 4.2 mmol/L (3.5-5.1); Sodium 140 mmol/L (136-145)
--- NOTE | 2019-04-06 05:46 | PDOC.FM ---
- Subjective Subjective: Pt feels "groogy," and tired. States he is not "twitching" anymore with the addition of dilantin. Decreased slurred speech. Eating better Denies SOB, or chest pain. - Objective MAR Reviewed: Yes Vital Signs & Weight: Vital Signs (12 hours) Temp Pulse Resp BP Pulse Ox 04/06/19 04:00 97.9 F 61 16 142/80 H 97 04/06/19 00:00 98.3 F 62 16 139/69 97 04/05/19 20:00 98 F 64 16 124/71 93 L Weight Admit Weight 85.91 kg Weight 82.724 kg I&O: 04/04/19 04/05/19 04/06/19 06:59 06:59 06:59 Intake Total 1681 1457 550 Output Total 1605 1110 525 Balance 76 347 25 Result Diagrams: 04/06/19 04:19 04/06/19 04:19 Phys Exam - Physical Examination Constitutional: NAD HEENT: PERRLA, moist MMs Neck: no nodes, supple, full ROM Respiratory: no wheezing, clear to auscultation bilateral Cardiovascular: RRR, no rub Gastrointestinal: soft, non-tender, no distention, positive bowel sounds Musculoskeletal: no edema, pulses present right BKA. Neurological: non-focal, normal sensation, moves all 4 limbs Lymphatic: no nodes Psychiatric: normal affect, A&O x 3 Skin: no rash, normal turgor, cap refill <2 seconds Dx/Plan (1) Acute exacerbation of CHF (congestive heart failure) Code(s): I50.9 - HEART FAILURE, UNSPECIFIED Status: Acute (2) CKD (chronic kidney disease), stage III Code(s): N18.3 - CHRONIC KIDNEY DISEASE, STAGE 3 (MODERATE) Status: Acute (3) Cardiorenal syndrome Code(s): I13.10 - HYP HRT & CHR KDNY DIS W/O HRT FAIL, W STG 1-4/UNSP CHR KDNY Status: Acute (4) IDDM (insulin dependent diabetes mellitus) Code(s): E11.9 - TYPE 2 DIABETES MELLITUS WITHOUT COMPLICATIONS; Z79.4 - 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 OF INSULIN Status: Acute (5) Seizure disorder Code(s): G40.909 - EPILEPSY, UNSP, NOT INTRACTABLE, WITHOUT STATUS EPILEPTICUS Status: Acute (6) Type 2 AMI (acute myocardial infarction) Code(s): I21.A1 - MYOCARDIAL INFARCTION TYPE 2 Status: Acute (7) Acute kidney injury superimposed on CKD Code(s): N17.9 - ACUTE KIDNEY FAILURE, UNSPECIFIED; N18.9 - CHRONIC KIDNEY DISEASE, UNSPECIFIED Status: Acute (8) CAD (coronary artery disease) Code(s): I25.10 - ATHSCL HEART DISEASE OF [place] CORONARY ARTERY W/O ANG PCTRS Status: Chronic (9) HFrEF (heart failure with reduced ejection fraction) Code(s): I50.20 - UNSPECIFIED SYSTOLIC (CONGESTIVE) HEART FAILURE Status: Chronic Qualifiers: Heart failure chronicity: chronic Qualified Code(s): I50.22 - Chronic systolic (congestive) heart failure (10) HLD (hyperlipidemia) Code(s): E78.5 - HYPERLIPIDEMIA, UNSPECIFIED Status: Chronic (11) HTN (hypertension) Code(s): I10 - ESSENTIAL (PRIMARY) HYPERTENSION Status: Chronic Qualifiers: Hypertension type: essential hypertension Qualified Code(s): I10 - Essential (primary) hypertension - Plan Plan: CHF exacerbation, h/o HFrEF - NYHA 3, EF 15-20% * CHF 2/2 hx of ischemic cardiomyopathy * ECHO (03/27): EF 15-20%, 1/3 Dystolic Dysfunction * Consulted cardiology - Dr. Pichardo stopped dobutamine drip 04/05 * Will monitor vitals and sx off rx Sub-clinical seizures - Expressive aphasia - now resolved - Negative acute head CT findings - EEG showing subclinical eliptiform activity - Neurology consulted - Dr. Birmingham started pt on Keppra 04/04, too much of a sedating effect so switched to phenytoin 04/05 - Due to pts sx resolving after anti-seizure rx and EEG findings eliquis was stopped Acute kidney injury on CKD 4 in setting of cardiorenal syndrome * Cr function worsening overall w/waxing and waning levels * Previously hovering between CKD III & IV * Cont trend Cr * monitor lytes and replace per protocol * Consulted Nephrology (03/27), appreciate recs. * Renal US: No evidence of obstructive uropathy * Stopped home entresto, aldactone, and lisinopril, holding lasix NSTEMI Type 2 2/2 CHF exacerbation, Downtrended Troponins * Troponin initially elevated to 0.068 > 0.074 > 0.058, likely 2/2 demand ischemia and CKDIII * no current CP or EKG changes * EKG shows T wave inversions in lateral leads and LVH, stable from EKG on admission CAD s/p 3vCABG in 2009 * known to Dr. Pichardo * attempted heart cath 02/28/19 but unable 2/2 CKD * will continue home coreg, plavix, asa, isosorbide and imdur * Consulted Cardiology appreciate recs Anemia of chronic disease, Stable, Most likely 2/2 CKD * Hb stable in 03-19 * Iron 38, TIBC 378, % Sat 10, Ferritin 87.6 IDDMII with peripheral neuropathy, Stable * A1C 6 in November 2018 per records reviewed * will continue home levemir 20u QHS * Hyperglycemic protocol with mild SS insulin and ACHS accuchecks, will monitor and adjust as needed * continue home Cayden for neuropathy HTN * Titrating rx accordingly, will monitor * Disocntinued per cardiology MONTRELL-i, Entresto, Aldactone, Eliquis HLD * Lipid panel check in clinic in 2017 * continue home atorva and tricor GERD * cont home Protonix VTE: Aspirin and plavix - eliquis stopped today Diet: HH, CC, Fluid restriction Code Status: Full GI Prophylaxis: Cameron PCP: MARA Loja Disposition: Inpt, stopped dobutamine drip 04/05. Will monitor pt's sx and vitals throughout for changes. Pending SNF placement. Addendum - Attending - Attending Attestation Date/Time: 04/06/19 5296 I personally evaluated the patient and discussed the management with Dr. High. I agree with the History, Examination, Assessment and Plan documented above with any addition or exceptions noted below. Patient continues to improve. Doing well off Dobutamine drip. Resting comfortably this morning. Continue Phenytoin for seizure activity, MRI did not show acute infarct. Continue PT/ST. Renal function overall stable off dobutamine , await further cardiology recs. Placement at SNF pending.
[2019-04-06] MEDS: Clopidogrel Bisulfate 75 MG TAB PO SCH (09:56)
[2019-04-06] MEDS: Carvedilol 6.25 MG TAB PO SCH ×2 (09:56→16:06)
[2019-04-06] MEDS: Aspirin Chewable 81 MG TAB PO SCH (09:56)
[2019-04-06] MEDS: Furosemide 40 MG TAB PO SCH (09:56)
[2019-04-06] MEDS: Gabapentin 100 MG CAP PO SCH ×2 (09:56→20:33)
[2019-04-06] MEDS: Isosorbide Mononitrate (ER) 30 MG TAB PO SCH (09:57)
[2019-04-06] MEDS: Heparin 5,000 UNITS/ML VIAL SC SCH ×3 (09:57→20:35)
[2019-04-06] MEDS: Senokot S 8.6-50 MG TAB PO PRN (10:43)
[2019-04-06] MEDS: Sevelamer Carbonate 800 MG TAB PO SCH ×3 (10:43→18:28)
--- NOTE | 2019-04-06 14:27 | PRG ---
DATE OF SERVICE: 04/06/2019 SUBJECTIVE: This is a 59-year-old gentleman, being seen for acute kidney injury. The patient denied any nausea, vomiting, or chest pain. OBJECTIVE: CONSTITUTIONAL: The patient is awake and alert. VITAL SIGNS: Afebrile. Pulse 56, breathing 16, blood pressure 130/67. GENERAL APPEARANCE AND MENTAL STATUS: Fair. HEAD/NECK: Normocephalic. Atraumatic. EYES: EOMI. No deformity. EARS: Clear. No ulcers. NOSE: Intact. No lesions. MOUTH: Clear. No discharge. THROAT: Clear. No exudate. LUNGS: Clear. No crackles. CARDIAC: S1, S2. No rub. ABDOMEN: Benign. Bowel sounds positive. GENITALIA/RECTUM: Hinkle absent. BACK/EXTREMITIES: Edema 0+. NEUROLOGICAL: Alert and motor intact. SKIN: LYMPHATICS: LABORATORY DATA: Hemoglobin 9.8. Creatinine 3.3. ASSESSMENT: 1. Chronic kidney disease, stage 4, stable. 2. Hypertension, stable. 3. Anemia, stable. No indication for dialysis. Job ID: [id number]
--- NOTE | 2019-04-06 19:44 | PDOC.CPN ---
- Subjective Date: 04/06/19 Time: 19:42 Interval history: He is doing well. No angina, breathing at baseline! - Review of Systems General: denies: fever/chills, weight/appetite/sleep changes, night sweats, fatigue Respiratory: denies: cough, congestion, shortness of breath, exercise intolerance Cardiovascular: denies: chest pain, palpitation, edema, paroxysmal nocturnal dyspnea, orthopnea Gastrointestinal: denies: nausea, vomiting, diarrhea, constipation, abd pain, GI bleeding Musculoskeletal: denies: pain, tenderness, stiffness, swelling, arthritis/ arthralgias Neurological: denies: numbness, syncope, seizure, weakness - Objective Allergies/Adverse Reactions: Allergies Allergy/AdvReac Type Severity Reaction Status Date / Time No Known Allergies Allergy Verified 02/28/19 19:39 Visit Medications: Current Medications Acetaminophen (Tylenol) 650 mg PO Q4H PRN PRN Reason: Headache/Fever/Mild Pain (1-3) Aspirin (Aspirin Chewable) 81 mg PO DAILY [facility] Last Admin: 04/06/19 09:56 Dose: 81 mg Atorvastatin Calcium (Lipitor) 80 mg PO HS [facility] Last Admin: 04/05/19 21:40 Dose: 80 mg Calcium Carbonate (Tums) 1,000 mg PO Q4H PRN PRN Reason: Heartburn or Indigestion Carvedilol (Coreg) 6.25 mg PO BID-WM [facility] Last Admin: 04/06/19 16:06 Dose: 6.25 mg Clopidogrel Bisulfate (Plavix) 75 mg PO DAILY [facility] Last Admin: 04/06/19 09:56 Dose: 75 mg Dextrose/Water (Dextrose 50%) 25 gm SLOW IVP PRN PRN PRN Reason: Hypoglycemia Fenofibrate (Tricor) 145 mg PO Q2DAYS@0900 [facility] Last Admin: 04/05/19 09:46 Dose: 145 mg Furosemide (Lasix) 40 mg PO DAILY-AC [facility] Last Admin: 04/06/19 09:56 Dose: 40 mg Gabapentin (Neurontin) 300 mg PO BID [facility] Last Admin: 04/06/19 09:56 Dose: 300 mg Glucagon (Glucagon) 1 mg IM PRN PRN PRN Reason: Hypoglycemia Heparin Sodium (Porcine) (Heparin) 5,000 units SC TID [facility] Last Admin: 04/06/19 16:06 Dose: 5,000 units Dextrose/Water (D5w) 1,000 mls @ 0 mls/hr IV .Q0M PRN PRN Reason: Hypoglycemia Insulin Glargine 18 units/ (Miscellaneous Medication) 0.18 mls @ 0 mls/hr SC [facility] Last Admin: 04/05/19 21:40 Dose: Not Given Insulin Human Lispro (Humalog) 0 units SC .MILD SLIDING SCALE PRN PRN Reason: Mild Correctional Scale Isosorbide Mononitrate (Imdur Er) 30 mg PO DAILY [facility] Last Admin: 04/06/19 09:57 Dose: 30 mg Ondansetron HCl (Zofran Odt) 4 mg PO Q6H PRN PRN Reason: Nausea/Vomiting Pantoprazole Sodium (Protonix) 40 mg PO DAILY [facility] Last Admin: 04/06/19 09:56 Dose: 40 mg Phenytoin Sodium (Dilantin Er) 300 mg PO [facility] Last Admin: 04/05/19 21:40 Dose: 300 mg Senna/Docusate Sodium (Senokot S) 2 tab PO BID PRN PRN Reason: Constipation Last Admin: 04/06/19 10:43 Dose: 2 tab Sevelamer Carbonate (Renvela) 800 mg PO TID-[facility] Last Admin: 04/06/19 18:28 Dose: 800 mg Sodium Chloride (Flush - Normal Saline) 10 ml IVF PRN PRN PRN Reason: Saline Flush Last Admin: 03/31/19 08:55 Dose: 10 ml Vital Signs & Weight: Vital Signs Temp Pulse Pulse Pulse Resp BP BP 04/06/19 16:06 114/64 04/06/19 15:45 98.2 F 60 15 04/06/19 14:18 63 65 114/72 04/06/19 12:00 98.0 F 56 L 16 04/06/19 09:56 143/83 H 04/06/19 08:55 BP BP Pulse Ox 04/06/19 16:06 04/06/19 15:45 114/64 100 04/06/19 14:18 146/78 H 04/06/19 12:00 130/67 99 04/06/19 09:56 04/06/19 08:55 98 Admit Weight 189 lb 6.4 oz Weight 179 lb 12.8 oz - Physical Exam General: alert & oriented x3, no apparent distress HEENT: mucus membranes moist, normocephaly Neck: supple neck, midline trachea Cardiac: regular rate and rhythm, no murmur Lungs: clear to auscultation, no wheeze, rales, rhonchi Neuro: grossly intact, coordination normal Abdomen: active bowel sounds, soft, non-tender Skin: clear Musculoskeletal: normal range of motion, no pain - Labs Result Diagrams: 04/06/19 04:19 04/06/19 04:19 Troponin/CKMB CK-MB (CK-2) 1.6 ng/mL (0-6.6) 03/31/19 11:24 Troponin I 0.108 ng/mL (< 0.028) H 04/01/19 04:57 - Telemetry Sinus rhythms and dysrhythmias: sinus rhythm - Assessment/Plan Assessment/Plan: 1. Acute on chronic systolic heart failure. 2. RV dysfunction 3. Ischemic CM EF at 15-20% 4. CKD stage 4 5. Non compliance 6. PVD. 7. ATN causing his creatinine to continue to rise. 8. Seizures, no evidence of stroke. PLAN: - PO Lasix. - Plavix and aspirin for CAD. - Poor detention prognosis. - Continue to be off ACEI, Entresto and aldactone due to renal function. - Continue Coreg at current dose. - Renal function may be at its new baseline. - BP borderline low for Hydralazine/nitrates. - May discharge any time from cardiac perspective.
[2019-04-06] MEDS: Atorvastatin Calcium 40 MG TAB PO SCH (20:33)
[2019-04-06] MEDS: Insulin Glargine 18 UNITS in Pre-Filled Syringe 1 EACH SC SCH (20:37)
--- NOTE | 2019-04-07 05:35 | PDOC.FM ---
- Subjective Subjective: Patient resting well, no complaints this morning. Awaiting SNF placement - Objective MAR Reviewed: Yes Vital Signs & Weight: Vital Signs (12 hours) Temp Pulse Resp BP BP BP Pulse Ox 04/07/19 04:00 97.9 F 69 18 143/75 H 98 04/07/19 00:00 98 F 65 20 121/67 95 04/06/19 20:00 97.8 F 71 18 138/78 96 Weight Admit Weight 85.91 kg Weight 81.556 kg I&O: 04/05/19 04/06/19 04/07/19 06:59 06:59 06:59 Intake Total 1457 790 850 Output Total 7322 005 1745 Balance 347 265 -150 Result Diagrams: 04/07/19 06:06 04/07/19 06:05 Phys Exam - Physical Examination Constitutional: NAD HEENT: PERRLA, moist MMs Neck: no nodes, no JVD, supple, full ROM Respiratory: no wheezing, no rales, no rhonchi, clear to auscultation bilateral Cardiovascular: RRR, no rub soft systolic murmur Gastrointestinal: soft, non-tender, no distention, positive bowel sounds Musculoskeletal: no edema, pulses present R BKA Neurological: non-focal, normal sensation, moves all 4 limbs Psychiatric: normal affect, A&O x 3 Skin: no rash, normal turgor, cap refill <2 seconds Dx/Plan (1) Acute exacerbation of CHF (congestive heart failure) Code(s): I50.9 - HEART FAILURE, UNSPECIFIED Status: Acute (2) CKD (chronic kidney disease), stage III Code(s): N18.3 - CHRONIC KIDNEY DISEASE, STAGE 3 (MODERATE) Status: Acute (3) Cardiorenal syndrome Code(s): I13.10 - HYP HRT & CHR KDNY DIS W/O HRT FAIL, W STG 1-4/UNSP CHR KDNY Status: Acute (4) IDDM (insulin dependent diabetes mellitus) Code(s): E11.9 - TYPE 2 DIABETES MELLITUS WITHOUT COMPLICATIONS; Z79.4 - 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 (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 OF 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 Status: Acute (5) Seizure disorder Code(s): G40.909 - EPILEPSY, UNSP, NOT INTRACTABLE, WITHOUT STATUS EPILEPTICUS Status: Acute (6) Type 2 AMI (acute myocardial infarction) Code(s): I21.A1 - MYOCARDIAL INFARCTION TYPE 2 Status: Acute (7) Acute kidney injury superimposed on CKD Code(s): N17.9 - ACUTE KIDNEY FAILURE, UNSPECIFIED; N18.9 - CHRONIC KIDNEY DISEASE, UNSPECIFIED Status: Acute (8) CAD (coronary artery disease) Code(s): I25.10 - ATHSCL HEART DISEASE OF [place] CORONARY ARTERY W/O ANG PCTRS Status: Chronic (9) HFrEF (heart failure with reduced ejection fraction) Code(s): I50.20 - UNSPECIFIED SYSTOLIC (CONGESTIVE) HEART FAILURE Status: Chronic Qualifiers: Heart failure chronicity: chronic Qualified Code(s): I50.22 - Chronic systolic (congestive) heart failure (10) HLD (hyperlipidemia) Code(s): E78.5 - HYPERLIPIDEMIA, UNSPECIFIED Status: Chronic (11) HTN (hypertension) Code(s): I10 - ESSENTIAL (PRIMARY) HYPERTENSION Status: Chronic Qualifiers: Hypertension type: essential hypertension Qualified Code(s): I10 - Essential (primary) hypertension - Plan Plan: CHF exacerbation, h/o HFrEF - NYHA 3, EF 15-20% * CHF 2/2 hx of ischemic cardiomyopathy * ECHO (03/27): EF 15-20%, 1/3 Dystolic Dysfunction * Consulted cardiology - Dr. Pichardo stopped dobutamine drip 04/05, cleared for D/ C * Will monitor vitals and sx off rx Sub-clinical seizures - Expressive aphasia - now resolved - Negative acute head CT findings - EEG showing subclinical eliptiform activity - Neurology consulted - Dr. Birmingham started pt on Keppra 04/04, too much of a sedating effect so switched to phenytoin 04/05 - Due to pts sx resolving after anti-seizure rx and EEG findings eliquis was stopped Acute kidney injury on CKD 4 in setting of cardiorenal syndrome * Cr function worsening overall w/waxing and waning levels * CKD IV, Cr may be at new baseline. * Cont trend Cr * monitor lytes and replace per protocol * Consulted Nephrology (03/27), appreciate recs. * Renal US: No evidence of obstructive uropathy * Stopped home entresto, aldactone, and lisinopril, holding lasix ATN * Creatinine improved on 04/07 to 2.99 * Cr has risen and been in mid 3 throughout hospital stays. NSTEMI Type 2 2/2 CHF exacerbation, Downtrended Troponins * Troponin initially elevated to 0.068 > 0.074 > 0.058, likely 2/2 demand ischemia and CKDIII * no current CP or EKG changes * EKG shows T wave inversions in lateral leads and LVH, stable from EKG on admission CAD s/p 3vCABG in 2009 * known to Dr. Pichardo * attempted heart cath 02/28/19 but unable 2/2 CKD * will continue home coreg, plavix, asa, isosorbide and imdur * Consulted Cardiology appreciate recs Anemia of chronic disease, Stable, Most likely 2/2 CKD * Hb stable in - * Iron 38, TIBC 378, % Sat 10, Ferritin 87.6 IDDMII with peripheral neuropathy, Stable * A1C 6 in November 2018 per records reviewed * will continue home levemir 20u QHS * Hyperglycemic protocol with mild SS insulin and ACHS accuchecks, will monitor and adjust as needed * continue home Cayden for neuropathy HTN * Titrating rx accordingly, will monitor * Disocntinued per cardiology MONTRELL-i, Entresto, Aldactone, Eliquis HLD * Lipid panel check in clinic in 2018 * continue home atorva and tricor GERD * cont home Protonix VTE: Aspirin and plavix - eliquis stopped Diet: HH, CC, Fluid restriction Code Status: Full GI Prophylaxis: Cameron PCP: MARA Loja Disposition: Inpt, stopped dobutamine drip 04/05. Will monitor pt's sx and vitals throughout for changes. Pending SNF placement. Addendum - Attending - Attending Attestation Date/Time: 04/07/19 3231 I personally evaluated the patient and discussed the management with Dr. High. I agree with the History, Examination, Assessment and Plan documented above with any addition or exceptions noted below. Patient continues to improve. Continues to be stable from a cardiac standpoint and is now stable for discharge from a cardiac standpoint. His mentation remains clear and will continue on antiseizure meds for now. His renal function has improved somewhat this morning. He will continue with therapy while here and we are working on placement at the current time.
[2019-04-07 06:34] LABS: #Basophils 0.1 thou/uL (0.0-0.2); #Eosinphils 0.4 thou/uL (0.0-0.7); #Lymphocytes 2.2 thou/uL (1.20-3.40); #Monocytes 0.8 thou/uL (0.11-0.59); #Neutrophils 4.5 thou/uL (1.40-6.50); %Basophils 0.8 % (0.0-1.0); %Eosinophils 5.5 % (0.0-10.0); %Lymphocytes 27.9 % (21.0-51.0); %Neutrophils 55.9 % (42.0-75.0); Hemoglobin 9.7 g/dL (14.0-18.0); Mean Corpuscular HGB CONC 33.6 g/dL (32.0-36.0); Mean Corpuscular Hemoglobin 28.9 pg (27.0-31.0); Mean Platelet Volume 8.8 fL (7.4-10.4); Platelet Count 260 thou/uL (130-400); RBC Distribution Width 14.1 % (11.5-14.5); Red Blood Cell (RBC) Count 3.35 mill/uL (4.70-6.10)
[2019-04-07 06:47] LABS: Anion Gap 12 mmol/L (10-20); BUN (Urea Nitrogen) 41 mg/dL (8.4-25.7); Calc. Creatinine Clearance 31 mL/min (70-130); Calcium 8.7 mg/dL (7.8-10.44); Carbon Dioxide 23 mmol/L (22-29); Chloride 106 mmol/L (98-107); Estimated GFR-MDRD 22; Glucose 120 mg/dL (70-105); Potassium 4.2 mmol/L (3.5-5.1); Sodium 137 mmol/L (136-145)
[2019-04-07] MEDS: Isosorbide Mononitrate (ER) 30 MG TAB PO SCH (09:04)
[2019-04-07] MEDS: Gabapentin 100 MG CAP PO SCH ×2 (09:05→22:44)
[2019-04-07] MEDS: Sevelamer Carbonate 800 MG TAB PO SCH ×3 (09:05→16:12)
[2019-04-07] MEDS: Clopidogrel Bisulfate 75 MG TAB PO SCH (09:06)
[2019-04-07] MEDS: Aspirin Chewable 81 MG TAB PO SCH (09:06)
[2019-04-07] MEDS: Carvedilol 6.25 MG TAB PO SCH ×2 (09:06→16:12)
[2019-04-07] MEDS: Fenofibrate Nanocrystallized 145 MG TAB PO SCH (09:07)
[2019-04-07] MEDS: Heparin 5,000 UNITS/ML VIAL SC SCH ×3 (09:07→22:44)
[2019-04-07] MEDS: Furosemide 40 MG TAB PO SCH (09:07)
--- NOTE | 2019-04-07 14:18 | PDOC.CPN ---
- Subjective Date: 04/07/19 Time: 14:17 Interval history: Doing well. Euvolemic. No new issues. Working well with PT. - Review of Systems General: denies: fever/chills, weight/appetite/sleep changes, night sweats, fatigue Respiratory: denies: cough, congestion, shortness of breath, exercise intolerance Cardiovascular: denies: chest pain, palpitation, edema, paroxysmal nocturnal dyspnea, orthopnea Gastrointestinal: denies: nausea, vomiting, diarrhea, constipation, abd pain, GI bleeding Musculoskeletal: denies: pain, tenderness, stiffness, swelling, arthritis/ arthralgias Neurological: denies: numbness, syncope, seizure, weakness - Objective Allergies/Adverse Reactions: Allergies Allergy/AdvReac Type Severity Reaction Status Date / Time No Known Allergies Allergy Verified 02/28/19 19:39 Visit Medications: Current Medications Acetaminophen (Tylenol) 650 mg PO Q4H PRN PRN Reason: Headache/Fever/Mild Pain (1-3) Aspirin (Aspirin Chewable) 81 mg PO DAILY [facility] Last Admin: 04/07/19 09:06 Dose: 81 mg Atorvastatin Calcium (Lipitor) 80 mg PO HS [facility] Last Admin: 04/06/19 20:33 Dose: 80 mg Calcium Carbonate (Tums) 1,000 mg PO Q4H PRN PRN Reason: Heartburn or Indigestion Carvedilol (Coreg) 6.25 mg PO BID-WM [facility] Last Admin: 04/07/19 09:06 Dose: 6.25 mg Clopidogrel Bisulfate (Plavix) 75 mg PO DAILY [facility] Last Admin: 04/07/19 09:06 Dose: 75 mg Dextrose/Water (Dextrose 50%) 25 gm SLOW IVP PRN PRN PRN Reason: Hypoglycemia Fenofibrate (Tricor) 145 mg PO Q2DAYS@0900 [facility] Last Admin: 04/07/19 09:07 Dose: 145 mg Furosemide (Lasix) 40 mg PO DAILY-AC [facility] Last Admin: 04/07/19 09:07 Dose: 40 mg Gabapentin (Neurontin) 300 mg PO BID [facility] Last Admin: 04/07/19 09:05 Dose: 300 mg Glucagon (Glucagon) 1 mg IM PRN PRN PRN Reason: Hypoglycemia Heparin Sodium (Porcine) (Heparin) 5,000 units SC TID [facility] Last Admin: 04/07/19 09:07 Dose: 5,000 units Dextrose/Water (D5w) 1,000 mls @ 0 mls/hr IV .Q0M PRN PRN Reason: Hypoglycemia Insulin Glargine 18 units/ (Miscellaneous Medication) 0.18 mls @ 0 mls/hr SC [facility] Last Admin: 04/06/19 20:37 Dose: 0.18 mls Insulin Human Lispro (Humalog) 0 units SC .MILD SLIDING SCALE PRN PRN Reason: Mild Correctional Scale Isosorbide Mononitrate (Imdur Er) 30 mg PO DAILY [facility] Last Admin: 04/07/19 09:04 Dose: 30 mg Ondansetron HCl (Zofran Odt) 4 mg PO Q6H PRN PRN Reason: Nausea/Vomiting Pantoprazole Sodium (Protonix) 40 mg PO DAILY [facility] Last Admin: 04/07/19 09:07 Dose: 40 mg Phenytoin Sodium (Dilantin Er) 300 mg PO [facility] Last Admin: 04/06/19 20:34 Dose: 300 mg Senna/Docusate Sodium (Senokot S) 2 tab PO BID PRN PRN Reason: Constipation Last Admin: 04/06/19 10:43 Dose: 2 tab Sevelamer Carbonate (Renvela) 800 mg PO TID-[facility] Last Admin: 04/07/19 12:13 Dose: 800 mg Sodium Chloride (Flush - Normal Saline) 10 ml IVF PRN PRN PRN Reason: Saline Flush Last Admin: 04/06/19 20:39 Dose: 10 ml Vital Signs & Weight: Vital Signs Temp Pulse Resp BP BP Pulse Ox 04/07/19 11:44 98.2 F 60 16 111/66 94 L 04/07/19 09:06 142/84 H 04/07/19 09:00 98 04/07/19 07:44 98.1 F 67 16 142/84 H 98 04/07/19 04:00 97.9 F 69 18 143/75 H 98 Admit Weight 189 lb 6.4 oz Weight 180 lb 3.2 oz - Physical Exam General: alert & oriented x3, no apparent distress HEENT: mucus membranes moist, normocephaly Neck: supple neck, midline trachea Cardiac: regular rate and rhythm, no murmur Lungs: clear to auscultation, no wheeze, rales, rhonchi Neuro: grossly intact, coordination normal Abdomen: active bowel sounds, soft, non-tender Skin: clear Musculoskeletal: normal range of motion, no pain - Labs Result Diagrams: 04/07/19 06:06 04/07/19 06:05 Troponin/CKMB CK-MB (CK-2) 1.6 ng/mL (0-6.6) 03/31/19 11:24 Troponin I 0.108 ng/mL (< 0.028) H 04/01/19 04:57 - Telemetry Sinus rhythms and dysrhythmias: sinus rhythm - Assessment/Plan Assessment/Plan: 1. Acute on chronic systolic heart failure. 2. RV dysfunction 3. Ischemic CM EF at 15-20% 4. CKD stage 4 5. Non compliance 6. PVD. 7. ATN causing his creatinine to continue to rise. 8. Seizures, no evidence of stroke. PLAN: - PO Lasix. - Plavix and aspirin for CAD. - Poor shelter prognosis. - Continue to be off ACEI, Entresto and aldactone due to renal function. - Continue Coreg at current dose. - Renal function likely at its new baseline. - BP borderline low for Hydralazine/nitrates. - Awaiting placement in rehab. - Will sign off. Please call with any questions.
--- NOTE | 2019-04-07 14:48 | PRG ---
DATE OF SERVICE: 04/07/2019 SUBJECTIVE: A 59-year-old male is being seen for acute kidney injury. The patient denied nausea, vomiting, or chest pain. OBJECTIVE: GENERAL: The patient is awake and alert. VITAL SIGNS: Pulse 60, breathing 16, blood pressure 142/84. GENERAL APPEARANCE AND MENTAL STATUS: Fair. HEAD/NECK: Normocephalic. Atraumatic. EYES: EOMI. No deformity. EARS: Clear. No ulcers. NOSE: Intact. No lesions. MOUTH: Clear. No discharge. THROAT: Clear. No exudate. LUNGS: Clear. No crackles. CARDIAC: S1, S2. No rub. ABDOMEN: Benign. Bowel sounds positive. GENITALIA/RECTUM: Hinkle absent. BACK/EXTREMITIES: Edema 0+. NEUROLOGICAL: Alert and motor intact. LABORATORY DATA: Reviewed. ASSESSMENT AND PLAN: 1. Stage 4 chronic kidney disease, stable. 2. Hypertension, stable. 3. Anemia, stable. 4. Acute tubular necrosis, improved. 5. No indication for dialysis. I will sign off. Please reconsult as needed. Job ID: [id number]
[2019-04-07] MEDS: Insulin Glargine 18 UNITS in Pre-Filled Syringe 1 EACH SC SCH (22:44)
[2019-04-07] MEDS: Atorvastatin Calcium 40 MG TAB PO SCH (22:44)
--- NOTE | 2019-04-08 05:30 | PDOC.FM ---
- Subjective Subjective: Notes continued improvement in his speech. Is attempting to increase his ambulation and work with PT. Denies any SOB at rest or CP. - Objective Vital Signs & Weight: Vital Signs (12 hours) Temp Pulse Resp BP Pulse Ox 04/08/19 04:00 98.6 F 62 16 152/88 H 95 04/08/19 00:00 98.5 F 62 16 141/74 H 100 04/07/19 20:00 98.6 F 63 16 133/78 100 Weight Admit Weight 85.91 kg Weight 81.737 kg I&O: 04/06/19 04/07/19 04/08/19 06:59 06:59 06:59 Intake Total 790 1100 600 Output Total 525 1450 925 Balance 265 -350 -325 Result Diagrams: 04/08/19 05:10 04/08/19 05:10 Phys Exam - Physical Examination Constitutional: NAD HEENT: moist MMs Neck: full ROM Respiratory: no wheezing, no rales, no rhonchi, clear to auscultation bilateral Cardiovascular: RRR, no significant murmur Gastrointestinal: soft, non-tender Musculoskeletal: no edema, pulses present Neurological: non-focal, moves all 4 limbs Psychiatric: normal affect, A&O x 3 Skin: no rash, cap refill <2 seconds Dx/Plan (1) Cardiorenal syndrome Code(s): I13.10 - HYP HRT & CHR KDNY DIS W/O HRT FAIL, W STG 1-4/UNSP CHR KDNY Status: Acute (2) Acute exacerbation of CHF (congestive heart failure) Code(s): I50.9 - HEART FAILURE, UNSPECIFIED Status: Acute (3) Anemia, chronic disease Code(s): D63.8 - ANEMIA IN OTHER CHRONIC DISEASES CLASSIFIED ELSEWHERE Status : Acute (4) IDDM (insulin dependent diabetes mellitus) Code(s): E11.9 - TYPE 2 DIABETES MELLITUS WITHOUT COMPLICATIONS; Z79.4 - PERSONAL CARER (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 OF INSULIN Status: Acute (5) Type 2 AMI (acute myocardial infarction) Code(s): I21.A1 - MYOCARDIAL INFARCTION TYPE 2 Status: Acute (6) Acute kidney injury superimposed on CKD Code(s): N17.9 - ACUTE KIDNEY FAILURE, UNSPECIFIED; N18.9 - CHRONIC KIDNEY DISEASE, UNSPECIFIED Status: Acute (7) Seizure disorder Code(s): G40.909 - EPILEPSY, UNSP, NOT INTRACTABLE, WITHOUT STATUS EPILEPTICUS Status: Acute - Plan Plan: CHF exacerbation, h/o HFrEF - NYHA 3, EF 15-20% * CHF 2/2 hx of ischemic cardiomyopathy * ECHO (03/27): EF 15-20%, 1/3 Dystolic Dysfunction * Consulted cardiology - Dr. Pichardo stopped dobutamine drip 04/05, cleared for D/ C * Will monitor vitals and sx off rx Sub-clinical seizures - Expressive aphasia - now resolved - Negative acute head CT findings - EEG showing subclinical eliptiform activity - Neurology consulted - Dr. Birmingham started pt on Keppra 04/04, too much of a sedating effect so switched to phenytoin 04/05 - Due to pts sx resolving after anti-seizure rx and EEG findings eliquis was stopped Acute kidney injury on CKD 4 in setting of cardiorenal syndrome * Cr function worsening overall w/waxing and waning levels * CKD IV, Cr may be at new baseline. * Cont trend Cr * monitor lytes and replace per protocol * Consulted Nephrology (03/27), appreciate recs. * Renal US: No evidence of obstructive uropathy * Stopped home entresto, aldactone, and lisinopril, holding lasix Acute Tubular Necrosis * Renal function overall worse than previous baseline * Creatinine improved on 04/07 from mid-low 3's to 2.99 Elevated troponins 2/2 demand ischemia caused by CHF exacerbation - Downtrended Troponins * Troponin initially elevated to 0.068 > 0.074 > 0.058, likely 2/2 demand ischemia and CKDIII * no current CP or EKG changes * EKG shows T wave inversions in lateral leads and LVH, stable from EKG on admission CAD s/p 3vCABG in 2009 * known to Dr. Pichardo * attempted heart cath 02/28/19 but unable 2/2 CKD * will continue home coreg, plavix, asa, isosorbide and imdur * Consulted Cardiology appreciate recs Anemia of chronic disease, Stable, Most likely 2/2 CKD * Hb stable in 03-19 * Iron 38, TIBC 378, % Sat 10, Ferritin 87.6 IDDMII with peripheral neuropathy, Stable * A1C 6 in November 2018 per records reviewed * will continue home levemir 18u QHS * Hyperglycemic protocol with mild SS insulin and ACHS accuchecks, will monitor and adjust as needed * continue home Cayden for neuropathy HTN * Titrating rx accordingly, will monitor * Disocntinued per cardiology MONTRELL-i, Entresto, Aldactone, Eliquis HLD * Lipid panel check in clinic in 2018 * continue home atorva and tricor GERD * cont home Protonix VTE: Heparin Diet: HH, CC, Fluid restriction Code Status: Full GI Prophylaxis: Cameron PCP: MARA Loja Disposition: Inpt, stopped dobutamine drip 04/05. Will monitor pt's sx and vitals throughout for changes. Pending SNF placement. Addendum - Attending - Attending Attestation Date/Time: 04/08/191913 I personally evaluated the patient and discussed the management with Dr. Robledo. I agree with the History, Examination, Assessment and Plan documented above with any addition or exceptions noted below. The patient is waiting on insurance authorization for SNF at [facility]. His renal function is down-trending. Monitor fluid status closely.
[2019-04-08 05:39] LABS: #Basophils 0.1 thou/uL (0.0-0.2); #Eosinphils 0.5 thou/uL (0.0-0.7); #Lymphocytes 2.5 thou/uL (1.20-3.40); #Neutrophils 5.2 thou/uL (1.40-6.50); %Basophils 0.9 % (0.0-1.0); %Eosinophils 4.9 % (0.0-10.0); %Lymphocytes 27.1 % (21.0-51.0); %Monocytes 10.9 % (0.0-10.0); %Neutrophils 56.2 % (42.0-75.0); Hemoglobin 10.2 g/dL (14.0-18.0); Mean Corpuscular HGB CONC 33.1 g/dL (32.0-36.0); Mean Corpuscular Hemoglobin 29.2 pg (27.0-31.0); Mean Corpuscular Volume 88.1 fL (78.0-98.0); Mean Platelet Volume 8.6 fL (7.4-10.4); Platelet Count 276 thou/uL (130-400); RBC Distribution Width 14.4 % (11.5-14.5); Red Blood Cell (RBC) Count 3.49 mill/uL (4.70-6.10); White Blood Cell (WBC) Count 9.3 thou/uL (4.8-10.8)
[2019-04-08 06:08] LABS: Anion Gap 12 mmol/L (10-20); BUN (Urea Nitrogen) 42 mg/dL (8.4-25.7); Calc. Creatinine Clearance 35 mL/min (70-130); Carbon Dioxide 20 mmol/L (22-29); Chloride 109 mmol/L (98-107); Estimated GFR-MDRD 24; Potassium 4.6 mmol/L (3.5-5.1); Sodium 136 mmol/L (136-145)
[2019-04-08 06:18] LABS: Glucose 56 mg/dL (70-105)
[2019-04-08] MEDS: Carvedilol 6.25 MG TAB PO SCH ×2 (09:52→17:42)
[2019-04-08] MEDS: Isosorbide Mononitrate (ER) 30 MG TAB PO SCH (09:52)
[2019-04-08] MEDS: Sevelamer Carbonate 800 MG TAB PO SCH ×3 (09:52→17:42)
[2019-04-08] MEDS: Gabapentin 100 MG CAP PO SCH ×2 (09:53→22:01)
[2019-04-08] MEDS: Furosemide 40 MG TAB PO SCH (09:53)
[2019-04-08] MEDS: Aspirin Chewable 81 MG TAB PO SCH (09:53)
[2019-04-08] MEDS: Clopidogrel Bisulfate 75 MG TAB PO SCH (09:53)
[2019-04-08] MEDS: Heparin 5,000 UNITS/ML VIAL SC SCH ×3 (09:54→21:58)
--- NOTE | 2019-04-08 10:34 | PRG ---
DATE OF SERVICE: 04/08/2019 SUBJECTIVE: Patient was seen and examined at bedside and overnight events noted. Patient denies any shortness of breath or chest pain or palpitation. No history of nausea or vomiting or diarrhea or fever or chills or cramps. OBJECTIVE: GENERAL: This is a well-built male, in no apparent distress. VITAL SIGNS: Temperature 98.0. Heart rate 65. Respiratory rate 18. Blood pressure 139/71. HEENT: Atraumatic, normocephalic. Oral mucosa is moist NECK: Supple. CARDIOVASCULAR: S1, S2 heard. Rate and rhythm regular. RESPIRATORY: Clear to auscultation. GASTROINTESTINAL: Abdomen is soft. MUSCULOSKELETAL: No tenderness. No edema. DERMATOLOGIC: No skin rash. NEUROLOGIC: Alert and awake and oriented X3. No focal neurologic deficits. Moving all the extremities. PSYCHIATRIC: Mood and affect normal. LABORATORY DATA: Potassium is 4.6, BUN is 42, and creatinine is 2.6. ASSESSMENT AND PLAN: 1. Acute kidney injury on chronic kidney stage 4 with improvement in creatinine. 2. Cardiorenal syndrome. 3. Anemia. Monitor hemoglobin. 4. Hypertension. 5. Renal function seems to be slightly better. Avoid nephrotoxins. Vitamin D deficiency, discontinue vitamin D. 6. . 7. Iron deficiency. Continue iron if tolerated. 8. On Lasix currently. Monitor renal function closely. We will follow. Job ID: [id number]
[2019-04-08] MEDS ORDERED: Insulin Glargine 16 UNITS in Pre-Filled Syringe 1 EACH SC SCH (21:00)
[2019-04-08] MEDS: Atorvastatin Calcium 40 MG TAB PO SCH (22:02)
[2019-04-09 05:26] LABS: #Basophils 0.1 thou/uL (0.0-0.2); #Eosinphils 0.5 thou/uL (0.0-0.7); #Lymphocytes 2.5 thou/uL (1.20-3.40); #Monocytes 0.9 thou/uL (0.11-0.59); #Neutrophils 4.5 thou/uL (1.40-6.50); %Basophils 0.7 % (0.0-1.0); %Lymphocytes 29.7 % (21.0-51.0); %Neutrophils 52.8 % (42.0-75.0); Mean Corpuscular HGB CONC 33.2 g/dL (32.0-36.0); Mean Corpuscular Hemoglobin 29.2 pg (27.0-31.0); Mean Corpuscular Volume 87.9 fL (78.0-98.0); Mean Platelet Volume 8.5 fL (7.4-10.4); Platelet Count 280 thou/uL (130-400); RBC Distribution Width 14.4 % (11.5-14.5); Red Blood Cell (RBC) Count 3.44 mill/uL (4.70-6.10); White Blood Cell (WBC) Count 8.6 thou/uL (4.8-10.8)
--- NOTE | 2019-04-09 05:31 | PDOC.FM ---
- Subjective Subjective: Denies any SOB or CP this morning. Continues to work with PT/OT. - Objective Vital Signs & Weight: Vital Signs (12 hours) Temp Pulse Resp BP BP Pulse Ox 04/09/19 05:22 98.4 F 63 16 144/74 H 99 04/08/19 21:00 99.2 F 65 16 150/85 H 95 04/08/19 17:42 150/77 H Weight Admit Weight 85.91 kg Weight 84.397 kg I&O: 04/07/19 04/08/19 04/09/19 06:59 06:59 06:59 Intake Total 1100 1050 690 Output Total 1450 1525 1300 Balance -036 -465 -112 Result Diagrams: 04/09/19 05:11 04/09/19 05:11 Phys Exam - Physical Examination Constitutional: NAD HEENT: moist MMs, sclera anicteric Neck: full ROM Respiratory: clear to auscultation bilateral Cardiovascular: RRR, no significant murmur Gastrointestinal: soft, non-tender, no distention Musculoskeletal: no edema, pulses present Neurological: moves all 4 limbs Psychiatric: normal affect, A&O x 3 Skin: no rash, cap refill <2 seconds Dx/Plan (1) Cardiorenal syndrome Code(s): I13.10 - HYP HRT & CHR KDNY DIS W/O HRT FAIL, W STG 1-4/UNSP CHR KDNY Status: Acute (2) Acute exacerbation of CHF (congestive heart failure) Code(s): I50.9 - HEART FAILURE, UNSPECIFIED Status: Acute (3) Anemia, chronic disease Code(s): D63.8 - ANEMIA IN OTHER CHRONIC DISEASES CLASSIFIED ELSEWHERE Status : Acute (4) IDDM (insulin dependent diabetes mellitus) Code(s): E11.9 - TYPE 2 DIABETES MELLITUS WITHOUT COMPLICATIONS; Z79.4 - GLASS BENDER (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 OF INSULIN Status: Acute (5) Type 2 AMI (acute myocardial infarction) Code(s): I21.A1 - MYOCARDIAL INFARCTION TYPE 2 Status: Acute (6) Acute kidney injury superimposed on CKD Code(s): N17.9 - ACUTE KIDNEY FAILURE, UNSPECIFIED; N18.9 - CHRONIC KIDNEY DISEASE, UNSPECIFIED Status: Acute (7) Seizure disorder Code(s): G40.909 - EPILEPSY, UNSP, NOT INTRACTABLE, WITHOUT STATUS EPILEPTICUS Status: Acute - Plan Plan: CHF exacerbation, h/o HFrEF - NYHA 3, EF 15-20% * CHF 2/2 hx of ischemic cardiomyopathy * ECHO (03/27): EF 15-20%, 1/3 Dystolic Dysfunction * Consulted cardiology - Dr. Pichardo stopped dobutamine drip 04/05, cleared for D/ C * Will monitor vitals and sx off rx Sub-clinical seizures - Expressive aphasia - now resolved - Negative acute head CT findings - EEG showing subclinical eliptiform activity - Neurology consulted - Dr. Birmingham started pt on Keppra 04/04, too much of a sedating effect so switched to Dilantin 04/05 - Sx continue to be resolved on Dilantin at this point - Due to pts sx resolving after anti-seizure rx and EEG findings eliquis was stopped Acute kidney injury 2/2 Acute Tubular Necrosis in the setting of CKD 4 and cardiorenal syndrome * Cr function w/ recent improvement, approaching prior baseline over past couple days * Cont trend Cr * Consulted Nephrology (03/27), appreciate recs. * Renal US: No evidence of obstructive uropathy * Stopped home entresto, aldactone, and lisinopril, holding lasix Elevated troponins 2/2 demand ischemia caused by CHF exacerbation - Downtrended Troponins * Troponin initially elevated to 0.068 > 0.074 > 0.058, likely 2/2 demand ischemia and CKDIII * no current CP or EKG changes * EKG shows T wave inversions in lateral leads and LVH, stable from EKG on admission CAD s/p 3vCABG in 2009 * known to Dr. Pichardo * attempted heart cath 02/28/19 but unable 2/2 CKD * will continue home coreg, plavix, asa, isosorbide and imdur * Consulted Cardiology appreciate recs Anemia of chronic disease, Stable, Most likely 2/2 CKD * Hb stable in 03-19 * Iron 38, TIBC 378, % Sat 10, Ferritin 87.6 IDDMII with peripheral neuropathy, Stable * A1C 6 in November 2018 per records reviewed * will continue home levemir 18u QHS * Hyperglycemic protocol with mild SS insulin and ACHS accuchecks, will monitor and adjust as needed * continue home Cayden for neuropathy HTN * Titrating rx accordingly, will monitor * Disocntinued per cardiology MONTRELL-i, Entresto, Aldactone, Eliquis HLD * Lipid panel check in clinic in 2018 * continue home atorva and tricor GERD * cont home Protonix VTE: Heparin Diet: HH, CC, Fluid restriction Code Status: Full GI Prophylaxis: Cameron PCP: MARA Loja Disposition: Inpt, stopped dobutamine drip 04/05. Will monitor pt's sx and vitals throughout for changes. Clinically approved for DC to [facility] - awaiting insurance auth. Addendum - Attending - Attending Attestation Date/Time: 04/09/19 3219 I personally evaluated the patient and discussed the management with Dr. Robledo. I agree with the History, Examination, Assessment and Plan documented above with any addition or exceptions noted below. Patient has acceptance at [facility]. He si stable. Will d/c today.
[2019-04-09 05:39] LABS: Anion Gap 11 mmol/L (10-20); BUN (Urea Nitrogen) 43 mg/dL (8.4-25.7); Calc. Creatinine Clearance 35 mL/min (70-130); Carbon Dioxide 22 mmol/L (22-29); Chloride 110 mmol/L (98-107); Estimated GFR-MDRD 24; Glucose 86 mg/dL (70-105); Potassium 4.3 mmol/L (3.5-5.1); Sodium 139 mmol/L (136-145)
[2019-04-09] MEDS: Fenofibrate Nanocrystallized 145 MG TAB PO SCH (08:10)
[2019-04-09] MEDS: Gabapentin 100 MG CAP PO SCH (08:10)
[2019-04-09] MEDS: Carvedilol 6.25 MG TAB PO SCH (08:11)
[2019-04-09] MEDS: Isosorbide Mononitrate (ER) 30 MG TAB PO SCH (08:11)
[2019-04-09] MEDS: Heparin 5,000 UNITS/ML VIAL SC SCH (08:11)
[2019-04-09] MEDS: Sevelamer Carbonate 800 MG TAB PO SCH ×2 (08:11→11:34)
[2019-04-09] MEDS: Clopidogrel Bisulfate 75 MG TAB PO SCH (08:12)
[2019-04-09] MEDS: Aspirin Chewable 81 MG TAB PO SCH (08:12)
[2019-04-09] MEDS: Furosemide 40 MG TAB PO SCH (08:12)
[2019-04-09 11:38] VITALS: BMI 29.1
[2019-04-09 11:44] VITALS: BP 143/83; TEMP 98.2
--- NOTE | 2019-04-10 08:03 | PRG ---
DATE OF SERVICE: 04/09/2019 SUBJECTIVE: Patient was seen and examined at bedside and overnight events noted. Patient denies any shortness of breath or chest pain or palpitation. No history of nausea or vomiting or diarrhea or fever or chills or cramps. OBJECTIVE: CONSTITUTIONAL: This is a well-built male, in no apparent distress. VITAL SIGNS: Temperature 98.2. Heart rate 58. Respiratory rate 16. Blood pressure 143/83. HEENT: Atraumatic, normocephalic. Oral mucosa is moist NECK: Supple. CARDIOVASCULAR: S1, S2 heard. Rate and rhythm regular. RESPIRATORY: Clear to auscultation. GASTROINTESTINAL: Abdomen is soft. MUSCULOSKELETAL: No tenderness. No edema. DERMATOLOGIC: No skin rash. NEUROLOGIC: Alert and awake and oriented X3. No focal neurologic deficits. Moving all the extremities. PSYCHIATRIC: Mood and affect normal. LABORATORY DATA: Potassium is 4.3, BUN is 43, creatinine is 2.7. ASSESSMENT AND PLAN: 1. Chronic kidney stage 4, stable. 2. Acute kidney injury. 3. Cardiorenal syndrome. 4. Anemia. 5. Hypertension. 6. . Avoid nephrotoxins. We will follow. Job ID: [id number]
--- NOTE | 2019-04-10 14:59 | DIS ---
DATE OF ADMISSION: 03/25/2019 DATE OF DISCHARGE: 04/09/2019 ADMITTING ATTENDING: Cathleen Bacon MD RESIDENT: Toñito Robledo DO CONSULTS: 1. Cardiology, Dr. Rhodes. 2. Nephrology, Dr. Tobar. 3. Neurology, Dr. Birmingham. 4. Palliative Care, Dr. Gin Vega. 5. Speech Therapy, Physical Therapy, Occupational Therapy, Case Management, Heart failure Clinic. PROCEDURES PERFORMED: None. DISCHARGE MEDICATIONS: 1. Aspirin 81 mg daily. 2. Atorvastatin 80 mg at bedtime. 3. Plavix 75 mg daily. 4. Lasix 40 mg daily. 5. Neurontin 300 mg b.i.d. 6. Protonix 40 mg daily. 7. Tricor 145 mg q.2 days. 8. Renvela 800 mg t.i.d. 9. Imdur ER 30 mg daily. 10. Coreg 6.25 mg b.i.d. 11. Lantus 16 units at bedtime. 12. Dilantin 300 mg at bedtime. DISCONTINUED MEDICATIONS: 1. Coreg 3.125 mg. 2. Levemir . 3. Hydralazine 25 mg t.i.d. HISTORY OF PRESENT ILLNESS AND HOSPITAL COURSE: The patient is a 59-year-old male with a history of coronary artery disease status post CABG x3 in 2009, insulin-dependent diabetes mellitus, hypertension, CKD 3, HFrEF and right BKA, who presented for dyspnea for the past two days. The patient stated that his symptoms were worse at night and noted orthopnea. Also noted increased swelling of his foot over this time. Denied any chest pain, headache, vision changes, urinary symptoms, nausea, vomiting, diarrhea, or constipation. The patient was recently seen by Dr. Pichardo for a planned catheter on 02/28. However, due to renal function, the catheterization was canceled. The patient was taken off his Entresto and aldactone and started on hydralazine and Imdur. The patient also noted that he has been out of all of his medications for the past week or two due to running out of his medications. In the emergency department, the patient was given 40 mg of Lasix and 81 mg of aspirin. Labs at that time were significant for a creatinine of 2.29 and BNP of 2500. EKG showed LVH with PVCs and no ST or T-wave changes, but with T-wave inversions in lateral leads-stable with previous EKGs. Chest x-ray showed cardiomegaly with sternotomy wires with mild increased interstitial markings. The patient was subsequently admitted for presumed CHF exacerbation and sent to the telemetry floor as an inpatient. The patient was started on 40 mg of Lasix b.i.d. with daily weights and strict I's and O's. Review of records showed that his last echo was significant for an EF of 10% to 15%. However, the patient was in septic shock at that time and previous echo prior to that was with an EF of 40% to 45%. Given that the discrepancy between the two echos, another echo was ordered which subsequently resulted with an EF of 15% to 20% with grade 1/3 diastolic dysfunction. The patient stated that he does have a LifeVest due to his low EF, but notes that he rarely wears it and keeps it in his closet. Dr. Pichardo, Cardiology, was consulted as well as Dr. Tobar with Nephrology. The patient initially had elevated troponins of 0.068, which was trended and eventually downturned. This was likely secondary to demand ischemia and patient's history of chronic kidney disease. Review of the patient's history also showed that his chronic kidney disease fluctuates between CKD 3 and CKD 4 on previous BNPs. The patient takes daily Renvela and also has anemia of chronic disease at baseline with initial hemoglobin of 9.1. The patient's home medications were resumed aside from his p.o. Lasix. Early in the patient's admission, diuresis was achieved with b.i.d. Lasix with electrolytes replaced accordingly. Nephrology performed renal ultrasound with no evidence of obstructive uropathy to attribute to the patient's rising creatinine ratio. Iron studies were ordered, which were congruent with stable anemia of chronic disease. Following initial diuresis, the patient's creatinine continued to worsen, so he was started on a dobutamine drip to help forward flow and improve kidney function. A low-dose MONTRELL inhibitor was also started per Nephrology. The patient noted intermittent shortness of breath that was worse with lying down, but denied any chest pain or shortness of breath at rest while seated up. Lasix was eventually reduced to daily IV 40 mg. As patient's orthopnea improved, BNPs were continually trended and were slowly rising. Creatinine levels had increased from around 2.3 at the time of admission up to 3.4 while on the dobutamine drip. About a week and a half after the patient's admission, a code green was called due to patient acutely developing dysarthria and dysphagia. The patient noted difficulties getting out his words and with word-finding problems, as well as mild visual field defect. The patient's dysphagia worsened to the point, where he was nearly expressively aphasic. A noncontrast CT showed chronic stable finding consistent with the patient's history of previous CVAs. A contrast CT study was considered, however, with the patient's worsening renal function and risk of thrombolysis. This was not performed. The patient was transferred to the stroke floor for continued neurologic monitoring and Neurology was consulted. An EEG was eventually performed, which showed epileptiform findings and the patient was started on Keppra. Soon after starting the Keppra, the patient's aphasia had resolved. However, he complained of increased sedation to the point that it was not tolerable. The Keppra was eventually changed to Dilantin at bedtime, which the patient felt worked much better for him. Throughout the remainder of the patient's stay, he worked with PT and OT as well as Speech Therapy to increase his function and ability to perform ADLs. A barium swallow study was performed, which showed some mild aspiration. The patient was initially started on a second diet, however refused it, expressing that he understood the risks that he was incurring. With the patient's recent diet changes and weight loss, his insulin requirement reduced as evidence of two hypoglycemic morning levels, so his insulin was reduced from 20 units daily to 16 units daily. Several days prior to the patient's discharge, his dobutamine drip was stopped due to creatinine level stable around 3.2. Following the cessation of the dobutamine, the patient's creatinine function actually improved to 2.7 at the time of discharge. Prior to stopping the dobutamine drip, the patient's Coreg was increased to 6.25 mg. The patient had a few instances of hypotensive episodes, mostly present upon ambulation, so the patient's hydralazine was discontinued as it was felt the Coreg was giving him more benefit. At the time of discharge, the patient was participating well of PT and OT, denied any shortness of breath or chest pain, had resolution of his lower extremity swelling, had stable BNP levels, and had near complete resolution of his acute neurologic symptoms. The patient was accepted by [facility] and was transferred there. Prior to discharge, the patient was given return precautions to which he expressed understanding. DISPOSITION: Stable. DISCHARGE INSTRUCTIONS: 1. [facility]. 2. Diet: Heart healthy and carb conscious. 3. Activity: As tolerated by cardiopulmonary limits. 4. Followup: PCP, Dr. Jimenes, within 7 days, Cardiology as directed, Heart Failure Clinic as directed. Job ID: [id number]
== END 2019-04-09 12:47 | DRG 280 ==
LOC: ERS 17:06 → ERHOLD 18:48 → 2SE 22:43 → 2NO 03-26 17:33 → 2SE 04-01 16:13
PROVIDERS: ADMIT Family Medicine; ATTEND Family Medicine
DX: I13.0 Hypertensive heart and chronic kidney disease with heart failure and stage 1 through stage 4 chronic kidney disease, or unspecified chronic kidney disease (principal); I50.23 Acute on chronic systolic (congestive) heart failure; I21.A1 Myocardial infarction type 2; N17.0 Acute kidney failure with tubular necrosis; N18.4 Chronic kidney disease, stage 4 (severe); R47.01 Aphasia; I25.10 Atherosclerotic heart disease of native coronary artery without angina pectoris; E11.42 Type 2 diabetes mellitus with diabetic polyneuropathy; D63.1 Anemia in chronic kidney disease; R47.1 Dysarthria and anarthria; R47.02 Dysphasia; K21.9 Gastro-esophageal reflux disease without esophagitis; E78.5 Hyperlipidemia, unspecified; G40.909 Epilepsy, unspecified, not intractable, without status epilepticus; E11.22 Type 2 diabetes mellitus with diabetic chronic kidney disease; I25.5 Ischemic cardiomyopathy; Z95.1 Presence of aortocoronary bypass graft; Z91.14 Patient's other noncompliance with medication regimen; Z86.73 Personal history of transient ischemic attack (TIA), and cerebral infarction without residual deficits; Z89.511 Acquired absence of right leg below knee
CPT/HCPCS: 36415; 36416; 70450; 70551; 71045; 74230; 76770; 80048; 80053; 81003; 81015; 82306; 82330; 82550; 82553; 82570; 82728; 82803; 83540; 83550; 83735; 83880; 83970; 84100; 84156; 84484; 85025; 85610; 85730; 93005; 93010; 93798; 95816; 95819; 96374; J1250; J1265; J1644; J1650; J1815; J1940

== ENCOUNTER 2019-11-06 22:37 | Inpatient (IN) | payer MEDICARE ==
[2019-11-06 23:29] LABS: Hemoglobin 9.6 g/dL (14.0-18.0); Mean Corpuscular HGB CONC 29.9 g/dL (32.0-36.0); Mean Corpuscular Hemoglobin 21.9 pg (27.0-31.0); Mean Corpuscular Volume 73.4 fL (78.0-98.0); Mean Platelet Volume 10.5 fL (7.4-10.4); Platelet Count 295 thou/uL (130-400); RBC Distribution Width 19.2 % (11.5-14.5); Red Blood Cell (RBC) Count 4.36 mill/uL (4.70-6.10); White Blood Cell (WBC) Count 10.9 thou/uL (4.8-10.8)
[2019-11-06] MEDS ORDERED: AMIODARONE IVPB SCH (23:45)
[2019-11-06] MEDS ORDERED: ADMIXTURE FEE IVPB SCH (23:45)
[2019-11-06] MEDS ORDERED: DEXTROSE IVPB SCH (23:45)
[2019-11-06] MEDS ORDERED: Amiodarone 150 MG/3 ML VIAL IVP SCH (23:45)
[2019-11-06] MEDS ORDERED: WATER IVPB SCH (23:45)
[2019-11-06 23:46] LABS: #Basophils 0.1 thou/uL (0.0-0.2); #Eosinphils 0.1 thou/uL (0.0-0.7); #Lymphocytes 1.3 thou/uL (1.20-3.40); #Monocytes 1.2 thou/uL (0.11-0.59); #Neutrophils 8.2 thou/uL (1.40-6.50); %Basophils 0.8 % (0.0-1.0); %Eosinophils 0.8 % (0.0-10.0); %Lymphocytes 12.2 % (21.0-51.0); %Monocytes 11.2 % (0.0-10.0); Anisocytosis SLIGHT = 6-15 cells (100X) (0-5/hpf); Elliptocytes SLIGHT = 2-5 cells (100X) (0-1/hpf); Hypochromia SLIGHT = 6-15 cells (100X) (0-5/hpf); MDiff Complete? YES; Microcytosis SLIGHT = 6-15 cells (100X) (0-5/hpf); Schistocytes SLIGHT = 2-5 cells (100X) (0-1/hpf); Target Cells SLIGHT = 2-5 cells (100X) (0-1/hpf)
[2019-11-06 23:59] LABS: ALT (SGPT) 128 U/L (8-55); AST (SGOT) 133 U/L (5-34); Albumin 3.5 g/dL (3.5-5.0); Alkaline Phosphatase 56 U/L (40-110); Anion Gap 14 mmol/L (10-20); BUN (Urea Nitrogen) 45 mg/dL (8.4-25.7); Bilirubin, Total 0.8 mg/dL (0.2-1.2); Calc. Creatinine Clearance 0 mL/min (70-130); Calcium 8.9 mg/dL (7.8-10.44); Carbon Dioxide 19 mmol/L (22-29); Chloride 108 mmol/L (98-107); Estimated GFR-MDRD 23; Globulin 3.1 g/dL (2.4-3.5); Glucose 71 mg/dL (70-105); Protein, Total 6.6 g/dL (6.0-8.3); Sodium 137 mmol/L (136-145)
--- NOTE | 2019-11-07 00:20 | PDOC.FPRHP ---
- History of Present Illness Chief Complaint: Syncope History of Present Illness: Patient is a 59 y/o male with a PMH significant for CKD, CHF, Seizure Disorder, DM2, AKA (Right) and a Hx of CABG (2009) who presents to the ED via EMS following a syncopal episodes. Patient states that he was ambulating to his kitchen when he suddenly "started feeling funny". Patient states that he does not actually remember falling, only that he woke up in his 's arms. Patient states that his witnessed his fall and immediate recovery, and denies knowledge of direct trauma to the head, facial grimacing or drooping, or loss of bowel function. However, the patient states that he did urinate on himself, but has also noticed a decreased appetite and increased peripheral edema in his LLE. Patient went on to deny nausea, vomiting, CASAS, visual disturbances or floaters, ABD pain, CP, PND, SOB, fevers, chills, cough, sick contacts or recent travel. ED Course: While in the ED, the patient's AICD was interrogated and found to have been in V -Fib with a subsequent shock delivered. An Amiodarone gtt was subsequently initiated a 1 mg/min s/p ASA 325 mg PO - Allergies/Adverse Reactions Allergies Allergy/AdvReac Type Severity Reaction Status Date / Time ciprofloxacin [From Cipro] Allergy Severe Nausea Verified 09/30/19 09:02 - Home Medications Medication Instructions Recorded Confirmed Type Aspirin Chewable [Aspirin Chewable 1 tab PO DAILY 06/30/16 11/07/19 History Tablet] Atorvastatin Calcium 80 mg PO 12/05/17 11/07/19 History Gabapentin [Neurontin] 300 mg PO BID [facility] 01/22/19 11/07/19 Rx Sevelamer Carbonate [Renvela] 800 mg PO TID- 02/28/19 11/07/19 History Carvedilol [Coreg] 6.25 mg PO BID- 09/24/19 11/07/19 History Clopidogrel Bisulfate [Plavix] 75 mg PO DAILY 09/24/19 11/07/19 History Fenofibrate Nanocrystallized 145 mg PO DAILY 09/24/19 11/07/19 History [Fenofibrate] Insulin Glargine [Lantus] 20 units SC 09/24/19 11/07/19 History Furosemide [Lasix] 40 mg PO DAILY #30 tab 09/26/19 11/07/19 Rx Amiodarone [Cordarone] 200 mg PO DAILY 11/07/19 11/07/19 History hydrALAZINE [Apresoline] 25 mg PO TID 11/07/19 11/07/19 History - History PMHx: CKD, CHF, DM2, CABG (2009) PSHx: AICD Placement, AKA FHx: Father (CVA), Mother (DM2) Social: 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 Allergies: Ciprofloxacin (Reaction Unknown) Code: Full Thermodynamics Professor: Kylee - no recent cath/echo/stress test - Review of Systems General: denies: fever/chills, weight/appetite/sleep changes, fatigue Eyes: denies: vision changes Respiratory: denies: cough, shortness of breath, exercise intolerance Cardiovascular: reports: edema. denies: chest pain, palpitation, paroxysmal nocturnal dyspnea Gastrointestinal: denies: nausea, vomiting, diarrhea, constipation, abdominal pain, GI bleeding Musculoskeletal: denies: pain, tenderness Neurological: reports: syncope. denies: seizure, weakness - Vital signs BP: [156/86] HR: [61] RR: [12] Tmax: [] Pox: [98]% on [Room Air] Wt: [94 kg] - Physical Exam Constitutional: NAD, awake, alert and oriented, well developed HEENT: normocephalic and atraumatic, PERRLA, EOMI, conjunctiva clear, no scleral icterus, grossly normal vision, grossly normal hearing, normal nasal mucosa, MMM, oropharynx clear Neck: supple, FROM, trachea midline, no LAD, no JVD Chest: no-tender to palpation, no lesions Heart: RRR, normal S1/S2, no murmurs/rubs/gallops, pulses present, no edema Lungs: no respiratory distress, good air movement, no wheezing, no retractions, other (Scant rales in RLL) Abdomen: soft, non-tender, bowel sounds present, no masses/distention Musculoskeletal: ROM grossly normal, other (Right AKA) Neurological: no focal deficit Skin: no rash/lesions, capillary refill <2 seconds, no jaundice Heme/Lymphatic: no unusual bruising or bleeding, no purpura, no petechia, no LAD Psychiatric: normal mood and affect, good judgment and insight, intact recent and remote memory FMR H&P: Results - Labs Result Diagrams: 11/07/19 03:02 11/07/19 03:02 Lab results: WBC 10.9 thou/uL (4.8-10.8) H 11/06/19 23:17 Hgb 9.6 g/dL (14.0-18.0) L 11/06/19 23:17 Hct 32.0 % (42.0-52.0) L 11/06/19 23:17 MCV 73.4 fL (78.0-98.0) L 11/06/19 23:17 Plt Count 295 thou/uL (130-400) 11/06/19 23:17 Neutrophils % 75.0 % (42.0-75.0) 11/06/19 23:17 Sodium 137 mmol/L (136-145) 11/06/19 23:17 Potassium 4.0 mmol/L (3.5-5.1) 11/06/19 23:17 Chloride 108 mmol/L (98-107) H 11/06/19 23:17 Carbon Dioxide 19 mmol/L (22-29) L 11/06/19 23:17 BUN 45 mg/dL (8.4-25.7) H 11/06/19 23:17 Creatinine 2.84 mg/dL (0.7-1.3) H 11/06/19 23:17 Glucose 71 mg/dL (70-105) 11/06/19 23:17 Calcium 8.9 mg/dL (7.8-10.44) 11/06/19 23:17 Total Bilirubin 0.8 mg/dL (0.2-1.2) 11/06/19 23:17 AST 133 U/L (5-34) H 11/06/19 23:17 ALT 128 U/L (8-55) H 11/06/19 23:17 Alkaline Phosphatase 56 U/L (40-110) 11/06/19 23:17 B-Natriuretic Peptide 4841.7 pg/mL (0-100) H 11/06/19 23:17 Serum Total Protein 6.6 g/dL (6.0-8.3) 11/06/19 23:17 Albumin 3.5 g/dL (3.5-5.0) 11/06/19 23:17 - EKG Interpretation EKG: EKG: No ST-Segment Elevations, Multiple PVCs FMR H&P: A/P - Problem List (1) Syncope Current Visit: Yes Status: Acute Code(s): R55 - SYNCOPE AND COLLAPSE (2) Anemia, chronic disease Current Visit: No Status: Chronic Code(s): D63.8 - ANEMIA IN OTHER CHRONIC DISEASES CLASSIFIED ELSEWHERE (3) Hx of CABG Current Visit: No Status: Chronic (4) Chronic kidney disease, stage 4 (severe) Current Visit: No Status: Chronic Code(s): N18.4 - CHRONIC KIDNEY DISEASE, STAGE 4 (SEVERE) (5) DM2 (diabetes mellitus, type 2) Current Visit: No Status: Chronic Qualifiers: Diabetes mellitus complication detail: with peripheral angiopathy with gangrene (6) HFrEF (heart failure with reduced ejection fraction) Current Visit: No Status: Chronic Code(s): I50.20 - UNSPECIFIED SYSTOLIC ( CONGESTIVE) HEART FAILURE Qualifiers: Heart failure chronicity: chronic Qualified Code(s): I50.22 - Chronic systolic (congestive) heart failure (7) HLD (hyperlipidemia) Current Visit: No Status: Chronic Code(s): E78.5 - HYPERLIPIDEMIA, UNSPECIFIED (8) HTN (hypertension) Current Visit: No Status: Chronic Code(s): I10 - ESSENTIAL (PRIMARY) HYPERTENSION Qualifiers: Hypertension type: essential hypertension Qualified Code(s): I10 - Essential (primary) hypertension (9) Peripheral vascular disease Current Visit: No Status: Chronic Code(s): I73.9 - PERIPHERAL VASCULAR DISEASE, UNSPECIFIED - Plan Patient is a 59 y/o male who presents to the ED for evaluation following a Syncopal Episode. 1. Syncope -Patient denies known trauma or signs and symptoms consistent w/ Vasovagal Syncope, CVA, Hypoglycemic Episode - decreased PO intake may be contributing factor -Per ED Attending Physician, patient's AICD was interrogated and found to have delivered a shock after V-Fib -See #2 2. HFrEF -Patient has a Hx of AICD firing after arrythmias - likely causative factor -Started on Amiodarone gtt in ED - will continue and plan for Cards consult for further medication optimization -Patient admits to increased peripheral edema over past several weeks, but denies worsening fatigue, PND, medication holiday, or poor fluid restriction diet compliance -Physical Exam remarkable for scant rales heard in RLL -BNP: 4841 (increased from 3764 in 09/26) -Echo (03/28): EF 15-20% w/ Grade 1/3 Diastolic Dysfunction -Will administer dose of Furosemide 40 mg IV now and restart home Furosemide regimen -Will initiate 1200 ml/day fluid restriction and measure daily I&Os, weight 3. CKD, Chronic -Cr: 2.99 - severely elevated but consistent with previous admissions -Will avoid nephrotoxic drugs 4. DM2, Insulin Dependent -Glucose: 138 on admission - unlikely that Hypoglycemia was contributing factor to #1 -Will initiate home Lantus regimen -ACHS Accuchecks -Hypoglycemia Protocol 5. HTN -BP: 154/86 in ED -Will restart home medication regimen - titrate as needed 6. Microcytic Anemia -Likely Anemia of Chronic Disease - patient appears hemodynamically stable at this time -Will restart home Ferrous Sulfate regimen 7. Peripheral Vascular Disease -s/p right-sided AKA -Continue home medication regimen 8. Hyperlipidemia -Will continue home medication regimen PCP: MARA Jimenes Code: Full Activity: Bed Rest Diet: CC w/ 1200 ml/day Fluid Restriction IVF: None VTE PPx: Heparin 5000u TID Dispo: Patient is currently stable and admitted to Telemetry for further evaluation. Will continue medical management with Amiodarone gtt and Furosemide as per above. Plan for Cards consult in AM - recs appreciated. Expected LOS > 48H. FMR H&P: Upper Level - Plan Date/Time: 11/07/19 0020 Pam Majano DO, have evaluated this patient and agree with findings/plan as outlined by seo intern resident. Pertinent changes/additions are listed here. Pt is a 59 yo M with PMH of CAD s/p CABG (2017), CKD4, HTN, DM, and combined CHF (EF 15-20% in 03/2019) presenting after a syncopal episode. AICD interrogated and found Vfib and successful cardioversion s/p defibrillation. In the ED, patient reports feeling at baseline. Denies CP. Reports increasing LE edema x2 days. VS: T98.3, P62, R20, O2100% RA, BP 154/86 PE: Gen: NAD HEENT: Moist MM, no JVD Heart: RRR, no murmurs Lungs: expiratory crackles within the RLL, can only speak in short sentences Abd: soft, nontender, BS+ Ext: R BKA, LLE with significant 2+ pitting edema Skin: no rashes Psych: AOx3 A/P: Syncope 2/2 Vfib s/p Cardioversion from AICD: -VSS at this time. Admit to tele. -S/p Amio drip in ED, continue -consult cardiology in AM -AICD interrogated and working. CAD s/p CABG -troponin indeterminate, trend to r/o superimposed ischemia -Hx of large infarct and last echo showing akinetic anterior wall likely contributing to arrhythmia -daily ASA, consider therapeutic lovenox if troponin becomes positive -pt without chest pain during this episode and none currently -EKG difficult to interpret d/t PVC's, repeat EKG pending Microcytic Anemia: -at baseline, trend Combined CHF: -echo 03/2019 EF 15-20% -appears to have some mild overload, will give 1x dose of IV Lasix and resume home PO lasix. -BNP 4800 Transaminitis: -could be 2/2 cardiac etiology -denies abd pain, consider RUQ US and Hepatitis Panel. CKD4: -at baseline, trend daily DM: -SSI, home meds when med rec complete HTN: -hold antihypertensives while on amio drip Dispo: Stable, LOS likely >2 midnights DVT PPx: Heparin TID GI PPx: none Addendum - Attending - Attending Attestation Date/Time: 11/07/19 1152 I personally evaluated the patient and discussed the management with Dr. Washington /Carlton/Rocio. I agree with the History, Examination, Assessment and Plan documented above with any addition or exceptions noted below. Patient here for recurrent Vfib s/p AICD shock. Amio drip started. Cardiology on board. Patient has extensive history of med noncompliance. Continue home meds.
[2019-11-07 00:21] LABS: CKMB 2.8 ng/mL (0-6.6)
[2019-11-07] MEDS ORDERED: Aspirin Chewable 81 MG TAB ONE (00:29)
[2019-11-07] MEDS ORDERED: Dextrose 5% in Water 1,000 ML IV PRN (01:17)
[2019-11-07] MEDS ORDERED: HumaLOG 300 UNITS/3 ML VIAL SC PRN (01:17)
[2019-11-07] MEDS ORDERED: Ondansetron ODT 4 MG TAB PO PRN (01:17)
[2019-11-07] MEDS ORDERED: Dextrose 50% Abboject 50 ML SYRINGE SLOW IVP PRN (01:17)
[2019-11-07 01:51] LABS: Magnesium 2.3 mg/dL (1.6-2.6); Phosphorus 4.6 mg/dL (2.3-4.7)
[2019-11-07 02:01] VITALS: BMI 32.3
[2019-11-07] MEDS ORDERED: Furosemide 40 MG/4 ML VIAL SLOW IVP SCH (02:15)
[2019-11-07] MEDS ORDERED: Sodium Chloride 0.9% 10 ML ONE (02:30)
[2019-11-07 03:16] LABS: #Basophils 0.1 thou/uL (0.0-0.2); #Eosinphils 0.1 thou/uL (0.0-0.7); #Lymphocytes 1.1 thou/uL (1.20-3.40); #Monocytes 1.4 thou/uL (0.11-0.59); #Neutrophils 9.6 thou/uL (1.40-6.50); %Basophils 0.6 % (0.0-1.0); %Eosinophils 0.6 % (0.0-10.0); %Lymphocytes 8.6 % (21.0-51.0); %Monocytes 11.3 % (0.0-10.0); %Neutrophils 78.8 % (42.0-75.0); Hemoglobin 9.3 g/dL (14.0-18.0); Mean Corpuscular HGB CONC 29.6 g/dL (32.0-36.0); Mean Corpuscular Hemoglobin 22.1 pg (27.0-31.0); Mean Corpuscular Volume 74.6 fL (78.0-98.0); Mean Platelet Volume 11.2 fL (7.4-10.4); Platelet Count 301 thou/uL (130-400); RBC Distribution Width 19.4 % (11.5-14.5); Red Blood Cell (RBC) Count 4.22 mill/uL (4.70-6.10); White Blood Cell (WBC) Count 12.1 thou/uL (4.8-10.8)
[2019-11-07 03:38] LABS: Troponin I 0.167 ng/mL (< 0.028)
[2019-11-07 04:11] LABS: ALT (SGPT) 132 U/L (8-55); AST (SGOT) 138 U/L (5-34); Albumin 3.4 g/dL (3.5-5.0); Alkaline Phosphatase 58 U/L (40-110); Anion Gap 14 mmol/L (10-20); BUN (Urea Nitrogen) 48 mg/dL (8.4-25.7); Bilirubin, Total 1.1 mg/dL (0.2-1.2); Calc. Creatinine Clearance 36 mL/min (70-130); Calcium 8.9 mg/dL (7.8-10.44); Carbon Dioxide 19 mmol/L (22-29); Chloride 107 mmol/L (98-107); Estimated GFR-MDRD 22; Globulin 3.2 g/dL (2.4-3.5); Glucose 138 mg/dL (70-105); Potassium 3.9 mmol/L (3.5-5.1); Protein, Total 6.6 g/dL (6.0-8.3); Sodium 136 mmol/L (136-145)
[2019-11-07] MEDS: Amiodarone 450 MG, Admixture Fee 1 EACH in Dextrose 5% in Water 250 ML IVPB SCH ×2 (08:24→21:21)
[2019-11-07] MEDS: Isosorbide Mononitrate (ER) 30 MG TAB PO SCH ×2 (08:26→20:42)
[2019-11-07] MEDS: Aspirin 81 mg Enteric Coated Tablet PO SCH (08:26)
[2019-11-07] MEDS: Clopidogrel Bisulfate 75 MG TAB PO SCH (08:26)
[2019-11-07] MEDS: Sevelamer Carbonate 800 MG TAB PO SCH ×3 (08:26→17:37)
[2019-11-07] MEDS: Heparin 5,000 UNITS/ML VIAL SC SCH ×3 (08:27→20:42)
[2019-11-07] MEDS: Furosemide 40 MG TAB PO SCH (08:27)
[2019-11-07] MEDS: Carvedilol 6.25 MG TAB PO SCH (08:27)
[2019-11-07] MEDS: Fenofibrate Nanocrystallized 145 MG TAB PO SCH (08:27)
[2019-11-07] MEDS: Gabapentin 300 MG CAP PO SCH ×2 (08:27→20:51)
[2019-11-07] MEDS ORDERED: Famotidine 20 MG TAB PO SCH (09:00)
--- NOTE | 2019-11-07 09:29 | RAD ---
SINGLE VIEW OF THE CHEST: COMPARISON: 09/24/2019. HISTORY: Syncope. FINDINGS: A single view of the chest shows an enlarged but stable cardiomediastinal silhouette. The pacemaker is unchanged in position. The patient is status post sternotomy. There is no evidence of consolidat ion, mass, or pleural effusion. IMPRESSION: Cardiomegaly. POS: DEZA
--- NOTE | 2019-11-07 12:11 | EKG ---
Test Reason : Blood Pressure : / mmHG Vent. Rate : 081 BPM Atrial Rate : 064 BPM P-R Int : 206 ms QRS Dur : 124 ms QT Int : 474 ms P-R-T Axes : 043 058 193 degrees QTc Int : 550 ms Undetermined rhythm Left ventricular hypertrophy with QRS widening Inferior infarct , age undetermined Abnormal ECG Confirmed by PARAMJIT CORNELIUS ([id number]), publishing director YOANNA GARCÍA ([id number]) on 11/07/2019 12:10:44 PM Referred By: Confirmed By:PARAMJIT Richardson
--- NOTE | 2019-11-07 17:53 | CON ---
DATE OF CONSULTATION: 11/07/2019 REASON FOR CONSULTATION: VT/VF. PRIMARY CONSTRUCTION SITE MANAGER: Elijah Pichardo M.D. HISTORY OF PRESENT ILLNESS: Mr. Sanon is a very pleasant 59-year-old gentleman with ischemic cardiomyopathy with an EF of about 20% to 25%, comes to the hospital after a syncopal spell. He was at home yesterday, felt funny and just remembers waking up in his 's arms and she was crying, trying to wake him up. He apparently had a syncopal spell and was brought into the ER, where his AICD was interrogated and was found to have an episode of ventricular fibrillation which was appropriately treated by his AICD with three shocks successful converting him back to sinus rhythm. He was started on amiodarone drip and Cardiology has been consulted for this. PAST MEDICAL HISTORY: 1. Ischemic cardiomyopathy, last EF at 15% to 20%. 2. AICD last year. 3. Status post CABG in 2009. 4. Severe bilateral PVD, status post right BKA. 5. CAD in the past. 6. Chronic kidney disease stage 4/stage 5. 7. Hypertension. 8. Seizure disorder. SURGICAL HISTORY: 1. Right BKA in January of last year. 2. CABG x2 in 2009. FAMILY HISTORY: Noncontributory. SOCIAL HISTORY: Quit smoking in 2018. No alcohol or drugs. OUTPATIENT MEDICATIONS: 1. Hydralazine 25 mg p.o. t.i.d. 2. Carvedilol 6.25 p.o. b.i.d. 3. Fenofibrate 145 mg a day. 4. Atorvastatin 80 mg at bedtime. 5. Aspirin 81 a day. 6. Amiodarone 200 mg a day. 7. Clopidogrel 75 mg a day. 8. Furosemide 40 mg a day. 9. Insulin Lantus 20 units subcu at bedtime. 10. Gabapentin 300 mg p.o. b.i.d. 11. Sevelamer 100 mg p.o. t.i.d. ALLERGIES: CIPRO GIVES HIM SEVERE NAUSEA. REVIEW OF SYSTEMS: A 12-point review of systems was done and was all negative unless stated in the history of present illness. PHYSICAL EXAMINATION: VITAL SIGNS: Temperature 97.9, pulse 67, respiratory rate 18, saturating 94% on room air, blood pressure 132/63. GENERAL: Awake, alert, and oriented x3, in no distress. HEENT: Normocephalic, atraumatic. NECK: Supple. LUNGS: Clear. CARDIOVASCULAR: S1, S2. No S3 or S4. No murmurs. There is a grade 2/6 systolic murmur at the right upper sternal border. ABDOMEN: Soft. Positive bowel sounds. EXTREMITIES: Right [id number] amputation. Left leg has 4+ edema. SKIN: Warm and dry. LABORATORY DATA: Laboratory work was reviewed. White count of 10, hemoglobin 9.6, hematocrit 32, platelet count of 295. Chemistry was unremarkable except for BUN of 48, creatinine of 2.9. GFR was 22, AST and ALT elevated. Troponin was 0.16 and 0.15. ASSESSMENT: 1. Ventricular fibrillation status post AICD shock. 2. Ischemic cardiomyopathy, ejection fraction at 15% to 20%. 3. Coronary artery disease status post coronary artery bypass grafting x2 in 2009. No recent catheterization given severe renal dysfunction. 4. Chronic kidney disease, stage 4. Creatinine at baseline at 2.99. 5. Acute on chronic systolic heart failure. PLAN: 1. I spoke at length about possibly doing a heart catheterization with Mr. Sanon to assess for ischemia, to see there is any areas that can be revascularized to prevent more VTs. 2. Continue amiodarone drip to reload for now. We will reload him with a drip for 24 hours and then switch to 400 b.i.d. for 10 days. 3. As far as his decision for heart catheterization he states that we have been delaying this long enough and he would like to proceed. At this point, he is probably in acute decompensated heart failure given his severe lower extremity edema much worse than normal. We will plan on diuresing him over the weekend and depending on his kidney function and how he feels, we will decide if we do heart catheterization later next week. Thank you for letting us to participate in the care of your patient. We will follow. Job ID: [id number]
[2019-11-07] MEDS: Insulin Glargine 20 UNITS in Pre-Filled Syringe 1 EACH SC SCH (20:42)
[2019-11-07] MEDS: Atorvastatin Calcium 40 MG TAB PO SCH (20:42)
[2019-11-08 04:34] LABS: ALT (SGPT) 104 U/L (8-55); AST (SGOT) 76 U/L (5-34); Alkaline Phosphatase 79 U/L (40-110); Anion Gap 13 mmol/L (10-20); BUN (Urea Nitrogen) 54 mg/dL (8.4-25.7); Bilirubin, Total 0.5 mg/dL (0.2-1.2); Calc. Creatinine Clearance 30 mL/min (70-130); Calcium 8.2 mg/dL (7.8-10.44); Carbon Dioxide 21 mmol/L (22-29); Chloride 106 mmol/L (98-107); Estimated GFR-MDRD 18; Globulin 2.9 g/dL (2.4-3.5); Glucose 119 mg/dL (70-105); Potassium 3.8 mmol/L (3.5-5.1); Protein, Total 5.9 g/dL (6.0-8.3); Sodium 136 mmol/L (136-145)
[2019-11-08 04:54] LABS: HBSAB Concentration 1.99 mIU/mL; HBSAg Index 0.16 S/CO (0-0.99); Hep B Core Total Ab Non-Reactive (NonReactive); Hep B Core Total Index 0.04 S/CO (0-0.79); Hep B Surf AB Non-Reactive (NonReactive); Hep B Surf Ag Non-Reactive S/CO (NonReactive); Hep C IgG Ab Non-Reactive (NonReactive); Hep C Index 0.05 S/CO (0-0.79)
--- NOTE | 2019-11-08 06:07 | EKG ---
Test Reason : STAT Blood Pressure : / mmHG Vent. Rate : 060 BPM Atrial Rate : 060 BPM P-R Int : 222 ms QRS Dur : 124 ms QT Int : 496 ms P-R-T Axes : 017 048 184 degrees QTc Int : 496 ms Sinus rhythm with 1st degree A-V block Left ventricular hypertrophy with QRS widening and repolarization abnormality Inferior infarct (cited on or before 31-MAR-2019) Abnormal ECG When compared with ECG of 31-MAR-2019 11:22, ST now depressed in Inferior leads ST no longer elevated in Anterior leads T wave inversion now evident in Inferior leads Confirmed by DR. Leander MANUEL ([id number]) on 11/08/2019 6:07:08 AM Referred By: RUSSELL Confirmed By:DR. Leander MANUEL
--- NOTE | 2019-11-08 07:08 | PDOC.FM ---
Addendum entered and electronically signed by Power Escobar DO 11/08/19 11 :16: Pt's AICD interrogation resulted in V-Fib not V-Tach Original Note: - Subjective Subjective: Pt is doing well today. He denies chest pain, sob. He believes he has decreased fluid on his legs. He spoke with Dr. Pichardo and would like to pursue a heart cath. - Objective Vital Signs & Weight: Vital Signs (12 hours) Temp Pulse Resp BP Pulse Ox 11/08/19 03:34 98.8 F 58 L 18 159/65 H 95 11/08/19 00:00 59 L 140/76 11/07/19 20:00 98 11/07/19 19:42 97.6 F 58 L 16 138/71 97 Weight Weight 93.9 kg I&O: 11/07/19 11/08/19 11/09/19 06:59 06:59 06:59 Intake Total 606 860 Output Total 550 850 Balance 56 10 Result Diagrams: 11/07/19 03:02 11/08/19 03:51 EKG Reviewed by me: Yes (Tele: no overnight events) Phys Exam - Physical Examination Constitutional: NAD HEENT: PERRLA, moist MMs Neck: no nodes, full ROM Respiratory: no wheezing, clear to auscultation bilateral Cardiovascular: RRR, no significant murmur Gastrointestinal: soft, non-tender, positive bowel sounds 2-3+ pitting edema, no venous stasis changes Neurological: non-focal, moves all 4 limbs (R BKA) Psychiatric: normal affect, A&O x 3 Skin: no rash, cap refill <2 seconds Dx/Plan (1) V-tach Code(s): I47.2 - VENTRICULAR TACHYCARDIA Status: Acute (2) Syncope Code(s): R55 - SYNCOPE AND COLLAPSE Status: Acute (3) Acute exacerbation of CHF (congestive heart failure) Code(s): I50.9 - HEART FAILURE, UNSPECIFIED Status: Acute (4) CKD (chronic kidney disease), stage IV Code(s): N18.4 - CHRONIC KIDNEY DISEASE, STAGE 4 (SEVERE) Status: Acute (5) Diabetes mellitus Code(s): E11.9 - TYPE 2 DIABETES MELLITUS WITHOUT COMPLICATIONS Status: Acute (6) HLD (hyperlipidemia) Code(s): E78.5 - HYPERLIPIDEMIA, UNSPECIFIED Status: Acute (7) HTN (hypertension) Code(s): I10 - ESSENTIAL (PRIMARY) HYPERTENSION Status: Acute - Plan Plan: Patient is a 59 y/o male who presents to the ED for evaluation following a Syncopal Episode 2/2 V-Tach: # V-Tach w/ AICD Shock x 3, Syncopal Episode - Cardiology consulted, appreciate recs - pending heart cath with Dr. Pichardo, diuresing pt over weekend before cath - continue amiodarone drip and will switch to PO 400 mg BID x 10 days # HFrEF Echo (03/28): EF 15-20% w/ Grade 1/3 Diastolic Dysfunction -Worsening LE edema, increased Lasix -BNP: 4841, above baseline -Will initiate 1200 ml/day fluid restriction and measure daily I&Os, weight # DENYS on CKD - on admission at baseline, 2.99 - has elevated to ~3.5. Likely cardiorenal, increase lasix. # DM2, Insulin Dependent -Will initiate home Lantus regimen -MERT Chery -Hyperglycemia Protocol # HTN - BP: 154/86 in ED - Will restart home medication regimen. - Unable to tolerate CCB with heart failure, MONTRELL-I with kidney function. Hopefully will become normotensive with decrease in fluid. # Microcytic Anemia -Likely Anemia of Chronic Disease - patient appears hemodynamically stable at this time -Will restart home Ferrous Sulfate regimen # Peripheral Vascular Disease -s/p right-sided AKA -Continue home medication regimen # Hyperlipidemia -Will continue home medication regimen PCP: MARA - Dr. Jimenes Code: Full Activity: Bed Rest Diet: CC w/ 1200 ml/day Fluid Restriction IVF: None VTE PPx: Heparin 5000u TID Dispo: continue current therapy and plan for heart cath Addendum - Attending - Attending Attestation Date/Time: 11/08/19 1202 I personally evaluated the patient and discussed the management with Dr. Escobar. I agree with the History, Examination, Assessment and Plan documented above with any addition or exceptions noted below. Patient improved. Cardiology on board. Will work on diuresis over the weekend and hopefully have cath next week.
[2019-11-08] MEDS: Furosemide 40 MG TAB PO SCH (08:33)
[2019-11-08] MEDS: Carvedilol 6.25 MG TAB PO SCH (08:34)
[2019-11-08] MEDS: Famotidine 20 MG TAB PO SCH (08:34)
[2019-11-08] MEDS: Clopidogrel Bisulfate 75 MG TAB PO SCH (08:34)
[2019-11-08] MEDS: Aspirin 81 mg Enteric Coated Tablet PO SCH (08:34)
[2019-11-08] MEDS: Sevelamer Carbonate 800 MG TAB PO SCH ×3 (08:34→17:04)
[2019-11-08] MEDS: Heparin 5,000 UNITS/ML VIAL SC SCH ×3 (08:35→20:34)
[2019-11-08] MEDS: Isosorbide Mononitrate (ER) 30 MG TAB PO SCH ×2 (08:35→20:34)
[2019-11-08] MEDS: Gabapentin 300 MG CAP PO SCH ×2 (08:35→20:33)
[2019-11-08] MEDS: Furosemide 40 MG/4 ML VIAL SLOW IVP SCH (08:35)
[2019-11-08] MEDS: Fenofibrate Nanocrystallized 145 MG TAB PO SCH (08:35)
[2019-11-08] MEDS ORDERED: Amiodarone 200 MG TAB PO SCH ×2 (11:15→21:00)
--- NOTE | 2019-11-08 19:22 | PDOC.CPN ---
- Subjective Date: 11/08/19 Time: 19:22 Interval history: No more VT, no syncope. Diuresing. - Review of Systems General: denies: fever/chills, weight/appetite/sleep changes, night sweats, fatigue Respiratory: denies: cough, congestion, shortness of breath, exercise intolerance Cardiovascular: reports: edema. denies: chest pain, palpitation, paroxysmal nocturnal dyspnea, orthopnea Gastrointestinal: denies: nausea, vomiting, diarrhea, constipation, abd pain, GI bleeding Musculoskeletal: denies: pain, tenderness, stiffness, swelling, arthritis/ arthralgias Neurological: denies: numbness, syncope, seizure, weakness - Objective Allergies/Adverse Reactions: Allergies Allergy/AdvReac Type Severity Reaction Status Date / Time ciprofloxacin [From Cipro] Allergy Severe Nausea Verified 11/08/19 00:39 Visit Medications: Current Medications Amiodarone HCl (Cordarone) 400 mg PO BID [facility] Aspirin (Ecotrin) 81 mg PO DAILY [facility] Last Admin: 11/08/19 08:34 Dose: 81 mg Atorvastatin Calcium (Lipitor) 80 mg PO HS [facility] Last Admin: 11/07/19 20:42 Dose: 80 mg Carvedilol (Coreg) 6.25 mg PO QAM-WM [facility] Last Admin: 11/08/19 08:34 Dose: 6.25 mg Clopidogrel Bisulfate (Plavix) 75 mg PO DAILY [facility] Last Admin: 11/08/19 08:34 Dose: 75 mg Dextrose/Water (Dextrose 50%) 25 gm SLOW IVP PRN PRN PRN Reason: Hypoglycemia Famotidine (Pepcid) 20 mg PO DAILY [facility] Last Admin: 11/08/19 08:34 Dose: 20 mg Fenofibrate (Tricor) 145 mg PO DAILY [facility] Last Admin: 11/08/19 08:35 Dose: 145 mg Furosemide (Lasix) 40 mg PO DAILY [facility] Last Admin: 11/08/19 08:33 Dose: Not Given Furosemide (Lasix) 40 mg SLOW IVP DAILY [facility] Last Admin: 11/08/19 08:35 Dose: 40 mg Gabapentin (Neurontin) 300 mg PO BID [facility] Last Admin: 11/08/19 08:35 Dose: 300 mg Glucagon (Glucagon) 1 mg IM PRN PRN PRN Reason: Hypoglycemia Heparin Sodium (Porcine) (Heparin) 5,000 units SC TID [facility] Last Admin: 11/08/19 15:21 Dose: 5,000 units Hydralazine HCl (Apresoline) 25 mg PO TID [facility] Dextrose/Water (D5w) 1,000 mls @ 0 mls/hr IV .Q0M PRN PRN Reason: Hypoglycemia Insulin Glargine 20 units/ (Miscellaneous Medication) 0.2 mls @ 0 mls/hr SC [facility] Last Admin: 11/07/19 20:42 Dose: 0.2 mls Insulin Human Lispro (Humalog) 0 units SC .MILD SLIDING SCALE PRN PRN Reason: Mild Correctional Scale Isosorbide Mononitrate (Imdur Er) 30 mg PO BID [facility] Last Admin: 11/08/19 08:35 Dose: 30 mg Ondansetron HCl (Zofran Odt) 4 mg PO Q6H PRN PRN Reason: Nausea/Vomiting Polyethylene Glycol (Miralax) 17 gm PO DAILYPRN PRN PRN Reason: Constipation Sevelamer Carbonate (Renvela) 800 mg PO TID-[facility] Last Admin: 11/08/19 17:04 Dose: 800 mg Vital Signs & Weight: Vital Signs Temp Pulse Pulse Pulse Resp BP BP 11/08/19 19:08 97.3 F L 55 L 16 11/08/19 15:17 97.5 F L 54 L 16 11/08/19 11:25 97.7 F 55 L 18 11/08/19 10:19 59 L 56 L 124/69 142/67 H BP BP Pulse Ox 11/08/19 19:08 137/68 98 11/08/19 15:17 122/56 L 95 11/08/19 11:25 136/77 98 11/08/19 10:19 Weight 207 lb 0.225 oz - Physical Exam General: alert & oriented x3 HEENT: mucus membranes moist Neck: supple neck Cardiac: regular rate and rhythm Lungs: clear to auscultation Neuro: grossly intact Abdomen: active bowel sounds Extremities: 2+ LE edema Skin: clear Musculoskeletal: no pain - Labs Result Diagrams: 11/07/19 03:02 11/08/19 03:51 Troponin/CKMB CK-MB (CK-2) 2.8 ng/mL (0-6.6) 11/06/19 23:17 Troponin I 0.150 ng/mL (< 0.028) H 11/07/19 05:20 - Telemetry Sinus rhythms and dysrhythmias: sinus rhythm - Assessment/Plan Assessment/Plan: 1. Syncope 2. Vfib 3. S/P AICD shock 4. Ischemic CM 5. Acute on chronic systolic CHF. PLAN: - Continue IV diuresis. - His creatinine is increasing and he is still volume overload. Will start low dose dobutamine drip for inotropic support. - May be closer to HD than expected. - Will follow.
[2019-11-08] MEDS: DOBUTamine 500 mg/250 ml 250 ML IVPB SCH (20:32)
[2019-11-08] MEDS: Atorvastatin Calcium 40 MG TAB PO SCH (20:33)
[2019-11-08] MEDS: hydrALAZINE 25 MG TAB PO SCH (20:33)
[2019-11-08] MEDS: Insulin Glargine 20 UNITS in Pre-Filled Syringe 1 EACH SC SCH (20:34)
[2019-11-08] MEDS: Amiodarone 200 MG TAB PO SCH (20:34)
[2019-11-09 05:32] LABS: ALT (SGPT) 85 U/L (8-55); AST (SGOT) 49 U/L (5-34); Alkaline Phosphatase 83 U/L (40-110); Anion Gap 15 mmol/L (10-20); BUN (Urea Nitrogen) 52 mg/dL (8.4-25.7); Bilirubin, Total 0.7 mg/dL (0.2-1.2); Calc. Creatinine Clearance 32 mL/min (70-130); Calcium 7.8 mg/dL (7.8-10.44); Carbon Dioxide 18 mmol/L (22-29); Chloride 109 mmol/L (98-107); Estimated GFR-MDRD 19; Globulin 2.5 g/dL (2.4-3.5); Glucose 102 mg/dL (70-105); Potassium 4.3 mmol/L (3.5-5.1); Protein, Total 5.5 g/dL (6.0-8.3); Sodium 138 mmol/L (136-145)
--- NOTE | 2019-11-09 06:32 | PDOC.FM ---
- Subjective Subjective: Pt is doing well. He remains with fluid in LE. He denies sob, chest pain. No complaints. - Objective Vital Signs & Weight: Vital Signs (12 hours) Temp Pulse Resp BP BP Pulse Ox 11/09/19 03:43 98.7 F 69 20 126/59 L 97 11/09/19 00:00 63 165/81 H 11/08/19 20:30 98 11/08/19 19:08 97.3 F L 55 L 16 137/68 98 Weight Weight 91.1 kg I&O: 11/07/19 11/08/19 11/09/19 06:59 06:59 06:59 Intake Total 819 002 3964.2 Output Total 910 568 4002 Balance 56 10 -519.8 Result Diagrams: 11/07/19 03:02 11/09/19 04:24 EKG Reviewed by me: Yes (Tele: PVCs, PACs) Phys Exam - Physical Examination Constitutional: NAD HEENT: PERRLA, moist MMs Neck: no JVD, full ROM Respiratory: no wheezing, clear to auscultation bilateral Cardiovascular: RRR, no significant murmur Gastrointestinal: soft, non-tender, positive bowel sounds 2-3+ pitting edema Neurological: non-focal, normal sensation Psychiatric: normal affect, A&O x 3 Skin: no rash, normal turgor Dx/Plan (1) V-tach Code(s): I47.2 - VENTRICULAR TACHYCARDIA Status: Acute (2) Syncope Code(s): R55 - SYNCOPE AND COLLAPSE Status: Acute (3) Acute exacerbation of CHF (congestive heart failure) Code(s): I50.9 - HEART FAILURE, UNSPECIFIED Status: Acute (4) CKD (chronic kidney disease), stage IV Code(s): N18.4 - CHRONIC KIDNEY DISEASE, STAGE 4 (SEVERE) Status: Acute (5) Diabetes mellitus Code(s): E11.9 - TYPE 2 DIABETES MELLITUS WITHOUT COMPLICATIONS Status: Acute (6) HLD (hyperlipidemia) Code(s): E78.5 - HYPERLIPIDEMIA, UNSPECIFIED Status: Acute (7) HTN (hypertension) Code(s): I10 - ESSENTIAL (PRIMARY) HYPERTENSION Status: Acute - Plan Plan: Patient is a 59 y/o male who presents to the ED for evaluation following a Syncopal Episode / V-Tach: # V-Tach w/ AICD Shock x 3, Syncopal Episode - Cardiology consulted, appreciate recs - pending heart cath with Dr. Pichardo, fuad pt over weekend before cath - continue amiodarone # HFrEF Echo (03/28): EF 15-20% w/ Grade 1/3 Diastolic Dysfunction -Worsening LE edema, increased Lasix, initiated dobutamine -BNP: 4841, above baseline -Will initiate 1200 ml/day fluid restriction and measure daily I&Os, weight # DENYS on CKD - on admission at baseline, 2.99 - has elevated to ~3.5. Likely cardiorenal, increase lasix, start dobutamine # DM2, Insulin Dependent -Will initiate home Lantus regimen -[facility] Chery -Hyperglycemia Protocol # HTN - BP: 154/86 in ED - Will restart home medication regimen. - Unable to tolerate CCB with heart failure, MONTRELL-I with kidney function. Hopefully will become normotensive with decrease in fluid. # Microcytic Anemia -Likely Anemia of Chronic Disease - patient appears hemodynamically stable at this time -Will restart home Ferrous Sulfate regimen # Peripheral Vascular Disease -s/p right-sided AKA -Continue home medication regimen # Hyperlipidemia -Will continue home medication regimen PCP: MARA - Dr. Jimenes Code: Full Activity: Bed Rest Diet: CC w/ 1200 ml/day Fluid Restriction IVF: None VTE PPx: Heparin 5000u TID Dispo: continue current therapy and plan for heart cath Addendum - Attending - Attending Attestation Date/Time: 11/09/19 6835 I personally evaluated the patient and discussed the management with Dr. Escobar. I agree with the History, Examination, Assessment and Plan documented above with any addition or exceptions noted below. Patient stable. Renal function somewhat improved with dobutamine. Cardiology on board. Plans for cath next week if renal function will support. Continue Amiodarone and other chronic meds.
[2019-11-09] MEDS: Sevelamer Carbonate 800 MG TAB PO SCH ×3 (08:44→17:25)
[2019-11-09] MEDS: Carvedilol 6.25 MG TAB PO SCH (08:44)
[2019-11-09] MEDS: hydrALAZINE 25 MG TAB PO SCH ×3 (08:45→21:07)
[2019-11-09] MEDS: Famotidine 20 MG TAB PO SCH (08:45)
[2019-11-09] MEDS: Gabapentin 300 MG CAP PO SCH ×2 (08:45→21:06)
[2019-11-09] MEDS: Heparin 5,000 UNITS/ML VIAL SC SCH ×3 (08:45→21:07)
[2019-11-09] MEDS: Furosemide 40 MG/4 ML VIAL SLOW IVP SCH (08:45)
[2019-11-09] MEDS: Clopidogrel Bisulfate 75 MG TAB PO SCH (08:45)
[2019-11-09] MEDS: Aspirin 81 mg Enteric Coated Tablet PO SCH (08:45)
[2019-11-09] MEDS: Fenofibrate Nanocrystallized 145 MG TAB PO SCH (08:45)
[2019-11-09] MEDS: Amiodarone 200 MG TAB PO SCH ×2 (08:45→21:06)
[2019-11-09] MEDS: Isosorbide Mononitrate (ER) 30 MG TAB PO SCH ×2 (08:45→21:06)
[2019-11-09] MEDS: DOBUTamine 500 mg/250 ml 250 ML IVPB SCH (14:20)
--- NOTE | 2019-11-09 16:35 | PDOC.CPN ---
- Subjective Date: 11/09/19 Time: 16:34 Interval history: No new issues. He states he is diuresing very well. - Review of Systems General: denies: fever/chills, weight/appetite/sleep changes, night sweats, fatigue Respiratory: denies: cough, congestion, shortness of breath, exercise intolerance Cardiovascular: denies: chest pain, palpitation, edema, paroxysmal nocturnal dyspnea, orthopnea Gastrointestinal: denies: nausea, vomiting, diarrhea, constipation, abd pain, GI bleeding Musculoskeletal: denies: pain, tenderness, stiffness, swelling, arthritis/ arthralgias Neurological: denies: numbness, syncope, seizure, weakness - Objective Allergies/Adverse Reactions: Allergies Allergy/AdvReac Type Severity Reaction Status Date / Time ciprofloxacin [From Cipro] Allergy Severe Nausea Verified 11/08/19 00:39 Visit Medications: Current Medications Amiodarone HCl (Cordarone) 400 mg PO BID [facility] Last Admin: 11/09/19 08:45 Dose: 400 mg Aspirin (Ecotrin) 81 mg PO DAILY [facility] Last Admin: 11/09/19 08:45 Dose: 81 mg Atorvastatin Calcium (Lipitor) 80 mg PO HS [facility] Last Admin: 11/08/19 20:33 Dose: 80 mg Carvedilol (Coreg) 6.25 mg PO QAM-WM [facility] Last Admin: 11/09/19 08:44 Dose: 6.25 mg Clopidogrel Bisulfate (Plavix) 75 mg PO DAILY [facility] Last Admin: 11/09/19 08:45 Dose: 75 mg Dextrose/Water (Dextrose 50%) 25 gm SLOW IVP PRN PRN PRN Reason: Hypoglycemia Famotidine (Pepcid) 20 mg PO DAILY [facility] Last Admin: 11/09/19 08:45 Dose: 20 mg Fenofibrate (Tricor) 145 mg PO DAILY [facility] Last Admin: 11/09/19 08:45 Dose: 145 mg Furosemide (Lasix) 40 mg PO DAILY [facility] Last Admin: 11/08/19 08:33 Dose: Not Given Furosemide (Lasix) 40 mg SLOW IVP DAILY [facility] Last Admin: 11/09/19 08:45 Dose: 40 mg Gabapentin (Neurontin) 300 mg PO BID [facility] Last Admin: 11/09/19 08:45 Dose: 300 mg Glucagon (Glucagon) 1 mg IM PRN PRN PRN Reason: Hypoglycemia Heparin Sodium (Porcine) (Heparin) 5,000 units SC TID [facility] Last Admin: 11/09/19 15:41 Dose: 5,000 units Hydralazine HCl (Apresoline) 25 mg PO TID [facility] Last Admin: 11/09/19 15:41 Dose: 25 mg Dextrose/Water (D5w) 1,000 mls @ 0 mls/hr IV .Q0M PRN PRN Reason: Hypoglycemia Insulin Glargine 20 units/ (Miscellaneous Medication) 0.2 mls @ 0 mls/hr SC HS [facility] Last Admin: 11/08/19 20:34 Dose: 0.2 mls Dobutamine HCl/Dextrose (Dobutamine 500 Mg/250 Ml) 250 mls @ 14.085 mls/hr IVPB INF [facility]; Protocol Last Admin: 11/09/19 14:20 Dose: 250 mls Insulin Human Lispro (Humalog) 0 units SC .MILD SLIDING SCALE PRN PRN Reason: Mild Correctional Scale Isosorbide Mononitrate (Imdur Er) 30 mg PO BID [facility] Last Admin: 11/09/19 08:45 Dose: 30 mg Ondansetron HCl (Zofran Odt) 4 mg PO Q6H PRN PRN Reason: Nausea/Vomiting Polyethylene Glycol (Miralax) 17 gm PO DAILYPRN PRN PRN Reason: Constipation Sevelamer Carbonate (Renvela) 800 mg PO TID-[facility] Last Admin: 11/09/19 11:53 Dose: 800 mg Vital Signs & Weight: Vital Signs Temp Pulse Pulse Pulse Resp BP BP 11/09/19 15:42 98.0 F 56 L 18 11/09/19 12:22 70 65 148/68 H 165/74 H 11/09/19 11:24 97.8 F 61 16 11/09/19 07:45 97.1 F L 66 16 BP BP Pulse Ox 11/09/19 15:42 127/56 L 95 11/09/19 12:22 11/09/19 11:24 148/68 H 98 11/09/19 07:45 156/113 H 99 Weight 200 lb 13.458 oz - Physical Exam General: alert & oriented x3 HEENT: mucus membranes moist Neck: supple neck Cardiac: regular rate and rhythm Lungs: normal breath sounds Neuro: no lateralizing findings Abdomen: active bowel sounds Extremities: 2+ LE edema Skin: clear Musculoskeletal: no pain - Labs Result Diagrams: 11/07/19 03:02 11/09/19 04:24 Troponin/CKMB CK-MB (CK-2) 2.8 ng/mL (0-6.6) 11/06/19 23:17 Troponin I 0.150 ng/mL (< 0.028) H 11/07/19 05:20 - Telemetry Sinus rhythms and dysrhythmias: sinus rhythm - Assessment/Plan Assessment/Plan: 1. Syncope 2. Vfib 3. S/P AICD shock 4. Ischemic CM 5. Acute on chronic systolic CHF. PLAN: - Continue IV diuresis. - Creatinine better with diuresis and dobutamine. - Will follow.
[2019-11-09] MEDS: Atorvastatin Calcium 40 MG TAB PO SCH (21:06)
[2019-11-09] MEDS: Insulin Glargine 20 UNITS in Pre-Filled Syringe 1 EACH SC SCH (21:07)
[2019-11-10 04:54] LABS: ALT (SGPT) 68 U/L (8-55); AST (SGOT) 38 U/L (5-34); Albumin 3.2 g/dL (3.5-5.0); Alkaline Phosphatase 84 U/L (40-110); Anion Gap 14 mmol/L (10-20); BUN (Urea Nitrogen) 45 mg/dL (8.4-25.7); Bilirubin, Total 0.7 mg/dL (0.2-1.2); Calc. Creatinine Clearance 33 mL/min (70-130); Calcium 8.1 mg/dL (7.8-10.44); Carbon Dioxide 22 mmol/L (22-29); Chloride 104 mmol/L (98-107); Estimated GFR-MDRD 21; Globulin 2.9 g/dL (2.4-3.5); Glucose 125 mg/dL (70-105); Potassium 3.9 mmol/L (3.5-5.1); Protein, Total 6.1 g/dL (6.0-8.3); Sodium 136 mmol/L (136-145)
--- NOTE | 2019-11-10 06:29 | PDOC.FM ---
- Subjective Subjective: Pt is doing well today. Diuresed well overnight. 2.2 L out. He did have 5 beats of Vtach overnight. He denies sob, chest pain. - Objective Vital Signs & Weight: Vital Signs (12 hours) Temp Pulse Resp BP Pulse Ox 11/10/19 04:09 98.0 F 70 19 162/83 H 95 11/10/19 00:50 64 18 127/58 L 11/09/19 19:48 98.0 F 62 12 164/77 H 97 Weight Weight 91.8 kg I&O: 11/08/19 11/09/19 11/10/19 06:59 06:59 06:59 Intake Total 860 1430.2 1368 Output Total 850 1950 9065 Balance 10 -519.8 -6167 Result Diagrams: 11/07/19 03:02 11/10/19 04:01 EKG Reviewed by me: Yes (Tele: 5 beats of vtach) Phys Exam - Physical Examination Constitutional: NAD HEENT: PERRLA, moist MMs Neck: no JVD, full ROM Respiratory: no wheezing, clear to auscultation bilateral Cardiovascular: RRR, no significant murmur Gastrointestinal: soft, non-tender, positive bowel sounds 2+ pitting edema, nonpainful Neurological: non-focal, moves all 4 limbs Psychiatric: normal affect Skin: normal turgor, cap refill <2 seconds Dx/Plan (1) V-tach Code(s): I47.2 - VENTRICULAR TACHYCARDIA Status: Acute (2) Syncope Code(s): R55 - SYNCOPE AND COLLAPSE Status: Acute (3) Acute exacerbation of CHF (congestive heart failure) Code(s): I50.9 - HEART FAILURE, UNSPECIFIED Status: Acute (4) CKD (chronic kidney disease), stage IV Code(s): N18.4 - CHRONIC KIDNEY DISEASE, STAGE 4 (SEVERE) Status: Acute (5) Diabetes mellitus Code(s): E11.9 - TYPE 2 DIABETES MELLITUS WITHOUT COMPLICATIONS Status: Acute (6) HLD (hyperlipidemia) Code(s): E78.5 - HYPERLIPIDEMIA, UNSPECIFIED Status: Acute (7) HTN (hypertension) Code(s): I10 - ESSENTIAL (PRIMARY) HYPERTENSION Status: Acute - Plan Plan: Patient is a 59 y/o male who presents to the ED for evaluation following a Syncopal Episode 2/2 V-Tach: # V-Tach w/ AICD Shock x 3, Syncopal Episode - Cardiology consulted, appreciate recs - pending heart cath with Dr. Pichardo, diuresing pt over weekend before cath - continue amiodarone # HFrEF Echo (03/28): EF 15-20% w/ Grade 1/3 Diastolic Dysfunction -Worsening LE edema, increased Lasix, initiated dobutamine - diuresed well overnight -Continue 1200 ml/day fluid restriction and measure daily I&Os, weight # DENYS on CKD - on admission at baseline, 2.99 - has elevated to ~3.5 but with initiation of increased lasix/dobumatine is improving to basline. He diuresed well overnight. # DM2, Insulin Dependent -Will [facility] -Hyperglycemia Protocol # HTN - Will restart home medication regimen. - Unable to tolerate CCB with heart failure, MONTRELL-I with kidney function. Hopefully will become normotensive with decrease in fluid. # Microcytic Anemia -Likely Anemia of Chronic Disease - patient appears hemodynamically stable at this time -Will restart home Ferrous Sulfate regimen # Peripheral Vascular Disease -s/p right-sided AKA -Continue home medication regimen # Hyperlipidemia -Will continue home medication regimen PCP: [facility]A - Dr. Jimenes Code: Full Activity: Bed Rest Diet: CC w/ 1200 ml/day Fluid Restriction IVF: None VTE PPx: Heparin 5000u TID Dispo: continue current therapy and plan for heart cath Addendum - Attending - Attending Attestation Date/Time: 11/10/19 1207 I personally evaluated the patient and discussed the management with Dr. Escobar. I agree with the History, Examination, Assessment and Plan documented above with any addition or exceptions noted below. Patient stable. Continues on dobutamine for cardiorenal syndrome. Hoping to get renal function improved enough in his CKD to tolerate heart cath next week. Continue diuresis. Cardiology on board. Having some nonsustained VT, but anticipate this may be due to dobutamine and he is on Amiodarone with AICD in place. Continue therapy and await further cardiology recs. Nephro not on board at this time, may need them pending renal function after heart cath.
[2019-11-10] MEDS: Isosorbide Mononitrate (ER) 30 MG TAB PO SCH ×2 (08:24→20:36)
[2019-11-10] MEDS: Famotidine 20 MG TAB PO SCH (08:24)
[2019-11-10] MEDS: hydrALAZINE 25 MG TAB PO SCH ×3 (08:24→20:36)
[2019-11-10] MEDS: Carvedilol 6.25 MG TAB PO SCH ×3 (08:24→20:37)
[2019-11-10] MEDS: Amiodarone 200 MG TAB PO SCH ×2 (08:24→20:36)
[2019-11-10] MEDS: Aspirin 81 mg Enteric Coated Tablet PO SCH (08:24)
[2019-11-10] MEDS: Heparin 5,000 UNITS/ML VIAL SC SCH ×3 (08:24→20:37)
[2019-11-10] MEDS: Sevelamer Carbonate 800 MG TAB PO SCH ×3 (08:25→17:49)
[2019-11-10] MEDS: Clopidogrel Bisulfate 75 MG TAB PO SCH (08:25)
[2019-11-10] MEDS: Gabapentin 300 MG CAP PO SCH ×2 (08:25→20:37)
[2019-11-10] MEDS: Fenofibrate Nanocrystallized 145 MG TAB PO SCH (08:25)
[2019-11-10] MEDS: Furosemide 40 MG/4 ML VIAL SLOW IVP SCH (08:25)
[2019-11-10] MEDS: DOBUTamine 500 mg/250 ml 250 ML IVPB SCH (10:57)
--- NOTE | 2019-11-10 13:52 | PDOC.CPN ---
- Subjective Date: 11/10/19 Time: 13:51 Interval history: Doing well. No more VT or VF. Diuresing. - Review of Systems General: denies: fever/chills, weight/appetite/sleep changes, night sweats, fatigue Respiratory: denies: cough, congestion, shortness of breath, exercise intolerance Cardiovascular: reports: edema. denies: chest pain, palpitation, paroxysmal nocturnal dyspnea, orthopnea Gastrointestinal: denies: nausea, vomiting, diarrhea, constipation, abd pain, GI bleeding Musculoskeletal: denies: pain, tenderness, stiffness, swelling, arthritis/ arthralgias Neurological: denies: numbness, syncope, seizure, weakness - Objective Allergies/Adverse Reactions: Allergies Allergy/AdvReac Type Severity Reaction Status Date / Time ciprofloxacin [From Cipro] Allergy Severe Nausea Verified 11/08/19 00:39 Visit Medications: Current Medications Amiodarone HCl (Cordarone) 400 mg PO BID [facility] Last Admin: 11/10/19 08:24 Dose: 400 mg Aspirin (Ecotrin) 81 mg PO DAILY [facility] Last Admin: 11/10/19 08:24 Dose: 81 mg Atorvastatin Calcium (Lipitor) 80 mg PO HS [facility] Last Admin: 11/09/19 21:06 Dose: 80 mg Carvedilol (Coreg) 6.25 mg PO BID [facility] Last Admin: 11/10/19 08:41 Dose: Not Given Clopidogrel Bisulfate (Plavix) 75 mg PO DAILY [facility] Last Admin: 11/10/19 08:25 Dose: 75 mg Dextrose/Water (Dextrose 50%) 25 gm SLOW IVP PRN PRN PRN Reason: Hypoglycemia Famotidine (Pepcid) 20 mg PO DAILY [facility] Last Admin: 11/10/19 08:24 Dose: 20 mg Fenofibrate (Tricor) 145 mg PO DAILY [facility] Last Admin: 11/10/19 08:25 Dose: 145 mg Furosemide (Lasix) 40 mg PO DAILY [facility] Last Admin: 11/08/19 08:33 Dose: Not Given Furosemide (Lasix) 40 mg SLOW IVP DAILY [facility] Last Admin: 11/10/19 08:25 Dose: 40 mg Gabapentin (Neurontin) 300 mg PO BID [facility] Last Admin: 11/10/19 08:25 Dose: 300 mg Glucagon (Glucagon) 1 mg IM PRN PRN PRN Reason: Hypoglycemia Heparin Sodium (Porcine) (Heparin) 5,000 units SC TID [facility] Last Admin: 11/10/19 08:24 Dose: 5,000 units Hydralazine HCl (Apresoline) 25 mg PO TID [facility] Last Admin: 11/10/19 08:24 Dose: 25 mg Dextrose/Water (D5w) 1,000 mls @ 0 mls/hr IV .Q0M PRN PRN Reason: Hypoglycemia Insulin Glargine 20 units/ (Miscellaneous Medication) 0.2 mls @ 0 mls/hr SC [facility] Last Admin: 11/09/19 21:07 Dose: 0.2 mls Dobutamine HCl/Dextrose (Dobutamine 500 Mg/250 Ml) 250 mls @ 14.085 mls/hr IVPB INF [facility]; Protocol Last Admin: 11/10/19 10:57 Dose: 250 mls Insulin Human Lispro (Humalog) 0 units SC .MILD SLIDING SCALE PRN PRN Reason: Mild Correctional Scale Isosorbide Mononitrate (Imdur Er) 30 mg PO BID [facility] Last Admin: 11/10/19 08:24 Dose: 30 mg Ondansetron HCl (Zofran Odt) 4 mg PO Q6H PRN PRN Reason: Nausea/Vomiting Polyethylene Glycol (Miralax) 17 gm PO DAILYPRN PRN PRN Reason: Constipation Sevelamer Carbonate (Renvela) 800 mg PO TID-[facility] Last Admin: 11/10/19 11:25 Dose: 800 mg Vital Signs & Weight: Vital Signs Temp Pulse Pulse Pulse Resp BP BP 11/10/19 11:34 64 69 156/72 H 157/82 H 11/10/19 11:26 97.9 F 64 14 11/10/19 07:16 97.7 F 65 15 11/10/19 04:09 98.0 F 70 19 BP BP Pulse Ox 11/10/19 11:34 11/10/19 11:26 149/72 H 95 11/10/19 07:16 155/86 H 96 11/10/19 04:09 162/83 H 95 Weight 202 lb 6.15 oz - Physical Exam General: alert & oriented x3 HEENT: mucus membranes moist Neck: supple neck Cardiac: regular rate and rhythm Lungs: clear to auscultation Neuro: grossly intact Abdomen: active bowel sounds Extremities: other: (3+ edema.) Skin: clear Musculoskeletal: no pain - Labs Result Diagrams: 11/07/19 03:02 11/10/19 04:01 Troponin/CKMB CK-MB (CK-2) 2.8 ng/mL (0-6.6) 11/06/19 23:17 Troponin I 0.150 ng/mL (< 0.028) H 11/07/19 05:20 - Telemetry Sinus rhythms and dysrhythmias: sinus rhythm - Assessment/Plan Assessment/Plan: 1. Syncope 2. Vfib 3. S/P AICD shock 4. Ischemic CM 5. Acute on chronic systolic CHF. PLAN: - Continue IV diuresis. - Creatinine continues to improved with dobutamine. - Continue dobutamine drip at current dose. - Will follow.
[2019-11-10] MEDS: Insulin Glargine 20 UNITS in Pre-Filled Syringe 1 EACH SC SCH (20:35)
[2019-11-10] MEDS: Atorvastatin Calcium 40 MG TAB PO SCH (20:37)
[2019-11-10] MEDS ORDERED: Acetaminophen 500 MG TAB PO PRN (21:36)
--- NOTE | 2019-11-11 05:10 | PDOC.FM ---
- Subjective Subjective: Doing well this morning. No concerns. - Objective MAR Reviewed: Yes Vital Signs & Weight: Vital Signs (12 hours) Temp Pulse Resp BP BP BP Pulse Ox 11/11/19 04:00 98.2 F 59 L 16 158/73 H 97 11/10/19 20:37 137/67 11/10/19 20:36 59 L 137/67 11/10/19 19:10 97.9 F 59 L 16 137/67 96 Weight Weight 91.8 kg I&O: 11/09/19 11/10/19 11/11/19 06:59 06:59 06:59 Intake Total 1430.2 1368 1072 Output Total 1950 5748 1900 Balance -519.8 -9417 -828 Result Diagrams: 11/07/19 03:02 11/11/19 09:00 Phys Exam - Physical Examination Constitutional: NAD HEENT: PERRLA, moist MMs Neck: supple, full ROM Respiratory: no wheezing, no rales, no rhonchi, clear to auscultation bilateral Cardiovascular: RRR, no significant murmur Gastrointestinal: soft, non-tender Right AKA. 2+ edema. Neurological: non-focal, moves all 4 limbs Psychiatric: normal affect, A&O x 3 Skin: normal turgor Dx/Plan (1) Syncope Code(s): R55 - SYNCOPE AND COLLAPSE Status: Acute (2) V-tach Code(s): I47.2 - VENTRICULAR TACHYCARDIA Status: Acute (3) Acute kidney injury superimposed on CKD Code(s): N17.9 - ACUTE KIDNEY FAILURE, UNSPECIFIED; N18.9 - CHRONIC KIDNEY DISEASE, UNSPECIFIED Status: Acute (4) CKD (chronic kidney disease), stage III Code(s): N18.3 - CHRONIC KIDNEY DISEASE, STAGE 3 (MODERATE) Status: Acute (5) Cardiorenal syndrome Code(s): I13.10 - HYP HRT & CHR KDNY DIS W/O HRT FAIL, W STG 1-4/UNSP CHR KDNY Status: Acute (6) Congestive heart failure Code(s): I50.9 - HEART FAILURE, UNSPECIFIED Status: Acute (7) Diabetes mellitus Code(s): E11.9 - TYPE 2 DIABETES MELLITUS WITHOUT COMPLICATIONS Status: Acute (8) HLD (hyperlipidemia) Code(s): E78.5 - HYPERLIPIDEMIA, UNSPECIFIED Status: Chronic (9) HTN (hypertension) Code(s): I10 - ESSENTIAL (PRIMARY) HYPERTENSION Status: Chronic Qualifiers: Hypertension type: essential hypertension Qualified Code(s): I10 - Essential (primary) hypertension - Plan Plan: V-Tach w/ AICD Shock x 3, Syncopal Episode - Cardiology consulted, appreciate recs - pending heart cath with Dr. Pichardo, diuresing pt over weekend before cath - continue amiodarone HFrEF Echo (03/28): EF 15-20% w/ Grade 1/3 Diastolic Dysfunction -Continue 1200 ml/day fluid restriction and measure daily I&Os, weight DENYS on CKD - on admission at baseline, 2.99 - has elevated to ~3.5 but with initiation of increased lasix/dobumatine is improving to baseline. He diuresed well. - down 1024mL yesterday DM2, Insulin Dependent -Will initiate home Lantus regimen -[facility] Accuchecks -Hypoglycemia Protocol HTN - Will restart home medication regimen. - Unable to tolerate CCB with heart failure, MONTRELL-I with kidney function. Microcytic Anemia -Likely Anemia of Chronic Disease - patient appears hemodynamically stable at this time -Will restart home iron regimen Peripheral Vascular Disease -s/p right-sided AKA -Continue home medication regimen Hyperlipidemia -Will continue home medication regimen PCP: [facility] - Dr. Jimenes Code: Full Activity: Bed Rest Diet: CC w/ 1200 ml/day Fluid Restriction IVF: None VTE PPx: Heparin 5000u TID Dispo: continue current therapy and plan for heart cath Addendum - Attending - Attending Attestation Date/Time: 11/11/19 2411 I personally evaluated the patient and discussed the management with Dr. Baker I agree with the History, Examination, Assessment and Plan documented above with any addition or exceptions noted below - Patient without complaints. Denies any SOB. Afebrile VSS. A/P: 1) Acute on chronic HFrEF exacerbation- continue diuresing; continue dobutamine. Appreciate cardiology assistance. 2) CKD stage 4- Continue to monitor.
[2019-11-11] MEDS: Carvedilol 6.25 MG TAB PO SCH ×2 (08:46→20:58)
[2019-11-11] MEDS: Isosorbide Mononitrate (ER) 30 MG TAB PO SCH ×2 (08:46→20:58)
[2019-11-11] MEDS: Gabapentin 300 MG CAP PO SCH ×2 (08:46→20:52)
[2019-11-11] MEDS: hydrALAZINE 25 MG TAB PO SCH ×3 (08:46→20:58)
[2019-11-11] MEDS: Aspirin 81 mg Enteric Coated Tablet PO SCH (08:46)
[2019-11-11] MEDS: Fenofibrate Nanocrystallized 145 MG TAB PO SCH (08:46)
[2019-11-11] MEDS: Amiodarone 200 MG TAB PO SCH ×2 (08:46→20:58)
[2019-11-11] MEDS: Sevelamer Carbonate 800 MG TAB PO SCH ×3 (08:46→15:14)
[2019-11-11] MEDS: Famotidine 20 MG TAB PO SCH (08:46)
[2019-11-11] MEDS: Furosemide 40 MG/4 ML VIAL SLOW IVP SCH (08:47)
[2019-11-11] MEDS: Heparin 5,000 UNITS/ML VIAL SC SCH ×3 (08:47→20:52)
[2019-11-11] MEDS: Clopidogrel Bisulfate 75 MG TAB PO SCH (08:57)
[2019-11-11 09:34] LABS: ALT (SGPT) 53 U/L (8-55); AST (SGOT) 27 U/L (5-34); Albumin 3.4 g/dL (3.5-5.0); Alkaline Phosphatase 54 U/L (40-110); Anion Gap 13 mmol/L (10-20); BUN (Urea Nitrogen) 43 mg/dL (8.4-25.7); Bilirubin, Total 0.8 mg/dL (0.2-1.2); Calc. Creatinine Clearance 31 mL/min (70-130); Calcium 8.6 mg/dL (7.8-10.44); Carbon Dioxide 23 mmol/L (22-29); Chloride 104 mmol/L (98-107); Estimated GFR-MDRD 19; Glucose 104 mg/dL (70-105); Protein, Total 6.4 g/dL (6.0-8.3); Sodium 136 mmol/L (136-145)
--- NOTE | 2019-11-11 14:35 | PDOC.CPN ---
- Subjective Date: 11/11/19 Time: 14:33 Interval history: Still diuresing well. No angina, no SOB. LE edema still prominent. - Review of Systems General: denies: fever/chills, weight/appetite/sleep changes, night sweats, fatigue Respiratory: denies: cough, congestion, shortness of breath, exercise intolerance Cardiovascular: reports: edema. denies: chest pain, palpitation, paroxysmal nocturnal dyspnea, orthopnea Gastrointestinal: denies: nausea, vomiting, diarrhea, constipation, abd pain, GI bleeding Musculoskeletal: denies: pain, tenderness, stiffness, swelling, arthritis/ arthralgias Neurological: denies: numbness, syncope, seizure, weakness - Objective Allergies/Adverse Reactions: Allergies Allergy/AdvReac Type Severity Reaction Status Date / Time ciprofloxacin [From Cipro] Allergy Severe Nausea Verified 11/08/19 00:39 Visit Medications: Current Medications Acetaminophen (Tylenol) 1,000 mg PO Q6H PRN PRN Reason: Moderate to Severe Pain (6-10) Last Admin: 11/10/19 22:33 Dose: 1,000 mg Amiodarone HCl (Cordarone) 400 mg PO BID [facility] Last Admin: 11/11/19 08:46 Dose: 400 mg Aspirin (Ecotrin) 81 mg PO DAILY [facility] Last Admin: 11/11/19 08:46 Dose: 81 mg Atorvastatin Calcium (Lipitor) 80 mg PO HS [facility] Last Admin: 11/10/19 20:37 Dose: 80 mg Carvedilol (Coreg) 6.25 mg PO BID [facility] Last Admin: 11/11/19 08:46 Dose: 6.25 mg Clopidogrel Bisulfate (Plavix) 75 mg PO DAILY [facility] Last Admin: 11/11/19 08:57 Dose: 75 mg Dextrose/Water (Dextrose 50%) 25 gm SLOW IVP PRN PRN PRN Reason: Hypoglycemia Famotidine (Pepcid) 20 mg PO DAILY [facility] Last Admin: 11/11/19 08:46 Dose: 20 mg Fenofibrate (Tricor) 145 mg PO DAILY [facility] Last Admin: 11/11/19 08:46 Dose: 145 mg Furosemide (Lasix) 40 mg PO DAILY [facility] Last Admin: 11/08/19 08:33 Dose: Not Given Furosemide (Lasix) 40 mg SLOW IVP DAILY [facility] Last Admin: 11/11/19 08:47 Dose: 40 mg Gabapentin (Neurontin) 300 mg PO BID [facility] Last Admin: 11/11/19 08:46 Dose: 300 mg Glucagon (Glucagon) 1 mg IM PRN PRN PRN Reason: Hypoglycemia Heparin Sodium (Porcine) (Heparin) 5,000 units SC TID [facility] Last Admin: 11/11/19 08:47 Dose: 5,000 units Hydralazine HCl (Apresoline) 25 mg PO TID [facility] Last Admin: 11/11/19 08:46 Dose: 25 mg Dextrose/Water (D5w) 1,000 mls @ 0 mls/hr IV .Q0M PRN PRN Reason: Hypoglycemia Insulin Glargine 20 units/ (Miscellaneous Medication) 0.2 mls @ 0 mls/hr SC [facility] Last Admin: 11/10/19 20:35 Dose: 0.2 mls Dobutamine HCl/Dextrose (Dobutamine 500 Mg/250 Ml) 250 mls @ 14.085 mls/hr IVPB INF [facility]; Protocol Last Admin: 11/10/19 10:57 Dose: 250 mls Insulin Human Lispro (Humalog) 0 units SC .MILD SLIDING SCALE PRN PRN Reason: Mild Correctional Scale Isosorbide Mononitrate (Imdur Er) 30 mg PO BID [facility] Last Admin: 11/11/19 08:46 Dose: 30 mg Ondansetron HCl (Zofran Odt) 4 mg PO Q6H PRN PRN Reason: Nausea/Vomiting Polyethylene Glycol (Miralax) 17 gm PO DAILYPRN PRN PRN Reason: Constipation Sevelamer Carbonate (Renvela) 800 mg PO TID-[facility] Last Admin: 11/11/19 12:56 Dose: 800 mg Sodium Chloride (Flush - Normal Saline) 10 ml IVF Q12HR [facility] Sodium Chloride (Flush - Normal Saline) 10 ml IVF PRN PRN PRN Reason: Saline Flush Vital Signs & Weight: Vital Signs Temp Pulse Resp BP Pulse Ox 11/11/19 11:30 98.1 F 62 17 153/71 H 95 11/11/19 07:00 98.2 F 64 15 168/71 H 98 11/11/19 04:00 98.2 F 59 L 16 158/73 H 97 Weight 200 lb 9.6 oz - Physical Exam General: alert & oriented x3 HEENT: mucus membranes moist Neck: supple neck Cardiac: regular rate and rhythm Lungs: clear to auscultation Neuro: grossly intact Abdomen: active bowel sounds Extremities: other: (3+ edema) Skin: clear Musculoskeletal: no pain - Labs Result Diagrams: 11/07/19 03:02 11/11/19 09:00 Troponin/CKMB CK-MB (CK-2) 2.8 ng/mL (0-6.6) 11/06/19 23:17 Troponin I 0.150 ng/mL (< 0.028) H 11/07/19 05:20 - Telemetry Sinus rhythms and dysrhythmias: sinus rhythm - Assessment/Plan Assessment/Plan: 1. Syncope 2. Vfib 3. S/P AICD shock 4. Ischemic CM 5. Acute on chronic systolic CHF. PLAN: - Continue IV diuresis, will add a third evening dose of Lasix. - Creatinine stable with dobutamine. - Continue dobutamine drip at current dose. - Currently no plan on doing LHC as he is significantly volume up. if we give a contrast load will most likley end up on HD soon. - Reason for VT/VF and shock was likely recompensated CHF.
[2019-11-11] MEDS: Atorvastatin Calcium 40 MG TAB PO SCH (20:52)
[2019-11-11] MEDS: Insulin Glargine 20 UNITS in Pre-Filled Syringe 1 EACH SC SCH (20:53)
--- NOTE | 2019-11-12 02:41 | PDOC.CNTRL ---
Central Line Procedure Note - Procedure Date: 11/11/19 Time: 23:30 - PreProcedure Diagnosis: 1. Need for Dobutamine gtt with loss of pervious peripheral access 2. HFrEF s/p AICD. 3. CAD 4. IDDMII 5. CKD IV - PostProcedure Diagnosis: 1. Dobutamine gtt through L femoral central line 2. HFrEF s/p AICD 3. CAD 4. IDDMII 5. CKD IV - Anesthesia Anesthesia: 1% Lidocaine without epinephrine - Description Focused site: femoral vein: Left Ultrasound guidance: Yes Patient tolerated procedure: no complications Procedure in Details: INDICATION: Need for Dobutamine gtt with loss of previous peripheral access RESIDENT: Clyde/Collins ATTENDING PHYSICIAN: Dr. Candelario Peña, present during entire procedure Ultrasound Used: Y CONSENT: Consent was obtained from patent prior to the procedure. Indications, risks, and benefits were explained at length. Patient voiced understanding and agreement and wished to proceed. PROCEDURE SUMMARY: Appropriate consent was obtained. A time out was performed. Hands were washed immediately prior to the procedure. Surgical cap, mask with protective eyewear, sterile gown and sterile gloves were worn throughout the procedure. The LEFT inguinal region was prepped using chlorhexidine scrub and draped in sterile fashion using a full drape and sterile probe cover employed. The femoral pulse was identified. Anesthesia was achieved using 1% lidocaine. While under US guidance, the introducer needle was inserted medial to the femoral artery, inferior to the inguinal crease and into the femoral vein. Venous blood was withdrawn. The syringe was removed and a guidewire was advanced into the introducer needle. A small incision was made at the skin surface with a scalpel and the introducer needle was exchanged for a dilator over the guidewire. After appropriate dilation was obtained, the dilator was exchanged over the wire for a triple-lumen central venous catheter. The wire was removed and the catheter was sutured in place. A sterile dressing was placed with antimicrobial disk. The patient tolerated the procedure without any hemodynamic compromise. At time of procedure completion, all ports aspirated and flushed properly. Estimated blood loss was minimal.
[2019-11-12 04:54] LABS: ALT (SGPT) 42 U/L (8-55); AST (SGOT) 23 U/L (5-34); Albumin 3.2 g/dL (3.5-5.0); Alkaline Phosphatase 63 U/L (40-110); Anion Gap 13 mmol/L (10-20); BUN (Urea Nitrogen) 49 mg/dL (8.4-25.7); Bilirubin, Total 0.5 mg/dL (0.2-1.2); Calc. Creatinine Clearance 29 mL/min (70-130); Calcium 8.7 mg/dL (7.8-10.44); Carbon Dioxide 26 mmol/L (22-29); Chloride 103 mmol/L (98-107); Estimated GFR-MDRD 17; Glucose 110 mg/dL (70-105); Potassium 4.5 mmol/L (3.5-5.1); Protein, Total 6.2 g/dL (6.0-8.3); Sodium 137 mmol/L (136-145)
--- NOTE | 2019-11-12 06:21 | PDOC.FM ---
- Subjective Subjective: Doing well this morning. Resting comfortably. Required L femoral central line last night due to loss of peripheral access for the dobutamine drip. Tolerated procedure well. - Objective MAR Reviewed: Yes Vital Signs & Weight: Vital Signs (12 hours) Temp Pulse Resp BP BP BP Pulse Ox 11/12/19 04:00 98.8 F 66 20 107/51 L 97 11/12/19 01:05 60 18 115/55 L 11/11/19 20:58 55 L 121/58 L 11/11/19 20:00 98.9 F 51 L 20 121/58 L 97 Weight Weight 91.172 kg I&O: 11/10/19 11/11/19 11/12/19 06:59 06:59 06:59 Intake Total 1368 1476 1609 Output Total 3103 2477 4285 Balance -2257 -1024 -1311 Result Diagrams: 11/07/19 03:02 11/12/19 04:20 Phys Exam - Physical Examination Constitutional: NAD HEENT: moist MMs, sclera anicteric Neck: supple, full ROM Respiratory: no wheezing, no rales, no rhonchi, clear to auscultation bilateral Cardiovascular: RRR, no significant murmur, no rub Gastrointestinal: soft, non-tender 2+ pitting edema to the LLE. Right AKA. Neurological: non-focal, moves all 4 limbs Psychiatric: normal affect, A&O x 3 Skin: no rash, normal turgor Dx/Plan (1) Syncope Code(s): R55 - SYNCOPE AND COLLAPSE Status: Acute (2) V-tach Code(s): I47.2 - VENTRICULAR TACHYCARDIA Status: Acute (3) Acute kidney injury superimposed on CKD Code(s): N17.9 - ACUTE KIDNEY FAILURE, UNSPECIFIED; N18.9 - CHRONIC KIDNEY DISEASE, UNSPECIFIED Status: Acute (4) CKD (chronic kidney disease), stage III Code(s): N18.3 - CHRONIC KIDNEY DISEASE, STAGE 3 (MODERATE) Status: Acute (5) Cardiorenal syndrome Code(s): I13.10 - HYP HRT & CHR KDNY DIS W/O HRT FAIL, W STG 1-4/UNSP CHR KDNY Status: Acute (6) Congestive heart failure Code(s): I50.9 - HEART FAILURE, UNSPECIFIED Status: Acute (7) Diabetes mellitus Code(s): E11.9 - TYPE 2 DIABETES MELLITUS WITHOUT COMPLICATIONS Status: Acute (8) HLD (hyperlipidemia) Code(s): E78.5 - HYPERLIPIDEMIA, UNSPECIFIED Status: Chronic (9) HTN (hypertension) Code(s): I10 - ESSENTIAL (PRIMARY) HYPERTENSION Status: Chronic Qualifiers: Hypertension type: essential hypertension Qualified Code(s): I10 - Essential (primary) hypertension - Plan Plan: V-Tach w/ AICD Shock x 3, Syncopal Episode - Cardiology consulted, appreciate recs - Per Dr. Pichardo's note, no plans for LHC at this time due to ongoing need for diuresis. HFrEF Echo (03/28): EF 15-20% w/ Grade 1/3 Diastolic Dysfunction -Continue 1200 ml/day fluid restriction and measure daily I&Os, weight -Increased dose of lasix yesterday. On dobutamine drip. DENYS on CKD - on admission at baseline, 2.99 - has elevated to ~3.5 but with initiation of increased lasix/dobumatine is improving to baseline. He diuresed well. DM2, Insulin Dependent -Will initiate home Lantus regimen -ACHS Accuchecks -Hypoglycemia Protocol HTN - Will restart home medication regimen. - Unable to tolerate CCB with heart failure, MONTRELL-I with kidney function. Microcytic Anemia -Likely Anemia of Chronic Disease - patient appears hemodynamically stable at this time -Will restart home iron regimen Peripheral Vascular Disease -s/p right-sided AKA -Continue home medication regimen Hyperlipidemia -Will continue home medication regimen PCP: [facility] - Dr. Jimenes Code: Full Lines: L femoral central line 11/12/2019. Activity: Bed Rest Diet: CC w/ 1200 ml/day Fluid Restriction IVF: None VTE PPx: Heparin 5000u TID Dispo: continue current therapy and await adequate diuresis. Addendum - Attending - Attending Attestation Date/Time: 11/12/19 1222 I personally evaluated the patient and discussed the management with Dr. Baker I agree with the History, Examination, Assessment and Plan documented above with any addition or exceptions noted below - Patient sleeping; awakens easily in NAD. Afebrile VSS. A/P: 1) Combined CHF- diuresing slowly; down 4.5L over last 3 days (down 2 kg); continue dobutamine; plans as per cardiology, 2) CKD stage IV- worsening Cr. Will consult nephrology for further assistance. 3) DM tyoe 2- stable; continue current meds.
[2019-11-12] MEDS: Aspirin 81 mg Enteric Coated Tablet PO SCH (08:22)
[2019-11-12] MEDS: Carvedilol 6.25 MG TAB PO SCH ×2 (08:22→20:27)
[2019-11-12] MEDS: Clopidogrel Bisulfate 75 MG TAB PO SCH (08:22)
[2019-11-12] MEDS: Famotidine 20 MG TAB PO SCH (08:22)
[2019-11-12] MEDS: Sevelamer Carbonate 800 MG TAB PO SCH ×3 (08:22→16:04)
[2019-11-12] MEDS: Gabapentin 300 MG CAP PO SCH ×2 (08:22→20:26)
[2019-11-12] MEDS: Amiodarone 200 MG TAB PO SCH ×2 (08:22→20:26)
[2019-11-12] MEDS: Fenofibrate Nanocrystallized 145 MG TAB PO SCH (08:22)
[2019-11-12] MEDS: hydrALAZINE 25 MG TAB PO SCH ×3 (08:23→20:26)
[2019-11-12] MEDS: Heparin 5,000 UNITS/ML VIAL SC SCH ×3 (08:23→20:27)
[2019-11-12] MEDS: Isosorbide Mononitrate (ER) 30 MG TAB PO SCH ×2 (08:23→20:26)
[2019-11-12] MEDS: Furosemide 40 MG/4 ML VIAL SLOW IVP SCH (08:24)
[2019-11-12] MEDS: Polyethylene Glycol 3350 17 GM Packet PO PRN (08:25)
--- NOTE | 2019-11-12 13:18 | CON ---
DATE OF CONSULTATION: REASON FOR CONSULTATION: Elevated creatinine. HISTORY OF PRESENT ILLNESS: This is a very pleasant 59-year-old gentleman, who presented to the hospital on November 06 for ventricular tachycardia. The patient's creatinine was 2.8 on admission, which increased to 3.6 today, so we were consulted. The patient's creatinine has ranged anywhere from the 2s to the 3s since 2018. In 2016, his creatinine was normal. The patient has congestive heart failure and CABG. The patient denies any nausea, vomiting, or chest pain except left lower extremity swelling. PAST MEDICAL HISTORY: Significant for hypertension, seizure disorder, diabetes mellitus, AKA on the right side, CABG, history of ventricular tachycardia, history of multiple episodes of acute kidney injury, seizure disorder, and AICD placement. FAMILY HISTORY: Negative for ESRD. ALLERGIES: REVIEWED. MEDICATIONS: Home medications list reviewed. Hospital medications list reviewed. SOCIOECONOMIC HISTORY: No alcohol or drug use. REVIEW OF SYSTEMS: Fifteen-point review of system was performed and negative except for positives noted above. HEENT: Eyes intact, no diplopia. Ears: No hearing loss or earache. Nose: No discharge or bleeding. CHEST: No cough or phlegm. ABDOMEN: No nausea or vomiting. GENITOURINARY: No hematuria. No Hinkle catheter. MUSCULOSKELETAL: No low back pain. No joint swelling or pain. NEUROLOGICAL: No syncope. No seizures. SKIN: No complaints of rash or itching. PSYCHIATRIC: No depression. CONSTITUTIONAL: No weight loss or loss of appetite. PHYSICAL EXAMINATION: GENERAL: The patient is awake and alert. VITAL SIGNS: Afebrile, pulse 60, breathing 16, and blood pressure 119/61. HEENT: Head; normocephalic and atraumatic. Eyes intact, no ulcers. Nose intact, no ulcers. Ears intact, no ulcers. NECK: Supple. No JVD. CHEST: Symmetrical and clear. CARDIOVASCULAR: Shows S1 and S2, no rub, no murmur. GASTROINTESTINAL: Abdomen is soft, bowel sounds positive. EXTREMITIES: Show no edema or ulcers. SKIN: Shows no rash or petechiae. MUSCULOSKELETAL: Shows no joint swelling or stiffness. GENITOURINARY: Shows no Hinkle or CVA tenderness. NEUROLOGIC: Motor intact. Cranial nerves intact. LABORATORY DATA: Labs show creatinine 3.6. ASSESSMENT AND PLAN: 1. Acute kidney injury with chronic kidney disease due to cardiorenal syndrome and progressive diabetic nephropathy in the setting of vascular disease. We will order renal imaging if not done already. No urgent indication for dialysis. 2. Hypertension, stable. 3. Anemia, stable. 4. Medications based on glomerular filtration rate appropriate. Avoid nephrotoxic medication. Job ID: [id number]
--- NOTE | 2019-11-12 18:23 | PDOC.CPN ---
- Subjective Date: 11/12/19 Time: 18:21 Interval history: Still diuresing well. Creatinine stable for now. - Review of Systems General: denies: fever/chills, weight/appetite/sleep changes, night sweats, fatigue Respiratory: denies: cough, congestion, shortness of breath, exercise intolerance Cardiovascular: reports: edema. denies: chest pain, palpitation, paroxysmal nocturnal dyspnea, orthopnea Gastrointestinal: denies: nausea, vomiting, diarrhea, constipation, abd pain, GI bleeding Musculoskeletal: denies: pain, tenderness, stiffness, swelling, arthritis/ arthralgias Neurological: denies: numbness, syncope, seizure, weakness - Objective Allergies/Adverse Reactions: Allergies Allergy/AdvReac Type Severity Reaction Status Date / Time ciprofloxacin [From Cipro] Allergy Severe Nausea Verified 11/08/19 00:39 Visit Medications: Current Medications Acetaminophen (Tylenol) 1,000 mg PO Q6H PRN PRN Reason: Moderate to Severe Pain (6-10) Last Admin: 11/10/19 22:33 Dose: 1,000 mg Amiodarone HCl (Cordarone) 400 mg PO BID [facility] Last Admin: 11/12/19 08:22 Dose: 400 mg Aspirin (Ecotrin) 81 mg PO DAILY [facility] Last Admin: 11/12/19 08:22 Dose: 81 mg Atorvastatin Calcium (Lipitor) 80 mg PO HS [facility] Last Admin: 11/11/19 20:52 Dose: 80 mg Carvedilol (Coreg) 6.25 mg PO BID [facility] Last Admin: 11/12/19 08:22 Dose: 6.25 mg Clopidogrel Bisulfate (Plavix) 75 mg PO DAILY [facility] Last Admin: 11/12/19 08:22 Dose: 75 mg Dextrose/Water (Dextrose 50%) 25 gm SLOW IVP PRN PRN PRN Reason: Hypoglycemia Famotidine (Pepcid) 20 mg PO DAILY [facility] Last Admin: 11/12/19 08:22 Dose: 20 mg Fenofibrate (Tricor) 145 mg PO DAILY [facility] Last Admin: 11/12/19 08:22 Dose: 145 mg Furosemide (Lasix) 40 mg PO DAILY [facility] Last Admin: 11/08/19 08:33 Dose: Not Given Furosemide (Lasix) 40 mg SLOW IVP DAILY [facility] Last Admin: 11/12/19 08:24 Dose: 40 mg Gabapentin (Neurontin) 300 mg PO BID [facility] Last Admin: 11/12/19 08:22 Dose: 300 mg Glucagon (Glucagon) 1 mg IM PRN PRN PRN Reason: Hypoglycemia Heparin Sodium (Porcine) (Heparin) 5,000 units SC TID [facility] Last Admin: 11/12/19 16:04 Dose: 5,000 units Hydralazine HCl (Apresoline) 25 mg PO TID [facility] Last Admin: 11/12/19 16:04 Dose: 25 mg Dextrose/Water (D5w) 1,000 mls @ 0 mls/hr IV .Q0M PRN PRN Reason: Hypoglycemia Insulin Glargine 20 units/ (Miscellaneous Medication) 0.2 mls @ 0 mls/hr SC HS [facility] Last Admin: 11/11/19 20:53 Dose: 0.2 mls Dobutamine HCl/Dextrose (Dobutamine 500 Mg/250 Ml) 250 mls @ 14.085 mls/hr IVPB INF [facility]; Protocol Last Admin: 11/10/19 10:57 Dose: 250 mls Insulin Human Lispro (Humalog) 0 units SC .MILD SLIDING SCALE PRN PRN Reason: Mild Correctional Scale Isosorbide Mononitrate (Imdur Er) 30 mg PO BID [facility] Last Admin: 11/12/19 08:23 Dose: 30 mg Ondansetron HCl (Zofran Odt) 4 mg PO Q6H PRN PRN Reason: Nausea/Vomiting Polyethylene Glycol (Miralax) 17 gm PO DAILYPRN PRN PRN Reason: Constipation Last Admin: 11/12/19 08:25 Dose: 17 gm Sevelamer Carbonate (Renvela) 800 mg PO TID-[facility] Last Admin: 11/12/19 16:04 Dose: 800 mg Sodium Chloride (Flush - Normal Saline) 10 ml IVF Q12HR [facility] Last Admin: 11/12/19 09:21 Dose: Not Given Sodium Chloride (Flush - Normal Saline) 10 ml IVF PRN PRN PRN Reason: Saline Flush Vital Signs & Weight: Vital Signs Temp Pulse Resp BP BP BP Pulse Ox 11/12/19 16:04 142/72 H 11/12/19 15:15 98.2 F 59 L 12 138/72 95 11/12/19 12:00 97.1 F L 60 16 119/61 94 L 11/12/19 07:35 97.4 F L 68 16 133/61 98 Weight 201 lb - Physical Exam General: alert & oriented x3 HEENT: mucus membranes moist Neck: supple neck Cardiac: regular rate and rhythm Lungs: clear to auscultation Neuro: no lateralizing findings Abdomen: active bowel sounds Extremities: 2+ LE edema Skin: clear Musculoskeletal: no pain - Labs Result Diagrams: 11/07/19 03:02 11/12/19 04:20 Troponin/CKMB CK-MB (CK-2) 2.8 ng/mL (0-6.6) 11/06/19 23:17 Troponin I 0.150 ng/mL (< 0.028) H 11/07/19 05:20 - Telemetry Sinus rhythms and dysrhythmias: sinus rhythm - Assessment/Plan Assessment/Plan: 1. Syncope 2. Vfib 3. S/P AICD shock 4. Ischemic CM 5. Acute on chronic systolic CHF. PLAN: - Continue IV diuresis - Edema improving now. - Creatinine stable with dobutamine. - Continue dobutamine drip at current dose. - Currently no plan on doing LHC as he is significantly volume up. if we give a contrast load will most likley end up on HD soon. - Reason for VT/VF and shock was likely recompensated CHF. - Will switch to Torsemide on possibly discharge monday.
[2019-11-12] MEDS: Atorvastatin Calcium 40 MG TAB PO SCH (20:26)
[2019-11-12] MEDS: Insulin Glargine 20 UNITS in Pre-Filled Syringe 1 EACH SC SCH (20:27)
[2019-11-13 05:08] LABS: ALT (SGPT) 34 U/L (8-55); AST (SGOT) 24 U/L (5-34); Albumin 3.2 g/dL (3.5-5.0); Alkaline Phosphatase 59 U/L (40-110); Anion Gap 14 mmol/L (10-20); BUN (Urea Nitrogen) 49 mg/dL (8.4-25.7); Bilirubin, Total 0.6 mg/dL (0.2-1.2); Calc. Creatinine Clearance 27 mL/min (70-130); Calcium 8.5 mg/dL (7.8-10.44); Carbon Dioxide 25 mmol/L (22-29); Chloride 103 mmol/L (98-107); Estimated GFR-MDRD 18; Glucose 132 mg/dL (70-105); Potassium 4.8 mmol/L (3.5-5.1); Protein, Total 6.2 g/dL (6.0-8.3); Sodium 137 mmol/L (136-145)
--- NOTE | 2019-11-13 06:51 | PDOC.FM ---
- Subjective Subjective: Doing well this morning, no concerns. - Objective MAR Reviewed: Yes Vital Signs & Weight: Vital Signs (12 hours) Temp Pulse Resp BP BP Pulse Ox 11/13/19 04:00 98.5 F 62 20 128/60 95 11/12/19 20:20 98.0 F 63 18 148/67 H 94 L Weight Weight 85.8 kg I&O: 11/11/19 11/12/19 11/13/19 06:59 06:59 06:59 Intake Total 1476 1609 1920 Output Total 7245 4510 2500 Balance -1024 -1311 -580 Result Diagrams: 11/07/19 03:02 11/13/19 04:20 Phys Exam - Physical Examination Constitutional: NAD HEENT: PERRLA, moist MMs Neck: supple, full ROM Respiratory: no wheezing, no rales, no rhonchi, clear to auscultation bilateral Cardiovascular: RRR, no significant murmur Gastrointestinal: soft, non-tender 2+ pitting edema still present. Neurological: normal sensation, moves all 4 limbs Psychiatric: normal affect, A&O x 3 Skin: no rash, normal turgor Dx/Plan (1) Syncope Code(s): R55 - SYNCOPE AND COLLAPSE Status: Acute (2) V-tach Code(s): I47.2 - VENTRICULAR TACHYCARDIA Status: Acute (3) Acute kidney injury superimposed on CKD Code(s): N17.9 - ACUTE KIDNEY FAILURE, UNSPECIFIED; N18.9 - CHRONIC KIDNEY DISEASE, UNSPECIFIED Status: Acute (4) CKD (chronic kidney disease), stage III Code(s): N18.3 - CHRONIC KIDNEY DISEASE, STAGE 3 (MODERATE) Status: Acute (5) Cardiorenal syndrome Code(s): I13.10 - HYP HRT & CHR KDNY DIS W/O HRT FAIL, W STG 1-4/UNSP CHR KDNY Status: Acute (6) Congestive heart failure Code(s): I50.9 - HEART FAILURE, UNSPECIFIED Status: Acute (7) Diabetes mellitus Code(s): E11.9 - TYPE 2 DIABETES MELLITUS WITHOUT COMPLICATIONS Status: Acute (8) HLD (hyperlipidemia) Code(s): E78.5 - HYPERLIPIDEMIA, UNSPECIFIED Status: Chronic (9) HTN (hypertension) Code(s): I10 - ESSENTIAL (PRIMARY) HYPERTENSION Status: Chronic Qualifiers: Hypertension type: essential hypertension Qualified Code(s): I10 - Essential (primary) hypertension - Plan Plan: V-Tach w/ AICD Shock x 3, Syncopal Episode - Cardiology consulted, appreciate recs - Per Dr. Pichardo's note, no plans for LHC at this time due to ongoing need for diuresis. Plans to switch to torsemide tomorrow and hopeful discharge thereafter. HFrEF Echo (03/28): EF 15-20% w/ Grade 1/3 Diastolic Dysfunction -Continue 1200 ml/day fluid restriction and measure daily I&Os, weight -Increased dose of lasix yesterday. On dobutamine drip. DENYS on CKD - continual rise in creatinine - Nephro consulted, appreciate recs. DM2, Insulin Dependent -Will initiate home Lantus regimen -ACHS Accuchecks -Hypoglycemia Protocol HTN - Will restart home medication regimen. - Unable to tolerate CCB with heart failure, MONTRELL-I with kidney function. Microcytic Anemia -Likely Anemia of Chronic Disease - patient appears hemodynamically stable at this time -Will restart home iron regimen Peripheral Vascular Disease -s/p right-sided AKA -Continue home medication regimen Hyperlipidemia -Will continue home medication regimen PCP: [facility] - Dr. Jimenes Code: Full Lines: L femoral central line 11/12/2019. Activity: Bed Rest Diet: CC w/ 1200 ml/day Fluid Restriction IVF: None VTE PPx: Heparin 5000u TID Dispo: continue current therapy and await adequate diuresis. Addendum - Attending - Attending Attestation Date/Time: 11/13/19 0350 I personally evaluated the patient and discussed the management with Dr. Baker I agree with the History, Examination, Assessment and Plan documented above with any addition or exceptions noted below - Patient without complaints. Afebrile VSS. A/P: 1) HFrEF acute exacerbation- continue dobutamine; diuresing well. Plans as per cardiology. 2) CKD- Cr stabilizing; appreciate nephrology recommendations/assistance. 3) DM- BG stable.
[2019-11-13] MEDS: Sevelamer Carbonate 800 MG TAB PO SCH ×3 (08:46→16:24)
[2019-11-13] MEDS: Amiodarone 200 MG TAB PO SCH ×2 (08:46→20:19)
[2019-11-13] MEDS: Aspirin 81 mg Enteric Coated Tablet PO SCH (08:47)
[2019-11-13] MEDS: Carvedilol 6.25 MG TAB PO SCH ×2 (08:47→20:26)
[2019-11-13] MEDS: Fenofibrate Nanocrystallized 145 MG TAB PO SCH (08:48)
[2019-11-13] MEDS: Isosorbide Mononitrate (ER) 30 MG TAB PO SCH ×2 (08:48→20:19)
[2019-11-13] MEDS: Gabapentin 300 MG CAP PO SCH ×2 (08:48→20:19)
[2019-11-13] MEDS: hydrALAZINE 25 MG TAB PO SCH ×3 (08:48→20:20)
[2019-11-13] MEDS: Clopidogrel Bisulfate 75 MG TAB PO SCH (08:48)
[2019-11-13] MEDS: Famotidine 20 MG TAB PO SCH (08:48)
[2019-11-13] MEDS: Heparin 5,000 UNITS/ML VIAL SC SCH ×3 (08:49→20:20)
[2019-11-13] MEDS: Furosemide 40 MG/4 ML VIAL SLOW IVP SCH (08:49)
[2019-11-13] MEDS: DOBUTamine 500 mg/250 ml 250 ML IVPB SCH (09:24)
--- NOTE | 2019-11-13 11:49 | PRG ---
DATE OF SERVICE: 11/13/2019 SUBJECTIVE: A 59-year-old gentleman being seen for acute kidney injury. The patient denied any nausea, vomiting, or chest pain. OBJECTIVE: GENERAL: The patient is awake and alert. VITAL SIGNS: Afebrile, pulse 63, breathing 16, and blood pressure 127/60. HEENT: Head normocephalic and atraumatic. Eyes intact, no ulcers. Nose intact, no ulcers. Ears intact, no ulcers. NECK: Supple. No JVD. CHEST: Symmetrical and clear. CARDIOVASCULAR: Shows S1 and S2, no rub, no murmur. GASTROINTESTINAL: Abdomen is soft, bowel sounds positive. EXTREMITIES: Show no edema or ulcers. SKIN: Shows no rash or petechiae. MUSCULOSKELETAL: Shows no joint swelling or stiffness. GENITOURINARY: Shows no Hinkle or CVA tenderness. NEUROLOGIC: Motor intact. Cranial nerves intact. LABORATORY DATA: Hemoglobin 9.3. Creatinine is 3.5. ASSESSMENT AND PLAN: 1. Chronic kidney disease, stage 4, stable. 2. Hypertension, stable. 3. Acute kidney injury, stable. No indication for dialysis. 4. Agree with pressors. Job ID: [id number]
--- NOTE | 2019-11-13 17:47 | PDOC.CPN ---
- Subjective Date: 11/13/19 Time: 17:46 Interval history: Continues to diurese well. Lost 10 pounds overnight,. - Review of Systems General: denies: fever/chills, weight/appetite/sleep changes, night sweats, fatigue Respiratory: denies: cough, congestion, shortness of breath, exercise intolerance Cardiovascular: reports: edema. denies: chest pain, palpitation, paroxysmal nocturnal dyspnea, orthopnea Gastrointestinal: denies: nausea, vomiting, diarrhea, constipation, abd pain, GI bleeding Musculoskeletal: denies: pain, tenderness, stiffness, swelling, arthritis/ arthralgias Neurological: denies: numbness, syncope, seizure, weakness - Objective Allergies/Adverse Reactions: Allergies Allergy/AdvReac Type Severity Reaction Status Date / Time ciprofloxacin [From Cipro] Allergy Severe Nausea Verified 11/08/19 00:39 Visit Medications: Current Medications Acetaminophen (Tylenol) 1,000 mg PO Q6H PRN PRN Reason: Moderate to Severe Pain (6-10) Last Admin: 11/10/19 22:33 Dose: 1,000 mg Amiodarone HCl (Cordarone) 400 mg PO BID [facility] Last Admin: 11/13/19 08:46 Dose: 400 mg Aspirin (Ecotrin) 81 mg PO DAILY [facility] Last Admin: 11/13/19 08:47 Dose: 81 mg Atorvastatin Calcium (Lipitor) 80 mg PO HS [facility] Last Admin: 11/12/19 20:26 Dose: 80 mg Carvedilol (Coreg) 6.25 mg PO BID [facility] Last Admin: 11/13/19 08:47 Dose: 6.25 mg Clopidogrel Bisulfate (Plavix) 75 mg PO DAILY [facility] Last Admin: 11/13/19 08:48 Dose: 75 mg Dextrose/Water (Dextrose 50%) 25 gm SLOW IVP PRN PRN PRN Reason: Hypoglycemia Famotidine (Pepcid) 20 mg PO DAILY [facility] Last Admin: 11/13/19 08:48 Dose: 20 mg Fenofibrate (Tricor) 145 mg PO DAILY [facility] Last Admin: 11/13/19 08:48 Dose: 145 mg Furosemide (Lasix) 40 mg PO DAILY [facility] Last Admin: 11/08/19 08:33 Dose: Not Given Furosemide (Lasix) 40 mg SLOW IVP DAILY [facility] Last Admin: 11/13/19 08:49 Dose: 40 mg Gabapentin (Neurontin) 300 mg PO BID [facility] Last Admin: 11/13/19 08:48 Dose: 300 mg Glucagon (Glucagon) 1 mg IM PRN PRN PRN Reason: Hypoglycemia Heparin Sodium (Porcine) (Heparin) 5,000 units SC TID [facility] Last Admin: 11/13/19 16:24 Dose: 5,000 units Hydralazine HCl (Apresoline) 25 mg PO TID [facility] Last Admin: 11/13/19 16:24 Dose: 25 mg Dextrose/Water (D5w) 1,000 mls @ 0 mls/hr IV .Q0M PRN PRN Reason: Hypoglycemia Insulin Glargine 20 units/ (Miscellaneous Medication) 0.2 mls @ 0 mls/hr SC [facility] Last Admin: 11/12/19 20:27 Dose: 0.2 mls Dobutamine HCl/Dextrose (Dobutamine 500 Mg/250 Ml) 250 mls @ 14.085 mls/hr IVPB INF [facility]; Protocol Last Admin: 11/13/19 09:24 Dose: 250 mls Insulin Human Lispro (Humalog) 0 units SC .MILD SLIDING SCALE PRN PRN Reason: Mild Correctional Scale Isosorbide Mononitrate (Imdur Er) 30 mg PO BID [facility] Last Admin: 11/13/19 08:48 Dose: 30 mg Ondansetron HCl (Zofran Odt) 4 mg PO Q6H PRN PRN Reason: Nausea/Vomiting Polyethylene Glycol (Miralax) 17 gm PO DAILYPRN PRN PRN Reason: Constipation Last Admin: 11/12/19 08:25 Dose: 17 gm Sevelamer Carbonate (Renvela) 800 mg PO TID[facility] Last Admin: 11/13/19 16:24 Dose: 800 mg Sodium Chloride (Flush - Normal Saline) 10 ml IVF Q12HR [facility] Last Admin: 11/13/19 08:49 Dose: 10 ml Sodium Chloride (Flush - Normal Saline) 10 ml IVF PRN PRN PRN Reason: Saline Flush Vital Signs & Weight: Vital Signs Temp Pulse Pulse Pulse Resp BP BP 11/13/19 16:24 61 123/59 L 11/13/19 15:03 98.9 F 61 18 11/13/19 12:09 59 L 58 L 114/55 L 05/06/20 11:19 98.9 F 64 16 11/13/19 09:52 66 69 127/63 11/13/19 08:47 133/61 11/13/19 07:09 98.3 F 67 18 BP BP Pulse Ox 11/13/19 16:24 11/13/19 15:03 116/55 L 95 11/13/19 12:09 121/53 L 11/13/19 11:19 150/65 H 97 11/13/19 09:52 156/62 H 11/13/19 08:47 11/13/19 07:09 109/57 L 94 L Weight 189 lb 2.506 oz - Physical Exam General: alert & oriented x3 HEENT: mucus membranes moist Neck: supple neck Cardiac: regular rate and rhythm Lungs: normal breath sounds Neuro: grossly intact Abdomen: active bowel sounds Extremities: 2+ LE edema Skin: clear Musculoskeletal: no pain - Labs Result Diagrams: 11/07/19 03:02 11/13/19 04:20 Troponin/CKMB CK-MB (CK-2) 2.8 ng/mL (0-6.6) 11/06/19 23:17 Troponin I 0.150 ng/mL (< 0.028) H 11/07/19 05:20 - Telemetry Sinus rhythms and dysrhythmias: sinus rhythm - Assessment/Plan Assessment/Plan: 1. Syncope 2. Vfib 3. S/P AICD shock 4. Ischemic CM 5. Acute on chronic systolic CHF. PLAN: - Continue IV diuresis today and tomorrow. Will switch to torsemide Monday. - Edema continues to improve. - Creatinine stable with dobutamine, continue drip at current dose. - Currently no plan on doing LHC as he is significantly volume up. if we give a contrast load will most likely end up on HD soon. - Reason for VT/VF and shock was likely decompensated CHF. - Continue amiodarone load at 400m g BID for 1 more day then back to 200 mg daily.
[2019-11-13] MEDS: Atorvastatin Calcium 40 MG TAB PO SCH (20:19)
[2019-11-13] MEDS: Insulin Glargine 20 UNITS in Pre-Filled Syringe 1 EACH SC SCH (20:21)
[2019-11-14 04:54] LABS: ALT (SGPT) 30 U/L (8-55); AST (SGOT) 22 U/L (5-34); Albumin 3.2 g/dL (3.5-5.0); Alkaline Phosphatase 68 U/L (40-110); Anion Gap 10 mmol/L (10-20); BUN (Urea Nitrogen) 46 mg/dL (8.4-25.7); Bilirubin, Total 0.6 mg/dL (0.2-1.2); Calc. Creatinine Clearance 27 mL/min (70-130); Calcium 8.6 mg/dL (7.8-10.44); Carbon Dioxide 26 mmol/L (22-29); Chloride 103 mmol/L (98-107); Estimated GFR-MDRD 17; Globulin 3.1 g/dL (2.4-3.5); Glucose 95 mg/dL (70-105); Potassium 4.4 mmol/L (3.5-5.1); Protein, Total 6.3 g/dL (6.0-8.3); Sodium 135 mmol/L (136-145)
--- NOTE | 2019-11-14 06:57 | PDOC.FM ---
- Subjective Subjective: Doing well this morning. Complains of tremulousness and weakness. - Objective MAR Reviewed: Yes Vital Signs & Weight: Vital Signs (12 hours) Temp Pulse Resp BP BP Pulse Ox 11/14/19 02:51 98.4 F 67 19 118/56 L 99 11/13/19 20:15 98.5 F 63 16 127/60 98 Weight Weight 85.3 kg I&O: 11/12/19 11/13/19 11/14/19 06:59 06:59 06:59 Intake Total 1609 1920 1546 Output Total 2925 2817 1764 Balance -1311 -580 -829 Result Diagrams: 11/07/19 03:02 11/14/19 04:22 Phys Exam - Physical Examination Constitutional: NAD HEENT: PERRLA, moist MMs Neck: supple Respiratory: no wheezing, no rales, no rhonchi, clear to auscultation bilateral Cardiovascular: RRR, no significant murmur, no rub Gastrointestinal: soft, non-tender Musculoskeletal: pulses present, edema present Neurological: non-focal (CN II-XII intact. Strength 5/5. Sensation intact. ), normal sensation, moves all 4 limbs Psychiatric: normal affect, A&O x 3 Skin: no rash, normal turgor Dx/Plan (1) Syncope Code(s): R55 - SYNCOPE AND COLLAPSE Status: Acute (2) V-tach Code(s): I47.2 - VENTRICULAR TACHYCARDIA Status: Acute (3) Acute kidney injury superimposed on CKD Code(s): N17.9 - ACUTE KIDNEY FAILURE, UNSPECIFIED; N18.9 - CHRONIC KIDNEY DISEASE, UNSPECIFIED Status: Acute (4) CKD (chronic kidney disease), stage III Code(s): N18.3 - CHRONIC KIDNEY DISEASE, STAGE 3 (MODERATE) Status: Acute (5) Cardiorenal syndrome Code(s): I13.10 - HYP HRT & CHR KDNY DIS W/O HRT FAIL, W STG 1-4/UNSP CHR KDNY Status: Acute (6) Congestive heart failure Code(s): I50.9 - HEART FAILURE, UNSPECIFIED Status: Acute (7) Diabetes mellitus Code(s): E11.9 - TYPE 2 DIABETES MELLITUS WITHOUT COMPLICATIONS Status: Acute (8) HLD (hyperlipidemia) Code(s): E78.5 - HYPERLIPIDEMIA, UNSPECIFIED Status: Chronic (9) HTN (hypertension) Code(s): I10 - ESSENTIAL (PRIMARY) HYPERTENSION Status: Chronic Qualifiers: Hypertension type: essential hypertension Qualified Code(s): I10 - Essential (primary) hypertension - Plan Plan: V-Tach w/ AICD Shock x 3, Syncopal Episode - Cardiology consulted, appreciate recs - Per Dr. Pichardo's note, no plans for LHC at this time due to ongoing need for diuresis. Plans to switch to torsemide tomorrow and hopeful discharge thereafter. - Loading with amiodarone, will convert to maintenance tomorrow. HFrEF Echo (03/28): EF 15-20% w/ Grade 1/3 Diastolic Dysfunction -Continue 1200 ml/day fluid restriction and measure daily I&Os, weight -On dobutamine drip. On IV lasix. Plans to change to po torsemide prior to d/c per cardiology. -Down 12.75lbs this hospitalization. DENYS on CKD IV - Nephro consulted, appreciate recs. -No indication for HD at this time. DM2, Insulin Dependent -Will initiate home Lantus regimen -[facility] -Hypoglycemia Protocol HTN - Will restart home medication regimen. - Unable to tolerate CCB with heart failure, MONTRELL-I with kidney function. Microcytic Anemia -Likely Anemia of Chronic Disease - patient appears hemodynamically stable at this time -Will restart home iron regimen Peripheral Vascular Disease -s/p right-sided AKA -Continue home medication regimen Hyperlipidemia -Will continue home medication regimen PCP: [facility] - Dr. Jimenes Code: Full Lines: L femoral central line 11/12/2019. Activity: Bed Rest Diet: CC w/ 1200 ml/day Fluid Restriction IVF: None VTE PPx: Heparin 5000u TID Dispo: continue current therapy and await adequate diuresis. Addendum - Attending - Attending Attestation Date/Time: 11/14/19 [id number] I personally evaluated the patient and discussed the management with Dr. Baker I agree with the History, Examination, Assessment and Plan documented above with any addition or exceptions noted below- Patient without complaints. Afebrile VSS. A/P: 1) HFrEF- continue dobutamine and diuretics as cardiology. 2 ) CKD- stable.
--- NOTE | 2019-11-14 07:34 | PRG ---
DATE OF SERVICE: 11/14/2019 SUBJECTIVE: This is a 59-year-old gentleman, being seen for end-stage renal disease. The patient denies any nausea, vomiting, or chest pain. OBJECTIVE: GENERAL: The patient is awake, alert. VITAL SIGNS: Afebrile. Pulse 75, breathing at 16, blood pressure 118/56. HEENT: Head normocephalic and atraumatic. Eyes intact, no ulcers. Nose intact, no ulcers. Ears intact, no ulcers. NECK: Supple. No JVD. CHEST: Symmetrical and clear. CARDIOVASCULAR: Shows S1 and S2, no rub, no murmur. GASTROINTESTINAL: Abdomen is soft, bowel sounds positive. EXTREMITIES: Lower extremity has edema. SKIN: Shows no rash or petechiae. MUSCULOSKELETAL: Shows no joint swelling or stiffness. GENITOURINARY: Shows no Hinkle or CVA tenderness. NEUROLOGIC: Motor intact. Cranial nerves intact. LABORATORY DATA: Labs showed hemoglobin 9.3. Creatinine 3.6. ASSESSMENT AND PLAN: 1. Chronic kidney disease stage 4, stable. 2. Acute kidney injury, stable. 3. Hypertension, stable. 4. Congestive heart failure. Management per primary team. We will follow renal function closely. Job ID: [id number]
[2019-11-14] MEDS: Sevelamer Carbonate 800 MG TAB PO SCH ×3 (07:36→16:16)
[2019-11-14] MEDS: DOBUTamine 500 mg/250 ml 250 ML IVPB SCH (08:03)
[2019-11-14] MEDS: Amiodarone 200 MG TAB PO SCH ×2 (08:05→20:56)
[2019-11-14] MEDS: Carvedilol 6.25 MG TAB PO SCH ×2 (08:05→20:56)
[2019-11-14] MEDS: Aspirin 81 mg Enteric Coated Tablet PO SCH (08:05)
[2019-11-14] MEDS: Famotidine 20 MG TAB PO SCH (08:06)
[2019-11-14] MEDS: Clopidogrel Bisulfate 75 MG TAB PO SCH (08:06)
[2019-11-14] MEDS: Heparin 5,000 UNITS/ML VIAL SC SCH ×3 (08:08→20:56)
[2019-11-14] MEDS: Gabapentin 300 MG CAP PO SCH ×2 (08:08→20:56)
[2019-11-14] MEDS: Fenofibrate Nanocrystallized 145 MG TAB PO SCH (08:08)
[2019-11-14] MEDS: Furosemide 40 MG/4 ML VIAL SLOW IVP SCH (08:08)
[2019-11-14] MEDS: Isosorbide Mononitrate (ER) 30 MG TAB PO SCH ×2 (08:09→20:56)
[2019-11-14] MEDS: hydrALAZINE 25 MG TAB PO SCH ×3 (08:09→20:57)
[2019-11-14] MEDS: Polyethylene Glycol 3350 17 GM Packet PO PRN (11:29)
--- NOTE | 2019-11-14 12:59 | PDOC.CPN ---
- Subjective Date: 11/14/19 Time: 12:58 Interval history: Doing well. Diuresed less yesterday. - Review of Systems General: denies: fever/chills, weight/appetite/sleep changes, night sweats, fatigue Respiratory: denies: cough, congestion, shortness of breath, exercise intolerance Cardiovascular: reports: edema. denies: chest pain, palpitation, paroxysmal nocturnal dyspnea, orthopnea Gastrointestinal: denies: nausea, vomiting, diarrhea, constipation, abd pain, GI bleeding Musculoskeletal: denies: pain, tenderness, stiffness, swelling, arthritis/ arthralgias Neurological: denies: numbness, syncope, seizure, weakness - Objective Allergies/Adverse Reactions: Allergies Allergy/AdvReac Type Severity Reaction Status Date / Time ciprofloxacin [From Cipro] Allergy Severe Nausea Verified 11/08/19 00:39 Visit Medications: Current Medications Acetaminophen (Tylenol) 1,000 mg PO Q6H PRN PRN Reason: Moderate to Severe Pain (6-10) Last Admin: 11/10/19 22:33 Dose: 1,000 mg Amiodarone HCl (Cordarone) 400 mg PO BID [facility] Last Admin: 11/14/19 08:05 Dose: 400 mg Aspirin (Ecotrin) 81 mg PO DAILY [facility] Last Admin: 11/14/19 08:05 Dose: 81 mg Atorvastatin Calcium (Lipitor) 80 mg PO HS [facility] Last Admin: 11/13/19 20:19 Dose: 80 mg Carvedilol (Coreg) 6.25 mg PO BID [facility] Last Admin: 11/14/19 08:05 Dose: 6.25 mg Clopidogrel Bisulfate (Plavix) 75 mg PO DAILY [facility] Last Admin: 11/14/19 08:06 Dose: 75 mg Dextrose/Water (Dextrose 50%) 25 gm SLOW IVP PRN PRN PRN Reason: Hypoglycemia Famotidine (Pepcid) 20 mg PO DAILY [facility] Last Admin: 11/14/19 08:06 Dose: 20 mg Fenofibrate (Tricor) 145 mg PO DAILY [facility] Last Admin: 11/14/19 08:08 Dose: 145 mg Furosemide (Lasix) 40 mg PO DAILY [facility] Last Admin: 11/08/19 08:33 Dose: Not Given Furosemide (Lasix) 40 mg SLOW IVP DAILY [facility] Last Admin: 11/14/19 08:08 Dose: 40 mg Gabapentin (Neurontin) 300 mg PO BID [facility] Last Admin: 11/14/19 08:08 Dose: 300 mg Glucagon (Glucagon) 1 mg IM PRN PRN PRN Reason: Hypoglycemia Heparin Sodium (Porcine) (Heparin) 5,000 units SC TID [facility] Last Admin: 11/14/19 08:08 Dose: 5,000 units Hydralazine HCl (Apresoline) 25 mg PO TID [facility] Last Admin: 11/14/19 08:09 Dose: 25 mg Dextrose/Water (D5w) 1,000 mls @ 0 mls/hr IV .Q0M PRN PRN Reason: Hypoglycemia Insulin Glargine 20 units/ (Miscellaneous Medication) 0.2 mls @ 0 mls/hr SC HS [facility] Last Admin: 11/13/19 20:21 Dose: 0.2 mls Dobutamine HCl/Dextrose (Dobutamine 500 Mg/250 Ml) 250 mls @ 14.085 mls/hr IVPB INF [facility]; Protocol Last Admin: 11/14/19 08:03 Dose: 250 mls Insulin Human Lispro (Humalog) 0 units SC .MILD SLIDING SCALE PRN PRN Reason: Mild Correctional Scale Isosorbide Mononitrate (Imdur Er) 30 mg PO BID [facility] Last Admin: 11/14/19 08:09 Dose: 30 mg Ondansetron HCl (Zofran Odt) 4 mg PO Q6H PRN PRN Reason: Nausea/Vomiting Polyethylene Glycol (Miralax) 17 gm PO DAILYPRN PRN PRN Reason: Constipation Last Admin: 11/14/19 11:29 Dose: 17 gm Sevelamer Carbonate (Renvela) 800 mg PO TID[facility] Last Admin: 11/14/19 11:29 Dose: 800 mg Sodium Chloride (Flush - Normal Saline) 10 ml IVF Q12HR [facility] Last Admin: 11/14/19 08:10 Dose: 10 ml Sodium Chloride (Flush - Normal Saline) 10 ml IVF PRN PRN PRN Reason: Saline Flush Vital Signs & Weight: Vital Signs Temp Pulse Resp BP BP Pulse Ox 11/14/19 11:06 98.0 F 62 16 145/75 H 98 11/14/19 07:29 97.8 F 70 18 139/71 98 11/14/19 02:51 98.4 F 67 19 118/56 L 99 Weight 188 lb 0.869 oz - Physical Exam General: alert & oriented x3 HEENT: mucus membranes moist Neck: supple neck Cardiac: regular rate and rhythm Lungs: clear to auscultation Neuro: grossly intact Abdomen: active bowel sounds Extremities: 1+ LE edema Skin: clear Musculoskeletal: no pain - Labs Result Diagrams: 11/07/19 03:02 11/14/19 04:22 Troponin/CKMB CK-MB (CK-2) 2.8 ng/mL (0-6.6) 11/06/19 23:17 Troponin I 0.150 ng/mL (< 0.028) H 11/07/19 05:20 - Telemetry Sinus rhythms and dysrhythmias: sinus rhythm - Assessment/Plan Assessment/Plan: 1. Syncope 2. Vfib 3. S/P AICD shock 4. Ischemic CM 5. Acute on chronic systolic CHF. PLAN: - Continue IV diuresis today, switch to PO torsemide Tomorrow. - Edema continues to improve, significantly improved. - Creatinine stable with dobutamine, continue drip at current dose. - Currently no plan on doing LHC as he is significantly volume up. if we give a contrast load will most likely end up on HD soon. - Reason for VT/VF and shock was likely decompensated CHF. - Amiodarone back to 200 mg daily.
[2019-11-14] MEDS: Torsemide 20 MG TAB PO SCH (14:24)
[2019-11-14] MEDS: Atorvastatin Calcium 40 MG TAB PO SCH (20:57)
[2019-11-14] MEDS: Insulin Glargine 20 UNITS in Pre-Filled Syringe 1 EACH SC SCH (21:39)
[2019-11-15 05:02] LABS: ALT (SGPT) 27 U/L (8-55); AST (SGOT) 27 U/L (5-34); Albumin 3.3 g/dL (3.5-5.0); Alkaline Phosphatase 51 U/L (40-110); Anion Gap 15 mmol/L (10-20); BUN (Urea Nitrogen) 54 mg/dL (8.4-25.7); Bilirubin, Total 0.5 mg/dL (0.2-1.2); Calc. Creatinine Clearance 23 mL/min (70-130); Calcium 8.5 mg/dL (7.8-10.44); Carbon Dioxide 25 mmol/L (22-29); Chloride 102 mmol/L (98-107); Estimated GFR-MDRD 15; Globulin 3.2 g/dL (2.4-3.5); Glucose 113 mg/dL (70-105); Potassium 4.9 mmol/L (3.5-5.1); Protein, Total 6.5 g/dL (6.0-8.3); Sodium 137 mmol/L (136-145)
[2019-11-15] MEDS: DOBUTamine 500 mg/250 ml 250 ML IVPB SCH (06:09)
--- NOTE | 2019-11-15 07:28 | PDOC.FM ---
- Subjective Subjective: Doing well this morning, eager for discharge. - Objective MAR Reviewed: Yes Vital Signs & Weight: Vital Signs (12 hours) Temp Pulse Resp BP BP BP Pulse Ox 11/15/19 03:32 98.3 F 80 18 144/67 H 94 L 11/14/19 20:57 62 11/14/19 20:56 127/66 11/14/19 19:37 98.5 F 60 16 116/56 L 95 Weight Weight 84.5 kg I&O: 11/14/19 11/15/19 11/16/19 06:59 06:59 06:59 Intake Total 1546 1129.2 Output Total 2375 2175 Balance -829 -1045.8 Result Diagrams: 11/07/19 03:02 11/15/19 04:28 Phys Exam - Physical Examination Constitutional: NAD HEENT: PERRLA, moist MMs Neck: supple, full ROM Respiratory: no wheezing, no rales, no rhonchi, clear to auscultation bilateral Cardiovascular: RRR, no significant murmur Gastrointestinal: soft, non-tender Musculoskeletal: pulses present, edema present (steadily decreasing) Neurological: non-focal, moves all 4 limbs Psychiatric: normal affect, A&O x 3 Skin: no rash, normal turgor Dx/Plan (1) Syncope Code(s): R55 - SYNCOPE AND COLLAPSE Status: Acute (2) V-tach Code(s): I47.2 - VENTRICULAR TACHYCARDIA Status: Acute (3) Acute kidney injury superimposed on CKD Code(s): N17.9 - ACUTE KIDNEY FAILURE, UNSPECIFIED; N18.9 - CHRONIC KIDNEY DISEASE, UNSPECIFIED Status: Acute (4) CKD (chronic kidney disease), stage III Code(s): N18.3 - CHRONIC KIDNEY DISEASE, STAGE 3 (MODERATE) Status: Acute (5) Cardiorenal syndrome Code(s): I13.10 - HYP HRT & CHR KDNY DIS W/O HRT FAIL, W STG 1-4/UNSP CHR KDNY Status: Acute (6) Congestive heart failure Code(s): I50.9 - HEART FAILURE, UNSPECIFIED Status: Acute (7) Diabetes mellitus Code(s): E11.9 - TYPE 2 DIABETES MELLITUS WITHOUT COMPLICATIONS Status: Acute (8) HLD (hyperlipidemia) Code(s): E78.5 - HYPERLIPIDEMIA, UNSPECIFIED Status: Chronic (9) HTN (hypertension) Code(s): I10 - ESSENTIAL (PRIMARY) HYPERTENSION Status: Chronic Qualifiers: Hypertension type: essential hypertension Qualified Code(s): I10 - Essential (primary) hypertension - Plan Plan: V-Tach w/ AICD Shock x 3, Syncopal Episode - Cardiology consulted, appreciate recs - Per Dr. Pichardo's note, no plans for LHC at this time due to ongoing need for diuresis. Plans to switch to torsemide tomorrow and hopeful discharge thereafter. - Amiodarone 200mg po daily. HFrEF Echo (03/28): EF 15-20% w/ Grade 1/3 Diastolic Dysfunction -Continue 1200 ml/day fluid restriction and measure daily I&Os, weight -On dobutamine drip. On PO Torsemide. Plans for d/c to inpatient rehab today or tomorrow, pending clinical course and discontinuation of dobutamine drip. -Down 12.75lbs this hospitalization. DENYS on CKD IV - Nephro consulted, appreciate recs. - No indication for HD at this time. DM2, Insulin Dependent -Will initiate home Lantus regimen -[facility] Accuchecks -Hypoglycemia Protocol HTN - Will restart home medication regimen. - Unable to tolerate CCB with heart failure, MONTRELL-I with kidney function. Microcytic Anemia -Likely Anemia of Chronic Disease - patient appears hemodynamically stable at this time -Will restart home iron regimen Peripheral Vascular Disease -s/p right-sided AKA -Continue home medication regimen Hyperlipidemia -Will continue home medication regimen PCP: [facility] - Dr. Jimenes Code: Full Lines: L femoral central line 11/12/2019. Activity: ad kamila, pt consulted Diet: CC w/ 1500 ml/day Fluid Restriction IVF: None VTE PPx: Heparin 5000u TID Dispo: continue current therapy and await adequate diuresis. Addendum - Attending - Attending Attestation Date/Time: 11/15/19 1331 I personally evaluated the patient and discussed the management with Dr. Baker I agree with the History, Examination, Assessment and Plan documented above with any addition or exceptions noted below - Patient without complaints. Afebrile VSS. A/P: 1) CHF exacerbation- changed to torsemide. Stop dobutamine as per cardiology. 2) CKD stage 4- continue to monitor; appreciate nephrology assistance. 4) Deconditioning - approved for rehab. Plan to d/c today.
[2019-11-15] MEDS: Gabapentin 300 MG CAP PO SCH (08:53)
[2019-11-15] MEDS: Famotidine 20 MG TAB PO SCH (08:53)
[2019-11-15] MEDS: hydrALAZINE 25 MG TAB PO SCH ×2 (08:54→15:59)
[2019-11-15] MEDS: Carvedilol 6.25 MG TAB PO SCH (08:54)
[2019-11-15] MEDS: Fenofibrate Nanocrystallized 145 MG TAB PO SCH (08:54)
[2019-11-15] MEDS: Heparin 5,000 UNITS/ML VIAL SC SCH ×2 (08:55→15:56)
[2019-11-15] MEDS: Sevelamer Carbonate 800 MG TAB PO SCH ×3 (08:55→17:26)
[2019-11-15] MEDS: Clopidogrel Bisulfate 75 MG TAB PO SCH (08:55)
[2019-11-15] MEDS: Isosorbide Mononitrate (ER) 30 MG TAB PO SCH (08:55)
[2019-11-15] MEDS: Aspirin 81 mg Enteric Coated Tablet PO SCH (08:55)
[2019-11-15] MEDS: Torsemide 20 MG TAB PO SCH ×2 (08:58→15:23)
[2019-11-15] MEDS ORDERED: Amiodarone 200 MG TAB PO SCH (09:00)
--- NOTE | 2019-11-15 10:36 | PRG ---
DATE OF SERVICE: 11/15/2019 SUBJECTIVE: A 59-year-old gentleman being seen for acute kidney injury. The patient denies nausea, vomiting, or chest pain. OBJECTIVE: General: The patient is awake and alert. General: The patient is awake and alert. Vital Signs: Afebrile, pulse 60, breathing at 16, blood pressure 144/65. HEENT: Head normocephalic and atraumatic. Eyes intact, no ulcers. Nose intact, no ulcers. Ears intact, no ulcers. Neck: Supple. No JVD. Chest: Symmetrical and clear. Cardiovascular: Shows S1 and S2, no rub, no murmur. Gastrointestinal: Abdomen is soft, bowel sounds positive. Extremities: Show no edema or ulcers. Skin: Shows no rash or petechiae. Musculoskeletal: Shows no joint swelling or stiffness. Genitourinary: Shows no Hinkle or CVA tenderness. Neurologic: Motor intact. Cranial nerves intact. LABORATORY DATA: Reviewed. ASSESSMENT AND PLAN: 1. Stage 4 chronic kidney disease with acute kidney injury due to cardiorenal syndrome. No urgent indication for dialysis. 2. Hypertension, stable. 3. Anemia, stable. 4. Medication based on GFR appropriate. Overall prognosis is poor. We will consider access placement. Job ID: [id number]
--- NOTE | 2019-11-15 12:12 | PDOC.CPN ---
- Subjective Date: 11/15/19 Time: 11:57 Interval history: He is diuresing very well on current dose of torsemide. - Review of Systems General: denies: fever/chills, weight/appetite/sleep changes, night sweats, fatigue Respiratory: denies: cough, congestion, shortness of breath, exercise intolerance Cardiovascular: reports: edema. denies: chest pain, palpitation, paroxysmal nocturnal dyspnea, orthopnea Gastrointestinal: denies: nausea, vomiting, diarrhea, constipation, abd pain, GI bleeding Musculoskeletal: denies: pain, tenderness, stiffness, swelling, arthritis/ arthralgias Neurological: denies: numbness, syncope, seizure, weakness - Objective Allergies/Adverse Reactions: Allergies Allergy/AdvReac Type Severity Reaction Status Date / Time ciprofloxacin [From Cipro] Allergy Severe Nausea Verified 11/08/19 00:39 Visit Medications: Current Medications Acetaminophen (Tylenol) 1,000 mg PO Q6H PRN PRN Reason: Moderate to Severe Pain (6-10) Last Admin: 11/10/19 22:33 Dose: 1,000 mg Amiodarone HCl (Cordarone) 200 mg PO DAILY [facility] Last Admin: 11/15/19 08:54 Dose: 200 mg Aspirin (Ecotrin) 81 mg PO DAILY [facility] Last Admin: 11/15/19 08:55 Dose: 81 mg Atorvastatin Calcium (Lipitor) 80 mg PO HS [facility] Last Admin: 11/14/19 20:57 Dose: 80 mg Carvedilol (Coreg) 6.25 mg PO BID [facility] Last Admin: 11/15/19 08:54 Dose: 6.25 mg Clopidogrel Bisulfate (Plavix) 75 mg PO DAILY [facility] Last Admin: 11/15/19 08:55 Dose: 75 mg Dextrose/Water (Dextrose 50%) 25 gm SLOW IVP PRN PRN PRN Reason: Hypoglycemia Famotidine (Pepcid) 20 mg PO DAILY [facility] Last Admin: 11/15/19 08:53 Dose: 20 mg Fenofibrate (Tricor) 145 mg PO DAILY [facility] Last Admin: 11/15/19 08:54 Dose: 145 mg Gabapentin (Neurontin) 300 mg PO BID [facility] Last Admin: 11/15/19 08:53 Dose: 300 mg Glucagon (Glucagon) 1 mg IM PRN PRN PRN Reason: Hypoglycemia Heparin Sodium (Porcine) (Heparin) 5,000 units SC TID [facility] Last Admin: 11/15/19 08:55 Dose: 5,000 units Hydralazine HCl (Apresoline) 25 mg PO TID [facility] Last Admin: 11/15/19 08:54 Dose: 25 mg Dextrose/Water (D5w) 1,000 mls @ 0 mls/hr IV .Q0M PRN PRN Reason: Hypoglycemia Insulin Glargine 20 units/ (Miscellaneous Medication) 0.2 mls @ 0 mls/hr SC HS [facility] Last Admin: 11/14/19 21:39 Dose: 0.2 mls Dobutamine HCl/Dextrose (Dobutamine 500 Mg/250 Ml) 250 mls @ 14.085 mls/hr IVPB INF [facility]; Protocol Last Admin: 11/15/19 06:09 Dose: 250 mls Insulin Human Lispro (Humalog) 0 units SC .MILD SLIDING SCALE PRN PRN Reason: Mild Correctional Scale Isosorbide Mononitrate (Imdur Er) 30 mg PO BID [facility] Last Admin: 11/15/19 08:55 Dose: 30 mg Ondansetron HCl (Zofran Odt) 4 mg PO Q6H PRN PRN Reason: Nausea/Vomiting Polyethylene Glycol (Miralax) 17 gm PO DAILYPRN PRN PRN Reason: Constipation Last Admin: 11/14/19 11:29 Dose: 17 gm Sevelamer Carbonate (Renvela) 800 mg PO TID-[facility] Last Admin: 11/15/19 11:41 Dose: 800 mg Sodium Chloride (Flush - Normal Saline) 10 ml IVF Q12HR [facility] Last Admin: 11/15/19 08:56 Dose: 10 ml Sodium Chloride (Flush - Normal Saline) 10 ml IVF PRN PRN PRN Reason: Saline Flush Torsemide (Demadex) 10 mg PO BID@0900,1400 [facility] Last Admin: 11/15/19 08:58 Dose: 10 mg Vital Signs & Weight: Vital Signs Temp Pulse Resp BP BP Pulse Ox 11/15/19 11:42 97.8 F 58 L 16 135/69 100 11/15/19 08:51 98.0 F 60 18 144/65 H 96 11/15/19 08:00 96 11/15/19 03:32 98.3 F 80 18 144/67 H 94 L Weight 186 lb 4.65 oz - Physical Exam General: alert & oriented x3 HEENT: mucus membranes moist Neck: supple neck Cardiac: regular rate and rhythm Lungs: normal breath sounds Neuro: grossly intact Abdomen: active bowel sounds Extremities: no edema Skin: clear Musculoskeletal: no pain - Labs Result Diagrams: 11/07/19 03:02 11/15/19 04:28 Troponin/CKMB CK-MB (CK-2) 2.8 ng/mL (0-6.6) 11/06/19 23:17 Troponin I 0.150 ng/mL (< 0.028) H 11/07/19 05:20 - Telemetry Sinus rhythms and dysrhythmias: sinus rhythm - Assessment/Plan Assessment/Plan: 1. Syncope 2. Vfib 3. S/P AICD shock 4. Ischemic CM 5. Acute on chronic systolic CHF. PLAN: - Continue PO torsemide at current dose. - Edema improved. - Will stop dobutamine, - May be discharged on current dose of torsemide for 1 week and then down to 10 mg dialy. - Amiodarone at 200 mg daily.
[2019-11-15 15:42] VITALS: BP 110/55; TEMP 97.6
== END 2019-11-15 17:06 | DRG 291 ==
LOC: ERS 22:37 → 2NO 11-07 00:18
PROVIDERS: ADMIT Family Medicine; ATTEND Family Medicine
PROC: 5A2204Z Restoration of Cardiac Rhythm, Single (ICD-10-PCS; principal; 2019-11-07)
PROC: 06HY33Z Insertion of Infusion Device into Lower Vein, Percutaneous Approach (ICD-10-PCS; 2019-11-11)
DX: I13.0 Hypertensive heart and chronic kidney disease with heart failure and stage 1 through stage 4 chronic kidney disease, or unspecified chronic kidney disease (principal); I49.01 Ventricular fibrillation; I50.23 Acute on chronic systolic (congestive) heart failure; N18.4 Chronic kidney disease, stage 4 (severe); N17.9 Acute kidney failure, unspecified; G40.909 Epilepsy, unspecified, not intractable, without status epilepticus; E11.22 Type 2 diabetes mellitus with diabetic chronic kidney disease; D63.8 Anemia in other chronic diseases classified elsewhere; E78.5 Hyperlipidemia, unspecified; I73.9 Peripheral vascular disease, unspecified; I25.10 Atherosclerotic heart disease of native coronary artery without angina pectoris; D50.9 Iron deficiency anemia, unspecified; R74.0 Nonspecific elevation of levels of transaminase and lactic acid dehydrogenase [LDH]; I25.5 Ischemic cardiomyopathy; R53.81 Other malaise; Z95.1 Presence of aortocoronary bypass graft; Z95.810 Presence of automatic (implantable) cardiac defibrillator; Z88.1 Allergy status to other antibiotic agents; Z79.82 Long term (current) use of aspirin; Z89.511 Acquired absence of right leg below knee; Z87.891 Personal history of nicotine dependence
CPT/HCPCS: 36415; 36416; 71045; 80053; 82553; 83735; 83880; 84100; 84443; 84484; 85025; 86704; 86706; 86803; 87340; 93005; 93010; 93798; 96365; 96376; J0282; J1250; J1644; J1815; J1940; J7070

== ENCOUNTER 2019-11-23 16:17 | Emergency (ER) | payer MEDICARE ==
[2019-11-23 16:56] LABS: #Basophils 0.1 thou/uL (0.0-0.2); #Eosinphils 0.2 thou/uL (0.0-0.7); #Monocytes 0.9 thou/uL (0.11-0.59); #Neutrophils 7.8 thou/uL (1.40-6.50); %Basophils 0.5 % (0.0-1.0); %Eosinophils 2.5 % (0.0-10.0); %Lymphocytes 9.8 % (21.0-51.0); %Monocytes 9.4 % (0.0-10.0); %Neutrophils 77.9 % (42.0-75.0); Hemoglobin 8.7 g/dL (14.0-18.0); Mean Corpuscular Hemoglobin 22.4 pg (27.0-31.0); Mean Corpuscular Volume 74.6 fL (78.0-98.0); Mean Platelet Volume 11.2 fL (7.4-10.4); Platelet Count 301 thou/uL (130-400); RBC Distribution Width 19.9 % (11.5-14.5); Red Blood Cell (RBC) Count 3.89 mill/uL (4.70-6.10)
--- NOTE | 2019-11-23 17:12 | RAD ---
SINGLE VIEW OF THE CHEST: 11/23/19 COMPARISON: 10/11/19 HISTORY: Defibrillator placement with multiple syncopal episodes since the placement. FINDINGS: Single view of the chest shows an enlarged cardiomediastinal silhouette. The patient is status post sternotomy. A pacemaker is unchanged in position. There is no evidence of consolidation, mass or pleu ral effusion. IMPRESSION: Cardiomegaly. POS: DEZA
[2019-11-23 17:19] LABS: ALT (SGPT) 16 U/L (8-55); AST (SGOT) 21 U/L (5-34); Albumin 3.5 g/dL (3.5-5.0); Alkaline Phosphatase 50 U/L (40-110); Anion Gap 16 mmol/L (10-20); BUN (Urea Nitrogen) 50 mg/dL (8.4-25.7); Bilirubin, Total 0.5 mg/dL (0.2-1.2); CK (CPK) 46 U/L (30-200); Calc. Creatinine Clearance 0 mL/min (70-130); Carbon Dioxide 20 mmol/L (22-29); Chloride 108 mmol/L (98-107); Estimated GFR-MDRD 16; Globulin 3.4 g/dL (2.4-3.5); Glucose 116 mg/dL (70-105); Potassium 5.7 mmol/L (3.5-5.1); Protein, Total 6.9 g/dL (6.0-8.3); Sodium 138 mmol/L (136-145)
[2019-11-23 17:39] LABS: CKMB 1.1 ng/mL (0-6.6)
[2019-11-23] MEDS ORDERED: Amiodarone HCl 150 MG in Dextrose 5% in Water 100 ML IVPB SCH (18:15)
--- NOTE | 2019-11-27 16:09 | EKG ---
Test Reason : Blood Pressure : / mmHG Vent. Rate : 056 BPM Atrial Rate : 056 BPM P-R Int : 240 ms QRS Dur : 136 ms QT Int : 472 ms P-R-T Axes : 045 057 195 degrees QTc Int : 455 ms Sinus bradycardia with 1st degree A-V block Non-specific intra-ventricular conduction block Cannot rule out Anterior infarct , age undetermined T wave abnormality, consider inferolateral ischemia Abnormal ECG Confirmed by MANJULA JANSEN DO ([id number]), newspaper or periodical editor YOANNA GARCÍA ([id number]) on 11/27/2019 4:09:07 PM Referred By: Confirmed By:MANJULA JANSEN DO
== END 2019-11-23 20:14 ==
LOC: ERS 16:17
DX: I47.2 Ventricular tachycardia (principal); I11.0 Hypertensive heart disease with heart failure; I50.9 Heart failure, unspecified; I43 Cardiomyopathy in diseases classified elsewhere; E11.9 Type 2 diabetes mellitus without complications; E78.5 Hyperlipidemia, unspecified; I25.2 Old myocardial infarction; Z87.891 Personal history of nicotine dependence; Z95.810 Presence of automatic (implantable) cardiac defibrillator; Z79.4 Long term (current) use of insulin; Z79.82 Long term (current) use of aspirin; Z79.899 Other long term (current) drug therapy; Z79.01 Long term (current) use of anticoagulants
CPT/HCPCS: 36415; 71045; 82550; 82553; 85025; 93005; 94760; 96374; J0282; J7070

== ENCOUNTER 2019-12-11 06:49 | Outpatient (CLI) | payer MEDICARE, OTHER ==
[2019-12-11 17:30] LABS: #Eosinphils 0.2 thou/uL (0.0-0.7); #Lymphocytes 1.1 thou/uL (1.20-3.40); #Monocytes 0.9 thou/uL (0.11-0.59); #Neutrophils 6.7 thou/uL (1.40-6.50); %Basophils 0.5 % (0.0-1.0); %Eosinophils 2.1 % (0.0-10.0); %Lymphocytes 11.9 % (21.0-51.0); %Neutrophils 75.5 % (42.0-75.0); Hemoglobin 8.7 g/dL (14.0-18.0); Mean Corpuscular HGB CONC 30.5 g/dL (32.0-36.0); Mean Corpuscular Hemoglobin 22.8 pg (27.0-31.0); Mean Corpuscular Volume 74.7 fL (78.0-98.0); Mean Platelet Volume 11.5 fL (7.4-10.4); Platelet Count 247 thou/uL (130-400); RBC Distribution Width 19.9 % (11.5-14.5); Red Blood Cell (RBC) Count 3.82 mill/uL (4.70-6.10); White Blood Cell (WBC) Count 8.8 thou/uL (4.8-10.8)
[2019-12-11 17:59] LABS: ALT (SGPT) 19 U/L (8-55); AST (SGOT) 27 U/L (5-34); Albumin 3.7 g/dL (3.5-5.0); Alkaline Phosphatase 50 U/L (40-110); Anion Gap 14 mmol/L (10-20); BUN (Urea Nitrogen) 46 mg/dL (8.4-25.7); Bilirubin, Total 0.6 mg/dL (0.2-1.2); Calc. Creatinine Clearance 0 mL/min (70-130); Calcium 8.8 mg/dL (7.8-10.44); Carbon Dioxide 18 mmol/L (22-29); Chloride 110 mmol/L (98-107); Estimated GFR-MDRD 18; Globulin 3.1 g/dL (2.4-3.5); Glucose 136 mg/dL (70-105); Potassium 4.3 mmol/L (3.5-5.1); Protein, Total 6.8 g/dL (6.0-8.3); Sodium 138 mmol/L (136-145)
[2019-12-12 11:05] LABS: SARS-CoV-2 MS2 Positive; SARS-CoV-2 N Gene Negative; SARS-CoV-2 S Gene Negative; SARS-CoV-2 orf1ab Negative
== END 2019-12-11 06:50 | disposition home or self-care (01) ==
LOC: LABBT 06:49
PROVIDERS: ATTEND Internal Medicine Cardiovascular Disease
DX: Z01.812 Encounter for preprocedural laboratory examination (principal); Z11.59 Encounter for screening for other viral diseases; I47.2 Ventricular tachycardia
CPT/HCPCS: 80053; 85025; U0003; 87635

== ENCOUNTER 2019-12-13 06:49 | Day surgery (SDC) | payer MEDICARE ==
[2019-12-13 09:23] LABS: Cardiac Risk 2.7 (Less than 4.5)
[2019-12-13] MEDS ORDERED: Iopamidol 370 76% 100 ML VIAL ONE (09:55)
[2019-12-13] MEDS ORDERED: Fentanyl 100 MCG/2 ML VIAL ONE (10:34)
[2019-12-13] MEDS ORDERED: Midazolam HCl 2 mg/2 ml Vial ONE (10:34)
== END 2019-12-13 16:51 | disposition home or self-care (01) ==
LOC: CCL 06:49
PROVIDERS: ATTEND Internal Medicine Cardiovascular Disease
PROC: B2111ZZ Fluoroscopy of Multiple Coronary Arteries using Low Osmolar Contrast (ICD-10-PCS; principal; 2019-12-13)
PROC: B2121ZZ Fluoroscopy of Single Coronary Artery Bypass Graft using Low Osmolar Contrast (ICD-10-PCS; 2019-12-13)
PROC: B2181ZZ Fluoroscopy of Left Internal Mammary Bypass Graft using Low Osmolar Contrast (ICD-10-PCS; 2019-12-13)
DX: I25.810 Atherosclerosis of coronary artery bypass graft(s) without angina pectoris (principal); I25.10 Atherosclerotic heart disease of native coronary artery without angina pectoris; I25.82 Chronic total occlusion of coronary artery; I47.2 Ventricular tachycardia; I13.0 Hypertensive heart and chronic kidney disease with heart failure and stage 1 through stage 4 chronic kidney disease, or unspecified chronic kidney disease; E11.22 Type 2 diabetes mellitus with diabetic chronic kidney disease; N18.3 Chronic kidney disease, stage 3 (moderate); I50.9 Heart failure, unspecified; E78.5 Hyperlipidemia, unspecified; E11.51 Type 2 diabetes mellitus with diabetic peripheral angiopathy without gangrene; I25.5 Ischemic cardiomyopathy; Z86.73 Personal history of transient ischemic attack (TIA), and cerebral infarction without residual deficits; Z87.891 Personal history of nicotine dependence; Z79.4 Long term (current) use of insulin; Z79.899 Other long term (current) drug therapy; Z88.1 Allergy status to other antibiotic agents; Z95.810 Presence of automatic (implantable) cardiac defibrillator; Z89.511 Acquired absence of right leg below knee; Z99.2 Dependence on renal dialysis
CPT/HCPCS: 76942; 80061; 93455; 99152; J1644; J2250; J3010; Q9967

== ENCOUNTER 2020-03-12 10:16 | Outpatient (CLI) | payer MEDICARE ==
--- NOTE | 2020-03-12 12:02 | CT ---
CT ABDOMEN AND PELVIS WITHOUT CONTRAST: Date: 03/12/2020 HISTORY: Urge incontinence and microhematuria. COMPARISON: 07/01/2016. FINDINGS: The absence of oral and IV contrast reduces the sensitivity of exam, particularly for evaluation of s olid organs and bowel. The lung bases are unremarkable. No free air or free fluid is seen in the abdomen or pelvis. A calcif ied granuloma in the posterior aspect of the right lobe of the liver is again seen. No calcified gall stones are noted. No calculi are seen in the kidneys, ureters, or the urinary bladder. No hydroureteronephrosis is seen on either side. The small bowel loops are not abnormally dilated. There is colonic diverticulosis. A normal appearing appendix is present. There are multilevel degenerative changes in the spine. There are bilateral pars articularis defects at L5 with minimal anterolisthesis of L5 over S1. IMPRESSION: 1. No CT evidence of urinary tract calculi or obstruction. 2. Colonic diverticulosis. POS: OFF
== END 2020-03-12 10:17 | disposition home or self-care (01) ==
LOC: BICCT 10:16
PROVIDERS: ATTEND Urology
DX: R31.29 Other microscopic hematuria (principal); N39.41 Urge incontinence; K57.30 Diverticulosis of large intestine without perforation or abscess without bleeding
CPT/HCPCS: 74176; 80048; 81001; 83036; 87086; G0103; 36415

== ENCOUNTER 2020-04-23 01:43 | Inpatient (IN) | payer MEDICARE, OTHER ==
[2020-04-23] MEDS ORDERED: Sodium Chloride 0.9% 100 ML ONE (02:24)
[2020-04-23] MEDS ORDERED: Cefepime 2 GM VIAL ONE (02:24)
[2020-04-23 02:45] LABS: Hemoglobin 11.9 g/dL (14.0-18.0); Mean Corpuscular HGB CONC 32.6 g/dL (32.0-36.0); Mean Corpuscular Volume 85.7 fL (78.0-98.0); Mean Platelet Volume 10.3 fL (7.4-10.4); Platelet Count 210 thou/uL (130-400); RBC Distribution Width 18.1 % (11.5-14.5); Red Blood Cell (RBC) Count 4.25 mill/uL (4.70-6.10); White Blood Cell (WBC) Count 21.6 thou/uL (4.8-10.8)
[2020-04-23 02:49] LABS: Bilirubin Negative (Negative); Blood, Urine Moderate (Negative); Glucose, Urine (Dipstick) Negative (Negative); Ketone, Urine Negative (Negative); Leukocyte Small (Negative); Nitrite Negative (Negative); Protein, Urine (Dipstick) > or equal to 300 mg/dL (Neg-Trace); Specific Gravity, Urine 1.025 (1.005-1.030); Urobilinogen 0.2 mg/dL (Less than 2)
[2020-04-23 02:50] LABS: Clarity Cloudy (Clear)
[2020-04-23 02:58] LABS: Bacteria/HPF 4+ HPF (None Seen); Squamous Epithelial None Seen HPF (0-3); WBC/HPF Greater than 50 HPF (0-3)
[2020-04-23 02:59] LABS: Sperm/HPF 4+ HPF (None Seen)
[2020-04-23 03:04] LABS: ALT (SGPT) 18 U/L (8-55); AST (SGOT) 22 U/L (5-34); Albumin 3.8 g/dL (3.5-5.0); Alkaline Phosphatase 62 U/L (40-110); Anion Gap 14 mmol/L (10-20); BUN (Urea Nitrogen) 49 mg/dL (8.4-25.7); Bilirubin, Total 0.6 mg/dL (0.2-1.2); CK (CPK) 222 U/L (30-200); Calc. Creatinine Clearance 0 mL/min (70-130); Calcium 8.9 mg/dL (7.8-10.44); Carbon Dioxide 22 mmol/L (22-29); Chloride 105 mmol/L (98-107); Estimated GFR-MDRD 17; Globulin 3.2 g/dL (2.4-3.5); Glucose 108 mg/dL (70-105); Lipase 12 U/L (8-78); Potassium 3.8 mmol/L (3.5-5.1); Sodium 137 mmol/L (136-145)
[2020-04-23 03:06] LABS: Band 12 % (5-11); Lymphocytes 4 % (21-51); MDiff Complete? YES; Monocytes 9 % (0-10); Neutrophil 75 % (42-75)
[2020-04-23] MEDS ORDERED: Vancomycin 1 GM/200 ML BAG ONE (03:08)
[2020-04-23] MEDS ORDERED: Acetaminophen 325 MG TAB ONE (03:23)
[2020-04-23 03:25] LABS: CKMB 1.3 ng/mL (0-6.6)
--- NOTE | 2020-04-23 03:44 | PDOC.FPRHP ---
- History of Present Illness Chief Complaint: Leg weakness and fall History of Present Illness: Pt is a 60M presenting to the ED for generalized weakness and ICD defibrillation. He started feeling weakness in his L leg accompanied by two falls around noon on 04/22. He did not hit his head or have LOC. He denies dizziness, N/V, palpitations. 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 As such, he normally lays in bed all day. He has an ICD that was placed ~1yr ago for an arrhythmia that went off earlier this morning. Coupled with his malaise he decided to call EMS. On arrival, they noticed he had a T of 103. His [employer] D[employer] is Dr. Pichardo whom he last saw ~1mo ago. His ICD was last checked ~1mo ago when he saw Dr. Yip. In the ED, he was found to have a positive UA and was started on Vancomycin and Cefepime. He met SIRS criteria d/t having a fever, tachypnea, and en elevated WBC. ED Course: 500mL NS bolus, 650mg Tylenol, 1g IV Vancomycin, 2g IV Cefepime - Allergies/Adverse Reactions Allergies Allergy/AdvReac Type Severity Reaction Status Date / Time ciprofloxacin [From Cipro] Allergy Severe Nausea Verified 12/11/19 17:01 - Home Medications Medication Instructions Recorded Confirmed Type Atorvastatin Calcium 80 mg PO 12/05/17 04/23/20 History Gabapentin [Neurontin] 300 mg PO BID [facility] 01/22/19 04/23/20 Rx Sevelamer Carbonate [Renvela] 800 mg PO TID- 02/28/19 04/23/20 History Carvedilol [Coreg] 6.25 mg PO BID- 09/24/19 04/23/20 History Clopidogrel Bisulfate [Plavix] 75 mg PO DAILY 09/24/19 04/23/20 History Fenofibrate Nanocrystallized 145 mg PO DAILY 09/24/19 04/23/20 History [Fenofibrate] Insulin Glargine [Lantus] 15 units SC 09/24/19 12/13/19 History Amiodarone [Cordarone] 200 mg PO DAILY 11/07/19 04/23/20 History hydrALAZINE [Apresoline] 25 mg PO TID-[facility] 11/07/19 04/23/20 History Isosorbide Mononitrate [Imdur ER] 30 mg PO BID tab 11/15/19 12/13/19 Rx Torsemide [Demadex] 20 mg PO BID 12/11/19 12/13/19 History Famotidine 20 mg PO DAILY 04/23/20 04/23/20 History Tamsulosin HCl 0.4 mg PO DAILY 04/23/20 04/23/20 History - History PMH: CHF, arrhythmia, CKD stage 4 w/o HD, HTN, T2DM, HLD, multiple TIAs, pos sible [place] PSH: L ankle, R arm d/t fx, R BKA 01/2019 d/t DM, CABG 2009 All: one abx Social: no tob/EtOH/drugs Fam Hx: DM, HTN, HLD, CHF in parents - Review of Systems General: reports: fatigue. denies: fever/chills Eyes: denies: vision changes ENT: denies: nasal congestion, rhinorrhea Respiratory: reports: cough. denies: shortness of breath, exercise intolerance Cardiovascular: denies: chest pain, palpitation, edema, paroxysmal nocturnal dyspnea, orthopnea Gastrointestinal: denies: nausea, vomiting, diarrhea Genitourinary: reports: dysuria (since prostate probe), polyuria Skin: denies: rashes Musculoskeletal: denies: swelling, arthritis/arthralgias Neurological: reports: weakness. denies: numbness, syncope - Vital signs BP: 113/63 HR: 59 RR: 20 Tmax: 102.8F Pox: 97% on RA - Physical Exam Constitutional: NAD, well developed -Constitutional: Extremely lethargic and slow to speak. Struggling to stay awake as I ask him questions which he says is d/t it being 0430 and him being used to being asleep. He states he is not normally this drowsy. HEENT: normocephalic and atraumatic, EOMI (Difficult to appreciate downward deflection d/t eyelids closing), grossly normal vision, grossly normal hearing -HEENT: Vertical and horizontal nystagmus b/l Neck: supple Heart: RRR (difficult to auscultate), pulses present, no edema Lungs: no respiratory distress, no wheezing, no retractions -Lungs: Difficult to auscultate d/t transmitted upper airway sounds. Possible crackles b/l. Breathing heavily - can only say ~4 words before having to take a breath Abdomen: soft, bowel sounds present, no masses/distention Musculoskeletal: normal structure, normal tone, ROM grossly normal Neurological: no focal deficit, CN II-XII intact -Neurological: No disdiadochokinesia or dysmetria Skin: no rash/lesions Heme/Lymphatic: no unusual bruising or bleeding Psychiatric: intact recent and remote memory FMR H&P: Results - Labs Result Diagrams: 04/23/20 02:32 04/23/20 02:32 Lab results: WBC 21.6 thou/uL (4.8-10.8) H 04/23/20 02:32 Hgb 11.9 g/dL (14.0-18.0) L 04/23/20 02:32 Hct 36.4 % (42.0-52.0) L 04/23/20 02:32 MCV 85.7 fL (78.0-98.0) 04/23/20 02:32 Plt Count 210 thou/uL (130-400) 04/23/20 02:32 Band Neuts % (Manual) 12 % (5-11) H 04/23/20 02:32 Sodium 137 mmol/L (136-145) 04/23/20 02:32 Potassium 3.8 mmol/L (3.5-5.1) 04/23/20 02:32 Chloride 105 mmol/L (98-107) 04/23/20 02:32 Carbon Dioxide 22 mmol/L (22-29) 04/23/20 02:32 BUN 49 mg/dL (8.4-25.7) H 04/23/20 02:32 Creatinine 3.71 mg/dL (0.7-1.3) H 04/23/20 02:32 Glucose 108 mg/dL (70-105) H 04/23/20 02:32 Lactic Acid 1.0 mmol/L (0.5-2.2) 04/23/20 02:32 Calcium 8.9 mg/dL (7.8-10.44) 04/23/20 02:32 Total Bilirubin 0.6 mg/dL (0.2-1.2) 04/23/20 02:32 AST 22 U/L (5-34) 04/23/20 02:32 ALT 18 U/L (8-55) 04/23/20 02:32 Alkaline Phosphatase 62 U/L (40-110) 04/23/20 02:32 Creatine Kinase 222 U/L (30-200) H 04/23/20 02:32 CK-MB (CK-2) 1.3 ng/mL (0-6.6) 04/23/20 02:32 B-Natriuretic Peptide 1339.7 pg/mL (0-100) H 04/23/20 02:32 Serum Total Protein 7.0 g/dL (6.0-8.3) 04/23/20 02:32 Albumin 3.8 g/dL (3.5-5.0) 04/23/20 02:32 Lipase 12 U/L (8-78) 04/23/20 02:32 Urine Ketones Negative mg/dL (Negative) 04/23/20 02:33 Urine Blood Moderate (Negative) A 04/23/20 02:33 Urine Nitrite Negative (Negative) 04/23/20 02:33 Ur Leukocyte Esterase Small (Negative) H 04/23/20 02:33 Urine RBC 11-20 HPF (0-3) A 04/23/20 02:33 Urine WBC Greater than 50 HPF (0-3) A 04/23/20 02:33 Ur Squamous Epith Cells None Seen HPF (0-3) 04/23/20 02:33 Urine Bacteria 4+ HPF (None Seen) A 04/23/20 02:33 FMR H&P: A/P - Plan Sepsis 2/2 UTI - SIRS: tachypnea, fever, WBC of 21.6 with 12% bands Unsure of baseline mentation. Possible AMS - UA pos for protein, blood, leuks, bacteria - UCx, BCx pending - am CBC, BMP ordered - Received NS bolus in ED - LR at 60mL/h d/t CHF and CKD - Cefepime and Vanc, renally dosed Pharm to dose Vanc Arrhythmia s/p ICD placement - ICD checked ~1mo ago by Dr. Yip, per pt - Admit to tele - Continue home meds CHF - No echo available in [facility] - Unclear whether HFpEF or HFrEF - Gentle fluid resuscitation - Monitor fluid status - Resume home meds Elev Trops - Trop 0.128 - Possibly 2/2 ICD defibrillation - Trend trops Elev CK - CK of 222, higher than baseline - Suspect it will decrease with fluid resuscitation CKD - Cr 3.71 on arrival, which is about baseline - Continue to monitor with BMP - Renally dose medications - Avoid nephrotoxic medications T2DM - MD aware - Resume home meds - ACHS glucose checks Normocytic Anemia - H/H of 11.9/36.4, higher than before - MCV 85.7 - Consider iron studies, RBC folate, Vit B12 - Monitor with CBCs and transfuse if appropriate HTN - Monitor - Continue home meds HLD - MD aware - Continue home meds Hx of stroke - Neuro exam nml, see physical exam findings - Minimal residual effects, per pt - MED DIR consulted for swallow study NPO until completed - Continue home Plavix CAD with hx of CABG - MD aware - Continue home Plavix Dispo: tele obs, LOS >24h IVF: LR 60mL/h DVT Ppx: home Plavix GI Ppx: Pepcid PCP: MARA Jimenes FMR H&P: Upper Level - Plan Date/Time: 04/23/20 0344 IVivian MD, have evaluated this patient and agree with findings/plan as outlined by international relations teacher resident. Pertinent changes/additions are listed here. HPI: 60 yo M with PMH of T2DM, HLD, CKD4, HFrEF, TIAs, possible [place], and R BKA presents for worsening weakness over the past few days. Patient reports he fell yesterday but denies hitting his head or LOC. Pt reports his AICD went off, so he came to the ED. He stated he has been seeing urology for concern for prostate cancer. Denies fever/chills, chest pain/palpitations, SOB or cough. ED: CXR no acute finding. UA showed UTI. Troponin indeterminate. EKG showed SR with first degree AV block, LVH. QTC 465. Given: NS 500 ml, Tylenol 650 mg, vanc 1 g, cefepime 2 g. Physical exam: male with Right BKA, Lungs BCTA, Cardiac RRR, no murmurs. trace pitting edema BLE A/P: #Sepsis 2/2 UTI -WBC 21.6, Febrile to 102.8 -UA positive, received vanc and cefepime in ED. -Continue vanc and cefepime -Blood and urine cultures pending -Possibly 2/2 urinary retention from BPH/prostate cancer -Consider urology consult and renal sono #T2DM -continue statin, lantus, Mild SSI with accuchecks #CKD 4 -Cr 3.7, at baseline. GFR 17, at baseline -Continue to monitor #Indeterminate trop -Likely 2/2 AICD vs NSTEMI type 2 vs other -Trend trop #AICD fired, Hx Vfib -AICD in place -Interrogate AICD -Monitor on Tele for arrythmia -continue amiodarone #HTN -continue home meds: carvedilol, hydralazine, torsemide #HFrEF -home torsemide -Echo 03/2019: EF 15-20%, Grade 1/3 DD, dilated LV, mild concentric LVH, mod dilated LA, AV sclerosis, akinesis anterior wall -Not fluid overloaded on exam, CXR wnl, BNP 1339, but much less than last BNP of 4000 -Gentle IV fluid rehydration, LR @ 60 ml/hr #BPH, possible prostate cancer -continue tamsulosin #hx former tobacco abuse Diet:NPO GI ppx: famotidine DVT ppx: PCP: Purvi Code status: Full Dispo: admit to tele inpatient, LOS >48 hours. Continue antibiotics pending cultures.
[2020-04-23 04:00] LABS: SARS-CoV-2 NAA Rapid Test Not Detected (NotDetected)
[2020-04-23] MEDS ORDERED: Ondansetron ODT 4 MG TAB PO PRN (07:00)
[2020-04-23] MEDS ORDERED: Lactated Ringer's 1,000 ML IV SCH ×2 (07:00→07:27)
[2020-04-23] MEDS ORDERED: Ondansetron PF 4 MG/2 ML Vial IVP PRN (07:00)
[2020-04-23] MEDS ORDERED: Acetaminophen 325 MG TAB PO PRN ×2 (07:01→07:27)
[2020-04-23] MEDS ORDERED: HYDROcodone/Acetaminophen 5/325 mg Tablet PO PRN ×2 (07:01)
[2020-04-23 07:14] LABS: Troponin I 0.218 ng/mL (< 0.028)
[2020-04-23] MEDS ORDERED: HumaLOG 300 UNITS/3 ML VIAL SC PRN (07:27)
[2020-04-23] MEDS ORDERED: Dextrose 5% in Water 1,000 ML IV PRN (07:27)
[2020-04-23] MEDS ORDERED: Dextrose 50% Abboject 50 ML SYRINGE SLOW IVP PRN (07:27)
--- NOTE | 2020-04-23 07:48 | RAD ---
RADIOGRAPH CHEST 1 VIEW: DATE: 04/23/2020 HISTORY: 60-year-old male with cough FINDINGS: There is no airspace density, pulmonary edema, or pneumothorax. The lateral costophrenic angles are n ot effaced. Sternotomy wires. Left subclavian single lead AICD. IMPRESSION: No acute pulmonary findings.
[2020-04-23 08:57] LABS: Troponin I 0.242 ng/mL (< 0.028)
[2020-04-23] MEDS ORDERED: Clopidogrel Bisulfate 75 MG TAB PO SCH (09:00)
[2020-04-23] MEDS ORDERED: Famotidine 20 MG TAB PO SCH (09:00)
[2020-04-23] MEDS ORDERED: Torsemide 10 MG TAB PO SCH (09:00)
[2020-04-23] MEDS: Clopidogrel Bisulfate 75 MG TAB PO SCH (09:45)
[2020-04-23] MEDS: Tamsulosin HCl 0.4 MG CAP PO SCH (10:30)
[2020-04-23] MEDS: hydrALAZINE 25 MG TAB PO SCH ×3 (10:30→21:11)
[2020-04-23] MEDS: Amiodarone 200 MG TAB PO SCH (10:31)
[2020-04-23] MEDS: Famotidine 20 MG TAB PO SCH (10:31)
[2020-04-23 11:02] VITALS: BMI 29.2
[2020-04-23] MEDS ORDERED: Vancomycin 1 GM in Premix Bag 1 BAG IVPB SCH (12:00)
[2020-04-23] MEDS ORDERED: Fenofibrate Nanocrystallized 145 MG TAB PO SCH (12:45)
[2020-04-23] MEDS: Sevelamer Carbonate 800 MG TAB PO SCH ×2 (13:01→18:07)
--- NOTE | 2020-04-23 13:49 | HP ---
I have examined the patient. I have discussed the case with Dr. Esthela Contreras. HISTORY OF PRESENT ILLNESS: Briefly, Mr. Sanon is a very pleasant 60-year-old man, who last sensibly presented to the ED for malaise and generalized weakness of one day's duration. He was noted in the ER to have a fever of 103 degrees, a very high white count, and a very abnormal urinalysis. He was therefore admitted with possible sepsis secondary to acute prostatitis. PHYSICAL EXAMINATION: VITAL SIGNS: On exam, his blood pressure is 113/60, his heart rate is 60, respirations are 20, his temperature is 102.8 degrees. His room air pulse ox is 97%. GENERAL: On my exam this morning, he was much more alert, awake, talkative with A and O x4. HEENT: Ear, nose, and throat were clear. No erythema or exudate. NECK: Supple. CARDIAC: Heart rhythm is regular. No gallop or murmur noted. LUNGS: Clear without rales or wheezes. ABDOMEN: Flat and soft. NEUROLOGIC: No focal deficits. LABORATORY DATA: White count was 21,600, hemoglobin 11.9, hematocrit 36.4, platelets were 210,000. He had 75% neutrophils with marked left shift. His urinalysis showed greater than 50 white cells per high-power field, 11 to 20 red cells. ASSESSMENT: 1. Acute prostatitis. 2. Sepsis secondary to #1. PLAN: Admit, begin antibiotics, fluids. Restart his . Job ID: [id number]
[2020-04-23] MEDS ORDERED: Cefepime 2 GM in Sodium Chloride 0.9% 100 ML IVPB SCH (15:00)
[2020-04-23] MEDS: Carvedilol 6.25 MG TAB PO SCH (18:07)
[2020-04-23] MEDS: Insulin Glargine 15 UNITS in Pre-Filled Syringe 1 EACH SC SCH (21:12)
[2020-04-23] MEDS: Gabapentin 300 MG CAP PO SCH (21:12)
[2020-04-23] MEDS: Atorvastatin Calcium 40 MG TAB PO SCH (21:12)
[2020-04-23] MEDS: Torsemide 10 MG TAB PO SCH (21:14)
[2020-04-24] MEDS: Cefepime 1 GM in Sodium Chloride 0.9% 100 ML IVPB SCH ×2 (02:58→15:35)
[2020-04-24 04:55] LABS: #Eosinphils 0.2 thou/uL (0.0-0.7); #Lymphocytes 1.2 thou/uL (1.20-3.40); #Monocytes 2.1 thou/uL (0.11-0.59); #Neutrophils 15.9 thou/uL (1.40-6.50); %Basophils 0.2 % (0.0-1.0); %Eosinophils 1.2 % (0.0-10.0); %Lymphocytes 5.9 % (21.0-51.0); %Monocytes 10.7 % (0.0-10.0); %Neutrophils 82.1 % (42.0-75.0); Hemoglobin 10.9 g/dL (14.0-18.0); Mean Corpuscular Hemoglobin 28.4 pg (27.0-31.0); Mean Platelet Volume 10.1 fL (7.4-10.4); Platelet Count 187 thou/uL (130-400); RBC Distribution Width 17.6 % (11.5-14.5); Red Blood Cell (RBC) Count 3.84 mill/uL (4.70-6.10); White Blood Cell (WBC) Count 19.4 thou/uL (4.8-10.8)
[2020-04-24 05:18] LABS: Anion Gap 14 mmol/L (10-20); BUN (Urea Nitrogen) 50 mg/dL (8.4-25.7); Calc. Creatinine Clearance 26 mL/min (70-130); Calcium 8.9 mg/dL (7.8-10.44); Carbon Dioxide 22 mmol/L (22-29); Chloride 104 mmol/L (98-107); Estimated GFR-MDRD 17; Glucose 82 mg/dL (70-105); Potassium 3.6 mmol/L (3.5-5.1); Sodium 136 mmol/L (136-145)
--- NOTE | 2020-04-24 05:58 | PDOC.FM ---
- Subjective Subjective: No acute overnight events. Patient denies fever, chills, malaise, abdominal pain. Urinating without difficulty. No new complaints. Feeling fine. - Objective Vital Signs & Weight: Vital Signs (12 hours) Temp Pulse Resp BP BP Pulse Ox 04/24/20 03:30 98.4 F 64 16 152/72 H 98 04/24/20 00:00 99.0 F 73 15 119/58 L 97 04/23/20 21:11 60 146/66 H 04/23/20 21:10 146/66 H 04/23/20 20:00 98.0 F 62 17 115/65 95 04/23/20 18:07 144/71 H Weight Weight 85.457 kg I&O: 04/22/20 04/23/20 04/24/20 06:59 06:59 06:59 Intake Total 580 Output Total 700 Balance -120 Result Diagrams: 04/24/20 04:33 04/24/20 04:33 EKG Reviewed by me: Yes (tele: SR 60-70s) Phys Exam - Physical Examination Constitutional: NAD HEENT: moist MMs Neck: supple Respiratory: clear to auscultation bilateral Cardiovascular: RRR Gastrointestinal: soft, non-tender, no distention, positive bowel sounds R BKA Neurological: moves all 4 limbs Psychiatric: normal affect, A&O x 3 Skin: no rash Dx/Plan - Plan Plan: Sepsis 2/2 UTI Febrile, tachypneic, leukocytosis on admission. Leukocytosis persist but no longer has vital sign derangements. s/p NS bolus in ED. UA positive for protein, blood, leukocytes, bacteria. Reports recent rectal examination and urologic instrumentation a couple of weeks prior to onset of symptoms. - UCx, BCx pending - LR at 60mL/h d/t CHF and CKD - Cefepime and Vanc, renally dosed Pharm to dose Vanc Arrhythmia s/p ICD placement - ICD checked ~1mo ago by Dr. Yip, per pt - ICD interrogated, 1 event reported since last check - Admit to tele - Continue home meds CHF -home torsemide -Echo 03/2019: EF 15-20%, Grade 1/3 DD, dilated LV, mild concentric LVH, mod dilated LA, AV sclerosis, akinesis anterior wall -Not fluid overloaded on exam, CXR wnl, BNP 1339, but much less than last BNP of 4000 -Gentle IV fluid rehydration, LR @ 60 ml/hr Elev Trops Trended troponins relatively stable, especially in the setting of CKD with likely decreased clearance. No ACS symptoms. Likely 2/2 defibrillation. Elev CK - CK of 222, higher than baseline - Suspect it will decrease with fluid resuscitation CKD - Cr 3.71 on arrival, which is about baseline - Continue to monitor with BMP - Renally dose medications - Avoid nephrotoxic medications T2DM - MD aware - Resume home meds - ACHS glucose checks Normocytic Anemia - H/H of 11.9/36.4, higher than before - MCV 85.7 - Consider iron studies, RBC folate, Vit B12 HTN - Monitor - Continue home meds HLD - MD aware - Continue home meds Hx of stroke - Neuro exam nml - Minimal residual effects, per pt - Continue home Plavix CAD with hx of CABG - MD aware - Continue home Plavix Dispo: tele obs, LOS >24h IVF: LR 60mL/h DVT Ppx: home Plavix GI Ppx: Pepcid PCP: MARA Jimenes
[2020-04-24] MEDS ORDERED: FLU VACC QS2020-21(6MOS UP)/PF 60 MCG/0.5 ML SYRINGE IM ONE (09:00)
[2020-04-24] MEDS: Clopidogrel Bisulfate 75 MG TAB PO SCH (09:59)
[2020-04-24] MEDS: hydrALAZINE 25 MG TAB PO SCH ×3 (10:00→21:46)
[2020-04-24] MEDS: Famotidine 20 MG TAB PO SCH (10:00)
[2020-04-24] MEDS ORDERED: Vancomycin 1 GM in Premix Bag 1 BAG IVPB SCH ×2 (10:00→11:00)
[2020-04-24] MEDS: Fenofibrate Nanocrystallized 145 MG TAB PO SCH (10:01)
[2020-04-24] MEDS: Tamsulosin HCl 0.4 MG CAP PO SCH (10:01)
[2020-04-24] MEDS: Cholecalciferol 1,000 UNITS (25 MCG) TAB PO SCH (10:02)
[2020-04-24] MEDS: Amiodarone 200 MG TAB PO SCH ×2 (10:02→21:45)
[2020-04-24] MEDS: Carvedilol 6.25 MG TAB PO SCH ×2 (10:03→17:23)
[2020-04-24] MEDS: Torsemide 10 MG TAB PO SCH ×2 (10:04→21:46)
[2020-04-24] MEDS: Sevelamer Carbonate 800 MG TAB PO SCH ×3 (10:05→17:23)
--- NOTE | 2020-04-24 11:20 | PRG ---
DATE OF SERVICE: 04/24/2020 Mr. Sanon looks and feels much better this morning. He is afebrile. His white count dropped, but it is still significantly elevated. His dysuria is much improved. We are still awaiting results of his urine culture. We will as a courtesy noticed by his urologist to let to know he did have urinary tract infection. Otherwise, continue intravenous antibiotics until urine cultures are returned. Job ID: [id number]
--- NOTE | 2020-04-24 13:28 | PDOC.CPN ---
- Subjective Date: 04/24/20 Time: 13:26 - Objective Allergies/Adverse Reactions: Allergies Allergy/AdvReac Type Severity Reaction Status Date / Time ciprofloxacin [From Cipro] Allergy Severe Nausea Verified 12/11/19 17:01 Visit Medications: Current Medications Acetaminophen (Acetaminophen 325 Mg Tab) 650 mg PO Q4H PRN PRN Reason: Headache/Fever/Mild Pain (1-3) Last Admin: 04/23/20 14:40 Dose: 650 mg Documented by: Amiodarone HCl (Amiodarone 200 Mg Tab) 200 mg PO DAILY [facility] Last Admin: 04/24/20 10:02 Dose: 200 mg Documented by: Atorvastatin Calcium (Atorvastatin Calcium 40 Mg Tab) 80 mg PO [facility] Last Admin: 04/23/20 21:12 Dose: 80 mg Documented by: Carvedilol (Carvedilol 6.25 Mg Tab) 6.25 mg PO BID-[facility] Last Admin: 04/24/20 10:03 Dose: 6.25 mg Documented by: Cholecalciferol (Cholecalciferol 1,000 Units (25 Mcg) Tab) 1,000 units PO DAILY [facility] Last Admin: 04/24/20 10:02 Dose: 1,000 units Documented by: Clopidogrel Bisulfate (Clopidogrel Bisulfate 75 Mg Tab) 75 mg PO DAILY [facility] Last Admin: 04/24/20 09:59 Dose: 75 mg Documented by: Dextrose/Water (Dextrose 50% Abboject 50 Ml Syringe) 25 gm SLOW IVP PRN PRN PRN Reason: Hypoglycemia Famotidine (Famotidine 20 Mg Tab) 20 mg PO DAILY [facility] Last Admin: 04/24/20 10:00 Dose: 20 mg Documented by: Fenofibrate (Fenofibrate Nanocrystallized 145 Mg Tab) 145 mg PO DAILY [facility] Last Admin: 04/24/20 10:01 Dose: 145 mg Documented by: Gabapentin (Gabapentin 300 Mg Cap) 300 mg PO [facility] Last Admin: 04/23/20 21:12 Dose: 300 mg Documented by: Glucagon (Glucagon 1 Mg/Ml Vial) 1 mg IM PRN PRN PRN Reason: Hypoglycemia Hydralazine HCl (Hydralazine 25 Mg Tab) 25 mg PO TID [facility] Last Admin: 04/24/20 10:00 Dose: 25 mg Documented by: Dextrose/Water (D5w) 1,000 mls @ 0 mls/hr IV .Q0M PRN PRN Reason: Hypoglycemia Cefepime HCl 1 gm/ Sodium (Chloride) 100 mls @ 200 mls/hr IVPB 0200,1400 [facility] Last Admin: 04/24/20 02:58 Dose: 100 mls Documented by: Vancomycin HCl 1 gm/ Device 200 mls @ 200 mls/hr IVPB .DOSE BY LEVEL [facility] Insulin Glargine 15 units/ (Miscellaneous Medication) 0.15 mls @ 0 mls/hr SC HS [facility] Last Admin: 04/23/20 21:12 Dose: 0.15 mls Documented by: Insulin Human Lispro (Humalog 300 Units/3 Ml Vial) 0 units SC .MILD SLIDING SCA LE PRN PRN Reason: Mild Correctional Scale Isosorbide Mononitrate (Isosorbide Mononitrate Er 30 Mg Tab) 30 mg PO BID [facility] Last Admin: 04/24/20 10:00 Dose: 30 mg Documented by: Miscellaneous Medication (Pharmacy To Dose Vancomycin) 1 each IVPB PRN PRN PRN Reason: Pharmacy to dose Sevelamer Carbonate (Sevelamer Carbonate 800 Mg Tab) 800 mg PO TID-WM [facility] Last Admin: 04/24/20 11:36 Dose: 800 mg Documented by: Sodium Chloride (Flush - Normal Saline 10 Ml Syringe) 10 ml IVF Q12HR [facility] Last Admin: 04/24/20 11:37 Dose: 10 ml Documented by: Sodium Chloride (Flush - Normal Saline 10 Ml Syringe) 10 ml IVF PRN PRN PRN Reason: Saline Flush Tamsulosin HCl (Tamsulosin Hcl 0.4 Mg Cap) 0.4 mg PO DAILY [facility] Last Admin: 04/24/20 10:01 Dose: 0.4 mg Documented by: Torsemide (Torsemide 10 Mg Tab) 20 mg PO BID [facility] Last Admin: 04/24/20 10:04 Dose: 20 mg Documented by: Vital Signs & Weight: Vital Signs Temp Pulse Resp BP BP Pulse Ox 04/24/20 12:00 98.1 F 56 L 20 115/59 L 92 L 04/24/20 10:03 118/58 L 04/24/20 10:00 66 04/24/20 08:00 98.7 F 66 20 118/58 L 94 L 04/24/20 03:30 98.4 F 64 16 152/72 H 98 Weight 188 lb 6.4 oz - Labs Result Diagrams: 04/24/20 04:33 04/24/20 04:33 Troponin/CKMB CK-MB (CK-2) 1.3 ng/mL (0-6.6) 04/23/20 02:32 Troponin I 0.242 ng/mL (< 0.028) H 04/23/20 08:23 - Assessment/Plan Assessment/Plan: See dictation from 04/24/20
--- NOTE | 2020-04-24 14:12 | CON ---
DATE OF CONSULTATION: 04/24/2020 REASON FOR CONSULTATION: AICD shock. HISTORY OF PRESENT ILLNESS: Mr. Sanon is a very pleasant 60-year-old gentleman, who comes to the hospital for an AICD shock. He also was found to have a fever on arrival and was diagnosed with urinary tract infection and elevated white count. He was started on IV antibiotics, and Cardiology has been consulted for his ICD shock. Defibrillator was interrogated, and he did receive AICD therapy appropriately. He has a history of ischemic cardiomyopathy. Heart catheterization was back in December, it showed severe disease, but nothing to revascularize at that time. He had an AICD placed last year and continued to receive shocks, so he underwent VT ablation with Dr. Yip in January. Mr. Sanon states that he was told to take 200 mg twice a day of amiodarone since then, but he has only been taking it once a day. He states that he has been having AICD shocks since the ablation. PAST MEDICAL HISTORY: 1. Ischemic cardiomyopathy with EF about 20% to 25%. 2. Coronary artery disease, status post CABG. 3. Most recent heart catheterization showing occluded vein graft to the right and occluded point hope ira coronaries, collateral flow to the right from circumflex and LAD after anastomosis. 4. Peripheral vascular disease with right BKA. 5. AICD placement last year. 6. Status post CABG in 2009. 7. Chronic kidney disease, stage 4 to 5. 8. Hypertension. 9. Seizure disorder. SURGICAL HISTORY: 1. Right BKA in January of last year. 2. CABG x2 in 2009. 3. Heart catheterization more recently. 4. AICD placement recently as well. MEDICATIONS: 1. Isosorbide mononitrate 30 mg b.i.d. 2. Insulin Lantus 50 units subcu q.h.s. 3. Torsemide 40 mg a day. 4. Vitamin D3. 5. Hydralazine 25 mg t.i.d. 6. Amiodarone 200 mg a day. 7. Renvela. 8. Fenofibrate 145 mg a day. 9. Tamsulosin 0.4 mg a day. 10. Neurontin 300 mg b.i.d. 11. Atorvastatin 80 mg q.h.s. 12. Famotidine 20 mg a day. 13. Plavix 75 mg a day. 14. Carvedilol 6.25 b.i.d. ALLERGIES: CIPRO GIVES HIM SEVERE NAUSEA. REVIEW OF SYSTEMS: A 12-point review of systems was done and was found to be negative other than stated in the history of present illness. FAMILY HISTORY: Noncontributory. SOCIAL HISTORY: Quit smoking in 2018. No alcohol or drugs. PHYSICAL EXAMINATION: VITAL SIGNS: Temperature 98.1, pulse 56, respiratory rate 20, saturating 92% on room air, and blood pressure 115/59. GENERAL: Awake, alert, and oriented x3. No distress. HEENT: Normocephalic and atraumatic. NECK: Supple. LUNGS: Clear. CARDIOVASCULAR: S1 and S2. No S3 or S4. No murmurs. No rubs. ABDOMEN: Soft. Positive bowel sounds. EXTREMITIES: Right BKA. SKIN: Warm and dry. LABORATORY DATA: Laboratory work was reviewed. White count of 21 on admission, down to 19; hemoglobin of 11.9; hematocrit of 36; platelet count of 210. Chemistries showed a BUN of 50, creatinine of 3.70, which is close to his baseline. UA showed a 4+ bacteria with greater than 50 white cells. Serology: COVID PCR was not detected. Urine culture was positive for Klebsiella and Enterobacter, more than 100,000 colony-forming units. Influenza A and B were negative. Blood cultures were both negative. Interrogation of AICD was reviewed. ASSESSMENT: 1. Ventricular tachycardia, status post an appropriate ICD shock successfully treating event. 2. Urinary tract infection. 3. Ischemic cardiomyopathy with EF of 10% to 15% on last evaluation. 4. Status post ventricular tachycardia ablation more recently. 5. Severe coronary artery disease with no areas to revascularize at this time. PLAN: 1. Continue amiodarone for now. May need to go up to 200 mg b.i.d. We will defer to Electrophysiology, already spoke with Dr. Yip to see what he recommends as he has already had a VT ablation. Mexiletine is another choice. We will defer to Electrophysiology for this. 2. I do not think we need to do another heart catheterization at this moment. His troponins are in the indeterminate range, which is consistent with his ischemic cardiomyopathy and septic-type picture. 3. Thank you for letting us participate in the care of your patient. Job ID: [id number]
--- NOTE | 2020-04-24 18:02 | CON ---
DATE OF CONSULTATION: 04/24/2020 REASON FOR CONSULTATION: ICD shock, ventricular tachycardia. HISTORY OF PRESENT ILLNESS: I am seeing Mr. Sanon at our [facility] at the medical floor as an electrophysiology consultation. His problems are; 1. ICD shock. 2. Recurrent ventricular tachycardia despite amiodarone, status post VT ablation in January 2020. 3. History of chronic systolic heart failure with ischemic cardiomyopathy. a. 2D echo from 03/27/2019, LVEF 15% to 20%, mild LVH, mild MR, moderate left atrial enlargement, mild TR. 4. Peripheral vascular disease. a. Poorly healing ulcers with right BKA. 5. Single-chamber ICD implant on 05/19/2019, [employer]. 6. Chronic kidney disease, stage 3, with consideration for dialysis. 7. Right ventricular dysfunction. 8. Seizure disorder. 9. Diabetes. 10. Hypertension. 11. Urosepsis. ALLERGIES: NONE. HOME MEDICATIONS: 1. Imdur 30 mg b.i.d. 2. Lantus 15 units at bedtime. 3. Torsemide 40 mg daily. 4. Vitamin D 1000 units daily. 5. Apresoline 25 mg t.i.d. 6. Amiodarone 100 mg daily. 7. Renvela 800 mg t.i.d. 8. Fenofibrate 145 mg daily. 9. Tamsulosin 0.4 mg daily. 10. Neurontin 300 mg p.o. b.i.d. 11. Atorvastatin 80 mg at bedtime. 12. Famotidine 20 mg daily. 13. Plavix 75 mg daily. 14. Coreg 6.25 mg p.o. b.i.d. SUBJECTIVE: Mr. Sanon presented to the emergency room after receiving an ICD shock that woke him from his sleep. He has had this happened before. He had been feeling significantly weakened and was found to be experiencing urosepsis, for which antibiotics have been started. He denied any chest pain recently. He was last seen approximately a month ago in my office, where I instructed him to increase his amiodarone to 200 mg daily, but he admits to not doing this dose increase and that he was still taking amiodarone 100 mg daily. PAST MEDICAL HISTORY: As above. SOCIAL HISTORY: Positive for smoking, quit in 2018. Denies alcohol or drug use. FAMILY HISTORY: Noncontributory. PHYSICAL EXAMINATION: VITAL SIGNS: Temperature 98.1, pulse 66, blood pressure 118/58, respirations 20, oxygen 92% on room air. GENERAL: The patient is alert and oriented, is in no apparent distress at the time of the exam, resting comfortably in bed. NECK: Supple. Jugular veins are nondistended. There is no lymphadenopathy. Trachea is midline. CHEST: Coarse without crackles. HEART: Regularly regular with no significant murmur, rub, or gallop. ABDOMEN: Benign with positive bowel sounds throughout. Hepatojugular reflux is negative. EXTREMITIES: Left lower extremity without clubbing or cyanosis. Right BKA is appreciated. Right upper extremity has a scar anterior along the radial side of his forearm. MUSCULOSKELETAL: No joint swelling or deformities apart from BKA. SKIN: Without rash. Midsternal scar is also well healed. There is a left precordial device palpated, site is without reaction. LABORATORY DATA: EKG was reviewed, revealing largely sinus rhythm. There was an episode of ventricular tachycardia, appropriately terminated with shock from his defibrillator. WBC 21.6 on admission, currently 19.4; hemoglobin 10.9; platelet count is 187. Chemistry; potassium 3.6, creatinine 3.7. BNP 1339.7. AST 22, ALT 18, alkaline phosphatase 62. ICD check: It is a [employer] dual-chamber ICD. Battery longevity is adequate. Lead parameters are stable. Mode, VVI 40. At 12:30 a.m. prior to admission, he was seen to have an episode of monomorphic ventricular tachycardia, not responsive to three rounds of ATP. His monomorphic with a cycle length of approximately 300 milliseconds appropriately terminated with a shock, restoring sinus rhythm. Normal ICD function is noted. ASSESSMENT AND PLAN: Mr. Sanon is a 60-year-old gentleman with a history of chronic systolic congestive heart failure and ischemic cardiomyopathy with prior bypass grafting. His LVEF is severely reduced in the 15% to 20% range by the most recent echocardiogram available. He had a prophylactic ICD implant in May 2019 and has been seen to have sustained ventricular tachycardia, refractory to amiodarone since then. He underwent VT ablation in January of 2020, but has had recurrent VT episodes despite ongoing amiodarone use. He did not increase his amiodarone after his recent appointment and has once again received two ICD shocks for recurrent VT. This is in the setting of urosepsis. The VT episodes are slightly slower than previously seen. His prior VT at a cycle length of 210 to 240 milliseconds and now we are seeing more of the 290 to 330 millisecond cycle length range, but also monomorphic. the shocks promptly terminated his arrhythmias. My plan for him is to increase amiodarone and reload him while he is in the hospital with amiodarone 400 mg p.o. b.i.d., but decreasing the dose prior to his discharge home. We will monitor for QT prolongation and adjustment of his antibiotics maybe necessary for QT prolongation if seen. Long-term, I feel he will likely require repeat VT ablation, though this will be arranged as an outpatient after he has recovered from his recent infectious illness. His single-chamber ICD is functioning adequately. Thank you for allowing me to participate in the care of this patient. We will re-evaluate on Monday, but do not hesitate to reach out if further input is desired. Job ID: [id number]
[2020-04-24] MEDS: Atorvastatin Calcium 40 MG TAB PO SCH (21:46)
[2020-04-24] MEDS: Gabapentin 300 MG CAP PO SCH (21:46)
[2020-04-24] MEDS: Insulin Glargine 15 UNITS in Pre-Filled Syringe 1 EACH SC SCH (21:47)
[2020-04-25] MEDS: Cefepime 1 GM in Sodium Chloride 0.9% 100 ML IVPB SCH ×2 (03:17→14:46)
--- NOTE | 2020-04-25 05:13 | PDOC.FM ---
- Subjective Subjective: Patient doing well this AM, wanting to go home, no acute concerns - Objective Vital Signs & Weight: Vital Signs (12 hours) Temp Pulse Resp BP BP Pulse Ox 04/25/20 04:00 98.2 F 55 L 16 131/61 94 L 04/24/20 23:39 97.8 F 59 L 23 H 137/65 95 04/24/20 21:46 59 L 127/61 04/24/20 20:48 98.7 F 59 L 29 H 127/61 97 04/24/20 20:00 97 04/24/20 17:23 121/66 Weight Weight 85.457 kg I&O: 04/23/20 04/24/20 04/25/20 06:59 06:59 06:59 Intake Total 580 Output Total 700 Balance -120 Result Diagrams: 04/26/20 04:50 04/26/20 04:50 Phys Exam - Physical Examination Constitutional: NAD Respiratory: no wheezing, no rales, no rhonchi Cardiovascular: RRR, no significant murmur, no rub Gastrointestinal: soft, non-tender, no distention, positive bowel sounds Musculoskeletal: no edema, pulses present Dx/Plan - Plan Plan: Sepsis 2/2 UTI Febrile, tachypneic, leukocytosis on admission. Leukocytosis persist but no longer has vital sign derangements. Reports recent rectal examination and urologic instrumentation a couple of weeks prior to onset of symptoms. - UCx grew klebsiella and enterobacter - Cefepime renally dosed - PO abx difficult with cipro allergy and CKD hindering Bactrim Arrhythmia s/p ICD placement - ICD checked ~1mo ago by Dr. Yip, per pt - ICD interrogated, 1 event reported since last check - Admit to tele - Increase Amiodarone to [address] Yip CHF -home torsemide -Echo 03/2019: EF 15-20%, Grade 1/3 DD, dilated LV, mild concentric LVH, mod dilated LA, AV sclerosis, akinesis anterior wall -Not fluid overloaded on exam, CXR wnl, BNP 1339, but much less than last BNP of 4000 Elev Trops Trended troponins relatively stable, especially in the setting of CKD with likely decreased clearance. No ACS symptoms. Likely 2/2 defibrillation. Elev CK - CK of 222, higher than baseline - Suspect it will decrease with fluid resuscitation CKD - Cr 3.71 on arrival, which is about baseline - Continue to monitor with BMP - Renally dose medications - Avoid nephrotoxic medications T2DM - MD aware - Resume home meds - ACHS glucose checks Normocytic Anemia - H/H of 11.9/36.4, higher than before - MCV 85.7 - Consider iron studies, RBC folate, Vit B12 HTN - Monitor - Continue home meds HLD - MD aware - Continue home meds Hx of stroke - Neuro exam nml - Minimal residual effects, per pt - Continue home Plavix CAD with hx of CABG - MD aware - Continue home Plavix Dispo: tele obs, LOS >24h IVF: none DVT Ppx: home Plavix GI Ppx: Pepcid PCP: MARA Jimenes
[2020-04-25 07:34] LABS: #Eosinphils 0.4 thou/uL (0.0-0.7); #Lymphocytes 0.9 thou/uL (1.20-3.40); #Monocytes 1.4 thou/uL (0.11-0.59); #Neutrophils 9.2 thou/uL (1.40-6.50); %Basophils 0.2 % (0.0-1.0); %Eosinophils 3.3 % (0.0-10.0); %Lymphocytes 7.3 % (21.0-51.0); %Monocytes 11.6 % (0.0-10.0); %Neutrophils 77.7 % (42.0-75.0); Hemoglobin 10.8 g/dL (14.0-18.0); Mean Corpuscular HGB CONC 32.4 g/dL (32.0-36.0); Mean Corpuscular Hemoglobin 28.4 pg (27.0-31.0); Mean Corpuscular Volume 87.5 fL (78.0-98.0); Mean Platelet Volume 9.8 fL (7.4-10.4); Platelet Count 206 thou/uL (130-400); RBC Distribution Width 17.1 % (11.5-14.5); Red Blood Cell (RBC) Count 3.81 mill/uL (4.70-6.10); White Blood Cell (WBC) Count 11.8 thou/uL (4.8-10.8)
[2020-04-25 07:48] LABS: Anion Gap 13 mmol/L (10-20); BUN (Urea Nitrogen) 60 mg/dL (8.4-25.7); Calc. Creatinine Clearance 24 mL/min (70-130); Calcium 9.1 mg/dL (7.8-10.44); Carbon Dioxide 24 mmol/L (22-29); Chloride 104 mmol/L (98-107); Estimated GFR-MDRD 16; Glucose 109 mg/dL (70-105); Potassium 3.5 mmol/L (3.5-5.1); Sodium 137 mmol/L (136-145)
[2020-04-25] MEDS: Cholecalciferol 1,000 UNITS (25 MCG) TAB PO SCH (09:45)
[2020-04-25] MEDS: hydrALAZINE 25 MG TAB PO SCH ×3 (09:45→22:59)
[2020-04-25] MEDS: Tamsulosin HCl 0.4 MG CAP PO SCH (09:45)
[2020-04-25] MEDS: Carvedilol 6.25 MG TAB PO SCH ×2 (09:45→17:41)
[2020-04-25] MEDS: Sevelamer Carbonate 800 MG TAB PO SCH ×3 (09:46→17:41)
[2020-04-25] MEDS: Clopidogrel Bisulfate 75 MG TAB PO SCH (09:46)
[2020-04-25] MEDS: Amiodarone 200 MG TAB PO SCH ×2 (09:46→22:59)
[2020-04-25] MEDS: Famotidine 20 MG TAB PO SCH (09:46)
[2020-04-25] MEDS: Torsemide 10 MG TAB PO SCH ×2 (09:47→23:00)
[2020-04-25] MEDS: Fenofibrate Nanocrystallized 145 MG TAB PO SCH (09:47)
--- NOTE | 2020-04-25 11:47 | EKG ---
Test Reason : Blood Pressure : / mmHG Vent. Rate : 078 BPM Atrial Rate : 078 BPM P-R Int : 218 ms QRS Dur : 136 ms QT Int : 408 ms P-R-T Axes : 041 017 134 degrees QTc Int : 465 ms Sinus rhythm with 1st degree A-V block with occasional Premature ventricular complexes Possible Left atrial enlargement Left ventricular hypertrophy with QRS widening and repolarization abnormality Abnormal ECG Confirmed by VIRGILIO BARRIOS ([id number]), managing editor GEORGETTE MUSTAFA ([id number]) on 04/25/2020 11:47:14 AM Referred By: Confirmed By:VIRGILIO BARRIOS
[2020-04-25] MEDS: Insulin Glargine 15 UNITS in Pre-Filled Syringe 1 EACH SC SCH (22:58)
[2020-04-25] MEDS: Atorvastatin Calcium 40 MG TAB PO SCH (22:59)
[2020-04-25] MEDS: Gabapentin 300 MG CAP PO SCH (22:59)
[2020-04-26] MEDS: Cefepime 1 GM in Sodium Chloride 0.9% 100 ML IVPB SCH ×2 (02:16→14:04)
--- NOTE | 2020-04-26 04:20 | PDOC.FM ---
- Subjective Subjective: Patient reports that he is doing well overall. Denies CP/SOB. - Objective MAR Reviewed: Yes Vital Signs & Weight: Vital Signs (12 hours) Temp Pulse Resp BP BP Pulse Ox 04/26/20 04:00 98.1 F 63 16 148/74 H 97 04/26/20 00:00 98.6 F 61 17 119/71 97 04/25/20 22:59 52 L 128/60 04/25/20 20:00 98.1 F 60 17 109/54 L 97 04/25/20 17:41 132/62 Weight Weight 85.457 kg I&O: 04/24/20 04/25/20 04/26/20 06:59 06:59 06:59 Intake Total 580 840 Output Total 700 1450 Balance -120 -610 Result Diagrams: 04/26/20 04:50 04/26/20 04:50 Phys Exam - Physical Examination Constitutional: NAD Respiratory: no wheezing, no rales, no rhonchi, clear to auscultation bilateral Cardiovascular: RRR, no significant murmur, no rub Gastrointestinal: soft, non-tender, no distention, positive bowel sounds R BKA Dx/Plan - Plan Plan: Plan: Sepsis 2/2 UTI Febrile, tachypneic, leukocytosis on admission. Leukocytosis persist but no long er has vital sign derangements. Reports recent rectal examination and urologic instrumentation a couple of weeks prior to onset of symptoms. - UCx grew klebsiella and enterobacter - Cefepime renally dosed - will switch to PO abx SS Bactrim QD at DC Arrhythmia s/p ICD placement - ICD checked ~1mo ago by Dr. Yip, per pt - ICD interrogated, 1 event reported since last check - Admit to tele - Increase Amiodarone to [address] Yip CHF -home torsemide -Echo 03/2019: EF 15-20%, Grade 1/3 DD, dilated LV, mild concentric LVH, mod dilated LA, AV sclerosis, akinesis anterior wall -Not fluid overloaded on exam, CXR wnl, BNP 1339, but much less than last BNP of 4000 Elev Trops Trended troponins relatively stable, especially in the setting of CKD with likely decreased clearance. No ACS symptoms. Likely 2/2 defibrillation. Elev CK - CK of 222, higher than baseline - Suspect it will decrease with fluid resuscitation CKD - Cr 3.71 on arrival, which is about baseline - Continue to monitor with BMP - Renally dose medications - Avoid nephrotoxic medications T2DM - MD aware - Resume home meds - ACHS glucose checks Normocytic Anemia - H/H of 11.9/36.4, higher than before - MCV 85.7 - Consider iron studies, RBC folate, Vit B12 HTN - Monitor - Continue home meds HLD - MD aware - Continue home meds Hx of stroke - Neuro exam nml - Minimal residual effects, per pt - Continue home Plavix CAD with hx of CABG - MD aware - Continue home Plavix Dispo: tele obs, LOS >24h IVF: none DVT Ppx: home Plavix GI Ppx: Pepcid PCP: MARA Jimenes Addendum - Attending - Attending Attestation Date/Time: 04/26/20 [id number] I personally evaluated the patient and discussed the management with Dr. Tena I agree with the History, Examination, Assessment and Plan documented above with any addition or exceptions noted below. Recommend d/c on cephalosporin due potential sulfa interaction with amiodarone.
[2020-04-26 05:09] LABS: #Basophils 0.1 thou/uL (0.0-0.2); #Eosinphils 0.4 thou/uL (0.0-0.7); #Lymphocytes 1.1 thou/uL (1.20-3.40); #Monocytes 1.4 thou/uL (0.11-0.59); %Basophils 0.5 % (0.0-1.0); %Eosinophils 3.6 % (0.0-10.0); %Lymphocytes 10.8 % (21.0-51.0); %Monocytes 14.2 % (0.0-10.0); %Neutrophils 70.9 % (42.0-75.0); Mean Corpuscular HGB CONC 32.4 g/dL (32.0-36.0); Mean Corpuscular Hemoglobin 27.7 pg (27.0-31.0); Mean Corpuscular Volume 85.4 fL (78.0-98.0); Mean Platelet Volume 9.9 fL (7.4-10.4); Platelet Count 226 thou/uL (130-400); RBC Distribution Width 17.2 % (11.5-14.5); Red Blood Cell (RBC) Count 3.97 mill/uL (4.70-6.10); White Blood Cell (WBC) Count 9.9 thou/uL (4.8-10.8)
[2020-04-26 05:37] LABS: Anion Gap 16 mmol/L (10-20); BUN (Urea Nitrogen) 69 mg/dL (8.4-25.7); Calc. Creatinine Clearance 22 mL/min (70-130); Calcium 8.8 mg/dL (7.8-10.44); Carbon Dioxide 22 mmol/L (22-29); Chloride 105 mmol/L (98-107); Estimated GFR-MDRD 14; Glucose 97 mg/dL (70-105); Potassium 3.7 mmol/L (3.5-5.1); Sodium 139 mmol/L (136-145)
[2020-04-26] MEDS: Famotidine 20 MG TAB PO SCH (09:50)
[2020-04-26] MEDS: Tamsulosin HCl 0.4 MG CAP PO SCH (09:50)
[2020-04-26] MEDS: Clopidogrel Bisulfate 75 MG TAB PO SCH (09:50)
[2020-04-26] MEDS: Torsemide 10 MG TAB PO SCH (09:50)
[2020-04-26] MEDS: Carvedilol 6.25 MG TAB PO SCH (09:50)
[2020-04-26] MEDS: Sevelamer Carbonate 800 MG TAB PO SCH ×2 (09:51→12:02)
[2020-04-26] MEDS: Fenofibrate Nanocrystallized 145 MG TAB PO SCH (09:51)
[2020-04-26] MEDS: hydrALAZINE 25 MG TAB PO SCH (09:51)
[2020-04-26] MEDS: Cholecalciferol 1,000 UNITS (25 MCG) TAB PO SCH (09:51)
[2020-04-26] MEDS: Amiodarone 200 MG TAB PO SCH (09:52)
[2020-04-26 12:02] VITALS: BP 117/62; TEMP 97.7
--- NOTE | 2020-04-26 19:50 | CON ---
DATE OF CONSULTATION: 04/26/2020 CONSULTING PHYSICIAN: REASON FOR CONSULTATION: Acute kidney injury on chronic kidney disease. REASON FOR ADMISSION: Leg weakness. HISTORY OF PRESENT ILLNESS: A 60-year-old male with history of arrhythmia, CKD, hyperlipidemia, TIA, type 2 diabetes, came to the hospital with above complaints and was found to have acute kidney injury as well as Klebsiella UTI and is going home on antibiotics. Nephrology was also consulted. No fever or chills reported to me. No chest pain or palpitation. The patient will be going home today. PAST MEDICAL HISTORY: Positive for chronic kidney disease, CHF, hypertension, type 2 diabetes, hyperlipidemia. PAST SURGICAL HISTORY: Right BKA, CABG surgery, and left ankle surgery. HOME MEDICATIONS: Reviewed. ALLERGIES: CIPROFLOXACIN. SOCIAL HISTORY: No smoking, alcohol, or illicit drugs. FAMILY HISTORY: Positive for diabetes. REVIEW OF SYSTEMS: The following complete review of systems was negative, unless otherwise mentioned in the HPI or below: Constitutional: Weight loss or gain, ability to conduct usual activities. Skin: Rash, itching. Eyes: Double vision, pain. ENT/Mouth: Nose bleeding, neck stiffness, pain, tenderness. Cardiovascular: Palpitations, dyspnea on exertion, orthopnea. Respiratory: Shortness of breath, wheezing, cough, hemoptysis, fever or night sweats. Gastrointestinal: Poor appetite, abdominal pain, heartburn, nausea, vomiting, constipation, or diarrhea. Genitourinary: Urgency, frequency, dysuria, nocturia. Musculoskeletal: Pain, swelling. Neurologic/Psychiatric: Anxiety, depression. Allergy/Immunologic: Skin rash, bleeding tendency. PHYSICAL EXAMINATION: GENERAL: This is a well-built male, in no apparent distress. VITAL SIGNS: Temperature 97.7, pulse 90, respiratory rate 18, blood pressure HEENT: Atraumatic, normocephalic. Oral mucosa is moist. NECK: Supple. CARDIOVASCULAR: S1, S2 heard. Rate and rhythm regular. RESPIRATORY: Clear. GASTROINTESTINAL: Abdomen is soft. MUSCULOSKELETAL: No tenderness. No edema. DERMATOLOGIC: No skin rash. NEUROLOGIC: Alert and awake. PSYCHIATRIC: Normal mood and affect. LABORATORY DATA: Hemoglobin is 11.0. Potassium 3.7, BUN is 69, creatinine is 4.3 with a GFR of 14. His baseline GFR is around 15 to 18. ASSESSMENT AND PLAN: 1. Acute kidney injury on chronic kidney stage 4, stable labs, most likely from urinary tract infection. 2. Urinary tract infection. Would avoid Bactrim, but seems like he does not have any choice. The patient needs to limit potassium intake and have labs every 5 days until he finishes a course of Bactrim and labs may be 5 days after he finishes the course. The patient was advised to follow up with the clinic in 1 week. 3. History of hypertension. 4. Diabetes. 5. Diabetic nephropathy. 6. Proteinuria. 7. Leukocytosis. 8. Edema, controlled. 9. Patient was advised to follow up with the clinic within 1 week with labs checked before the visit. Thank you for the consult. Job ID: [id number]
== END 2020-04-26 14:28 | disposition home or self-care (01) | DRG 872 ==
LOC: ERS 01:43 → 2SE 03:47
PROVIDERS: ADMIT Family Medicine; ATTEND Family Medicine
DX: A41.59 Other Gram-negative sepsis (principal); I13.0 Hypertensive heart and chronic kidney disease with heart failure and stage 1 through stage 4 chronic kidney disease, or unspecified chronic kidney disease; N18.4 Chronic kidney disease, stage 4 (severe); I50.22 Chronic systolic (congestive) heart failure; N41.0 Acute prostatitis; N39.0 Urinary tract infection, site not specified; N17.9 Acute kidney failure, unspecified; I47.2 Ventricular tachycardia; R79.89 Other specified abnormal findings of blood chemistry; E78.5 Hyperlipidemia, unspecified; E11.22 Type 2 diabetes mellitus with diabetic chronic kidney disease; N40.0 Benign prostatic hyperplasia without lower urinary tract symptoms; D63.1 Anemia in chronic kidney disease; I25.5 Ischemic cardiomyopathy; G40.909 Epilepsy, unspecified, not intractable, without status epilepticus; E11.51 Type 2 diabetes mellitus with diabetic peripheral angiopathy without gangrene; I08.1 Rheumatic disorders of both mitral and tricuspid valves; Z79.899 Other long term (current) drug therapy; Z79.02 Long term (current) use of antithrombotics/antiplatelets; Z79.4 Long term (current) use of insulin; I25.2 Old myocardial infarction; Z86.73 Personal history of transient ischemic attack (TIA), and cerebral infarction without residual deficits; Z89.511 Acquired absence of right leg below knee; Z95.1 Presence of aortocoronary bypass graft; Z95.810 Presence of automatic (implantable) cardiac defibrillator; Z87.891 Personal history of nicotine dependence; Z23 Encounter for immunization; Z88.1 Allergy status to other antibiotic agents
CPT/HCPCS: 36415; 36416; 71045; 80048; 80053; 80202; 81003; 81015; 82550; 82553; 83605; 83690; 83880; 84484; 85025; 87040; 87077; 87086; 87186; 87804; 90471; 90662; 93005; 96365; 96367; G0008; J0692; J1815; J3370; J3490; U0002